=== PATIENT | male | born 1955 | race Caucasian/White ===

== ENCOUNTER → 2020-08-04 10:13 | Outpatient (BNVA) | payer OTHER, SELFPAY | PROVIDERS: Visit Provider Physician Assistant | DX: Z01.818 Encounter for other preprocedural examination (principal) | CPT/HCPCS: 99203 ==

== ENCOUNTER 2020-08-24 07:08 | Outpatient (REF) | payer OTHER, SELFPAY ==
--- NOTE | 2020-08-24 07:14 | CT_ITS ---
EXAMINATION: CT CHEST SCREENING CLINICAL INFORMATION: Nicotine dependence without complications. COMPARISON: None. TECHNIQUE: Multidetector volumetric CT imaging of the chest is performed without contrast using low dose technique. Additional 2D coronal and sagittal reformatted images and axial 3D maximum intensity projection (MIP) images are generated on the CT workstation. This CT examination was performed using dose optimization techniques as appropriate, variously including the following: *Automated exposure control *Adjustment of mA and/or kV according to patient size (this includes techniques or standardized protocols for targeted exams where dose is matched to indication/reason for exam; i.e. extremities or head) *Use of iterative reconstruction technique DLP: 86 mGy-cm. FINDINGS: LUNGS: There is mild centrilobular emphysema. There is a 4 mm pleural-based nodule right upper lobe axial image 136/6, a 4 mm pleural-based nodule right upper lobe posteriorly image 152/6. There are postsurgical changes in the superior segment right upper lobe likely from wedge resection. There are 2 mm nodules right lower lobe better visualized on 8 mm thick axial images image 74/9 and 5 mm thin slices axial image 33/4 and 32/4. There is a small 3 mm nodule right middle lobe axial image 35/4. There are other smaller 1-2 mm nodules which are stable as well. MEDIASTINUM: The thyroid gland is symmetrical and normal. The central trachea and the bronchi are widely patent. Heart size and the great vessels are normal caliber. There are coronary artery calcifications present. No pericardial effusion seen. PLEURA: There is no pleural effusion. No pleural mass or thickening. AXILLA: No lymphadenopathy. UPPER ABDOMEN: Unremarkable. OSSEOUS STRUCTURES: There is no lytic or sclerotic process seen. There is mild ventral spondylosis lower dorsal spine. There are bilateral shoulder prosthesis. CT/CT lung screening IMPRESSION: Stable pulmonary nodules. Postsurgical changes right lower lobe emphysema. ASSESSMENT: Lung-RADS category 2: Benign. RECOMMENDATION: Low-dose annual CT chest follow-up.
== END 2020-08-24 07:09 | disposition home or self-care (01) ==
LOC: HO.CT 07:08
PROVIDERS: PCP Internal Medicine; Visit Provider Surgery
DX: F17.210 Nicotine dependence, cigarettes, uncomplicated (principal)
CPT/HCPCS: 71250

== ENCOUNTER → 2020-09-28 07:54 | Outpatient (BNVA) | payer OTHER, SELFPAY | PROVIDERS: PCP Internal Medicine; Referring Provider Internal Medicine; Visit Provider Physician Assistant | DX: Z01.818 Encounter for other preprocedural examination (principal) | CPT/HCPCS: 99212 ==

== ENCOUNTER → 2020-12-20 09:23 | Outpatient (BNVA) | payer OTHER, SELFPAY | PROVIDERS: PCP Internal Medicine; Visit Provider Internal Medicine | DX: I25.10 Atherosclerotic heart disease of native coronary artery without angina pectoris (principal); I35.8 Other nonrheumatic aortic valve disorders; I65.23 Occlusion and stenosis of bilateral carotid arteries; I10 Essential (primary) hypertension | CPT/HCPCS: 93005; 99212 ==

== ENCOUNTER 2020-12-25 01:15 | Emergency (ER) | payer OTHER, SELFPAY ==
--- NOTE | ~2020-12-25 | XR_ITS ---
EXAMINATION: XR CHEST CLINICAL INFORMATION: Shortness of breath COMPARISON: 08/18/2019 TECHNIQUE: Frontal view of the chest was obtained. FINDINGS: Right shoulder arthroplasty. Cardiac leads overlie the chest. Cervical fusion hardware. The lungs are well expanded. Linear scarring/suture line at the right midlung. There is no focal consolidation, edema, or effusion. No pneumothorax. The cardiomediastinal silhouette is within normal limits. No acute osseous abnormality. XR/XR chest 1V IMPRESSION: No acute pulmonary finding.
[2020-12-25 01:27] VITALS: BP 149/71; PULSE 73; RESP 20; TEMP 36.7; O2SAT 99; BMI 29.6
--- NOTE | 2020-12-25 01:27 | ED_ITS ---
HPI - SOB/Dyspnea General Chief Complaint: Chest Pain Stated Complaint: Diff Breathing Time Seen by Provider: 12/25/20 01:27 Source: patient Mode of arrival: EMS History of Present Illness HPI Narrative: This is a 65-year-old male who was undergone recent loss of his and presents with complaints shortness of breath as well as burning chest pain that he describes as going up his chest and into the back of his throat and has been associated with abdominal discomfort, diarrhea, chills. Patient states he has not been sleeping or eating well and that today he had been drinking alcohol. Related Data Home Medications Medication Instructions Recorded Confirmed aspirin 81 mg tablet,delayed 81 mg PO DAILY 08/04/20 12/20/20 release atorvastatin 80 mg tablet 80 mg PO DAILY 08/04/20 12/20/20 tizanidine 4 mg tablet 4 mg PO BEDTIME 08/04/20 12/20/20 triamcinolone acetonide 0.1 % 1 appl TOPICAL BID 08/04/20 12/20/20 topical ointment Previous Rx's Medication Instructions Recorded gabapentin 300 mg capsule 300 mg PO BEDTIME #90 cap 08/17/20 fenofibrate 54 mg tablet 54 mg PO DAILY #90 tab 09/03/20 amlodipine 5 mg tablet 5 mg PO DAILY #30 tab 11/12/20 hydrocodone 5 mg-acetaminophen 325 1 tab PO Q6H PRN 30 Days #120 tab 12/10/20 mg tablet Allergies Allergy/AdvReac Type Severity Reaction Status Date / Time No Known Allergies Allergy Verified 12/01/20 12:14 [No Known Allergies*] Review of Systems Review of Systems: Pertinent positives and negatives as stated in HPI 10 point review systems is otherwise negative. [facility] Past Medical History Source: nursing notes reviewed Medical History Aortic valve calcification Aortic valve sclerosis ASHD (arteriosclerotic heart disease) Atherosclerotic cardiovascular disease Bilateral carotid artery stenosis CAD (coronary artery disease) Dyslipidemia Essential hypertension History of CVA with residual deficit Hx of lymphoma Hx of multiple pulmonary nodules Insomnia Leukocytosis Smoker Surgical History H/O colonoscopy H/O total shoulder replacement History of thoracic surgery Hx of cardiac catheterization Family History Family History Father Alcohol abuse Mother No problems noted. Daughter No problems noted. Son No problems noted. Sister No problems noted. Social History Social History Household Members: Spouse Housing: Other Alcohol intake: current Alcohol intake frequency: 3 or more drinks per day Alcohol type: beer and hard liquor Smoking Status: Current every day smoker Tobacco Type: Cigarette Packs Per Day: 1 Cigarettes Per Day: 20.0 Years Smoked: 50+ Smoked in Last 30 Days: No Use of substances other than those prescribed or required for medical reasons: No Advance Directives: No Physical Exam Vital Signs: Vital Signs: Last Vital Signs Temp 98.0 F 12/25/20 04:02 Pulse 77 12/25/20 05:51 Resp 18 12/25/20 05:51 BP 168/63 H 12/25/20 05:51 Pulse Ox 98 12/25/20 05:51 Body Mass Index 29.6 VITAL SIGNS: Reviewed. GENERAL: Well developed, well nourished, in no acute distress. HEAD: Normocephalic/atraumatic, EYES: PERRLA, EOMI EARS: Ext canals without abnormality, TMs non-bulging and non-erythematous NOSE: Nares patent bilateral OROPHARYNX: no oral lesions noted, posterior pharynx clear NECK: Supple, no adenopathy LUNGS: Normal breath sounds. No adventitious sounds or accessory muscle use. SpO2<99> CARDIOVASCULAR: Regular rate and rhythm without noted murmurs, no JVD or lower extremity edema. ABDOMEN: Soft, non-tender, non-distended with bowel sounds. SKIN: Inspection of the skin reveals no rashes NEUROLOGIC: Alert and oriented x 4. Strength and sensation to light touch were grossly intact x 4. PSYCH: Depressed affect Course Course Course Narrative: This is a 65-year-old male with history and clinical presentation suggestive of possible cardiopulmonary etiology, however suspect that this may be all secondary to depression and grieving for his recent loss. Will evaluate for acute cardiopulmonary etiologies and would have pursued crisis if workup was negative, but patient is declining crisis evaluation. Review of all investigations is negative for any acute findings and lab results are chronically stable in comparison. Transaminemia is consistent with patient's provided history of alcohol consumption earlier in the day. Serial troponins are negative and there are no acute changes on EKG as well as BNP being within normal limits and clinically no evidence heart failure. All results and findings were discussed with the patient bedside and he was discharged home in stable condition with instructions to continue with Mylanta and Cepacol for symptom relief after his vomiting episode. MDM - SOB/Dyspnea Lab Data Result diagrams: 12/25/20 02:07 12/25/20 02:07 Labs: Lab Results 12/25/20 12/25/20 12/25/20 Range/Units 02:06 02:06 02:06 WBC (4.8-10.8) X10*3/uL RBC (4.60-5.80) X10*6/uL Hgb (14.0-18.0) g/dl Hct (42-52) % MCV (80-98) fL MCH (27.0-33.0) pg MCHC (31.0-36.0) g/dl RDW (11.0-16.0) % Plt Count (160-400) X10*3/uL MPV (9.4-12.4) fL Immature Gran % (Auto) (0.0-0.4) % Neut % (Auto) (45-73) % Lymph % (Auto) (20-40) % [place] % (Auto) (2-11) % Eos % (Auto) (0-4) % Baso % (Auto) (0-2) % Lymph # (Auto) (1.2-4.9) X10*3/uL [place] # (Auto) (0.1-1.2) X10*3/uL Eos # (Auto) (0.0-0.4) X10*3/uL Baso # (Auto) (0.0-0.2) X10*3/uL Abs Immat Gran (auto) (0.00-0.03) X10*3/uL Absolute Neuts (auto) (2.0-8.3) X10*3/uL Absolute Nucleated RBC (0.0-0.012) X10*3/uL Nucleated RBC % (auto) (0.0-0.2) /100WBC Smear Tech's Comments Sodium (135-145) mmol/L Potassium (3.3-5.1) mmol/L Chloride (96-108) mmol/L Carbon Dioxide (22-29) mmol/L Anion Gap (12-20) BUN (9-16) mg/dL Creatinine (0.5-1.4) mg/dL Estim Creat Clear Calc Estimated GFR Random Glucose (60-115) mg/dL Calcium (8.4-10.2) mg/dL Total Bilirubin (0.0-1.0) mg/dL AST (5-37) U/L ALT (0-40) U/L Alkaline Phosphatase (39-117) U/L Troponin I High Sens < 3.5 (<3.5-35.0) ng/L B-Natriuretic Peptide 26 (<100) pg/mL Total Protein (6.5-8.0) g/dL Albumin (3.5-5.0) g/dL Ethyl Alcohol < 10 mg/dL Coronavirus (PCR) (Negative) Influenza Type A (PCR) (Negative) Influenza Type B (PCR) (Negative) RSV RNA Qual (PCR) (Negative) 12/25/20 12/25/20 12/25/20 Range/Units 02:07 02:07 02:07 WBC 14.0 H (4.8-10.8) X10*3/uL RBC 3.93 L (4.60-5.80) X10*6/uL Hgb 13.9 L (14.0-18.0) g/dl Hct 38.7 L (42-52) % MCV 98.5 H (80-98) fL MCH 35.4 H (27.0-33.0) pg MCHC 35.9 (31.0-36.0) g/dl RDW 11.9 (11.0-16.0) % Plt Count 184 (160-400) X10*3/uL MPV 8.9 L (9.4-12.4) fL Immature Gran % (Auto) 0.2 (0.0-0.4) % Neut % (Auto) 23.2 L (45-73) % Lymph % (Auto) 71.0 H (20-40) % [place] % (Auto) 4.2 (2-11) % Eos % (Auto) 1.0 (0-4) % Baso % (Auto) 0.4 (0-2) % Lymph # (Auto) 9.9 H (1.2-4.9) X10*3/uL [place] # (Auto) 0.6 (0.1-1.2) X10*3/uL Eos # (Auto) 0.1 (0.0-0.4) X10*3/uL Baso # (Auto) 0.1 (0.0-0.2) X10*3/uL Abs Immat Gran (auto) 0.03 (0.00-0.03) X10*3/uL Absolute Neuts (auto) 3.2 (2.0-8.3) X10*3/uL Absolute Nucleated RBC 0.000 (0.0-0.012) X10*3/uL Nucleated RBC % (auto) 0.0 (0.0-0.2) /100WBC Smear Tech's Comments VERIFIED Sodium 140 (135-145) mmol/L Potassium 3.8 (3.3-5.1) mmol/L Chloride 109 H (96-108) mmol/L Carbon Dioxide 20 L (22-29) mmol/L Anion Gap 15 (12-20) BUN 7 L (9-16) mg/dL Creatinine 0.72 (0.5-1.4) mg/dL Estim Creat Clear Calc 112.0 Estimated GFR > 60 Random Glucose 95 (60-115) mg/dL Calcium 8.6 (8.4-10.2) mg/dL Total Bilirubin 0.5 (0.0-1.0) mg/dL AST 113 H (5-37) U/L ALT 54 H (0-40) U/L Alkaline Phosphatase 66 (39-117) U/L Troponin I High Sens (<3.5-35.0) ng/L B-Natriuretic Peptide (<100) pg/mL Total Protein 6.7 (6.5-8.0) g/dL Albumin 4.0 (3.5-5.0) g/dL Ethyl Alcohol mg/dL Coronavirus (PCR) NEGATIVE (Negative) Influenza Type A (PCR) NEGATIVE (Negative) Influenza Type B (PCR) NEGATIVE (Negative) RSV RNA Qual (PCR) NEGATIVE (Negative) 12/25/20 Range/Units 05:14 WBC (4.8-10.8) X10*3/uL RBC (4.60-5.80) X10*6/uL Hgb (14.0-18.0) g/dl Hct (42-52) % MCV (80-98) fL MCH (27.0-33.0) pg MCHC (31.0-36.0) g/dl RDW (11.0-16.0) % Plt Count (160-400) X10*3/uL MPV (9.4-12.4) fL Immature Gran % (Auto) (0.0-0.4) % Neut % (Auto) (45-73) % Lymph % (Auto) (20-40) % [place] % (Auto) (2-11) % Eos % (Auto) (0-4) % Baso % (Auto) (0-2) % Lymph # (Auto) (1.2-4.9) X10*3/uL [place] # (Auto) (0.1-1.2) X10*3/uL Eos # (Auto) (0.0-0.4) X10*3/uL Baso # (Auto) (0.0-0.2) X10*3/uL Abs Immat Gran (auto) (0.00-0.03) X10*3/uL Absolute Neuts (auto) (2.0-8.3) X10*3/uL Absolute Nucleated RBC (0.0-0.012) X10*3/uL Nucleated RBC % (auto) (0.0-0.2) /100WBC Smear Tech's Comments Sodium (135-145) mmol/L Potassium (3.3-5.1) mmol/L Chloride (96-108) mmol/L Carbon Dioxide (22-29) mmol/L Anion Gap (12-20) BUN (9-16) mg/dL Creatinine (0.5-1.4) mg/dL Estim Creat Clear Calc Estimated GFR Random Glucose (60-115) mg/dL Calcium (8.4-10.2) mg/dL Total Bilirubin (0.0-1.0) mg/dL AST (5-37) U/L ALT (0-40) U/L Alkaline Phosphatase (39-117) U/L Troponin I High Sens < 3.5 (<3.5-35.0) ng/L B-Natriuretic Peptide (<100) pg/mL Total Protein (6.5-8.0) g/dL Albumin (3.5-5.0) g/dL Ethyl Alcohol mg/dL Coronavirus (PCR) (Negative) Influenza Type A (PCR) (Negative) Influenza Type B (PCR) (Negative) RSV RNA Qual (PCR) (Negative) ECG Data Attestation: I personally reviewed and interpreted this ECG as follows: Prior ECG tracings: available for review (12/20/2020 whole no acute changes on comparison.) Interpretation: Normal sinus rhythm, HR-78, no evidence of acute ischemia, NC/QRS/QTC consistent with RBBB Discharge Plan Discharge Clinical Impression: Atypical chest pain Gastritis Qualifiers: Gastritis type: alcoholic Chronicity: acute Gastritis bleeding: without bleeding Qualified Code(s): K29.20 - Alcoholic gastritis without bleeding Patient Disposition: Home, Self-Care Instructions: Gastritis (ED), Chest Pain (ED) Additional Instructions: 1. Please resume all home medications as prescribed. 2. Recommend using a combination of [id number] Cepacol and Mylanta/Maalox as directed on the outside packaging for continued symptom relief. 3. Follow-up with your primary care provider in the next 2-3 days for re- evaluation. You were COVID-19 tested negative today 12/25. Do not hesitate to return the emergency department for any acute worsening of your symptoms. Prescriptions: No Action gabapentin 300 mg capsule 300 mg PO BEDTIME Qty: 90 RF: 3 fenofibrate 54 mg tablet 54 mg PO DAILY Qty: 90 RF: 1 amlodipine 5 mg tablet 5 mg PO DAILY Qty: 30 RF: 11 hydrocodone-acetaminophen 5-325 mg tablet 1 tab PO Q6H PRN (Reason: pain) 30 Days Qty: 120 RF: 0 atorvastatin 80 mg tablet 80 mg PO DAILY RF: 0 tizanidine 4 mg tablet 4 mg PO BEDTIME RF: 0 aspirin 81 mg tablet,delayed release (DR/EC) 81 mg PO DAILY RF: 0 triamcinolone acetonide 0.1 % ointment 1 appl topical BID RF: 0 Referrals: Mayda Traylor MD [Primary Care Provider] - 2 days (Re-evaluation after seen in the emergency department for atypical chest pain with nausea vomiting.)
--- NOTE | 2020-12-25 01:28 | ECG_ITS ---
Test Reason : EPIGASTRIC PAIN Blood Pressure : / mmHG Vent. Rate : 078 BPM Atrial Rate : 078 BPM P-R Int : 126 ms QRS Dur : 122 ms QT Int : 426 ms P-R-T Axes : 080 079 004 degrees QTc Int : 485 ms Normal sinus rhythm Right bundle branch block Abnormal ECG When compared with ECG of 30-JUN-2016 15:28, Right bundle branch block is now Present Referred By: Destini Hough Electronically Signed By:MANOHAR CHEEK MD
[2020-12-25 02:21] LABS: Basophils Absolute Auto 0.1 X10*3/uL (0.0-0.2); Basophils Percent Auto 0.4 % (0-2); Eosinophils Absolute Auto 0.1 X10*3/uL (0.0-0.4); Hematocrit 38.7 % (42-52); Hemoglobin 13.9 g/dl (14.0-18.0); Imm Gran Abs Auto 0.03 X10*3/uL (0.00-0.03); Imm Gran Pct Auto 0.2 % (0.0-0.4); MANUAL DIFF FLAG SCAN; Mean Corpuscular HGB Conc 35.9 g/dl (31.0-36.0); Mean Corpuscular Hemoglobin 35.4 pg (27.0-33.0); Mean Corpuscular Volume 98.5 fL (80-98); Mean Platelet Volume 8.9 fL (9.4-12.4); Monocytes Absolute Auto 0.6 X10*3/uL (0.1-1.2); Monocytes Percent Auto 4.2 % (2-11); Neutrophils Absolute Auto 3.2 X10*3/uL (2.0-8.3); Neutrophils Percent Auto 23.2 % (45-73); Platelet Count 184 X10*3/uL (160-400); Red Blood Count 3.93 X10*6/uL (4.60-5.80); Red Cell Distribution Width 11.9 % (11.0-16.0); SCAN SMEAR FLAG 1
[2020-12-25 02:24] LABS: Lymphocytes Absolute Auto 9.9 X10*3/uL (1.2-4.9)
[2020-12-25 02:48] LABS: Ethanol < 10 mg/dL
[2020-12-25] MEDS: Lidocaine HCl Viscous 2 % 15 ML SOLUTION 10 ML MUCOUS MEM (02:52)
[2020-12-25 02:53] LABS: Alanine Aminotransferase 54 U/L (0-40); Alkaline Phosphatase 66 U/L (39-117); Anion Gap 15 (12-20); Aspartate Amino Transferase 113 U/L (5-37); Bilirubin Total 0.5 mg/dL (0.0-1.0); Blood Urea Nitrogen 7 mg/dL (9-16); Calcium 8.6 mg/dL (8.4-10.2); Carbon Dioxide 20 mmol/L (22-29); Chloride 109 mmol/L (96-108); Estimated Glomerular Filt Rate > 60; Glucose Random 95 mg/dL (60-115); Potassium 3.8 mmol/L (3.3-5.1); Sodium 140 mmol/L (135-145); Total Protein 6.7 g/dL (6.5-8.0)
[2020-12-25] MEDS: Magnesium Hydrox/Alum Hydrox 30 ML ORAL.SUSP PO (02:53)
[2020-12-25 02:56] LABS: B Type Natriuretic Peptide 26 pg/mL (<100); Troponin-I High Sensitivity < 3.5 ng/L (<3.5-35.0)
[2020-12-25 02:58] LABS: Influenza A PCR NEGATIVE (Negative); Influenza B PCR NEGATIVE (Negative); Resp Syncy Virus RNA Qual PCR NEGATIVE (Negative); SARS COV2 PCR INHOUSE NEGATIVE (Negative)
[2020-12-25 03:16] LABS: SLIDE REVIEW VERIFIED
[2020-12-25 04:02] VITALS: BP 157/67; PULSE 79; RESP 18; TEMP 36.7; O2SAT 98
[2020-12-25] MEDS: Throat Lozenge, Medicated LOZENGE 1 LOZENGE MUCOUS MEM (05:46)
[2020-12-25 05:51] VITALS: BP 168/63; PULSE 77; RESP 18; O2SAT 98
[2020-12-25 06:21] LABS: Troponin-I High Sensitivity < 3.5 ng/L (<3.5-35.0)
== END 2020-12-25 07:08 | disposition home or self-care (01) ==
PROVIDERS: Emergency Provider Student in an Organized Health Care Education/Training Program; PCP Internal Medicine
DX: R07.89 Other chest pain (principal); K29.20 Alcoholic gastritis without bleeding; Z20.822 Contact with and (suspected) exposure to COVID-19; F43.21 Adjustment disorder with depressed mood; Z72.89 Other problems related to lifestyle; Z63.4 Disappearance and death of family member; F17.210 Nicotine dependence, cigarettes, uncomplicated; I10 Essential (primary) hypertension; Z86.73 Personal history of transient ischemic attack (TIA), and cerebral infarction without residual deficits; Z79.82 Long term (current) use of aspirin; Z79.02 Long term (current) use of antithrombotics/antiplatelets
CPT/HCPCS: 0241U; 36415; 71045; 80053; 80320; 83880; 84484; 85025; 93005; 99283; 99285

== ENCOUNTER 2021-01-03 09:35 | Outpatient (REF) | payer OTHER, SELFPAY ==
--- NOTE | ~2021-01-03 | US_ITS ---
EXAMINATION: US EXTRACRANIAL CAROTID DUPLEX, BILATERAL CLINICAL INFORMATION: 65-year-old male with a history of tobacco use and previously documented internal carotid artery stenoses. Surveillance study. COMPARISON: Carotid ultrasound of 06/17/2020. TECHNIQUE: Real-time ultrasound and Doppler techniques (integrating B-mode 2-D vascular images, Doppler spectral analysis and color-flow Doppler imaging) were utilized to interrogate the extracranial carotid arteries, the vertebral arteries and proximal subclavian arteries bilaterally. The degree of stenosis is determined by criteria similar to NASCET. FINDINGS: Right Side: 1. There is mild to moderate atherosclerotic plaque seen in the bifurcation/proximal ICA region. 2. The common carotid artery PSV proximally is 111 cm/s and distally 99 cm/s. 3. The proximal internal carotid artery velocities are 69 cm/s systolic and 19 cm/s diastolic. 4. The proximal external carotid artery PSV is 208 cm/s. 5. The vertebral artery shows normal antegrade flow. 6. The subclavian artery waveforms are normal. Left Side: 1. There is moderate atherosclerotic plaque seen in the bifurcation/proximal ICA region. 2. The common carotid artery PSV proximally is 116 cm/s and distally 112 cm/s. 3. The proximal internal carotid artery velocities are 305 cm/s systolic and 45 cm/s diastolic. 4. The proximal external carotid artery PSV is 307 cm/s. 5. 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 6. The subclavian artery has a peak systolic velocity of 203 cm/s consistent with a hemodynamically significant stenosis.. US/US carotid duplex BI IMPRESSION: 1. RIGHT: 0-49% stenosis of the proximal right internal carotid artery. Hemodynamically significant stenosis of the right external carotid artery. 2. LEFT: 50-79% stenosis of the left internal carotid artery. Hemodynamically significant stenoses of the left external carotid and left subclavian arteries. Occluded left vertebral artery (unchanged). 3. There is no change in the category severity of disease when compared to the previous study dated 06/17/2020.
== END 2021-01-03 09:36 | disposition home or self-care (01) ==
LOC: HO.US 09:35
PROVIDERS: PCP Internal Medicine; Visit Provider Internal Medicine
DX: I65.23 Occlusion and stenosis of bilateral carotid arteries (principal)
CPT/HCPCS: 93880

== ENCOUNTER → 2021-01-26 09:02 | Outpatient (REF) | payer OTHER, SELFPAY ==
--- NOTE | 2021-01-26 09:06 | CA_ITS ---
Transthoracic Echocardiogram Patient (Last, First, Middle): Navneet Cantu W Gender: Male Date of : 1955 Age: 65 Procedure Date: 01/26/2021 Procedure Type: Transthoracic Echocardiogram Location: OP Height: 172.72 cm Weight: 90.72 kg BSA: 2.04 m2 Heart Rate: bpm BP: 160 / 80 mmHg Quality Assurance: ALINA Del Valle MD: Bobby Adam MD Cork Insulation Setter: Bryn Mei MD Symptoms: I35.8 - Other nonrheumatic aortic valve disorders Study Quality: Technically Difficult/contrast ECG Rhythm: Sinus Conclusions: - 1. Technically limited study despite use of definity due to body habitus 2. Normal LV systolic function with grade 1 diastolic dysfunction 3. Aortic valve not well visualized with increased gradient which which may suggest mild aortic stenosis 4. Normal calculated RV systolic pressure 5. No gross pericardial effusion Findings Procedure Information Contrast agent, definity, is being given per protocol without apparent complications. Left Ventricle Normal left ventricular size, thickness, and systolic function. The visually estimated ejection fraction is between 60-65%. Spectral Doppler is indicative of an impaired relaxation filling pattern. E/E prime ratio is <8, consistent with normal filling pressures. Right Ventricle The right ventricle was not well visualized. Atria The left atrium is normal in size. Interatrial shunt cannot be excluded. The right atrium was not well visualized. Aortic Valve The aortic valve was not well visualized. There is trace (trivial) aortic valve regurgitation. There is increased gradient across the aortic valve which may suggest early aortic stenosis. Mitral Valve The mitral valve was not well visualized. There is no mitral valve regurgitation. There is no mitral valve stenosis. Pulmonic Valve The pulmonic valve was not well visualized. Tricuspid Valve The tricuspid valve was not well visualized. There is trace tricuspid valve regurgitation. The right ventricular systolic pressure is normal. There is no evidence of pulmonary hypertension. Great Vessels The aorta was not well visualized. The pulmonary artery was not well visualized. Venous The inferior vena cava is normal in size and collapses greater than 50% with inspiration. Pericardium/Pleural The pericardium was not well visualized. Prior Study Comparison No significant change compared to prior study. Measurements 2D Linear Measurements IVSd: 1.02 0.6-0.9/0.6-1.0 cm LVIDd: 4.43 3.9-5.3/4.2-5.9 cm LVIDs: 2.83 2.0-3.6 cm LVPWd: 0.99 0.7-1.1 cm LV Mass: 186.91 67-162/88-224 g LVOT Diam: 2.75 3.0+(-)1.3 cm Mitral Valve MV Pk E: 0.55 MV PK A: 0.95 MV Decel Time: 236.56 E/A: 0.57 E'Lateral: 0.08 E'Medial: 0.08 Decel Berks: 2.31 Aortic Valve AoV Pk Bret: 2.23 AoV Mn Bret: 1.44 AoV VTI: 0.37 AoV Pk Grad: 19.97 Aov Mn Grad: 9.51 LVOT LVOT Pk Bret: 1.34 LVOT Mn Bret: 0.80 LVOT VTI: 0.25 LVOT Pk Grad: 7.21 LVOT Mn Grad: 3.15 LVOT Diam: 2.75 LVOT Area: 5.95 Diastolic Function MV Pk E: 0.55 MV Pk A: 0.95 E/A: 0.57 E'Medial: 0.08 E' Laterial: 0.08 Tricuspid Valve TR Pk Bret: 2.12 TR Pk Grad: 17.96 RA Press: 3.00 RVSP: 21.00 Great Vessels Aorta Ao Arch: 2.83 Updated in Other Vendor System with Status of Final Bryn Mei MD electronically signed on 01/26/2021 5:32:26 PM with status of Final
== END ==
LOC: HO.CARD 09:02
PROVIDERS: PCP Internal Medicine; Visit Provider Internal Medicine
DX: I35.8 Other nonrheumatic aortic valve disorders (principal)
CPT/HCPCS: 93306; Q9957

== ENCOUNTER 2021-06-14 09:40 | Outpatient (REF) | payer OTHER, SELFPAY ==
[2021-06-14 10:20] LABS: Basophils Absolute Auto 0.1 X10*3/uL (0.0-0.2); Basophils Percent Auto 0.3 % (0-2); Eosinophils Absolute Auto 0.2 X10*3/uL (0.0-0.4); Eosinophils Percent Auto 1.2 % (0-4); Hematocrit 39.2 % (42-52); Hemoglobin 14.1 g/dl (14.0-18.0); Imm Gran Abs Auto 0.07 X10*3/uL (0.00-0.03); Imm Gran Pct Auto 0.4 % (0.0-0.4); Lymphocytes Percent Auto 54.7 % (20-40); MANUAL DIFF FLAG SCAN; Mean Corpuscular Hemoglobin 35.3 pg (27.0-33.0); Mean Corpuscular Volume 98.2 fL (80-98); Mean Platelet Volume 9.1 fL (9.4-12.4); Monocytes Absolute Auto 0.8 X10*3/uL (0.1-1.2); Monocytes Percent Auto 4.6 % (2-11); Neutrophils Absolute Auto 6.8 X10*3/uL (2.0-8.3); Neutrophils Percent Auto 38.8 % (45-73); Platelet Count 192 X10*3/uL (160-400); Red Blood Count 3.99 X10*6/uL (4.60-5.80); Red Cell Distribution Width 11.9 % (11.0-16.0); SCAN SMEAR FLAG 1; White Blood Count 17.7 X10*3/uL (4.8-10.8)
[2021-06-14 10:32] LABS: Lymphocytes Absolute Auto 9.7 X10*3/uL (1.2-4.9)
[2021-06-14 10:56] LABS: Alanine Aminotransferase 47 U/L (0-40); Albumin Level 4.3 g/dL (3.5-5.0); Alkaline Phosphatase 65 U/L (39-117); Anion Gap 14 (12-20); Aspartate Amino Transferase 64 U/L (5-37); Blood Urea Nitrogen 6 mg/dL (9-16); Calcium 9.6 mg/dL (8.4-10.2); Carbon Dioxide 21 mmol/L (22-29); Chloride 106 mmol/L (96-108); Cholesterol 161 mg/dL; Estimated Glomerular Filt Rate > 60; Glucose Fasting 99 mg/dL (60-99); HDL Cholesterol 43 mg/dL; LDL Cholesterol Calculated 79 mg/dl; Potassium 3.6 mmol/L (3.3-5.1); Sodium 137 mmol/L (135-145); Total Protein 7.1 g/dL (6.5-8.0); Triglycerides 197 mg/dL
[2021-06-14 11:16] LABS: SLIDE REVIEW VERIFIED
[2021-06-14 13:02] LABS: Folate 9.6 ng/mL (> or = 4.0); Vitamin B12 303 pg/mL (200-900)
[2021-06-18 13:51] LABS: Vitamin D 25-OH, D2 <4 ng/mL; Vitamin D 25-OH, D3 10 ng/mL; Vitamin D 25-OH, Total 10 ng/mL (30-100)
== END 2021-06-14 09:41 | disposition home or self-care (01) ==
LOC: HO.LAB 09:40
PROVIDERS: PCP Internal Medicine; Visit Provider Internal Medicine
DX: I10 Essential (primary) hypertension (principal); E78.5 Hyperlipidemia, unspecified; D72.829 Elevated white blood cell count, unspecified; E55.9 Vitamin D deficiency, unspecified
CPT/HCPCS: 36415; 80053; 80061; 82306; 82607; 82746; 85025

== ENCOUNTER → 2021-06-20 08:16 | Outpatient (BNVA) | payer OTHER, SELFPAY | PROVIDERS: PCP Internal Medicine; Visit Provider Internal Medicine | DX: I25.10 Atherosclerotic heart disease of native coronary artery without angina pectoris (principal); I35.8 Other nonrheumatic aortic valve disorders; I65.23 Occlusion and stenosis of bilateral carotid arteries; I10 Essential (primary) hypertension; Z79.82 Long term (current) use of aspirin; Z79.899 Other long term (current) drug therapy; F17.200 Nicotine dependence, unspecified, uncomplicated | CPT/HCPCS: 99212 ==

== ENCOUNTER 2021-10-12 09:54 | Outpatient (REF) | payer MEDICARE, SELFPAY ==
[2021-10-12 10:22] LABS: Basophils Percent Auto 0.2 % (0-2); Eosinophils Absolute Auto 0.1 X10*3/uL (0.0-0.4); Eosinophils Percent Auto 0.8 % (0-4); Hematocrit 39.7 % (42.0-52.0); Hemoglobin 14.1 g/dl (14.0-18.0); Imm Gran Abs Auto 0.05 X10*3/uL (0.00-0.03); Imm Gran Pct Auto 0.3 % (0.0-0.4); Lymphocytes Percent Auto 47.3 % (20-40); MANUAL DIFF FLAG SCAN; Mean Corpuscular HGB Conc 35.5 g/dl (31.0-36.0); Mean Corpuscular Hemoglobin 35.3 pg (27.0-33.0); Mean Corpuscular Volume 99.5 fL (80.0-98.0); Mean Platelet Volume 8.7 fL (9.4-12.4); Monocytes Absolute Auto 0.9 X10*3/uL (0.1-1.2); Monocytes Percent Auto 5.1 % (2-11); Neutrophils Absolute Auto 7.9 x10*3/uL (2.0-8.3); Neutrophils Percent Auto 46.3 % (45-73); Platelet Count 196 X10*3/uL (160-400); Red Blood Count 3.99 X10*6/uL (4.60-5.80); SCAN SMEAR FLAG 1; White Blood Count 17.1 X10*3/uL (4.8-10.8)
[2021-10-12 10:25] LABS: Lymphocytes Absolute Auto 8.1 X10*3/uL (1.2-4.9)
[2021-10-12 10:54] LABS: Alanine Aminotransferase 32 U/L (0-40); Albumin Level 4.2 g/dL (3.5-5.0); Alkaline Phosphatase 60 U/L (39-117); Anion Gap 15 (12-20); Aspartate Amino Transferase 39 U/L (5-37); Bilirubin Total 0.6 mg/dL (0.0-1.0); Blood Urea Nitrogen 8 mg/dL (9-16); Carbon Dioxide 23 mmol/L (22-29); Chloride 104 mmol/L (96-108); Cholesterol 151 mg/dL; Estimated Glomerular Filt Rate > 60; Glucose Fasting 107 mg/dL (60-99); HDL Cholesterol 37 mg/dL; LDL Cholesterol Calculated 81 mg/dl; Potassium 3.8 mmol/L (3.3-5.1); Sodium 138 mmol/L (135-145); Total Protein 7.3 g/dL (6.5-8.0); Triglycerides 167 mg/dL
[2021-10-12 10:55] LABS: SLIDE REVIEW VERIFIED
[2021-10-19 18:26] LABS: Vitamin D 25-OH, D2 49 ng/mL; Vitamin D 25-OH, D3 <4 ng/mL; Vitamin D 25-OH, Total 49 ng/mL (30-100)
== END 2021-10-12 09:55 | disposition home or self-care (01) ==
LOC: HO.LAB 09:54
PROVIDERS: Visit Provider Internal Medicine
DX: D64.9 Anemia, unspecified (principal); E55.9 Vitamin D deficiency, unspecified; E78.5 Hyperlipidemia, unspecified; I10 Essential (primary) hypertension
CPT/HCPCS: 36415; 80053; 80061; 82306; 85025

== ENCOUNTER 2022-04-09 20:51 | Emergency (ER) | payer MEDICARE, MEDICAID, SELFPAY ==
--- NOTE | ~2022-04-09 | CT_ITS ---
EXAMINATION: CT ABDOMEN AND PELVIS WITHOUT CONTRAST CLINICAL INFORMATION: Left flank pain COMPARISON: PET/CT dated 06/23/2016 TECHNIQUE: Multidetector volumetric imaging was performed from the superior aspect of the liver through the pubic symphysis. Sagittal and coronal reformatted images were obtained on the technologist's workstation. This CT examination was performed using dose optimization techniques as appropriate, variously including the following: *Automated exposure control *Adjustment of mA and/or kV according to patient size (this includes techniques or standardized protocols for targeted exams where dose is matched to indication/reason for exam; i.e. extremities or head) *Use of iterative reconstruction technique DLP: 939 mGy-cm FINDINGS: LUNG BASES: The visualized lung bases are unremarkable. Coronary calcifications. LIVER, GALLBLADDER, AND BILIARY TREE: The liver is normal in size, shape, and attenuation. No focal hepatic lesion or biliary ductal dilatation is present. Gallbladder unremarkable. PANCREAS: Unremarkable. SPLEEN: Unremarkable. ADRENAL GLANDS: Unremarkable. KIDNEYS AND URETERS: The kidneys are normal in size, shape, and attenuation. No hydronephrosis, hydroureter, or calculi seen. No perinephric stranding. BLADDER: Unremarkable. GASTROINTESTINAL TRACT: Stomach is nondistended. Intraluminal lipoma redemonstrated within the second portion of the duodenum. The small and large bowel are unremarkable. The appendix is unremarkable. ABDOMINAL WALL: No significant hernia is appreciated. LYMPH NODES: Normal. VASCULAR: Aorta is atherosclerotic. There are bilateral renal vascular calcifications. PELVIC VISCERA: Prostatomegaly. Seminal vesicles unremarkable. OSSEOUS STRUCTURES: Unremarkable. CT/CT abdomen pelvis wo con IMPRESSION: No urinary calculi or hydronephrosis. No etiology for the patient's left flank pain. Fleischner guidelines were followed.
[2022-04-09 20:56] VITALS: BP 128/65; PULSE 102; O2SAT 97; BMI 31.1
[2022-04-09 21:00] VITALS: BP 151/73; PULSE 91; RESP 16; TEMP 37.1; O2SAT 97
--- NOTE | 2022-04-09 21:37 | ED_ITS ---
HPI - Back Pain/Injury General Chief Complaint: Back Pain/Injury Stated Complaint: lower lt back pain Time Seen by Provider: 04/09/22 21:37 Source: patient Mode of arrival: ambulatory Limitations: no limitations History of Present Illness HPI Narrative: Patient with history of back pain status post lumbar surgery currently doing well not take any pain medication noticed sudden onset of left flank pain radiating to left lower abdomen for 3 days ago pain is sharp stabbing in nature off and on getting worse today patient had severe pain no hematuria no nausea no vomiting no history of kidney stone Related Data Previous Rx's Medication Instructions Recorded triamcinolone acetonide 0.1 % 1 appl topical BID 30 days #30 03/01/21 topical ointment grams amlodipine 10 mg tablet 10 mg PO DAILY 90 days #90 tabs 07/06/21 atorvastatin 80 mg tablet 80 mg PO DAILY #30 tabs 08/08/21 aspirin 81 mg tablet,delayed 81 mg PO DAILY 90 days #90 tabs 10/12/21 release gabapentin 300 mg capsule 300 mg PO BEDTIME 90 days #90 caps 02/02/22 isosorbide mononitrate 30 mg 30 mg PO DAILY 90 days #90 tabs 02/02/22 tablet,extended release 24 hr fenofibrate 54 mg tablet 54 mg PO DAILY #90 tabs 03/06/22 calcitriol 0.25 mcg capsule 0.25 mcg PO DAILY 90 days #90 caps 03/08/22 nicotine 21 mg/24 hr daily 1 patch transdermal DAILY 28 days 03/08/22 transdermal patch #28 ea sertraline 25 mg tablet 25 mg PO DAILY 90 days #90 tabs 03/08/22 hydrocodone 5 mg-acetaminophen 325 1 tab PO Q6H PRN pain 30 days #120 03/31/22 mg tablet tabs cyclobenzaprine 10 mg tablet 10 mg PO Q8H #20 tabs 04/10/22 Allergies Allergy/AdvReac Type Severity Reaction Status Date / Time mirtazapine AdvReac Intermediate Dizziness Verified 03/08/22 08:02 Review of Systems Review of Systems: Yes all other systems are reviewed and are negative [facility] Past Medical History Medical History Alcohol abuse Alcoholism Aortic valve calcification Aortic valve sclerosis ASHD (arteriosclerotic heart disease) Atherosclerotic cardiovascular disease Bilateral carotid artery stenosis CAD (coronary artery disease) Depression Dyslipidemia Essential hypertension History of CVA with residual deficit Hx of lymphoma Hx of multiple pulmonary nodules Hypovitaminosis D Insomnia Leukocytosis Mild recurrent major depression Smoker Tiredness Surgical History Cataracts, bilateral H/O colonoscopy H/O total shoulder replacement History of thoracic surgery Hx of cardiac catheterization Family History Family History Father Alcohol abuse Mother No problems noted. Daughter No problems noted. Son No problems noted. Sister No problems noted. Social History Social History Household Members: Spouse Household Members Other:: on dialysis Housing: House Housing Other:: Mobile Home Are you a primary complex care nurse practitioner to a significant other at home: No Do you presently have visiting nurse or other home services: No Alcohol intake: current Alcohol intake frequency: 3 or more drinks per day Alc ohol type: beer and hard liquor Patient Tobacco Use Status: Current everyday Tobacco user Cigarette Packs Per Day: 1.5 Years Smoked: 50+ e-Cigarette/Vaping Use: Never Used Second Hand Smoke Exposure: No Advance Directives: No Advance Directives Information Provided: No service: No Current occupational status: disabled Cognitive needs: No Hearing needs: No Vision needs: Yes Physical Exam Vital Signs: Vital Signs: Last Vital Signs Temp 98.8 F 04/09/22 21:00 Pulse 83 04/10/22 00:00 Resp 18 04/10/22 00:00 BP 140/70 H 04/10/22 00:00 Pulse Ox 95 04/10/22 00:00 O2 Del Method 04/10/22 00:00 BMI result Body Mass Index 31.1 Appearance: Alert. Oriented X3. No acute distress. Eyes: No pallor or icterus ENT: Pharynx normal. Oral Mucosa moist Neck: Normal inspection. Neck supple. CVS: Normal heart rate and rhythm. Pulses normal. Respiratory: No respiratory distress. Equal air entry bilateral, no wheezing/rales/rhonchi Abdomen: Soft and nontender. Bowel sounds are present, no mass palpable, left CVA tenderness Skin: Skin warm and dry. Normal skin color. Normal skin turgor. Extremities: No lower extremity edema. No calf tenderness Neuro: Oriented X 3. No motor deficit. No sensory deficit. MDM - Back Pain/Injury MDM Narrative Medical decision making narrative: Patient with chronic low back pain came with worsening of the pain CT scan negative for any acute pathology of workup is negative discharge patient on pain medication for chronic back pain Lab Data Attestation: I reviewed the patient's lab results. Result diagrams: 04/09/22 22:39 04/09/22 22:39 Labs: Lab Results 04/09/22 04/09/22 04/09/22 Range/Units 22:39 22:39 23:54 WBC 13.6 H (4.8-10.8) X10*3/uL RBC 3.95 L (4.60-5.80) X10*6/uL Hgb 14.1 (14.0-18.0) g/dl Hct 38.8 L (42.0-52.0) % MCV 98.2 H (80.0-98.0) fL MCH 35.7 H (27.0-33.0) pg MCHC 36.3 H (31.0-36.0) g/dl RDW 11.8 (11.0-16.0) % Plt Count 223 (160-400) X10*3/uL MPV 8.7 L (9.4-12.4) fL Immature Gran % (Auto) 0.4 (0.0-0.4) % Neut % (Auto) 37.7 L (45-73) % Lymph % (Auto) 55.4 H (20-40) % [place] % (Auto) 4.6 (2-11) % Eos % (Auto) 1.5 (0-4) % Baso % (Auto) 0.4 (0-2) % Lymph # (Auto) 7.5 H (1.2-4.9) X10*3/uL [place] # (Auto) 0.6 (0.1-1.2) X10*3/uL Eos # (Auto) 0.2 (0.0-0.4) X10*3/uL Baso # (Auto) 0.1 (0.0-0.2) X10*3/uL Abs Immat Gran (auto) 0.06 H (0.00-0.03) X10*3/uL Absolute Neuts (auto) 5.1 (2.0-8.3) x10*3/uL Absolute Nucleated RBC 0.000 (0.0-0.012) X10*3/uL Nucleated RBC % (auto) 0.0 (0.0-0.2) /100WBC Smear Tech's Comments VERIFIED Sodium 137 (135-145) mmol/L Potassium 3.3 (3.3-5.1) mmol/L Chloride 103 (96-108) mmol/L Carbon Dioxide 21 L (22-29) mmol/L Anion Gap 16 (12-20) BUN 7 L (9-16) mg/dL Creatinine 0.73 (0.5-1.4) mg/dL Estim Creat Clear Calc 111.6 Estimated GFR > 60 Random Glucose 96 (60-115) mg/dL Calcium 9.5 (8.4-10.2) mg/dL Total Bilirubin 0.5 (0.0-1.0) mg/dL AST 32 (5-37) U/L ALT 26 (0-40) U/L Alkaline Phosphatase 57 (39-117) U/L Total Protein 6.9 (6.5-8.0) g/dL Albumin 3.9 (3.5-5.0) g/dL Urine Color YELLOW Urine Appearance CLEAR Urine pH 5.5 (5.0-8.0) Ur Specific [place] 1.010 (1.005-1.025) Urine Protein NEG (NEG-TRACE) MG/DL Urine Glucose (UA) NEG (NEG) MG/DL Urine Ketones NEG (NEG) MG/DL Urine Blood TRACE (NEG) Urine Nitrite NEG (NEG) Ur Leukocyte Esterase NEG (NEG) Urine RBC 0 (0) /HPF Urine WBC 0-2 (0-4) /HPF Ur Squamous Epith Cells NONE /LPF Urine Bacteria NONE /LPF Discharge Plan Discharge Clinical Impression: Back pain Patient Disposition: Home, Self-Care Instructions: Acute Low Back Pain (ED) Additional Instructions: Continue your pain medication as prescribed and muscle relaxants Follow with PCP/pain clinic if not better Prescriptions: New cyclobenzaprine 10 mg tablet 10 mg PO Q8H Qty: 20 0RF No Action triamcinolone acetonide 0.1 % ointment 1 appl topical BID 30 Days Qty: 30 6RF atorvastatin 80 mg tablet 80 mg PO DAILY Qty: 30 5RF gabapentin 300 mg capsule 300 mg PO BEDTIME 90 Days Qty: 90 3RF isosorbide mononitrate 30 mg tablet extended release 24 hr 30 mg PO DAILY 90 Days Qty: 90 3RF fenofibrate 54 mg tablet 54 mg PO DAILY Qty: 90 1RF hydrocodone-acetaminophen 5-325 mg tablet 1 tab PO Q6H PRN (Reason: pain) 30 Days Qty: 120 0RF amlodipine 10 mg tablet 10 mg PO DAILY 90 Days Qty: 90 3RF aspirin 81 mg tablet,delayed release (DR/EC) 81 mg PO DAILY 90 Days Qty: 90 1RF sertraline 25 mg tablet 25 mg PO DAILY 90 Days Qty: 90 1RF calcitriol 0.25 mcg capsule 0.25 mcg PO DAILY 90 Days Qty: 90 1RF nicotine 21 mg/24 hr patch 24 hour 1 patch transdermal DAILY 28 Days Qty: 28 0RF Interventions: ED Discharge Assessment Last Done: 04/10/22 00:55 Discharge Date/Time: 04/10/22 00:57
[2022-04-09 22:43] VITALS: RESP 18
[2022-04-09] MEDS: Morphine Sulfate 4 MG/ML CARTRIDGE IVPUSH (22:43)
[2022-04-09] MEDS: ondansetron HCL 4 MG/2 ML VIAL IVPUSH (22:43)
[2022-04-09] MEDS: 0.9 % Sodium Chloride 1,000 ML 999 ML IV (22:44)
[2022-04-09 22:57] LABS: Basophils Absolute Auto 0.1 X10*3/uL (0.0-0.2); Basophils Percent Auto 0.4 % (0-2); Eosinophils Absolute Auto 0.2 X10*3/uL (0.0-0.4); Eosinophils Percent Auto 1.5 % (0-4); Hematocrit 38.8 % (42.0-52.0); Hemoglobin 14.1 g/dl (14.0-18.0); Imm Gran Abs Auto 0.06 X10*3/uL (0.00-0.03); Imm Gran Pct Auto 0.4 % (0.0-0.4); Lymphocytes Percent Auto 55.4 % (20-40); MANUAL DIFF FLAG SCAN; Mean Corpuscular HGB Conc 36.3 g/dl (31.0-36.0); Mean Corpuscular Hemoglobin 35.7 pg (27.0-33.0); Mean Corpuscular Volume 98.2 fL (80.0-98.0); Mean Platelet Volume 8.7 fL (9.4-12.4); Monocytes Absolute Auto 0.6 X10*3/uL (0.1-1.2); Monocytes Percent Auto 4.6 % (2-11); Neutrophils Absolute Auto 5.1 x10*3/uL (2.0-8.3); Neutrophils Percent Auto 37.7 % (45-73); Platelet Count 223 X10*3/uL (160-400); Red Blood Count 3.95 X10*6/uL (4.60-5.80); Red Cell Distribution Width 11.8 % (11.0-16.0); SCAN SMEAR FLAG 1; White Blood Count 13.6 X10*3/uL (4.8-10.8)
[2022-04-09 23:03] LABS: Lymphocytes Absolute Auto 7.5 X10*3/uL (1.2-4.9)
[2022-04-09 23:16] LABS: SLIDE REVIEW VERIFIED
[2022-04-09 23:26] LABS: Alanine Aminotransferase 26 U/L (0-40); Albumin Level 3.9 g/dL (3.5-5.0); Alkaline Phosphatase 57 U/L (39-117); Anion Gap 16 (12-20); Aspartate Amino Transferase 32 U/L (5-37); Bilirubin Total 0.5 mg/dL (0.0-1.0); Blood Urea Nitrogen 7 mg/dL (9-16); Calcium 9.5 mg/dL (8.4-10.2); Carbon Dioxide 21 mmol/L (22-29); Chloride 103 mmol/L (96-108); Creatinine Clr Calc Pharmacy 111.6; Estimated Glomerular Filt Rate > 60; Glucose Random 96 mg/dL (60-115); Potassium 3.3 mmol/L (3.3-5.1); Sodium 137 mmol/L (135-145); Total Protein 6.9 g/dL (6.5-8.0)
[2022-04-09 23:51] VITALS: RESP 18
[2022-04-10] VITALS: BP 140/70; PULSE 83; RESP 18; O2SAT 95
[2022-04-10 00:05] LABS: Appearance Urine CLEAR; Color Urine YELLOW; Glucose Urine UA NEG (NEG); Leukocyte Esterase Urine NEG (NEG); Nitrite Urine NEG (NEG); PH 5.5 (5.0-8.0); UACC Culture Trigger NO; Urine Blood TRACE (NEG); Urine Ketones NEG (NEG); Urine Protein NEG (NEG-TRACE)
[2022-04-10 00:10] LABS: RBC Urine 0 /HPF (0); WBC Urine 0-2 /HPF (0-4)
[2022-04-10] MEDS: Ketorolac Tromethamine 30 MG/ML VIAL IVPUSH (00:24)
== END 2022-04-10 00:57 | disposition home or self-care (01) ==
PROVIDERS: Emergency Provider Internal Medicine; PCP Internal Medicine
DX: M54.9 Dorsalgia, unspecified (principal); R10.32 Left lower quadrant pain; I10 Essential (primary) hypertension; I25.10 Atherosclerotic heart disease of native coronary artery without angina pectoris; Z86.73 Personal history of transient ischemic attack (TIA), and cerebral infarction without residual deficits
CPT/HCPCS: 36415; 74176; 80053; 81001; 81003; 85025; 96361; 96374; 96375; 99284; J1885; J2270; J2405

== ENCOUNTER 2022-06-05 10:00 | Outpatient (RCR) | payer MEDICARE, MEDICAID, SELFPAY ==
--- NOTE | 2022-05-03 12:58 | MHC.PT.EP ---
[facility] [place] Office [place] Office [place] Office [address] Levi Wood [address] [phone] F: [phone] F: [phone] F: [phone] F: [phone] Physical Therapy Plan of Care Date of Evaluation: Date of Surgery: Diagnosis: This is a 66 yo male presenting to skilled PT with a script for low back pain Assessment: This is a 66 yo male presenting to skilled PT with a script for low back pain. Patient presents today reporting back pain for years with an extensive PMHx. He was recently in the ER on 04/09/2022 for low back pain/ left flank pain (he was getting up and twisted wrong, described sharp and stabbing pains on the L side, called an ambulance). Per ER note: Patient with history of back pain status post lumbar surgery currently doing well not take any pain medication noticed sudden onset of left flank pain radiating to left lower abdomen for 3 days ago, pain is sharp stabbing in nature off and on getting worse today, patient had severe pain no hematuria no nausea no vomiting no history of kidney stone. CT scan of abdomen was done which was negative. No urinary calculi or hydronephrosis. No etiology for the patient's left flank pain. He was provided with cyclobenzaprine. Today, pt reports pain is still present. He cannot sit too long or stand too long. Pain also increases with walking, sleeping. He reports that the muscle relaxant has been helping but does not know if PT will help. Pain is now L side thoracic/lumbar region, pain is described as if someone is kicking me in the side. Pain is constant but ranges 6-10/10. Of note, he also reports multiple falls. The most recent was when he fell on his stairs, fell backwards and hit his head. He did not receive medical attention even though he was bleeding. He also reports memory issues at baseline and has a hard time piecing together his PMHx. Assessment reveals pain that ranges up to a 10/10. He demos decreased general UB, LB and trunk ROM, decreased general strength, impaired gait pattern with LOB noted, TTP and poor control with transfers as well as gross functional decline with walking, sitting, laying down, ADLs etc. He is a fair candidate for skilled PT 2x/wk for 4 wks. Frequency and Duration: The patient will be seen 2x/wk for 4wks Short Term Goals: I with HEP Demo proper core stab and pelvic tilt without cues from PT Demo proper transfers supine<>sit without assist and proper technique Production Operations Manager Goals: Patient will improve LE strength to at least 4+/5 Patient will improve pain to no more than a 5/10 at the worst Patient will demo proper hip hinge and squat techniques without LOB Treatment Plan: Modalities to reduce pain, spasms and effusion. Manual therapy to restore motion and function. Therapeutic exercise to improve strength and flexibility. Neuromuscular re-education for posture and balance. Therapeutic activities to return to functional activities of daily living. Electronically signed by: Olesya Eagle PT Please sign and return to therapist. Thank you for your referral.
== END 2022-06-21 11:45 | disposition home or self-care (01) ==
LOC: HO.PTCHIC 10:00
PROVIDERS: PCP Internal Medicine; Visit Provider Nurse Practitioner Family
DX: M54.50 Low back pain, unspecified (principal)
CPT/HCPCS: 97014; 97110; 97140; 97162; 97163

== ENCOUNTER 2022-06-28 07:45 | Outpatient (REF) | payer MEDICARE, MEDICAID, SELFPAY ==
[2022-06-28 08:17] LABS: Hemoglobin 15.4 g/dl (14.0-18.0); Red Blood Count 4.29 X10*6/uL (4.60-5.80); White Blood Count 14.2 X10*3/uL (4.8-10.8)
[2022-06-28 08:18] LABS: Basophils Absolute Auto 0.1 X10*3/uL (0.0-0.2); Basophils Percent Auto 0.5 % (0-2); Eosinophils Absolute Auto 0.2 X10*3/uL (0.0-0.4); Eosinophils Percent Auto 1.6 % (0-4); Hematocrit 41.4 % (42.0-52.0); Imm Gran Abs Auto 0.04 X10*3/uL (0.00-0.03); Imm Gran Pct Auto 0.3 % (0.0-0.4); Lymphocytes Absolute Auto 5.7 X10*3/uL (1.2-4.9); Lymphocytes Percent Auto 40.2 % (20-40); MANUAL DIFF FLAG SCAN; Mean Corpuscular HGB Conc 37.2 g/dl (31.0-36.0); Mean Corpuscular Hemoglobin 35.9 pg (27.0-33.0); Mean Corpuscular Volume 96.5 fL (80.0-98.0); Mean Platelet Volume 8.8 fL (9.4-12.4); Monocytes Absolute Auto 0.9 X10*3/uL (0.1-1.2); Monocytes Percent Auto 6.6 % (2-11); Neutrophils Absolute Auto 7.2 x10*3/uL (2.0-8.3); Neutrophils Percent Auto 50.8 % (45-73); Platelet Count 204 X10*3/uL (160-400); Red Cell Distribution Width 12.2 % (11.0-16.0); SCAN SMEAR FLAG 1
[2022-06-28 08:51] LABS: Alanine Aminotransferase 25 U/L (0-40); Albumin Level 4.2 g/dL (3.5-5.0); Alkaline Phosphatase 56 U/L (39-117); Anion Gap 16 (12-20); Aspartate Amino Transferase 26 U/L (5-37); Bilirubin Total 0.7 mg/dL (0.0-1.0); Blood Urea Nitrogen 8 mg/dL (9-16); Calcium 9.5 mg/dL (8.4-10.2); Carbon Dioxide 22 mmol/L (22-29); Chloride 104 mmol/L (96-108); Cholesterol 183 mg/dL; Estimated Glomerular Filt Rate > 60; Glucose Fasting 101 mg/dL (60-99); HDL Cholesterol 43 mg/dL; LDL Cholesterol Calculated 97 mg/dl; Potassium 3.6 mmol/L (3.3-5.1); Sodium 138 mmol/L (135-145); Total Protein 7.4 g/dL (6.5-8.0); Triglycerides 217 mg/dL
[2022-06-28 09:04] LABS: SLIDE REVIEW VERIFIED
[2022-06-28 09:12] LABS: Vitamin D 25-OH Total 27.9 ng/mL (>30)
[2022-06-28 09:24] LABS: Vitamin B12 189 pg/mL (200-900)
[2022-07-03 13:37] LABS: Vitamin B1 <6 nmol/L (8-30)
== END 2022-06-28 07:46 | disposition home or self-care (01) ==
LOC: HO.LAB 07:45
PROVIDERS: PCP Internal Medicine; Visit Provider Internal Medicine
DX: E55.9 Vitamin D deficiency, unspecified (principal); R53.83 Other fatigue; F10.20 Alcohol dependence, uncomplicated; I35.8 Other nonrheumatic aortic valve disorders; E78.5 Hyperlipidemia, unspecified; D64.9 Anemia, unspecified; D72.829 Elevated white blood cell count, unspecified
CPT/HCPCS: 36415; 80053; 80061; 82306; 82607; 82746; 84425; 85025; 93005; 99212

== ENCOUNTER → 2022-07-13 12:11 | Outpatient (REF) | payer MEDICARE, MEDICAID, SELFPAY ==
--- NOTE | 2022-07-13 12:13 | CA_ITS ---
Transthoracic Echocardiogram Patient (Last, First, Middle): Navneet Cantu W Gender: Male Date of : 1955 Age: 66 Procedure Date: 07/13/2022 Procedure Type: Transthoracic Echocardiogram Location: OP Height: 172.72 cm Weight: 90.72 kg BSA: 2.04 m2 Heart Rate: 87 bpm BP: 168 / 72 mmHg Inspector Canned Food Reconditioning: SB Referring MD: Bobby Adam MD Coin Rolling Machine Operator: Bryn Mei MD Symptoms: I25.10 - Atherosclerotic heart disease of [place] coronary artery without... Study Quality: Technically Difficult/contrast ECG Rhythm: Sinus Conclusions: - 1. Normal LV systolic function will give 1 diastolic dysfunction 2. Normal cardiac valvular Dopplers Findings Procedure Information Contrast agent, definity, is being given per protocol without apparent complications. Left Ventricle Normal left ventricular size, thickness, and systolic function. The visually estimated ejection fraction is between 65-70%. Spectral Doppler is indicative of an impaired relaxation filling pattern. E/E prime ratio is <8, consistent with normal filling pressures. Right Ventricle Normal right ventricular cavity size and systolic function. Atria The left atrium is normal in size. Interatrial shunt cannot be excluded. The right atrium was not well visualized. Aortic Valve There is mild calcification of the aortic valve. There is moderate thickening of the aortic valve. There is no aortic valve stenosis. There is no aortic valve regurgitation. Mitral Valve The mitral valve was not well visualized. There is trace mitral valve regurgitation. There is no mitral valve stenosis. Pulmonic Valve The pulmonic valve was not well visualized. Tricuspid Valve Likely normal tricuspid valve structure and function. Tricuspid regurgitation envelope is inadequate for calculation of right ventricular systolic pressure. Normal right atrial pressure. Great Vessels The aorta was not well visualized. The pulmonary artery was not well visualized. Venous The inferior vena cava is normal in size and collapses greater than 50% with inspiration. Pericardium/Pleural There is no evidence of pericardial effusion. Prior Study Comparison No significant change compared to prior study dated: 01/26/2021. Measurements 2D Linear Measurements IVSd: 1.07 0.6-0.9/0.6-1.0 cm LVIDd: 4.41 3.9-5.3/4.2-5.9 cm LVIDd Index: 2.16 2.4-3.2/2.2-3.1 cm/m2 LVIDs: 2.59 2.0-3.6 cm LVPWd: 0.88 0.7-1.1 cm LA Diam: 3.30 2.7-3.8/3.0-4.0 cm LAIDs Index: 1.62 1.5-2.3 cm/m2 LV Mass: 178.86 67-162/88-224 g LV Mass Index: 87.68 43-95/49-115 g/m2 LVOT Diam: 2.00 3.0+(-)1.3 cm 2D Systolic Function EF 4C: 75.00 >55% EF 2C: 66.90 >55% EF BiP: 69.20 >55% Mitral Valve MV Pk E: 0.49 MV PK A: 0.75 MV Decel Time: 183.00 E/A: 0.70 E'Lateral: 6.53 E'Medial: 6.53 E/E' Med: 7.50 E/E' Lat: 7.50 PHT: 54.00 MVA PHT: 4.07 Decel Orange: 2.68 Aortic Valve AoV Pk Bret: 1.78 AoV Mn Bret: 1.11 AoV VTI: 0.27 AoV Pk Grad: 13.00 Aov Mn Grad: 6.00 REGGIE Cont.VTI: 2.36 LVOT LVOT Pk Bret: 1.20 LVOT Mn Bret: 0.78 LVOT VTI: 0.20 LVOT Pk Grad: 6.00 LVOT Mn Grad: 3.00 LVOT Diam: 2.00 LVOT Area: 3.14 Diastolic Function MV Pk E: 0.49 MV Pk A: 0.75 E/A: 0.70 E'Medial: 6.53 E/E' Med: 7.50 E' Laterial: 6.53 E/E' Lat: 7.50 Right Ventricle TAPSE (mm): 18.00 TVS' Bret: 11.90 Tricuspid Valve RA Press: 3.00 Great Vessels Aorta Sinus of Valsalva: 3.20 2.0-3.5 cm Updated in Other Vendor System with Status of Final Bryn Mei MD electronically signed on 07/14/2022 3:03:21 PM with status of Final
== END ==
LOC: HO.CARD 12:11
PROVIDERS: PCP Internal Medicine; Visit Provider Internal Medicine
DX: I25.10 Atherosclerotic heart disease of native coronary artery without angina pectoris (principal)
CPT/HCPCS: 93306; Q9957

== ENCOUNTER → 2022-07-17 09:14 | Outpatient (REF) | payer MEDICARE, MEDICAID, SELFPAY ==
--- NOTE | ~2022-07-17 | NM_ITS ---
Myocardial perfusion study Indication: Precordial chest pain to evaluate for myocardial ischemia Technique: The patient was brought in for a Lexiscan perfusion study on 07/17/2022. Patient performed low-level exercise and was injected 0.4 mg of Lexiscan intravenously. Within a minute of injection, 30 mCi of sestamibi was given intravenously. Images were obtained using the SPECT gamma camera interlaced with the gating device. Images were obtained in supine position. Resting perfusion study was performed on 07/18/2022. Patient was administered 30 mCi of sestamibi intravenously at rest. Images were then obtained in supine position. Images obtained with and without CT attenuation. Total DLP 144 mGy-cm. Images were processed with the software and compared side to side in short axis, horizontal long axis and vertical long axis views. Findings: The stress perfusion study showed non attenuated images show mildly reduced uptake in the basal and mid inferior wall of the LV myocardium. Remainder of the LV myocardium is normally perfused. Attenuation corrected images show normal uptake of radiotracer in all segments of LV myocardium. The gated study shows normal LV systolic function with calculated LVEF of 60%. LV cavity is normal in size. The gated study shows normal systolic wall thickening and contraction of segments. Resting study shows no change in perfusion pattern compared to stress perfusion study. Gating at rest reveals normal systolic wall motion with ejection fraction at 70%. The findings are consistent with normal myocardial perfusion. NM/NM cardiolite stress test Impression: 1. Myocardial perfusion imaging study shows normal myocardial perfusion 2. Gated LVEF is 60% 3. Transient ischemic dilatation not present EKG is nondiagnostic for ischemia
--- NOTE | 2022-07-17 11:25 | CA_ITS ---
Acquisition Time: 2022-07-17 10:17:37 Total Exercise Time: 00:02:00 Test Indications: ANGINA PECTORIS Medications: Protocol: LEXISCAN Max HR: 099 BPM 63% of Pred: 155 BPM Max BP: 160/082 mmHG Max Work Load: 1.0 METS Pharmacological stress test with Lexiscan injection, while sitting and kicking his legs, without anginal symptoms, without arrythmia, with normotensive response to injection, with nondiagnostic EKG for ischemia. In recovery he reported lightheadedness that was treated with Aminophylline 75mg IVP to reverse Lexiscan with resolution of symptom. Nuclear images pending. Test reviewed with Dr Adam. Referred By: Bobby Adam Overread By: ALIZA CLARKE
== END ==
LOC: HO.CARD 09:14
PROVIDERS: Visit Provider Internal Medicine
DX: R07.2 Precordial pain (principal); I25.119 Atherosclerotic heart disease of native coronary artery with unspecified angina pectoris
CPT/HCPCS: 78452; 93017; A9500; J0280; J2785

== ENCOUNTER 2022-07-21 13:01 | Outpatient (REF) | payer MEDICARE, MEDICAID, SELFPAY ==
--- NOTE | ~2022-07-21 | US_ITS ---
EXAMINATION: US EXTRACRANIAL CAROTID DUPLEX, BILATERAL CLINICAL INFORMATION: Carotid artery stenosis follow-up COMPARISON: 01/03/2021 TECHNIQUE: Real-time ultrasound and Doppler techniques (integrating B-mode 2-D vascular images, Doppler spectral analysis and color-flow Doppler imaging) were utilized to interrogate the extracranial carotid arteries, the vertebral arteries and proximal subclavian arteries bilaterally. The degree of stenosis is determined by criteria similar to NASCET. FINDINGS: Right Side: 1. There is moderate atherosclerotic plaque seen in the bifurcation/proximal ICA region. 2. The common carotid artery PSV proximally is 103 cm/s and distally 91 cm/s. 3. The proximal internal carotid artery velocities are 50 cm/s systolic and 13 cm/s diastolic. 4. The proximal external carotid artery PSV is 221 cm/s. 5. The vertebral artery shows antegrade flow. 6. The subclavian artery waveforms are biphasic. Left Side: 1. There is moderate to severe atherosclerotic plaque seen in the bifurcation/proximal ICA region. 2. The common carotid artery PSV proximally is 88 cm/s and distally 97 cm/s. 3. The proximal internal carotid artery velocities are 302 cm/s systolic and 66 cm/s diastolic. 4. The proximal external carotid artery PSV is 302 cm/s. 5. The vertebral artery shows antegrade flow. 6. The subclavian artery waveforms are biphasic. US/US carotid duplex BI IMPRESSION: 1. RIGHT: Minimal, non-hemodynamically significant stenosis of the proximal right internal carotid artery corresponding to a 0-49% stenosis by velocity criteria. 2. LEFT: Moderate, hemodynamically significant stenosis of the proximal left internal carotid artery corresponding to a 50-79% stenosis by velocity criteria. 3. There is no change in the category severity of disease when compared to the previous study dated 01/03/2021.
== END 2022-07-21 13:02 | disposition home or self-care (01) ==
LOC: HO.US 13:01
PROVIDERS: Visit Provider Internal Medicine
DX: I65.23 Occlusion and stenosis of bilateral carotid arteries (principal)
CPT/HCPCS: 93880

== ENCOUNTER → 2022-07-31 10:16 | Outpatient (BNVA) | payer MEDICARE, MEDICAID, SELFPAY | PROVIDERS: PCP Internal Medicine; Referring Provider Internal Medicine; Visit Provider Internal Medicine | DX: I25.10 Atherosclerotic heart disease of native coronary artery without angina pectoris (principal); I65.23 Occlusion and stenosis of bilateral carotid arteries; I10 Essential (primary) hypertension | CPT/HCPCS: 99212 ==

== ENCOUNTER 2022-09-29 13:37 | Emergency (ER) | payer MEDICARE, MEDICAID, SELFPAY ==
[2022-09-29 13:51] VITALS: BP 140/73; BP 160/80; PULSE 81; PULSE 98; RESP 18; TEMP 36.4; O2SAT 100; O2SAT 99; BMI 30.4
--- NOTE | 2022-09-29 14:48 | ED.ALCOHOL ---
HPI - Alcohol General Chief Complaint: ETOH/Substance Use Stated Complaint: ETOH Time Seen by Provider: 09/29/22 14:08 Source: patient and EMS Mode of arrival: EMS Limitations: no limitations History of Present Illness HPI narrative: This is a 67-year-old male who has a history of chronic back pain, alcohol abuse disorder, coronary artery disease, hypertension, high cholesterol, CVA who called EMS for shortness of breath. On EMS arrival patient no longer complaining of shortness of breath. Was noted to be intoxicated and a friend who was they reported the patient has been drinking alcohol all day. Patient was complaining of feeling like both of his legs were weak and he was having difficulty with walking. On arrival to the emergency room the patient is alert. Admits to drinking David Powell daily. Did drink today. Patient states he has been drinking since he has been 6 years old. Patient not interested in detox. Patient denies suicidal ideations. Patient denies any shortness of breath. He denies ever complaining of this. Patient reports his legs feel fine and he can walk. Patient does not want to be further evaluated and would like to be discharged home. States my legs work fine, look at them move. Related Data Previous Rx's Medication Instructions Recorded triamcinolone acetonide 0.1 % 1 appl topical BID 30 days #30 03/01/21 topical ointment grams aspirin 81 mg tablet,delayed 81 mg PO DAILY 90 days #90 tabs 10/12/21 release gabapentin 300 mg capsule 300 mg PO BEDTIME 90 days #90 caps 02/02/22 isosorbide mononitrate 30 mg 30 mg PO DAILY 90 days #90 tabs 02/02/22 tablet,extended release 24 hr atorvastatin 80 mg tablet 80 mg PO DAILY #90 tabs 04/27/22 cholecalciferol (vitamin D3) 25 25 mcg PO DAILY 90 days #90 caps 06/28/22 mcg (1,000 unit) capsule cyanocobalamin (vitamin B-12) 1,000 mcg PO DAILY 90 days #90 tabs 06/28/22 1,000 mcg tablet folic acid 1 mg tablet 1 mg PO DAILY 90 days #90 tabs 06/28/22 metoprolol succinate 25 mg 25 mg PO DAILY #90 tabs 06/28/22 tablet,extended release 24 hr (Toprol XL) tizanidine 4 mg tablet 4 mg PO BEDTIME PRN muscle 07/26/22 spasticity 90 days #90 tabs fenofibrate 54 mg tablet 54 mg PO DAILY #90 tabs 08/31/22 sertraline 25 mg tablet 25 mg PO DAILY 90 days #90 tabs 08/31/22 nabumetone 500 mg tablet 500 mg PO BID #30 tabs 09/08/22 hydrocodone 5 mg-acetaminophen 325 1 tab PO Q6H PRN pain 30 days #120 09/19/22 mg tablet tabs amlodipine 10 mg tablet 10 mg PO DAILY 90 days #90 tabs 09/20/22 Allergies Allergy/AdvReac Type Severity Reaction Status Date / Time mirtazapine AdvReac Intermediate Dizziness Verified 07/26/22 10:53 Review of Systems Review of Systems: Yes all other systems are reviewed and are negative Constitutional: Constitutional: Reports no additional constitutional complaints, Denies body ache(s), Denies chills, Denies fever(s), Denies headache(s) and Denies weakness Eyes: Eyes: Reports no additional eye complaints and Denies change in vision ENT: Reports system reviewed and no additional complaints, except as documented, Denies dizziness, Denies headache(s), Denies nasal congestion, Denies nasal discharge and Denies neck pain Cardiovascular: Cardiovascular: Reports no additional cardiovascular complaints, Denies chest pain, Denies leg edema and Denies dyspnea Respiratory: Respiratory: Reports no additional respiratory complaints, Denies cough and Denies dyspnea Gastrointestinal: Gastrointestinal: Reports no additional gastrointestinal complaints, Denies abdominal pain, Denies diarrhea, Denies nausea and Denies vomiting Genitourinary: Genitourinary: Denies urinary incontinence Musculoskeletal: Musculoskeletal: Reports no additional musculoskeletal complaints, Denies back pain, Denies arthralgias, Denies joint swelling, Denies neck pain, Denies numbness and Denies tingling Integumentary/Breasts: Skin/Breast: Reports system reviewed and no additional complaints, except as docu and Denies rash Neurologic: Reports system reviewed and no additional complaints, except as documented, Denies dizziness, Denies headache(s), Denies numbness, Denies tingling and Denies weakness PMFSH Past Medical History Attestation statement: The following information was validated with the patient. Source: old records reviewed and nursing notes reviewed Medical History Alcohol abuse Alcoholism Aortic valve calcification Aortic valve sclerosis ASHD (arteriosclerotic heart disease) Atherosclerotic cardiovascular disease Bilateral carotid artery stenosis CAD (coronary artery disease) Depression Dyslipidemia Essential hypertension History of CVA with residual deficit Hx of lymphoma Hx of multiple pulmonary nodules Hypovitaminosis D Insomnia Leukocytosis Mild recurrent major depression Smoker Tiredness Surgical History Cataracts, bilateral H/O colonoscopy H/O total shoulder replacement History of thoracic surgery Hx of cardiac catheterization Family History Family History Father Alcohol abuse Mother No problems noted. Daughter No problems noted. Son No problems noted. Sister No problems noted. Other Substance use disorder Social History Social History Household Members: Spouse Household Members Other:: on dialysis Housing: House Housing Other:: Mobile Home Are you a primary care administrative tech to a significant other at home: No Do you presently have visiting nurse or other home services: No Alcohol intake: current Alcohol intake frequency: 3 or more drinks per day Alcohol type: beer Patient Tobacco Use Status: Current everyday Tobacco user Cigarette Packs Per Day: 1.5 Years Smoked: 50+ Smoked in Last 30 Days: No e-Cigarette/Vaping Use: Never Used Second Hand Smoke Exposure: No Use of substances other than those prescribed or required for medical reasons: Unable to respond Advance Directives: No Advance Directives Information Provided: Yes service: No Current occupational status: disabled Cognitive needs: Yes Hearing needs: No Vision needs: Yes Physical Exam ED Vital Signs: Vital Signs - 24 hr 09/29/22 13:51 Temperature 97.6 F Pulse Rate 81 Respiratory Rate 18 Blood Pressure 140/73 H Pulse Oximetry 99 Oxygen Delivery Method Room Air BMI result Body Mass Index 30.4 Const Other: +etoh on breath General: cooperative, healthy appearing, comfortable and no acute distress Orientation/consciousness: patient oriented x3 Limitations: no limitations HENMT Head: Yes normal to inspection, No Antunez's sign and No raccoon eyes Ears: hearing grossly normal bilaterally Throat: Yes posterior oropharynx normal, Yes tonsils normal and Yes uvula midline Eyes General: appearance normal, both eyes and all related structures Pupils: Equal, round and reactive pupils present Neck Neck: Yes normal visual inspection and Yes full ROM Chest Chest palpation & inspection: normal inspection of the chest Resp Effort & Inspection: normal respiratory effort Auscultation: clear to auscultation bilaterally Cardio Rate: regular rate Rhythm: regular rhythm Peripheral pulses: Peripheral pulses 2+ throughout GI Inspection: Yes normal to inspection Palpation (GI): Soft to palpation and nontender General: Yes no CVA tenderness Back/Spine/Pelvis Back: no CVA tenderness Skin General skin exam: no rashes or lesions noted Neuro General: patient oriented x3 and moves all extremities Cranial nerves: Yes Equal, round and reactive pupils present, Yes Bilaterally intact EOM present, Yes Nystagmus not present, Yes Normal facial strength present and Yes Midline tongue present Cognition (Neuro): normal cognition Motor exam (neuro): 5/5 motor strength present throughout Sensory Exam: Normal double simultaneous stimulation for sensation Deep tendon reflexes (DTR's): Right patellar reflex intensity grade: 2+ and Left patellar reflex intensity grade: 2+ MDM - Alcohol MDM Narrative Medical decision making narrative: A 67-year-old male with a history of alcohol use disorder who presents after calling EMS for shortness of breath and some leg weakness but then later denied the symptoms but does admit to drinking alcohol today. On arrival +etoh on breath. No focal neuro deficits. No appreciated weakness in LE. Sensation normal. Intact patellar DTR 2+. Vitals are stable. Abdomen soft nontender. Lungs are clear. Patient has no physical complaints. Patient tells me his legs feel fine. Patient not interested in detox. No SI or HI. Offered to obtain labs and imaging but patient declined this. Patient would like to go home. Patient will need ambulation trial and a sober ride home. No concern for acute ingestion or trauma. Patient ambulated to the bathroom witnessed by nurse Cherelle with a steady gait. Patient able to get hold of his son who came to pick him up. Medical Records Attestation: I reviewed the patient's medical records. Lab Data Attestation: I reviewed the patient's lab results. Discharge Plan Discharge Clinical Impression: Alcoholic intoxication Patient Disposition: Home, Self-Care Instructions: Alcohol Intoxication (ED) Prescriptions: No Action triamcinolone acetonide 0.1 % ointment 1 appl topical BID 30 Days Qty: 30 6RF gabapentin 300 mg capsule 300 mg PO BEDTIME 90 Days Qty: 90 3RF isosorbide mononitrate 30 mg tablet extended release 24 hr 30 mg PO DAILY 90 Days Qty: 90 3RF atorvastatin 80 mg tablet 80 mg PO DAILY Qty: 90 3RF cyanocobalamin (vitamin B-12) 1,000 mcg tablet 1,000 mcg PO DAILY 90 Days Qty: 90 1RF folic acid 1 mg tablet 1 mg PO DAILY 90 Days Qty: 90 1RF cholecalciferol (vitamin D3) 25 mcg (1,000 unit) capsule 25 mcg PO DAILY 90 Days Qty: 90 1RF sertraline 25 mg tablet 25 mg PO DAILY 90 Days Qty: 90 1RF fenofibrate 54 mg tablet 54 mg PO DAILY Qty: 90 1RF nabumetone 500 mg tablet 500 mg PO BID Qty: 30 0RF hydrocodone-acetaminophen 5-325 mg tablet 1 tab PO Q6H PRN (Reason: pain) 30 Days Qty: 120 0RF amlodipine 10 mg tablet 10 mg PO DAILY 90 Days Qty: 90 3RF aspirin 81 mg tablet,delayed release (DR/EC) 81 mg PO DAILY 90 Days Qty: 90 1RF tizanidine 4 mg tablet 4 mg PO BEDTIME PRN (Reason: muscle spasticity) 90 Days Qty: 90 0RF metoprolol succinate [Toprol XL] 25 mg tablet extended release 24 hr 25 mg PO DAILY Qty: 90 3RF Interventions: Richardson-Suicide Risk Severity Scale Last Done: 09/29/22 13:54 ED Discharge Assessment Last Done: 09/29/22 15:24 Discharge Date/Time: 09/29/22 15:24
--- NOTE | 2022-09-29 14:53 | PC.NURSE ---
pt ambulated to the bathroom with assistance. pt reports he typically walks with a walker at home.
--- NOTE | 2022-09-29 15:23 | PC.NURSE ---
pt d/c with son. pt ambulating appropriately, gait steady.
== END 2022-09-29 15:24 | disposition home or self-care (01) ==
PROVIDERS: Emergency Provider Student in an Organized Health Care Education/Training Program; PCP Internal Medicine
DX: F10.129 Alcohol abuse with intoxication, unspecified (principal); R06.02 Shortness of breath; Z79.899 Other long term (current) drug therapy; F17.210 Nicotine dependence, cigarettes, uncomplicated; Z71.6 Tobacco abuse counseling
CPT/HCPCS: 99284

== ENCOUNTER 2022-12-24 19:44 | Emergency (ER) | payer MEDICARE, MEDICAID, SELFPAY ==
--- NOTE | ~2022-12-24 | XR_ITS ---
EXAMINATION: BILATERAL KNEE CLINICAL INFORMATION: Fall with bilateral knee pain COMPARISON: None TECHNIQUE: 4 views each knee FINDINGS: Extensive vascular calcifications are present bilaterally. The knee joints appear unremarkable without evidence of significant arthritis, fractures or joint effusions XR/XR knee RT 4V IMPRESSION: Extensive vascular calcifications. No evidence of an acute osseous injury.
--- NOTE | ~2022-12-24 | XR_ITS ---
EXAMINATION: BILATERAL KNEE CLINICAL INFORMATION: Fall with bilateral knee pain COMPARISON: None TECHNIQUE: 4 views each knee FINDINGS: Extensive vascular calcifications are present bilaterally. The knee joints appear unremarkable without evidence of significant arthritis, fractures or joint effusions XR/XR knee LT 4V IMPRESSION: Extensive vascular calcifications. No evidence of an acute osseous injury.
--- NOTE | ~2022-12-24 | CT_ITS ---
EXAMINATION: NONCONTRAST HEAD CT NONCONTRAST CERVICAL SPINE CT INDICATION INFORMATION: Status post fall drinking COMPARISON: Head and cervical spine CT 01/07/2017 TECHNIQUE: Separate noncontrast CT examinations of the head and cervical spine were performed. Coronal and sagittal images were created for each examination at the technologist workstation. This CT examination was performed using dose optimization techniques as appropriate, variously including the following: *Automated exposure control *Adjustment of mA and/or kV according to patient size (this includes techniques or standardized protocols for targeted exams where dose is matched to indication/reason for exam; i.e. extremities or head) *Use of iterative reconstruction technique DLP: 1343 mGy-cm FINDINGS: HEAD: No intra or extra-axial fluid collection, hemorrhage, or mass. No ventriculomegaly. No midline shift or herniation. Basal cisterns are patent. Tee-white matter differentiation is maintained. No territorial encephalomalacia. Proportional prominence of the ventricles and sulcal spaces is consistent with mild volume loss. Patchy periventricular and deep white matter hypoattenuation is consistent with mild small vessel ischemic changes. No calvarial fracture or soft tissue abnormality. The mastoid air cells and visualized portions of the paranasal sinuses are well aerated. CERVICAL SPINE: Exam quality degraded by mild motion artifact. Alignment: Normal. No subluxation. Vertebra: No acute fracture. No prevertebral soft tissue swelling. Degenerative disc disease: Status post ACDF at C6-C7 with intact plate and screw fixation and ankylosis of the vertebral bodies. Mild to moderate disc degenerative change at C4-C5 and C5-C6 with disc height loss and endplate osteophyte formation, similar to prior. Mild multilevel facet arthrosis bilaterally. Other findings: Mild apical scarring and small right apical blebs. Carotid vascular calcifications. Visualized thyroid gland grossly unremarkable. No lymphadenopathy in the [id number]. CT/CT head/brain wo IV con IMPRESSION: 1. No intracranial hemorrhage or calvarial fracture. 2. No subluxation or acute cervical spine fracture allowing for very mild motion artifact.
--- NOTE | ~2022-12-24 | CT_ITS ---
EXAMINATION: NONCONTRAST HEAD CT NONCONTRAST CERVICAL SPINE CT INDICATION INFORMATION: Status post fall drinking COMPARISON: Head and cervical spine CT 01/07/2017 TECHNIQUE: Separate noncontrast CT examinations of the head and cervical spine were performed. Coronal and sagittal images were created for each examination at the technologist workstation. This CT examination was performed using dose optimization techniques as appropriate, variously including the following: *Automated exposure control *Adjustment of mA and/or kV according to patient size (this includes techniques or standardized protocols for targeted exams where dose is matched to indication/reason for exam; i.e. extremities or head) *Use of iterative reconstruction technique DLP: 1343 mGy-cm FINDINGS: HEAD: No intra or extra-axial fluid collection, hemorrhage, or mass. No ventriculomegaly. No midline shift or herniation. Basal cisterns are patent. Tee-white matter differentiation is maintained. No territorial encephalomalacia. Proportional prominence of the ventricles and sulcal spaces is consistent with mild volume loss. Patchy periventricular and deep white matter hypoattenuation is consistent with mild small vessel ischemic changes. No calvarial fracture or soft tissue abnormality. The mastoid air cells and visualized portions of the paranasal sinuses are well aerated. CERVICAL SPINE: Exam quality degraded by mild motion artifact. Alignment: Normal. No subluxation. Vertebra: No acute fracture. No prevertebral soft tissue swelling. Degenerative disc disease: Status post ACDF at C6-C7 with intact plate and screw fixation and ankylosis of the vertebral bodies. Mild to moderate disc degenerative change at C4-C5 and C5-C6 with disc height loss and endplate osteophyte formation, similar to prior. Mild multilevel facet arthrosis bilaterally. Other findings: Mild apical scarring and small right apical blebs. Carotid vascular calcifications. Visualized thyroid gland grossly unremarkable. No lymphadenopathy in the [id number]. CT/CT cervical spine wo IV con IMPRESSION: 1. No intracranial hemorrhage or calvarial fracture. 2. No subluxation or acute cervical spine fracture allowing for very mild motion artifact.
[2022-12-24 19:50] VITALS: BP 144/74; PULSE 88; O2SAT 98
[2022-12-24 20:02] VITALS: BP 145/76; PULSE 83; RESP 20; TEMP 36.5; O2SAT 97; BMI 30.3
--- NOTE | 2022-12-24 22:30 | ED.GENADULT ---
HPI - General Adult General Chief complaint: Fall Stated complaint: ETOH/Fall Time Seen by Provider: 12/24/22 20:26 Source: patient Mode of arrival: ambulatory Limitations: no limitations History of Present Illness HPI narrative: 67-year-old male brought to the ED for evaluation after drinking and falling. Patient admits drinking alcohol and falling at home. Patient denies any compalints Related Data Previous Rx's Medication Instructions Recorded triamcinolone acetonide 0.1 % 1 appl topical BID 30 days #30 03/01/21 topical ointment grams aspirin 81 mg tablet,delayed 81 mg PO DAILY 90 days #90 tabs 10/12/21 release isosorbide mononitrate 30 mg 30 mg PO DAILY 90 days #90 tabs 02/02/22 tablet,extended release 24 hr atorvastatin 80 mg tablet 80 mg PO DAILY #90 tabs 04/27/22 metoprolol succinate 25 mg 25 mg PO DAILY #90 tabs 06/28/22 tablet,extended release 24 hr (Toprol XL) fenofibrate 54 mg tablet 54 mg PO DAILY #90 tabs 08/31/22 sertraline 25 mg tablet 25 mg PO DAILY 90 days #90 tabs 08/31/22 amlodipine 10 mg tablet 10 mg PO DAILY 90 days #90 tabs 09/20/22 nabumetone 500 mg tablet 500 mg PO BID #30 tabs 10/20/22 cholecalciferol (vitamin D3) 25 25 mcg PO DAILY 90 days #90 caps 10/21/22 mcg (1,000 unit) capsule tizanidine 4 mg tablet 4 mg PO BEDTIME PRN muscle 11/17/22 spasticity 90 days #90 tabs cyanocobalamin (vitamin B-12) 500 500 mcg PO DAILY 90 days #90 tabs 11/29/22 mcg tablet folic acid 1 mg tablet 1 mg PO DAILY 90 days #90 tabs 11/29/22 gabapentin 300 mg capsule 300 mg PO BEDTIME 90 days #90 caps 11/29/22 hydrocodone 5 mg-acetaminophen 325 1 tab PO Q6H PRN pain 7 days #28 11/30/22 mg tablet tabs oxycodone-acetaminophen 5 mg-325 1 tab PO Q6H PRN pain 30 days #120 12/01/22 mg tablet tabs Allergies Allergy/AdvReac Type Severity Reaction Status Date / Time mirtazapine AdvReac Intermediate Dizziness Verified 11/29/22 08:24 Review of Systems Review of Systems: falling after drining alcohol Yes all other systems are reviewed and are negative [facility] Past Medical History Medical History Alcohol abuse Alcoholism Aortic valve calcification Aortic valve sclerosis ASHD (arteriosclerotic heart disease) Atherosclerotic cardiovascular disease Bilateral carotid artery stenosis CAD (coronary artery disease) Depression Dyslipidemia Essential hypertension History of CVA with residual deficit Hx of lymphoma Hx of multiple pulmonary nodules Hypovitaminosis D Insomnia Leukocytosis Mild recurrent major depression Smoker Tiredness Surgical History Cataracts, bilateral H/O colonoscopy H/O total shoulder replacement History of thoracic surgery Hx of cardiac catheterization Family History Family History Father Alcohol abuse Mother No problems noted. Daughter No problems noted. Son No problems noted. Sister No problems noted. Other Substance use disorder Social History Social History Household Members: Spouse Household Members Other:: on dialysis Housing: House Housing Other:: Mobile Home Are you a primary inspector health care facilities to a significant other at home: No Do you presently have visiting nurse or other home services: No Alcohol intake: current Alcohol intake frequency: 3 or more drinks per day Alcohol type: beer Patient Tobacco Use Status: Current everyday Tobacco user Tobacco use type: Cigarette Cigarette Packs Per Day: 1 Years Smoked: 50+ e-Cigarette/Vaping Use: Never Used Second Hand Smoke Exposure: No Advance Directives: No Advance Directives Information Provided: Yes service: No Current occupational status: disabled Cognitive needs: Yes Hearing needs: No Vision needs: Yes Physical Exam ED Vital Signs: Vital Signs - 24 hr 12/24/22 20:02 Temperature 97.7 F Pulse Rate 83 Respiratory Rate 20 Blood Pressure 145/76 H Pulse Oximetry 97 Oxygen Delivery Method Room Air BMI result Body Mass Index 30.3 Const General: cooperative, healthy appearing, comfortable, no acute distress, well developed, alert and awake Orientation/consciousness: oriented to person, oriented to place, oriented to time and patient oriented x3 HENMT Head: Yes normal to inspection, Yes No palpable skull fracture present, Yes normocephalic, Yes atraumatic and No abrasion Eyes General: appearance normal, both eyes and all related structures Neck Neck: Yes normal visual inspection, Yes full ROM, Yes no lymphadenopathy, Yes no meningeal signs, Yes trachea midline, Yes supple, No anterior neck swelling and No tender Chest Chest palpation & inspection: normal inspection of the chest and normal palpation of entire chest wall Resp Effort & Inspection: normal respiratory effort and able to speak in complete sentences Auscultation: clear to auscultation bilaterally Cardio Jugular venous distension: no JVD Heart sounds: S1 normal heart sound present and S2 normal heart sound present GI Inspection: Yes normal to inspection and No abdominal wall ecchymosis Palpation (GI): Soft to palpation, not firm, nontender, no guarding and not rigid General: No CVA tenderness and Yes no CVA tenderness Back/Spine/Pelvis Back: no CVA tenderness, No CVA tenderness and No back tenderness Skin General skin exam: no rashes or lesions noted and elasticity normal Neuro Other: Alcohol smelled breath. General: oriented to person, oriented to place, oriented to time, patient oriented x3, gait normal, tone normal, moves all extremities, Normal light touch and pain sensation, no meningeal signs, no focal motor deficits and CN's II-XI intact bilaterally Extrem General: Yes normal to inspection and Yes full ROM Knee images: 1. positive for abrasions 2. positive for abrasoins Psych Other: Alcohol on breath Appearance: grossly normal and well kempt Course Course Course Narrative: images are ordered for patient Reevaluation(s) Reevaluation #1: images of head, neck, and knees normal. Son came and picked up patient. Medical Decision Making Medical Decision Making [facility] Narrative: 67 yold male presents to the ED for falling while drinking. Patient had normal imaging and than picked up by son. Differential Diagnosis Differential Diagnoses: The differential diagnosis associated with the presentation includes (Brain bleed, cervical spine fracture, knee fracture) Admission/Observation Consideration of admission/observation: Escalation of care including admission/observation considered Independent Interpretation I performed an independent interpretation of an: Plain X-Ray and CT Scan Radiology Impression Discussion of test interpretation with radiology: I have reviewed the radiologist's reading. Independent Historian Clinical information obtained from an independent historian. History obtained from or confirmed by: EMS Discharge Plan Discharge Clinical Impression: Alcohol use, Abrasion Patient Disposition: Home, Self-Care Instructions: Abrasion (ED), Alcohol Use Disorder (ED) Additional Instructions: Recommend follow-up with primary care provider. Return to the ED for any headache, nausea, vomiting, abdominal pain, bloody urine, blood in stool, chest pain, shortness of breath, coughing up blood, worsening headache, altered mental status, or any other concerning symptoms. Prescriptions: No Action triamcinolone acetonide 0.1 % ointment 1 appl topical BID 30 Days Qty: 30 6RF isosorbide mononitrate 30 mg tablet extended release 24 hr 30 mg PO DAILY 90 Days Qty: 90 3RF atorvastatin 80 mg tablet 80 mg PO DAILY Qty: 90 3RF sertraline 25 mg tablet 25 mg PO DAILY 90 Days Qty: 90 1RF fenofibrate 54 mg tablet 54 mg PO DAILY Qty: 90 1RF amlodipine 10 mg tablet 10 mg PO DAILY 90 Days Qty: 90 3RF nabumetone 500 mg tablet 500 mg PO BID Qty: 30 0RF cholecalciferol (vitamin D3) 25 mcg (1,000 unit) capsule 25 mcg PO DAILY 90 Days Qty: 90 1RF tizanidine 4 mg tablet 4 mg PO BEDTIME PRN (Reason: muscle spasticity) 90 Days Qty: 90 0RF hydrocodone-acetaminophen 5-325 mg tablet 1 tab PO Q6H PRN (Reason: pain) 7 Days Qty: 28 0RF oxycodone-acetaminophen 5-325 mg tablet 1 tab PO Q6H PRN (Reason: pain) 30 Days Qty: 120 0RF Rx Instructions: Partial Fill upon patient request. aspirin 81 mg tablet,delayed release (DR/EC) 81 mg PO DAILY 90 Days Qty: 90 1RF cyanocobalamin (vitamin B-12) 500 mcg tablet 500 mcg PO DAILY 90 Days Qty: 90 1RF gabapentin 300 mg capsule 300 mg PO BEDTIME 90 Days Qty: 90 3RF folic acid 1 mg tablet 1 mg PO DAILY 90 Days Qty: 90 1RF metoprolol succinate [Toprol XL] 25 mg tablet extended release 24 hr 25 mg PO DAILY Qty: 90 3RF Interventions: ED Discharge Assessment Last Done: 12/24/22 22:36 Discharge Date/Time: 12/24/22 22:40 Print Language: Turkish
== END 2022-12-24 22:40 | disposition home or self-care (01) ==
PROVIDERS: Emergency Provider Emergency Medicine Emergency Medical Services; PCP Internal Medicine
DX: S80.211A Abrasion, right knee, initial encounter (principal); S80.212A Abrasion, left knee, initial encounter; F10.229 Alcohol dependence with intoxication, unspecified; M54.2 Cervicalgia; R51.9 Headache, unspecified; W01.0XXA Fall on same level from slipping, tripping and stumbling without subsequent striking against object, initial encounter; Y93.9 Activity, unspecified; Y92.9 Unspecified place or not applicable; Y99.9 Unspecified external cause status; Y90.8 Blood alcohol level of 240 mg/100 ml or more; Z79.899 Other long term (current) drug therapy
CPT/HCPCS: 70450; 72125; 73564; 99282; 99284

== ENCOUNTER 2023-03-20 09:34 | Outpatient (REF) | payer MEDICARE, MEDICAID, SELFPAY ==
[2023-03-20 09:51] LABS: MANUAL DIFF FLAG NO
[2023-03-20 10:30] LABS: Basophils Absolute Auto 0.1 X10*3/uL (0.0-0.2); Basophils Percent Auto 0.5 % (0-2); Eosinophils Absolute Auto 0.3 X10*3/uL (0.0-0.4); Eosinophils Percent Auto 2.7 % (0-4); Hematocrit 34.7 % (42.0-52.0); Imm Gran Abs Auto 0.05 X10*3/uL (0.00-0.03); Imm Gran Pct Auto 0.5 % (0.0-0.4); Lymphocytes Absolute Auto 3.5 X10*3/uL (1.2-4.9); Lymphocytes Percent Auto 32.5 % (20-40); Mean Corpuscular HGB Conc 32.6 g/dl (31.0-36.0); Mean Corpuscular Hemoglobin 32.8 pg (27.0-33.0); Mean Corpuscular Volume 100.6 fL (80.0-98.0); Mean Platelet Volume 9.3 fL (9.4-12.4); Monocytes Absolute Auto 0.9 X10*3/uL (0.1-1.2); Monocytes Percent Auto 8.3 % (2-11); Neutrophils Percent Auto 55.5 % (45-73); Platelet Count 297 X10*3/uL (160-400); Red Blood Count 3.45 X10*6/uL (4.60-5.80); Red Cell Distribution Width 15.1 % (11.0-16.0); White Blood Count 10.7 X10*3/uL (4.8-10.8)
[2023-03-20 10:33] LABS: Hemoglobin 11.3 g/dl (14.0-18.0)
[2023-03-20 10:54] LABS: Alanine Aminotransferase 10 U/L (0-40); Albumin Level 3.4 g/dL (3.5-5.0); Alkaline Phosphatase 56 U/L (39-117); Anion Gap 12 (12-20); Aspartate Amino Transferase 16 U/L (5-37); Bilirubin Total 0.3 mg/dL (0.0-1.0); Blood Urea Nitrogen 8 mg/dL (9-16); Calcium 9.2 mg/dL (8.4-10.2); Carbon Dioxide 24 mmol/L (22-29); Chloride 111 mmol/L (96-108); Estimated Glomerular Filt Rate > 60; Glucose Random 99 mg/dL (60-115); Potassium 4.6 mmol/L (3.3-5.1); Sodium 142 mmol/L (135-145); Total Protein 6.1 g/dL (6.5-8.0)
== END 2023-03-20 09:35 | disposition home or self-care (01) ==
LOC: HO.LAB 09:34
PROVIDERS: Absent Provider Internal Medicine; PCP Internal Medicine; Visit Provider Nurse Practitioner Family
DX: I10 Essential (primary) hypertension (principal); Z13.0 Encounter for screening for diseases of the blood and blood-forming organs and certain disorders involving the immune mechanism
CPT/HCPCS: 36415; 80053; 85025

== ENCOUNTER 2023-05-02 13:49 | Emergency (ER) | payer MEDICARE, MEDICAID, SELFPAY ==
[2023-05-02 13:56] VITALS: BP 115/75; BP 140/90; PULSE 79; PULSE 84; RESP 16; TEMP 37.1; O2SAT 97; O2SAT 98; BMI 30.8
--- NOTE | 2023-05-02 15:25 | ED.ALCOHOL ---
HPI - Alcohol General Chief Complaint: Abdominal Pain Stated Complaint: ETOH , abdominal pain Time Seen by Provider: 05/02/23 13:51 Source: patient and EMS Mode of arrival: EMS Limitations: other (Alcohol intoxication) History of Present Illness HPI narrative: 67-year-old male with history of alcohol abuse, multiple musculoskeletal complaints presents with acute alcohol intoxication. Patient reports having fallen yesterday while intoxicated aching in his abdomen on a coffee table. He describes moderate abdominal pain. Denies any nausea, vomiting, diarrhea. He reports abdominal distention which is severe. There is no clear relieving or exacerbating features. Rate reports abdominal pressure. Had no fevers or chills. Denies any urinary complaints. Denies any drugs, suicidal homicidal ideation. Denies any hallucinations. Patient denies any head trauma, headache, nausea, vomiting, vision changes or focal neurologic deficits. Related Data Previous Rx's Medication Instructions Recorded triamcinolone acetonide 0.1 % 1 appl topical BID 30 days #30 03/01/21 topical ointment grams amlodipine 10 mg tablet 10 mg PO DAILY 90 days #90 tabs 09/20/22 folic acid 1 mg tablet 1 mg PO DAILY 90 days #90 tabs 11/29/22 gabapentin 300 mg capsule 300 mg PO BEDTIME 90 days #90 caps 11/29/22 cholecalciferol (vitamin D3) 25 25 mcg PO DAILY 90 days #90 caps 12/25/22 mcg (1,000 unit) capsule fenofibrate 54 mg tablet 54 mg PO DAILY #90 tabs 01/29/23 sertraline 25 mg tablet 25 mg PO DAILY 90 days #90 tabs 01/29/23 bed railing #1 ea 03/13/23 metoprolol succinate 25 mg 25 mg PO DAILY #90 tabs 03/16/23 tablet,extended release 24 hr atorvastatin 80 mg tablet 80 mg PO DAILY #90 tabs 03/18/23 isosorbide mononitrate 30 mg 30 mg PO DAILY 90 days #90 tabs 03/18/23 tablet,extended release 24 hr cyanocobalamin (vitamin B-12) 500 500 mcg PO DAILY 90 days #90 tabs 03/29/23 mcg tablet pantoprazole 40 mg tablet,delayed 40 mg PO DAILY #90 tabs 04/06/23 release oxycodone-acetaminophen 5 mg-325 1 tab PO Q6H PRN pain 30 days #120 04/27/23 mg tablet tabs Allergies Allergy/AdvReac Type Severity Reaction Status Date / Time mirtazapine AdvReac Intermediate Dizziness Verified 04/02/23 08:02 Review of Systems Review of Systems: CONSTITUTIONAL: Denies weight loss, fever and chills. HEENT: Denies changes in vision and hearing. RESPIRATORY: Denies SOB and cough. CV: Denies palpitations no CP. GI: + abdominal pain, no nausea, vomiting and diarrhea. : Denies dysuria and urinary frequency. MSK: Denies myalgia and joint pain. SKIN: Denies rash and pruritus. NEUROLOGICAL: Denies headache and syncope. PSYCHIATRIC: Denies recent changes in mood. Denies anxiety and depression. All other ROS are negative unless in HPI PMFSH Past Medical History Medical History Alcohol abuse Alcoholism Aortic valve calcification Aortic valve sclerosis ASHD (arteriosclerotic heart disease) Atherosclerotic cardiovascular disease Bilateral carotid artery stenosis CAD (coronary artery disease) Depression Dyslipidemia Essential hypertension History of CVA with residual deficit Hx of lymphoma Hx of multiple pulmonary nodules Hypovitaminosis D Insomnia Leukocytosis Mild recurrent major depression Smoker Tiredness Surgical History Cataracts, bilateral H/O colonoscopy H/O total shoulder replacement History of thoracic surgery Hx of cardiac catheterization Family History Family History Father Alcohol abuse Mother No problems noted. Daughter No problems noted. Son No problems noted. Sister No problems noted. Other Substance use disorder Social History Social History Household Members: Spouse Household Members Other:: on dialysis Housing: House Housing Other:: Mobile Home Are you a primary patient care director to a significant other at home: No Do you presently have visiting nurse or other home services: No Alcohol intake: current Alcohol intake frequency: 3 or more drinks per day Alcohol type: beer Patient Tobacco Use Status: Current everyday Tobacco user Tobacco use type: Cigarette Cigarette Packs Per Day: 1 Years Smoked: 50+ Smoked in Last 30 Days: Yes e-Cigarette/Vaping Use: Never Used Second Hand Smoke Exposure: No Use of substances other than those prescribed or required for medical reasons: No Advance Directives: No Advance Directives Information Provided: Yes service: No Current occupational status: disabled Cognitive needs: Yes Hearing needs: No Vision needs: Yes Physical Exam ED Vital Signs: Vital Signs - 24 hr 05/02/23 13:56 05/02/23 15:42 Temperature 98.8 F 98.8 F Pulse Rate 79 73 Respiratory Rate 16 20 Blood Pressure 115/75 131/62 Pulse Oximetry 98 100 Oxygen Delivery Method Room Air Room Air BMI result Body Mass Index 30.8 GEN: Well developed, no acute distress, alert, intoxicated HEENT: Normocephalic, atraumatic, normal external ears, nose appears normal, no oropharyngeal edema or exudates Eyes: Normal to appearance Neck: Supple, no lymphadenopathy Respiratory: Talks in complete sentences, no respiratory distress, clear to auscultation bilaterally Cardiovascular: Regular rate and rhythm, no murmurs rubs or gallops Abdomen: Soft, nontender, nondistended, no guarding, no rebound right-sided abdominal bruising and abrasion Back: No CVA tenderness Extremities: No clubbing cyanosis or edema Neurologic: No focal neurologic deficits, cranial nerves 2-12 intact, strength is 5/5 bilaterally Skin: No rash Course Course Course Narrative: 67-year-old male presents with abdominal pain after a fall yesterday. He had ecchymoses to the right side of his abdomen. He reports abdominal distention. His abdomen was nontender, no rebound or guarding. CT scan was negative for acute traumatic injury. On exam as well as on the imaging studies there is a fat containing hernia it was nontender to palpation. Lab work shows acute alcohol intoxication. Patient was adamant that he would like to leave. I informed him that he will require a friend to pick him up and take responsibility pending sobriety. Patient has an unsteady gait at baseline. Appears that he is ambulating in his baseline. He does pose a fall risk however, this is no different than his possible sober state. I have recommended walking with a cane or a walker. I have also recommend alcohol counseling. Patient will be discharged as soon as his friend is able to pick him up. Medical Decision Making Medical Decision Making MDM Narrative: 67-year-old male presents with abdominal pain following a fall yesterday well intoxicated. He reports having drink earlier today. Denies head trauma, loss consciousness, headache, focal deficit. Examination of the meaning a toxic a day, abdominal contusions and abrasion, is exam is nonfocal. He has no rebound or guarding. He does report abdominal distention which is new to him. Differential diagnosis: Intra-abdominal injury, ascites, liver cirrhosis, portal hypertension, of visceral injury Plan: CT scan, musculoskeletal x-rays where he was tender and re-evaluation. Differential Diagnosis Differential Diagnoses: The differential diagnosis associated with the presentation includes (See above) Alcohol intoxication, abdominal pain Admission/Observation Consideration of admission/observation: Escalation of care including admission/observation considered (A case of acute traumatic injury, patient may warrant hospitalization) Lab Data MDM Lab Attestation statement: I reviewed the patient's lab results. 05/02/23 14:26 05/02/23 14:26 Labs: Lab Results 05/02/23 05/02/23 05/02/23 Range/Units 14:26 14:26 14:26 WBC 8.0 (4.8-10.8) X10*3/uL RBC 4.11 L (4.60-5.80) X10*6/uL Hgb 13.3 L (14.0-18.0) g/dl Hct 39.2 L (42.0-52.0) % MCV 95.4 (80.0-98.0) fL MCH 32.4 (27.0-33.0) pg MCHC 33.9 (31.0-36.0) g/dl RDW 14.2 (11.0-16.0) % Plt Count 160 D (160-400) X10*3/uL MPV 9.2 L (9.4-12.4) fL Immature Gran % (Auto) 0.2 (0.0-0.4) % Neut % (Auto) 53.5 (45-73) % Lymph % (Auto) 34.9 (20-40) % [place] % (Auto) 9.3 (2-11) % Eos % (Auto) 1.5 (0-4) % Baso % (Auto) 0.6 (0-2) % Lymph # (Auto) 2.8 (1.2-4.9) X10*3/uL [place] # (Auto) 0.8 (0.1-1.2) X10*3/uL Eos # (Auto) 0.1 (0.0-0.4) X10*3/uL Baso # (Auto) 0.1 (0.0-0.2) X10*3/uL Abs Immat Gran (auto) 0.02 (0.00-0.03) X10*3/uL Absolute Neuts (auto) 4.3 (2.0-8.3) x10*3/uL Absolute Nucleated RBC 0.000 (0.0-0.012) X10*3/uL Nucleated RBC % (auto) 0.0 (0.0-0.2) /100WBC PT 14.6 H (10.0-13.1) SEC INR 1.3 H (0.9-1.1) Sodium 143 (135-145) mmol/L Potassium 3.7 (3.3-5.1) mmol/L Chloride 109 H (96-108) mmol/L Carbon Dioxide 21 L (22-29) mmol/L Anion Gap 17 (12-20) BUN 6 L (9-16) mg/dL Creatinine 0.68 (0.5-1.4) mg/dL Estim Creat Clear Calc 117.5 Estimated GFR > 60 Random Glucose 96 (60-115) mg/dL Calcium 9.3 (8.4-10.2) mg/dL Total Bilirubin 0.3 (0.0-1.0) mg/dL AST 33 (5-37) U/L ALT 21 (0-40) U/L Alkaline Phosphatase 61 (39-117) U/L Total Protein 7.0 (6.5-8.0) g/dL Albumin 3.7 (3.5-5.0) g/dL Lipase 85 H (8-78) U/L Urine Opiates Screen (Not Detect) Urine Fentanyl Screen (Not Detect) Ur Barbiturates Screen (Not Detect) Ur Phencyclidine Scrn (Not Detect) Ur Amphetamines Screen (Not Detect) U Benzodiazepines Scrn (Not Detect) Urine Cocaine Screen (Not Detect) U Marijuana (THC) Screen (Not Detect) Ethyl Alcohol 252 mg/dL 05/02/23 Range/Units 14:45 WBC (4.8-10.8) X10*3/uL RBC (4.60-5.80) X10*6/uL Hgb (14.0-18.0) g/dl Hct (42.0-52.0) % MCV (80.0-98.0) fL MCH (27.0-33.0) pg MCHC (31.0-36.0) g/dl RDW (11.0-16.0) % Plt Count (160-400) X10*3/uL MPV (9.4-12.4) fL Immature Gran % (Auto) (0.0-0.4) % Neut % (Auto) (45-73) % Lymph % (Auto) (20-40) % [place] % (Auto) (2-11) % Eos % (Auto) (0-4) % Baso % (Auto) (0-2) % Lymph # (Auto) (1.2-4.9) X10*3/uL [place] # (Auto) (0.1-1.2) X10*3/uL Eos # (Auto) (0.0-0.4) X10*3/uL Baso # (Auto) (0.0-0.2) X10*3/uL Abs Immat Gran (auto) (0.00-0.03) X10*3/uL Absolute Neuts (auto) (2.0-8.3) x10*3/uL Absolute Nucleated RBC (0.0-0.012) X10*3/uL Nucleated RBC % (auto) (0.0-0.2) /100WBC PT (10.0-13.1) SEC INR (0.9-1.1) Sodium (135-145) mmol/L Potassium (3.3-5.1) mmol/L Chloride (96-108) mmol/L Carbon Dioxide (22-29) mmol/L Anion Gap (12-20) BUN (9-16) mg/dL Creatinine (0.5-1.4) mg/dL Estim Creat Clear Calc Estimated GFR Random Glucose (60-115) mg/dL Calcium (8.4-10.2) mg/dL Total Bilirubin (0.0-1.0) mg/dL AST (5-37) U/L ALT (0-40) U/L Alkaline Phosphatase (39-117) U/L Total Protein (6.5-8.0) g/dL Albumin (3.5-5.0) g/dL Lipase (8-78) U/L Urine Opiates Screen Not Detected (Not Detect) Urine Fentanyl Screen Not Detected (Not Detect) Ur Barbiturates Screen Not Detected (Not Detect) Ur Phencyclidine Scrn Not Detected (Not Detect) Ur Amphetamines Screen Not Detected (Not Detect) U Benzodiazepines Scrn Not Detected (Not Detect) Urine Cocaine Screen Not Detected (Not Detect) U Marijuana (THC) Screen Not Detected (Not Detect) Ethyl Alcohol mg/dL Independent Interpretation I performed an independent interpretation of an: EKG (Normal sinus rhythm heart rate 66, right bundle-branch block, nonspecific T-wave changes, no acute ST elevations depressions), Plain X-Ray (Right shoulder, right elbow: No acute traumatic injury) and CT Scan Radiology Impression Discussion of test interpretation with radiology: I have reviewed the radiologist's reading. Independent Historian Clinical information obtained from an independent historian. History obtained from or confirmed by: EMS External Record Review External record reviewed: Office record (Primary care provider from 04/02/2023) Prescription Management I considered prescription management with: Pain Medication Chronic Conditions Patient?s care impacted by: Other (Alcohol abuse) Social Determinants Patient?s care significantly limited by Social Determinants of Health including: Other Social Determinant of Health Medications Administered Discontinued Medications Generic Name Dose Route Start Last Admin Trade Name Freq PRN Reason Stop Dose Admin Acetaminophen 975 mg 05/02/23 15:49 05/02/23 16:03 Acetaminophen 325 Mg Tablet PO 05/02/23 15:50 Not Given ONCE ONE Folic Acid 1 mg 05/02/23 14:21 05/02/23 14:44 Folic Acid 1 Mg Tablet PO 05/02/23 14:22 1 mg ONCE ONE Administration Iohexol 100 ml 05/02/23 15:38 05/02/23 15:38 Iohexol 350 Mg/Ml 100 Ml Infus..Btl IV 05/02/23 15:39 85 ml ONCE ONE Administration Multivitamins/Vitamin C 1 tab 05/02/23 14:21 05/02/23 14:44 Multivitamin Tablet PO 05/02/23 14:22 1 tab ONCE ONE Administration Thiamine HCl 100 mg 05/02/23 14:21 05/02/23 14:44 Thiamine Hcl 100 Mg Tablet PO 05/02/23 14:22 100 mg ONCE ONE Administration Discharge Plan Discharge Clinical Impression: Alcoholism, Abdominal pain Patient Disposition: Home, Self-Care Instructions: Abuse of Alcohol (DC), Abdominal Pain (ED) Prescriptions: No Action triamcinolone acetonide 0.1 % ointment 1 appl topical BID 30 Days Qty: 30 6RF amlodipine 10 mg tablet 10 mg PO DAILY 90 Days Qty: 90 3RF cholecalciferol (vitamin D3) 25 mcg (1,000 unit) capsule 25 mcg PO DAILY 90 Days Qty: 90 1RF sertraline 25 mg tablet 25 mg PO DAILY 90 Days Qty: 90 1RF fenofibrate 54 mg tablet 54 mg PO DAILY Qty: 90 1RF (DME) bed railing See Rx Instructions .Route .MEDSUPPLY Qty: 1 0RF Rx Instructions: As directed metoprolol succinate 25 mg tablet extended release 24 hr 25 mg PO DAILY Qty: 90 2RF atorvastatin 80 mg tablet 80 mg PO DAILY Qty: 90 3RF isosorbide mononitrate 30 mg tablet extended release 24 hr 30 mg PO DAILY 90 Days Qty: 90 3RF cyanocobalamin (vitamin B-12) 500 mcg tablet 500 mcg PO DAILY 90 Days Qty: 90 1RF pantoprazole 40 mg tablet,delayed release (DR/EC) 40 mg PO DAILY Qty: 90 3RF oxycodone-acetaminophen 5-325 mg tablet 1 tab PO Q6H PRN (Reason: pain) 30 Days Qty: 120 0RF Rx Instructions: Partial Fill upon patient request. gabapentin 300 mg capsule 300 mg PO BEDTIME 90 Days Qty: 90 3RF folic acid 1 mg tablet 1 mg PO DAILY 90 Days Qty: 90 1RF Referrals: Mayda Traylor MD [Primary Care Provider] - 2 days
--- NOTE | 2023-05-02 15:39 | PC.NURSE ---
pt axox3, coming from home, reports fall on sunday with RUE pain and R. sided abd pain. pt has an abrasion & bruising to R. side abd. abd distended and firm. bladder scan with 351 mL; pt has since voided approx 200mL. skin warm and dry; flushed appearance. respirations even and unlabored. 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 pt denies hx of etoh withdrawal. VSS. iv established. awaiting CT results.
[2023-05-02 15:42] VITALS: BP 131/62; PULSE 73; RESP 20; TEMP 37.1; O2SAT 100
--- NOTE | 2023-05-02 16:01 | PC.NURSE ---
Pt agitated, requesting to leave if no pain meds given. Tylenol ordered however pt refusing stating i got all the good shit at home, you think im going to take Tylenol? Dr Soliman aware, no new orders at this time. Pt made aware d/t ETOH level a ride will be needed to leave. Pt called friend to transport him home. IV removed. CT scan resut pending
== END 2023-05-02 16:57 | disposition home or self-care (01) ==
PROVIDERS: Emergency Provider Emergency Medicine; PCP Internal Medicine
DX: F10.220 Alcohol dependence with intoxication, uncomplicated (principal); Y90.8 Blood alcohol level of 240 mg/100 ml or more; R10.9 Unspecified abdominal pain; I10 Essential (primary) hypertension; E78.5 Hyperlipidemia, unspecified; F17.210 Nicotine dependence, cigarettes, uncomplicated; Z86.73 Personal history of transient ischemic attack (TIA), and cerebral infarction without residual deficits; Z79.899 Other long term (current) drug therapy
CPT/HCPCS: 36415; 73030; 73070; 74177; 80053; 80307; 83690; 85025; 85610; 93005; 99284; 99285; Q9967

== ENCOUNTER 2023-08-01 07:45 | Outpatient (AMB) | payer MEDICARE, SELFPAY ==
--- NOTE | 2023-08-01 07:50 | MHC.PC.OV ---
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: No Accompanied by: Self / Same As Patient Allergies mirtazapine Adverse Reaction (Intermediate, Verified 08/01/23 08:07) Dizziness Medication List - Last Reconciled 08/01/23 by Mayda Jeffries MD amlodipine 10 mg PO DAILY 90 days atorvastatin 80 mg PO DAILY [bed railing As directed] cholecalciferol (vitamin D3) 25 mcg PO DAILY 90 days cyanocobalamin (vitamin B-12) 500 mcg PO DAILY 90 days fenofibrate 54 mg PO DAILY folic acid 1 mg PO DAILY 90 days gabapentin 300 mg PO BEDTIME 90 days isosorbide mononitrate ER 30 mg PO DAILY 90 days metoprolol succinate ER 25 mg PO DAILY oxycodone-acetaminophen 5-325 mg 1 tab PO Q6H PRN 30 days pantoprazole 40 mg PO DAILY sertraline 25 mg PO DAILY 90 days triamcinolone acetonide 0.1% 1 appl topical BID 30 days Tobacco use date assessed: 03/15/23 Fall risk assessment: 2 + Falls in past year Last assessed Fall Risk: 08/01/23 Dental Screening Dental Screen Date: 08/01/23 Did you have a dental visit in the last 12 months?: No Did you have a dental problem in the last 6 months where you did not have access to dental care?: No Was dental information given to patient?: Patient declined HPI HPI Comments History of Present Illness Details This is a 67-year-old male with hypertension, dyslipidemia, alcoholism and chronic pain in shoulder that comes today complaining of loss balance causing him to fell. Last fall was yesterday and he had he has right knee. Right knee has no deformity. Blood pressure elevated and he just took his medication. Blood pressure will be recheck in 3 weeks by nurse navigator. Lipid panel will be order and his compliant with statins. He drinks alcohol daily and was advised to stop drinking alcohol daily. Has mild cirrhotic liver by CT scan of the abdomen. On Percocet for his chronic shoulder pain in which markedly decreases intensity from 9/10 to 3/10. Denies chest pain or shortness of breath. Has atherosclerotic cardiovascular disease and EKG will be order. He also has mild recurrent major depression stable with SSRIs. [facility]LY [facility], [facility] Medical History Hypovitaminosis D Mild recurrent major depression Tiredness Alcoholism Alcohol abuse Depression Bilateral carotid artery stenosis Aortic valve sclerosis Atherosclerotic cardiovascular disease Essential hypertension Dyslipidemia Leukocytosis Insomnia Hx of lymphoma Smoker Aortic valve calcification ASHD (arteriosclerotic heart disease) History of CVA with residual deficit Hx of multiple pulmonary nodules CAD (coronary artery disease) Surgical History Cataracts, bilateral Hx of cardiac catheterization History of thoracic surgery H/O total shoulder replacement H/O colonoscopy Family History Father Alcohol abuse Mother No problems noted. Daughter No problems noted. Son No problems noted. Sister No problems noted. Other Substance use disorder Social History Household Members: Spouse Household Members Other:: on dialysis Housing: House Housing Other:: Mobile Home Are you a primary pet caregiver to a significant other at home: No Do you presently have visiting nurse or other home services: No Alcohol intake: current Alcohol intake frequency: 3 or more drinks per day Alcohol type: beer Patient Tobacco Use Status: Current everyday Tobacco user Tobacco use type: Cigarette Cigarette Packs Per Day: 1 Years Smoked: 50+ e-Cigarette/Vaping Use: Never Used Second Hand Smoke Exposure: No service: No Current occupational status: disabled Cognitive needs: Yes Hearing needs: No Vision needs: Yes Questionnaire Thrive Questionnaire Date Thrive assessed: 11/29/22 MATTHIAS-7 AMB Questionnaire MATTHIAS-7 Date MATTHIAS - 7 assessed: 11/29/22 Source: Developed by Drs. Rufus Lewis, Aretha Resendiz, Kelby Tompkins and colleagues, with an educational aide from [employer] Review of Systems Const All systems reviewed & are unremarkable except as noted in HPI and below Eyes Reports no additional complaints, Denies change in vision and Denies other visual disturbances Card Denies chest pain at rest, Denies chest pain with activity, Denies edema, Denies irregular heart rhythm, Denies claudication, Denies dyspnea, Denies dyspnea on exertion, Denies orthopnea, Denies paroxysmal nocturnal dyspnea and Denies slow heart rate Resp Denies cough, Denies dyspnea and Denies dyspnea on exertion GI Denies abdominal pain, Denies change in bowel habits, Denies excessive flatus, Denies nausea and Denies vomiting Denies urinary hesitancy, Denies urinary incontinence and Denies urinary urgency Musc Denies abnormal gait, Denies atrophy, Denies deformity, Reports arthralgias and Reports limited range of motion Skin/Breast Denies bleeding lesions, Denies changing lesions and Denies rash Neuro Denies abnormal gait and Denies lack of coordination Physical exam (Primary Care) Vital Signs: Last Vital Signs Pulse 90 08/01/23 07:51 BP 158/88 H 08/01/23 07:51 BMI result Body Mass Index 31.2 Tobacco/Smoking Status: Tobacco use Status Tobacco use date assessed 03/15/23 08/01/23 07:55 Patient Tobacco Use Status Current everyday Tobacco 08/01/23 07:55 Tobacco use type Cigarette 08/01/23 07:55 e-Cigarette/Vaping Use Never Used 08/01/23 07:55 Thrive Assessment: Date of Thrive Assessment Date Thrive assessed 11/29/22 08/01/23 07:55 Eyes General: appearance normal, both eyes and all related structures Eyelids: Yes eyelids normal Conjunctivae: conjunctivae normal Neck Neck: Yes normal visual inspection and Yes supple Resp Effort & Inspection: normal respiratory effort Auscultation: clear to auscultation bilaterally Cardio Jugular venous distension: no JVD Rate: regular rate Rhythm: regular rhythm Heart sounds: S1 normal heart sound present and S2 normal heart sound present Extrem General: Yes full ROM Left upper extremity: shoulder/upper arm Details: tenderness and abnormal ROM Office Procedures Flu Questionnaire Does the patient have a severe egg allergy?: No Does the patient have severe life threatening allergies?: No Does the patient have a fever or illness today?: No Has the patient ever had Guillain-Nor[place] Syndrome?: No Has the patient ever had any past reaction to a flu shot?: No Immunizations flu vacc [id number] 6mos up(PF) 60 mcg(15 mcgx4)/0.5 mL IM syringe Performing Provider: Mayda Jeffries MD Performing Location: [facility] Administered by: ELEONORA Lawler on 08/01/23 08:23 Dose Route Admin Location Dispensed Lot Number Expiration Date NDC Transporter Radiology 0.5 mL IM Left Deltoid 0.5 mL [id number] 04/27/24 22045-162-13 Butter VIS Given Date VIS Provided VIS Publication Date 08/01/23 Single Vaccine 21 Eligibility Eligibility Date Funding Source Not [facility] Eligible 08/01/23 Private Assessment and Plan Assessment & Plan (1) Mild recurrent major depression: Code(s): F33.0 - Major depressive disorder, recurrent, mild Plan: Continue SSRIs. (2) Alcoholism: Code(s): F10.20 - Alcohol dependence, uncomplicated Plan: Advised to stop drinking alcohol. (3) Essential hypertension: Code(s): I10 - Essential (primary) hypertension Plan: Continue amlodipine. Blood pressure goal is equal or less than 130/80. Recheck blood pressure with nurse navigator in 3 weeks. (4) Dyslipidemia: Code(s): E78.5 - Hyperlipidemia, unspecified Plan: Continue statins. Repeat lipid panel. (5) Chronic pain in shoulder: Code(s): M25.519 - Pain in unspecified shoulder; G89.29 - Other chronic pain Qualifiers: Laterality: unspecified laterality Qualified Code(s): M25.519 - Pain in unspecified shoulder; G89.29 - Other chronic pain Plan: Continue Percocet as needed. (6) Loss of balance: Code(s): R26.89 - Other abnormalities of gait and mobility Plan: Referred to physical therapy. Advised to stop drinking alcohol. Orders: Orders ECG 12 lead EKG Today I25.10 - Atherosclerotic heart disease of [place] coronary artery without angina pectoris Lipid Panel 4 Months E78.5 - Hyperlipidemia, unspecified Vitamin B12 and Folate 4 Months E53.8 - Deficiency of other specified B group vitamins Vitamin D 25-OH Total 4 Months E55.9 - Vitamin D deficiency, unspecified IRON PROFILE 4 Months D64.9 - Anemia, unspecified Comprehensive [place]. Panel Fast 4 Months I10 - Essential (primary) hypertension Vitamin B1 4 Months E51.9 - Thiamine deficiency, unspecified Influenza [id number] Immunization Today Z23 - Encounter for immunization Complete Blood Count Auto Diff 4 Months D64.9 - Anemia, unspecified PT Evaluation and Treatment Today R26.89 - Other abnormalities of gait and mobility Coding Level of Care Code Est Pt Level 4 (90110) Diagnoses Mild recurrent major depression F33.0 Alcoholism F10.20 Essential hypertension I10 Dyslipidemia E78.5 Chronic shoulder pain, unspecified laterality M25.519; G89.29 Laterality: unspecified laterality Loss of balance R26.89 Time Spent (min) 22
[2023-08-01 07:51] VITALS: BP 158/88; PULSE 90; BMI 31.2
[2023-08-01 08:39] VITALS: BP 150/80
== END 2023-08-01 08:25 | disposition home or self-care (01) ==
PROVIDERS: PCP Internal Medicine; Visit Provider Internal Medicine
DX: F33.0 Major depressive disorder, recurrent, mild (principal); F10.20 Alcohol dependence, uncomplicated; I10 Essential (primary) hypertension; E78.5 Hyperlipidemia, unspecified; M25.519 Pain in unspecified shoulder; G89.29 Other chronic pain; R26.89 Other abnormalities of gait and mobility; Z23 Encounter for immunization
CPT/HCPCS: 90471; 90686; 99214

== ENCOUNTER → 2023-08-01 08:35 | Outpatient (REF) | payer MEDICARE, SELFPAY ==
--- NOTE | 2023-08-01 08:47 | ECG_ITS ---
Test Reason : I25.10 Blood Pressure : / mmHG Vent. Rate : 089 BPM Atrial Rate : 089 BPM P-R Int : 130 ms QRS Dur : 114 ms QT Int : 402 ms P-R-T Axes : 076 066 029 degrees QTc Int : 489 ms Normal sinus rhythm Right bundle branch block Nonspecific ST abnormality Prolonged QT Abnormal ECG When compared with ECG of 02-MAY-2023 14:35, No significant change was found Referred By: Mayda Jeffries Electronically Signed By:AB CHAUDHARI
== END ==
LOC: HO.CARD 08:35
PROVIDERS: PCP Internal Medicine; Visit Provider Internal Medicine
DX: I25.10 Atherosclerotic heart disease of native coronary artery without angina pectoris (principal)
CPT/HCPCS: 93005

== ENCOUNTER 2023-08-18 18:12 | Emergency (ER) | payer MEDICARE, SELFPAY ==
[2023-08-18 18:45] VITALS: BP 131/83; BP 132/70; PULSE 71; PULSE 78; RESP 20; TEMP 36.4; O2SAT 98; BMI 32.0
--- NOTE | 2023-08-18 19:39 | ED.GENADULT ---
HPI - General Adult General Chief complaint: ETOH/Substance Use Stated complaint: ETOH W/SI ON SECT 12 PER EMS Time Seen by Provider: 08/18/23 19:22 Source: patient, RN notes reviewed and old records reviewed Mode of arrival: EMS Limitations: no limitations History of Present Illness HPI narrative: 68-year-old male presents for evaluation after a fall patient admits to excessive alcohol consumption daily. He states that his 2 years ago and he has been having difficulty breathing patient admits that he is depressed but he has never had any thoughts of killing himself patient reports that he was drink in excess when he fell into his neighbor's door a bystander called EMS he was brought to the hospital for further evaluation he denies any complaints or concerns at this time Related Data Previous Rx's Medication Instructions Recorded triamcinolone acetonide 0.1 % 1 appl topical BID 30 days #30 03/01/21 topical ointment grams amlodipine 10 mg tablet 10 mg PO DAILY 90 days #90 tabs 09/20/22 fenofibrate 54 mg tablet 54 mg PO DAILY #90 tabs 01/29/23 bed railing #1 ea 03/13/23 metoprolol succinate 25 mg 25 mg PO DAILY #90 tabs 03/16/23 tablet,extended release 24 hr atorvastatin 80 mg tablet 80 mg PO DAILY #90 tabs 03/18/23 isosorbide mononitrate 30 mg 30 mg PO DAILY 90 days #90 tabs 03/18/23 tablet,extended release 24 hr pantoprazole 40 mg tablet,delayed 40 mg PO DAILY #90 tabs 04/06/23 release cholecalciferol (vitamin D3) 25 25 mcg PO DAILY 90 days #90 caps 05/25/23 mcg (1,000 unit) capsule cyanocobalamin (vitamin B-12) 500 500 mcg PO DAILY 90 days #90 tabs 07/25/23 mcg tablet folic acid 1 mg tablet 1 mg PO DAILY 90 days #90 tabs 07/25/23 gabapentin 300 mg capsule 300 mg PO BEDTIME 90 days #90 caps 07/25/23 oxycodone-acetaminophen 5 mg-325 1 tab PO Q6H PRN pain 30 days #120 07/25/23 mg tablet tabs sertraline 25 mg tablet 25 mg PO DAILY 90 days #90 tabs 07/25/23 Allergies Allergy/AdvReac Type Severity Reaction Status Date / Time mirtazapine AdvReac Intermediate Dizziness Verified 08/01/23 08:07 Review of Systems Constitutional: Constitutional: Denies chills, Denies fever(s) and Denies headache(s) Eyes: Eyes: Denies blurry vision ENT: Denies headache(s) and Denies sore throat Cardiovascular: Cardiovascular: Denies chest pain and Denies dyspnea Respiratory: Respiratory: Denies cough and Denies dyspnea Gastrointestinal: Gastrointestinal: Denies abdominal pain, Denies nausea and Denies vomiting Musculoskeletal: Musculoskeletal: Denies back pain Neurologic: Denies headache(s) [facility] Past Medical History Medical History Hypovitaminosis D Mild recurrent major depression Tiredness Alcoholism Alcohol abuse Depression Bilateral carotid artery stenosis Aortic valve sclerosis Atherosclerotic cardiovascular disease Essential hypertension Dyslipidemia Leukocytosis Insomnia Hx of lymphoma Smoker Aortic valve calcification ASHD (arteriosclerotic heart disease) History of CVA with residual deficit Hx of multiple pulmonary nodules CAD (coronary artery disease) Surgical History Cataracts, bilateral Hx of cardiac catheterization History of thoracic surgery H/O total shoulder replacement H/O colonoscopy Family History Family History Father Alcohol abuse Mother No problems noted. Daughter No problems noted. Son No problems noted. Sister No problems noted. Other Substance use disorder Social History Social History Household Members: Spouse Household Members Other:: on dialysis Housing: House Housing Other:: Mobile Home Are you a primary skin care therapist to a significant other at home: No Do you presently have visiting nurse or other home services: No Alcohol intake: current Alcohol intake frequency: 3 or more drinks per day Alcohol type: beer Patient Tobacco Use Status: Current everyday Tobacco user Tobacco use type: Cigarette Cigarette Packs Per Day: 1 Years Smoked: 50+ e-Cigarette/Vaping Use: Never Used Second Hand Smoke Exposure: No Advance Directives: No Advance Directives Information Provided: No service: No Current occupational status: disabled Cognitive needs: Yes Hearing needs: No Vision needs: Yes Physical Exam ED Vital Signs: Vital Signs - 24 hr 08/18/23 18:45 Temperature 97.6 F Pulse Rate 71 Respiratory Rate 20 Blood Pressure 131/83 Pulse Oximetry 98 Oxygen Delivery Method Room Air BMI result Body Mass Index 32.0 Const General: comfortable, no acute distress, alert and awake Nutritional Appearance: well nourished Orientation/consciousness: patient oriented x3 HENMT Other: patient is a very small abrasion to the posterior scalp, no lacerations or bleeding Throat: Yes posterior oropharynx normal Eyes Eyelids: Yes eyelids normal Conjunctivae: conjunctivae normal Sclerae: sclerae normal Corneas: corneas normal Pupils: Equal, round and reactive pupils present EOM: EOMs intact bilaterally Neck Other: no C-spine tenderness Neck: Yes full ROM Resp Effort & Inspection: normal respiratory effort, able to speak in complete sentences and not labored Cardio Rate: regular rate Rhythm: regular rhythm GI Inspection: No distended Palpation (GI): Soft to palpation, not firm, nontender, no guarding and not rigid Skin General skin exam: elasticity normal Neuro General: patient oriented x3 Cranial nerves: Yes CN's II-XII intact bilaterally, Yes Equal, round and reactive pupils present and Yes Bilaterally intact EOM present Cognition (Neuro): normal cognition Extrem Other: Moving all extremities well without any obvious deformities Course Reevaluation(s) Reevaluation #1: patient's sister came to pick the patient up. I discussed with her risks for work the patient declined CT imaging she also understands the benefits And is willing to take the patient home. I gave her return precautions to call 911 to have the patient return Time: 19:51 Medical Decision Making Medical Decision Making [facility] Narrative: patient arrives, he admits to alcohol consumption today admits to falling. I recommended CT scan of the brain and cervical spine which he declined. Patient is able to verbalize that he understands the risks of a bleed or fractured spine but with selective declined scans. He is requesting discharge at this time. I informed the patient that if he get a sober ride home, he can be discharged I would not discharge him to walk on his own. He states that his sister will come to pick him up. patient's speaking with clear sensorium but ambulates with a slightly uneven gait. no focal weakness Differential Diagnosis Differential Diagnoses: The differential diagnosis associated with the presentation includes alcohol consumption Acute alcohol intoxication Intracranial hemorrhage Cervical fracture Discharge Plan Discharge Clinical Impression: Acute alcohol intoxication, Depression, Fall Prescriptions: No Action triamcinolone acetonide 0.1 % ointment 1 appl topical BID 30 Days Qty: 30 6RF amlodipine 10 mg tablet 10 mg PO DAILY 90 Days Qty: 90 3RF fenofibrate 54 mg tablet 54 mg PO DAILY Qty: 90 1RF (DME) bed railing See Rx Instructions .Route .MEDSUPPLY Qty: 1 0RF Rx Instructions: As directed metoprolol succinate 25 mg tablet extended release 24 hr 25 mg PO DAILY Qty: 90 2RF atorvastatin 80 mg tablet 80 mg PO DAILY Qty: 90 3RF isosorbide mononitrate 30 mg tablet extended release 24 hr 30 mg PO DAILY 90 Days Qty: 90 3RF pantoprazole 40 mg tablet,delayed release (DR/EC) 40 mg PO DAILY Qty: 90 3RF cholecalciferol (vitamin D3) 25 mcg (1,000 unit) capsule 25 mcg PO DAILY 90 Days Qty: 90 1RF gabapentin 300 mg capsule 300 mg PO BEDTIME 90 Days Qty: 90 3RF oxycodone-acetaminophen 5-325 mg tablet 1 tab PO Q6H PRN (Reason: pain) 30 Days Qty: 120 0RF Rx Instructions: Partial Fill upon patient request. sertraline 25 mg tablet 25 mg PO DAILY 90 Days Qty: 90 1RF cyanocobalamin (vitamin B-12) 500 mcg tablet 500 mcg PO DAILY 90 Days Qty: 90 1RF folic acid 1 mg tablet 1 mg PO DAILY 90 Days Qty: 90 1RF
== END 2023-08-18 19:45 | disposition home or self-care (01) ==
PROVIDERS: Emergency Provider Emergency Medicine; PCP Internal Medicine
DX: S00.01XA Abrasion of scalp, initial encounter (principal); W19.XXXA Unspecified fall, initial encounter; F10.220 Alcohol dependence with intoxication, uncomplicated; Y90.9 Presence of alcohol in blood, level not specified; F32.A Depression, unspecified; I10 Essential (primary) hypertension; E78.5 Hyperlipidemia, unspecified; Z86.73 Personal history of transient ischemic attack (TIA), and cerebral infarction without residual deficits; F17.210 Nicotine dependence, cigarettes, uncomplicated; Y93.9 Activity, unspecified; Y92.9 Unspecified place or not applicable; Y99.9 Unspecified external cause status
CPT/HCPCS: 99282

== ENCOUNTER 2023-10-25 18:54 | Emergency (ER) | payer MEDICARE, SELFPAY ==
--- NOTE | ~2023-10-25 | CT_ITS ---
EXAMINATION: CT HEAD WITHOUT CONTRAST CT CERVICAL SPINE WITHOUT CONTRAST CLINICAL INFORMATION: Fall. COMPARISON: CT head and cervical spine 12/24/2022. TECHNIQUE: Contiguous axial imaging was performed from the skull base to vertex without intravenous administration of contrast. Contiguous axial imaging was performed from the upper chest through the skull base without intravenous administration of contrast. Coronal and sagittal reformats were obtained at the acquisition workstation. This CT examination was performed using dose optimization techniques as appropriate, variously including the following: *Automated exposure control *Adjustment of mA and/or kV according to patient size (this includes techniques or standardized protocols for targeted exams where dose is matched to indication/reason for exam; i.e. extremities or head) *Use of iterative reconstruction technique DLP: 686 and 592 mGy-cm FINDINGS: Head: There is no evidence of acute intracranial hemorrhage or edematous territorial infarction. A few foci of hypoattenuation in the periventricular and deep white matter are consistent with mild microangiopathy. Tee-white matter differentiation is preserved. Proportional prominence of the ventricles and sulcal spaces. No evidence for obstructive hydrocephalus. No abnormal mass effect or midline shift. No extra-axial fluid collections. No acute soft tissue or osseous abnormalities. Small bilateral mastoid effusions. Paranasal sinuses are clear. Cervical Spine: Evaluation is extremely limited by motion. Anterior fusion hardware noted at C6-C7. No discrete acute compression deformity or traumatic subluxation in this limited examination. Mild to moderate multilevel cervical spondylosis with intervertebral disc height loss and facet/uncovertebral hypertrophy. No significant prevertebral soft tissue swelling. Limited examination of the soft tissues of the neck and lungs due to motion. Paraseptal emphysema noted in the lung apices. CT/CT cervical spine wo IV con IMPRESSION: 1. No acute intracranial pathology. 2. Evaluation of the cervical spine is extremely limited by motion. However, accounting for these limitations, no definite acute cervical fractures or malalignment are identified. Repeat imaging could be obtained as clinically warranted.
--- NOTE | ~2023-10-25 | XR_ITS ---
EXAMINATION: XR CHEST CLINICAL INFORMATION: Shortness of breath. COMPARISON: Chest radiograph 12/25/2020. TECHNIQUE: Frontal view of the chest was obtained. FINDINGS: Again noted suture line projecting over the right midlung. No new focal airspace opacities. No pleural effusion or pneumothorax. No pulmonary edema. Stable cardiomediastinal silhouette. Redemonstration of bilateral shoulder arthroplasties and cervical fusion hardware. No acute osseous findings. XR/XR chest 1V IMPRESSION: No acute cardiopulmonary findings.
[2023-10-25 19:06] VITALS: BP 112/64; BP 138/63; PULSE 71; PULSE 77; RESP 16; TEMP 36.9; O2SAT 95; O2SAT 98; BMI 27.9
--- NOTE | 2023-10-25 19:12 | ED.GENADULT ---
HPI - General Adult General Chief complaint: Dizziness Stated complaint: ETOH,COCAINE USE, DIZZINESS Time Seen by Provider: 10/25/23 19:09 Source: patient Mode of arrival: EMS Limitations: no limitations History of Present Illness HPI narrative: Patient alcoholic been feeling dizzy spinning movements and falling often for last 3- 4 weeks patient history of vertigo in the past patient drinks every day no tremors feels likes weak no chest pain or palpitation no headache has a chronic back pain Related Data Previous Rx's Medication Instructions Recorded triamcinolone acetonide 0.1 % 1 appl topical BID 30 days #30 03/01/21 topical ointment grams amlodipine 10 mg tablet 10 mg PO DAILY 90 days #90 tabs 09/20/22 fenofibrate 54 mg tablet 54 mg PO DAILY #90 tabs 01/29/23 bed railing #1 ea 03/13/23 metoprolol succinate 25 mg 25 mg PO DAILY #90 tabs 03/16/23 tablet,extended release 24 hr atorvastatin 80 mg tablet 80 mg PO DAILY #90 tabs 03/18/23 isosorbide mononitrate 30 mg 30 mg PO DAILY 90 days #90 tabs 03/18/23 tablet,extended release 24 hr pantoprazole 40 mg tablet,delayed 40 mg PO DAILY #90 tabs 04/06/23 release cholecalciferol (vitamin D3) 25 25 mcg PO DAILY 90 days #90 caps 05/25/23 mcg (1,000 unit) capsule cyanocobalamin (vitamin B-12) 500 500 mcg PO DAILY 90 days #90 tabs 07/25/23 mcg tablet folic acid 1 mg tablet 1 mg PO DAILY 90 days #90 tabs 07/25/23 gabapentin 300 mg capsule 300 mg PO BEDTIME 90 days #90 caps 07/25/23 sertraline 25 mg tablet 25 mg PO DAILY 90 days #90 tabs 07/25/23 oxycodone-acetaminophen 5 mg-325 1 tab PO Q6H PRN pain 30 days #120 09/26/23 mg tablet tabs folic acid 1 mg tablet 1 mg PO DAILY #90 tabs 10/25/23 meclizine 25 mg tablet 25 mg PO TID PRN dizziness #20 tabs 10/25/23 thiamine HCl (vitamin B1) 100 mg 100 mg PO DAILY #90 tabs 10/25/23 tablet Allergies Allergy/AdvReac Type Severity Reaction Status Date / Time mirtazapine AdvReac Intermediate Dizziness Verified 08/01/23 08:07 Review of Systems Review of Systems: Yes all other systems are reviewed and are negative [facility] Past Medical History Medical History Hypovitaminosis D Mild recurrent major depression Tiredness Alcoholism Alcohol abuse Depression Bilateral carotid artery stenosis Aortic valve sclerosis Atherosclerotic cardiovascular disease Essential hypertension Dyslipidemia Leukocytosis Insomnia Hx of lymphoma Smoker Aortic valve calcification ASHD (arteriosclerotic heart disease) History of CVA with residual deficit Hx of multiple pulmonary nodules CAD (coronary artery disease) Surgical History Cataracts, bilateral Hx of cardiac catheterization History of thoracic surgery H/O total shoulder replacement H/O colonoscopy Family History Family History Father Alcohol abuse Mother No problems noted. Daughter No problems noted. Son No problems noted. Sister No problems noted. Other Substance use disorder Social History Social History Household Members: Spouse Household Members Other:: on dialysis Housing: House Housing Other:: Mobile Home Are you a primary veterinarian laboratory animal care to a significant other at home: No Do you presently have visiting nurse or other home services: No Alcohol intake: current Alcohol intake frequency: 3 or more drinks per day Alcohol type: beer Patient Tobacco Use Status: Current everyday Tobacco user Tobacco use type: Cigarette Cigarette Packs Per Day: 1 Years Smoked: 50+ e-Cigarette/Vaping Use: Never Used Second Hand Smoke Exposure: No Advance Directives: No Advance Directives Information Provided: No service: No Current occupational status: disabled Cognitive needs: Yes Hearing needs: No Vision needs: Yes Physical Exam ED Vital Signs: Vital Signs - 24 hr 10/25/23 19:06 10/25/23 20:55 Temperature 98.5 F 97.7 F Pulse Rate 71 74 Respiratory Rate 16 18 Blood Pressure 138/63 139/79 Pulse Oximetry 98 99 Oxygen Delivery Method Room Air Room Air BMI result Body Mass Index 27.9 Appearance: Alert. Oriented X3. No acute distress. Eyes: PERRLA, No Nystagmus ENT: Pharynx normal. Oral Mucosa moist Neck: Normal inspection. Neck supple. CVS: Normal heart rate and rhythm. Pulses normal. Respiratory: No respiratory distress. Equal air entry bilateral, no wheezing/rales/rhonchi Abdomen: Soft and nontender. Bowel sounds are present, no mass palpable, no CVA tenderness Skin: Skin warm and dry. Normal skin color. Normal skin turgor. Extremities: No lower extremity edema. No calf tenderness Neuro: Oriented X 3. No motor deficit. No sensory deficit.No cerebellar signs , cranial nerves II-XII intact decreased muscle mass in the lower extremity Medications Administered Discontinued Medications Generic Name Dose Route Start Last Admin Trade Name Freq PRN Reason Stop Dose Admin Sodium Chloride 1,000 mls @ 999 mls/hr 10/25/23 19:32 10/25/23 21:48 Ns IV 10/25/23 20:32 Infused .Q1H1M ONE Infusion Magnesium Sulfate 2 gm in 50 mls @ 150 mls/hr 10/25/23 21:20 10/25/23 21:48 Magnesium Sulfate/H2o IV 10/25/23 21:39 Infused ONCE ONE Infusion Potassium Bicarbonate 50 meq 10/25/23 21:20 10/25/23 21:29 Potassium Bicarbonate/Cit Ac 25 Meq Tablet.Eff PO 10/25/23 21:21 50 meq ONCE ONE Administration Medical Decision Making Medical Decision Making [facility] Narrative: Patient alcoholic with sudden onset of vertiginous feeling off and on for last few weeks with history of same in the past with no central sinus clinically patient has benign positional vertigo discharge p.o. meclizine educated about alcohol use magnesium was 1.5 was given IV magnesium and potassium advised to have increase foods bananas daily and stop drinking alcohol Differential Diagnosis Differential Diagnoses: The differential diagnosis associated with the presentation includes Vertigo/ataxia/cerebellar lesion /posterior circulation cva Admission/Observation Consideration of admission/observation: Escalation of care including admission/observation considered Lab Data [facility] Lab Attestation statement: I reviewed the patient's lab results. 10/25/23 20:11 10/25/23 20:11 Labs: Lab Results 10/25/23 Range/Units 20:11 WBC 10.8 (4.8-10.8) X10*3/uL RBC 3.75 L (4.60-5.80) X10*6/uL Hgb 13.0 L (14.0-18.0) g/dl Hct 37.4 L (42.0-52.0) % MCV 99.7 H (80.0-98.0) fL MCH 34.7 H (27.0-33.0) pg MCHC 34.8 (31.0-36.0) g/dl RDW 13.5 (11.0-16.0) % Plt Count 174 (160-400) X10*3/uL MPV 9.1 L (9.4-12.4) fL Immature Gran % (Auto) 0.4 (0.0-0.4) % Neut % (Auto) 62.2 (45-73) % Lymph % (Auto) 29.7 (20-40) % [place] % (Auto) 6.3 (2-11) % Eos % (Auto) 0.8 (0-4) % Baso % (Auto) 0.6 (0-2) % Lymph # (Auto) 3.2 (1.2-4.9) X10*3/uL [place] # (Auto) 0.7 (0.1-1.2) X10*3/uL Eos # (Auto) 0.1 (0.0-0.4) X10*3/uL Baso # (Auto) 0.1 (0.0-0.2) X10*3/uL Abs Immat Gran (auto) 0.04 H (0.00-0.03) X10*3/uL Absolute Neuts (auto) 6.7 (2.0-8.3) x10*3/uL Absolute Nucleated RBC 0.000 (0.0-0.012) X10*3/uL Nucleated RBC % (auto) 0.0 (0.0-0.2) /100WBC PT 16.0 H (11.1-13.3) SEC INR 1.3 H (0.9-1.1) Sodium 138 (135-145) mmol/L Potassium 3.5 (3.3-5.1) mmol/L Chloride 102 (96-108) mmol/L Carbon Dioxide 22 (22-29) mmol/L Anion Gap 18 (12-20) BUN 5 L (9-16) mg/dL Creatinine 0.57 (0.5-1.4) mg/dL Estim Creat Clear Calc 144.8 Estimated GFR > 60 Random Glucose 104 (60-115) mg/dL Calcium 8.8 (8.4-10.2) mg/dL Magnesium 1.5 L (1.6-2.6) mg/dL Total Bilirubin 0.7 (0.0-1.0) mg/dL AST 118 H (5-37) U/L ALT 49 H (0-40) U/L Alkaline Phosphatase 157 H (39-117) U/L Troponin I High Sens < 2.7 (<3.5-35.0) ng/L Total Protein 7.6 (6.5-8.0) g/dL Albumin 3.7 (3.5-5.0) g/dL Ethyl Alcohol 245 mg/dL Independent Interpretation I performed an independent interpretation of an: EKG, Plain X-Ray and CT Scan Interpretation: Normal sinus rhythm heart rate 73 beats per minute RBBB, normal axis no acute ST T wave changes no acute ischemia Radiology Impression Discussion of test interpretation with radiology: I have reviewed the radiologist's reading. Discharge Plan Discharge Clinical Impression: Benign paroxysmal positional nystagmus, Alcohol abuse Patient Disposition: Home, Self-Care Instructions: Abuse of Alcohol (ED), Benign Paroxysmal Positional Vertigo (ED) Additional Instructions: Stop drinking alcohol Medication for dizziness as prescribed Take vitamin tablets daily and have extra orange juice / bananas daily Prescriptions: New thiamine HCl (vitamin B1) 100 mg tablet 100 mg PO DAILY Qty: 90 0RF folic acid 1 mg tablet 1 mg PO DAILY Qty: 90 0RF meclizine 25 mg tablet 25 mg PO TID PRN (Reason: dizziness) Qty: 20 0RF No Action triamcinolone acetonide 0.1 % ointment 1 appl topical BID 30 Days Qty: 30 6RF amlodipine 10 mg tablet 10 mg PO DAILY 90 Days Qty: 90 3RF fenofibrate 54 mg tablet 54 mg PO DAILY Qty: 90 1RF (DME) bed railing See Rx Instructions .Route .MEDSUPPLY Qty: 1 0RF Rx Instructions: As directed metoprolol succinate 25 mg tablet extended release 24 hr 25 mg PO DAILY Qty: 90 2RF atorvastatin 80 mg tablet 80 mg PO DAILY Qty: 90 3RF isosorbide mononitrate 30 mg tablet extended release 24 hr 30 mg PO DAILY 90 Days Qty: 90 3RF pantoprazole 40 mg tablet,delayed release (DR/EC) 40 mg PO DAILY Qty: 90 3RF cholecalciferol (vitamin D3) 25 mcg (1,000 unit) capsule 25 mcg PO DAILY 90 Days Qty: 90 1RF gabapentin 300 mg capsule 300 mg PO BEDTIME 90 Days Qty: 90 3RF sertraline 25 mg tablet 25 mg PO DAILY 90 Days Qty: 90 1RF cyanocobalamin (vitamin B-12) 500 mcg tablet 500 mcg PO DAILY 90 Days Qty: 90 1RF folic acid 1 mg tablet 1 mg PO DAILY 90 Days Qty: 90 1RF oxycodone-acetaminophen 5-325 mg tablet 1 tab PO Q6H PRN (Reason: pain) 30 Days Qty: 120 0RF Rx Instructions: Partial Fill upon patient request.
--- NOTE | 2023-10-25 19:31 | PC.NURSE ---
multiple attempts to get out of bed/leave ama. at bedside now aware.
--- NOTE | 2023-10-25 19:32 | ECG_ITS ---
Test Reason : DIZZY Blood Pressure : / mmHG Vent. Rate : 073 BPM Atrial Rate : 073 BPM P-R Int : 136 ms QRS Dur : 126 ms QT Int : 456 ms P-R-T Axes : 055 060 034 degrees QTc Int : 502 ms Normal sinus rhythm Right bundle branch block Abnormal ECG When compared with ECG of 01-AUG-2023 08:48, No significant change was found Referred By: Alexis Meng Electronically Signed By:RAJINDER YOST
--- NOTE | 2023-10-25 20:00 | PC.NURSE ---
PT REFUSING IV/BLOOD WORK. IN AGREEMENT WITH CT SCAN AND EKG. DR. MEZA AWARE.
[2023-10-25 20:18] LABS: MANUAL DIFF FLAG NO
[2023-10-25] MEDS: 0.9 % Sodium Chloride 1,000 ML 999 ML IV (20:19)
--- NOTE | 2023-10-25 20:19 | PC.NURSE ---
pt in agreement after speaking with dr. hobbs. iv placed labs drawn ivf infusing.
[2023-10-25 20:21] LABS: Basophils Absolute Auto 0.1 X10*3/uL (0.0-0.2); Basophils Percent Auto 0.6 % (0-2); Eosinophils Absolute Auto 0.1 X10*3/uL (0.0-0.4); Eosinophils Percent Auto 0.8 % (0-4); Hematocrit 37.4 % (42.0-52.0); Imm Gran Abs Auto 0.04 X10*3/uL (0.00-0.03); Imm Gran Pct Auto 0.4 % (0.0-0.4); Lymphocytes Absolute Auto 3.2 X10*3/uL (1.2-4.9); Lymphocytes Percent Auto 29.7 % (20-40); Mean Corpuscular HGB Conc 34.8 g/dl (31.0-36.0); Mean Corpuscular Hemoglobin 34.7 pg (27.0-33.0); Mean Corpuscular Volume 99.7 fL (80.0-98.0); Mean Platelet Volume 9.1 fL (9.4-12.4); Monocytes Absolute Auto 0.7 X10*3/uL (0.1-1.2); Monocytes Percent Auto 6.3 % (2-11); Neutrophils Absolute Auto 6.7 x10*3/uL (2.0-8.3); Neutrophils Percent Auto 62.2 % (45-73); Platelet Count 174 X10*3/uL (160-400); Red Blood Count 3.75 X10*6/uL (4.60-5.80); Red Cell Distribution Width 13.5 % (11.0-16.0); White Blood Count 10.8 X10*3/uL (4.8-10.8)
[2023-10-25 20:33] LABS: INTERNATIONAL NORM RATIO 1.3 (0.9-1.1)
[2023-10-25 20:36] LABS: Alanine Aminotransferase 49 U/L (0-40); Albumin Level 3.7 g/dL (3.5-5.0); Alkaline Phosphatase 157 U/L (39-117); Anion Gap 18 (12-20); Aspartate Amino Transferase 118 U/L (5-37); Bilirubin Total 0.7 mg/dL (0.0-1.0); Blood Urea Nitrogen 5 mg/dL (9-16); Calcium 8.8 mg/dL (8.4-10.2); Carbon Dioxide 22 mmol/L (22-29); Chloride 102 mmol/L (96-108); Creatinine Clr Calc Pharmacy 144.8; Estimated Glomerular Filt Rate > 60; Ethanol 245 mg/dL; Glucose Random 104 mg/dL (60-115); Magnesium 1.5 mg/dL (1.6-2.6); Potassium 3.5 mmol/L (3.3-5.1); Sodium 138 mmol/L (135-145); Total Protein 7.6 g/dL (6.5-8.0)
[2023-10-25 20:43] LABS: Troponin-I High Sensitivity < 2.7 ng/L (<3.5-35.0)
[2023-10-25 20:55] VITALS: BP 139/79; PULSE 74; RESP 18; TEMP 36.5; O2SAT 99
[2023-10-25] MEDS: Magnesium Sulfate/H2O 2 GM/50 ML PIGGYBACK IV (21:29)
[2023-10-25] MEDS: Potassium Bicarbonate/Cit AC 25 MEQ TABLET.EFF 50 MEQ PO (21:29)
--- NOTE | 2023-10-25 21:33 | PC.NURSE ---
iv mag infusing within [address] hobbs verbal order.
[2023-10-25] MEDS: Meclizine HCl 25 MG TABLET PO (21:55)
== END 2023-10-25 22:22 | disposition home or self-care (01) ==
PROVIDERS: Emergency Provider Internal Medicine; PCP Internal Medicine
DX: R42 Dizziness and giddiness (principal); F10.129 Alcohol abuse with intoxication, unspecified; I45.10 Unspecified right bundle-branch block; R51.9 Headache, unspecified; Y90.8 Blood alcohol level of 240 mg/100 ml or more; M54.2 Cervicalgia; F14.10 Cocaine abuse, uncomplicated; R11.2 Nausea with vomiting, unspecified; F17.210 Nicotine dependence, cigarettes, uncomplicated; Z71.6 Tobacco abuse counseling; Z79.899 Other long term (current) drug therapy
CPT/HCPCS: 36415; 70450; 71045; 72125; 80053; 80307; 83735; 84484; 85025; 85610; 93005; 96361; 96374; 99284; J3475

== ENCOUNTER → 2023-10-25 19:32 | Outpatient (BNV) | payer MEDICARE, SELFPAY | PROVIDERS: Emergency Provider Internal Medicine; PCP Internal Medicine; Visit Provider Internal Medicine | DX: I45.10 Unspecified right bundle-branch block (principal); R94.31 Abnormal electrocardiogram [ECG] [EKG] | CPT/HCPCS: 93010 ==

== ENCOUNTER 2023-11-29 09:50 | Outpatient (AMB) | payer MEDICARE, SELFPAY ==
[2023-11-29 10:05] VITALS: BP 174/100; PULSE 106; O2SAT 97; BMI 28.5
--- NOTE | 2023-11-29 10:05 | A.OFFPC_ITS ---
Vital Signs 11/29/23 10:05 11/29/23 10:25 Height 5 ft 11 in Weight 204 lb 9.423 oz BMI 28.5 BP 174/100 H 162/94 H Blood Pressure Location Lt brachial Rt brachial Position Sitting Sitting Pulse 106 H Pulse Source Pulse Oximeter Pulse Oximetry (%) 97 Oxygen Delivery Method Room Air Intake Visit Reasons: alcoholism - see comments Shirt Turner Required: No Accompanied by: Self / Same As Patient Allergies mirtazapine Adverse Reaction (Intermediate, Verified 11/29/23 11:04) Dizziness Medication List - Last Reconciled 11/29/23 by Aj Ellison MD amlodipine 10 mg PO DAILY 90 days atorvastatin 80 mg PO DAILY [bed railing As directed] cholecalciferol (vitamin D3) 25 mcg PO DAILY 90 days cyanocobalamin (vitamin B-12) 500 mcg PO DAILY 90 days fenofibrate 54 mg PO DAILY folic acid 1 mg PO DAILY folic acid 1 mg PO DAILY 90 days gabapentin 300 mg PO BEDTIME 90 days isosorbide mononitrate ER 30 mg PO DAILY 90 days meclizine 25 mg PO TID PRN metoprolol succinate ER 25 mg PO DAILY oxycodone-acetaminophen 5-325 mg 1 tab PO Q6H PRN 30 days pantoprazole 40 mg PO DAILY sertraline 25 mg PO DAILY 90 days thiamine HCl (vitamin B1) 100 mg PO DAILY triamcinolone acetonide 0.1% 1 appl topical BID 30 days Tobacco use date assessed: 11/29/23 Fall risk assessment: 1 Fall in past year Last assessed Fall Risk: 11/29/23 Dental Screening Dental Screen Date: 11/29/23 Did you have a dental visit in the last 12 months?: No Did you have a dental problem in the last 6 months where you did not have access to dental care?: No Was dental information given to patient?: No HPI alcoholism - see comments HPI Details Patient comes in today for his follow up visit States that he has been falling a lot lately and relates that he fell again in his bathroom yesterday and hit his head slightly on the bathroom sink Patient has a history of multiple visits to the local ERs over the past few months for the same complaint - recurrent dizziness resulting in falls and head/neck and other physical trauma States that he is not sure why he is in to see me today and that he just goes for his appointments whenever he is told to States that he currently has some soreness over the left side of the top of his head where he thinks he hit his sink yesterday States that he did not pass out after he fell and was able to get up by himself right away He presently denies any headaches and denies any changes in his vision lately; denies any nausea or vomiting He unfortunately continues to drink alcohol often and his dizziness may be a result of intoxication or other issues, including alcoholic neuropathy His visit today appears to have been set up by his visiting nurses from [facility] for an urgent care visit last week on 11/22/2023 following another fall wherein he hit his head and right knee Patient states that his right knee is still bothering him although he feels that the pain is slowly subsiding but his right knee continues to give out on him often when he is walking Also states that he feels unsteady often when he is walking, and relates (+) f requent dizziness causing him to fall Relates (+) occasional sharp chest pains; denies any increased SOB No abdominal pain but states that he has loose stools often, which he attributes to his bad diet [facility] Medical History (Updated 11/29/23 @ 13:30 by Aj Ellison MD) Overweight (BMI 25.0-29.9) Vitamin D deficiency Depression Mixed hyperlipidemia Hypovitaminosis D Mild recurrent major depression Tiredness Alcoholism Alcohol abuse Bilateral carotid artery stenosis Aortic valve sclerosis Atherosclerotic cardiovascular disease Essential hypertension Dyslipidemia Leukocytosis Insomnia Hx of lymphoma Smoker Aortic valve calcification ASHD (arteriosclerotic heart disease) History of CVA with residual deficit Hx of multiple pulmonary nodules CAD (coronary artery disease) Surgical History Cataracts, bilateral Hx of cardiac catheterization History of thoracic surgery H/O total shoulder replacement H/O colonoscopy Family History Father Alcohol abuse Mother No problems noted. Daughter No problems noted. Son No problems noted. Sister No problems noted. Other Substance use disorder Social History Household Members: Spouse Household Members Other:: on dialysis Housing: House Housing Other:: Mobile Home Are you a primary care transitions manager to a significant other at home: No Do you presently have visiting nurse or other home services: No Alcohol intake: current Alcohol intake frequency: 3 or more drinks per day Alcohol type: beer Patient Tobacco Use Status: Current everyday Tobacco user Tobacco use type: Cigarette Cigarette Packs Per Day: 1 Years Smoked: 50+ e-Cigarette/Vaping Use: Never Used Second Hand Smoke Exposure: No service: No Current occupational status: disabled Cognitive needs: Yes Hearing needs: No Vision needs: Yes Questionnaire PHQ-9 Over the last 2 weeks, how often have you been bothered by any of the following problems? 1. Little interest or pleasure in doing things: not at all 2. Feeling down, depressed, or hopeless: several days 3. Trouble falling or staying asleep, or sleeping too much: more than half the days 4. Feeling tired or having little energy: not at all 5. Poor appetite or overeating: more than half the days 6. Feeling bad about yourself - or that you are a failure or have let yourself or your family down: not at all 7. Trouble concentrating on things, such as reading the newspaper or watching television: not at all 8. Moving or speaking so slowly that other people could have noticed. Or the opposite - being so fidgety or restless that you have been moving around a lot more than usual: not at all 9. Thoughts that you would be better off or of hurting yourself in some way: not at all Total score: 5 Depression Screening Interpretation: Positive Depression Screening Follow-up: Existing condition and In treatment Depression Screening Done: Yes 43463 - PHQ-9 Billing: Yes Source: Developed by Drs. Rufus Lewis, Aretha Resendiz, Kelby Tompkins and colleagues, with an educational aide from [employer]. Thrive Questionnaire Date Thrive assessed: 11/29/23 I am a: Patient What is your living situation today?: I have a steady place to live Within the past 12 months, did the food you bought not last and you didn't have the money to get more?: Never true Within the past 12 months, did you worry whether your food would run out before you got money to buy more?: Never true Do you have trouble paying for medicines?: No Do you have trouble getting transportation to medical appointments?: No Do you have trouble paying your heating and electricity bill?: No Do you have trouble taking care of your child, family member or friend?: No Do you have trouble with day-to-day activities such as bathing, preparing meals, shopping, managing finances, etc.?: No Are you currently unemployed and looking for a job?: No Are you interested in more education?: No Please select the resources that you would like help with: None Currently or been in a relationship where the following occur: no concerns reported THRIVE Score: 0 AUDIT C Alcohol Use Questionnaire (AUDIT-C) 1. How often do you have a drink containing alcohol?: 4 or more times a week 2. How many drinks containing alcohol do you have on a typical day when you are drinking?: 3 or 4 3. How often do you have six or more drinks on one occasion?: Less than monthly Total Score: 6 Score Reviewed/Action Taken: Yes MATTHIAS-7 AMB Questionnaire MATTHIAS-7 Date MATTHIAS - 7 assessed: 11/29/22 Source: Developed by Drs. Rufus Lewis, Aertha Resendiz, Kelby Tompkins and colleagues, with an educational aide from [employer]. Review of Systems Const Denies chills, Reports fatigue, Denies fever(s) and Reports headache(s) (lately due to his recent fall, mostly over the top of his head) ENT Denies dysphagia, Reports dizziness (recurrent), Denies otalgia, Reports headache(s) (lately due to his recent fall, mostly over the top of his head), De nies neck pain, Denies odynophagia and Denies sore throat Card Reports chest pain (recurrent sharp pains over his anterior chest wall), Denies palpitations and Denies dyspnea Resp Denies chest congestion, Denies cough, Denies dyspnea and Denies wheezing GI Denies abdominal pain, Denies hematochezia, Denies constipation, Denies dysphagia, Denies heartburn, Reports loose stools (frequent), Denies nausea, Denies odynophagia and Denies vomiting Denies dysuria, Denies nocturia and Denies urinary frequency Musc Reports abnormal gait (unsteady - falls frequently), Reports back pain (over the lower back), Reports arthralgias (right knee - knee feels unsteady and often gi ves out on him) and Denies neck pain Skin/Breast Denies rash Neuro Reports abnormal gait (unsteady - falls frequently), Reports dizziness (recurrent) and Reports headache(s) (lately due to his recent fall, mostly over the top of his head) Psych Reports depression Endo Reports fatigue and Denies palpitations Aller/Immun Denies wheezing Physical exam (Primary Care) Vital Signs: Last Vital Signs Pulse 106 H 11/29/23 10:05 BP 162/94 H 11/29/23 10:25 Pulse Ox 97 11/29/23 10:05 Oxygen Delivery Method Room Air 11/29/23 10:05 BMI result Body Mass Index 28.5 Tobacco/Smoking Status: Tobacco use Status Tobacco use date assessed 11/29/23 11/29/23 10:19 Patient Tobacco Use Status Current everyday Tobacco 11/29/23 10:19 Tobacco use type Cigarette 11/29/23 10:19 e-Cigarette/Vaping Use Never Used 11/29/23 10:19 PHQ-9: PHQ-9 Score PHQ-9: Total score 5 11/29/23 10:25 Depression Screening Interpretation: Positive Depression Screening Follow-up: Existing condition and In treatment Thrive Assessment: Date of Thrive Assessment Date Thrive assessed 11/29/23 11/29/23 10:19 Currently or been in a relationship where the following occur: no concerns reported Const General: no acute distress and alert Limitations: other limitations (patient is illiterate) HENMT Other: (+) tenderness with a mild contusion noted over the right parietal scalp/skull area Head: Yes No palpable skull fracture present Throat: Yes posterior oropharynx normal and Yes tonsils normal Eyes Pupils: Equal, round and reactive pupils present EOM: EOMs intact bilaterally Neck Neck: Yes no lymphadenopathy and Yes supple Resp Auscultation: clear to auscultation bilaterally, no rales and no wheezes Cardio Rate: regular rate Rhythm: regular rhythm Heart sounds: no murmurs GI Palpation (GI): Soft to palpation and nontender Auscultation: normal bowel sounds General: Yes no CVA tenderness Back/Spine/Pelvis Back: no CVA tenderness Thoracic/Lumbar Spine: lumbar spinal tenderness (mild) Skin Rashes: no rashes Neuro Cranial nerves: Yes Equal, round and reactive pupils present Extrem General: Yes no clubbing, cyanosis or edema Right lower extremity: knee Details: tenderness (mild) Location: of the pre-patellar area; no swelling Assessment and Plan Assessment & Plan (1) Alcoholism: Code(s): F10.20 - Alcohol dependence, uncomplicated Plan: Patient unfortunately continues to drink alcohol regularly He is encouraged to quit but this does not appear likely any time soon as he does not really feel motivated to quit and he still feels depressed about losing his ( in 2020) Have advised him that his frequent dizziness, unsteadiness and falls may be a consequence of his heavy alcohol use, and that they may at least improve if he can stop drinking Continue Thiamine 100 mg QD, Folic Acid 1 mg QD and Vitamin B12 500 mcg QD (2) Frequent falls: Code(s): R29.6 - Repeated falls Plan: Likely multifactorial, including due to his chronic alcoholism, intoxication, unsteadiness, right knee instability that is supposedly contributing to his unsteadiness and possibly neuropathy He also has multiple physical issues including chronic low back pain (3) Recurrent right knee instability: Code(s): M23.51 - Chronic instability of knee, right knee Plan: He had some x-rays done on the knee back in July 2023 during his ER visit then - knee x-rays were reportedly normal Will refer him to orthopedics for further evaluation and management (4) Atherosclerotic cardiovascular disease: Code(s): I25.10 - Atherosclerotic heart disease of hopi coronary artery without angina pectoris Plan: Continue Isosorbide Mononitrate ER 25 mg QD abd Metoprolol ER 25 mg QD Follow up with cardiology as scheduled (5) Mixed hyperlipidemia: Code(s): E78.2 - Mixed hyperlipidemia Plan: Reinforced low cholesterol diet Continue Atorvastatin 80 mg QD and Fenofibrate 54 mg QD (6) Essential hypertension: Code(s): I10 - Essential (primary) hypertension Plan: Reinforced low sodium diet - goal is systolic BP of at least 120 to 130 mm or less Continue Amlodipine 10 mg QD and Metoprolol ER 25 mg QD (7) GERD (gastroesophageal reflux disease): Code(s): K21.9 - Gastro-esophageal reflux disease without esophagitis Qualifiers: Esophagitis presence: without esophagitis Qualified Code(s): K21.9 - Gastro-esophageal reflux disease without esophagitis Plan: Patient likely has GERD related to his chronic alcohol use Dietary restrictions reinforced Continue Pantoprazole 40 mg QD (8) Low back pain: Code(s): M54.50 - Low back pain, unspecified Qualifiers: Chronicity: chronic Back pain laterality: midline Sciatica presence: without sciatica Qualified Code(s): M54.50 - Low back pain, unspecified; G89.29 - Other chronic pain Plan: Reinforced activity and weight-lifting restrictions to minimize aggravating his low back pain Continue Gabapentin 300 mg Q HS (9) Vitamin D deficiency: Code(s): E55.9 - Vitamin D deficiency, unspecified Plan: Continue Vitamin D3 1000 units QD (10) Depression: Code(s): F32.9 - Major depressive disorder, single episode, unspecified Qualifiers: Depression Type: major depressive disorder Major depression recurrence: recurrent Active/Remission status: currently active Major depression episode severity: moderate Qualified Code(s): F33.1 - Major depressive disorder, recurrent, moderate Plan: Continue Sertraline 25 mg QD Follow up with psychiatry as scheduled (11) Overweight (BMI 25.0-29.9): Code(s): E66.3 - Overweight Plan: Reinforced diet; exercise and weight loss appear to be unrealistic in this case due to his multiple comorbidities and physical issues Plan Follow up with PCP as scheduled next week Orders: Referrals Orthopedics Referral M23.51 - Chronic instability of knee, right knee Coding Level of Care Code Est Pt Level 4 (12761) Diagnoses Alcoholism F10.20 Frequent falls R29.6 Recurrent right knee instability M23.51 Atherosclerotic cardiovascular disease I25.10 Mixed hyperlipidemia E78.2 Essential hypertension I10 Gastroesophageal reflux disease without esophagitis K21.9 Esophagitis presence: without esophagitis Chronic midline low back pain without sciatica M54.50; G89.29 Chronicity: chronic Back pain laterality: midline Sciatica presence: without sciatica Vitamin D deficiency E55.9 Moderate episode of recurrent major depressive disorder F33.1 Depression Type: major depressive disorder Major depression recurrence: recurrent Active/Remission status: currently active Major depression episode severity: moderate Overweight (BMI 25.0-29.9) E66.3
[2023-11-29 10:25] VITALS: BP 162/94
== END 2023-11-29 11:12 | disposition home or self-care (01) ==
PROVIDERS: PCP Internal Medicine; Visit Provider Internal Medicine
DX: M23.51 Chronic instability of knee, right knee (principal); F10.20 Alcohol dependence, uncomplicated; F33.1 Major depressive disorder, recurrent, moderate; R29.6 Repeated falls; I25.10 Atherosclerotic heart disease of native coronary artery without angina pectoris; E78.2 Mixed hyperlipidemia; I10 Essential (primary) hypertension; K21.9 Gastro-esophageal reflux disease without esophagitis; M54.50 Low back pain, unspecified; G89.29 Other chronic pain; E55.9 Vitamin D deficiency, unspecified; E66.3 Overweight
CPT/HCPCS: 99214

== ENCOUNTER 2023-12-24 19:59 | Emergency (ER) | payer MEDICARE, SELFPAY ==
--- NOTE | ~2023-12-24 | XR_ITS ---
EXAMINATION: XR SHOULDER, LEFT CLINICAL INFORMATION: Trauma, pain. COMPARISON: Chest radiograph 10/25/2023. TECHNIQUE: Three views of the left shoulder. FINDINGS: Left shoulder hemiarthroplasty with a new comminuted mildly displaced periprosthetic fracture involving the proximal humeral shaft. Significant surrounding soft tissue swelling. Moderate degenerative osteoarthritis of the acromioclavicular joint. Redemonstration of cervical fusion hardware. Visualized left-sided ribs and left lung are within normal limits. XR/XR shoulder LT min 2V IMPRESSION: Left shoulder hemiarthroplasty with a new comminuted mildly displaced periprosthetic fracture involving the proximal humeral shaft.
--- NOTE | ~2023-12-24 | CT_ITS ---
EXAMINATION: CT HEAD WITHOUT CONTRAST CT CERVICAL SPINE WITHOUT CONTRAST CLINICAL INFORMATION: Fall. COMPARISON: CT head and cervical spine October 25, 2023 TECHNIQUE: Imaging was performed from the skull base to vertex without intravenous administration of contrast. In addition, helical noncontrast CT imaging was acquired through the cervical spine and source images were reviewed along with axial reconstructions and sagittal and coronal MPRs. [This CT examination was performed using dose optimization techniques as appropriate, variously including the following: *Automated exposure control *Adjustment of mA and/or kV according to patient size (this includes techniques or standardized protocols for targeted exams where dose is matched to indication/reason for exam; i.e. extremities or head) *Use of iterative reconstruction technique] DLP: 1525 mGy-cm FINDINGS: HEAD: No intracranial mass, hemorrhage, or midline shift is visualized. There is generalized global volume loss. There is moderate prominence of the ventricles and the sulci . There is moderate hypodensity of the periventricular white matter due to chronic small vessel ischemic disease. There are vascular calcifications of the internal carotid arteries bilaterally. No extra-axial collections are identified. The paranasal sinuses and mastoid air cells are well aerated. CERVICAL SPINE: There is no evidence of acute cervical spine fracture. Vertebral bodies remain normal in height. Cervical vertebrae have normal alignment. Status post fusion with anterior plate and screw C6-C7. There is multilevel degenerative spondylosis of the cervical spine with disc height narrowing and endplate spurs and facet joint arthrosis No pre- or paravertebral soft tissue abnormality is identified. Limited assessment of the lung apices is unremarkable. CT/CT cervical spine wo IV con IMPRESSION: 1. No acute intracranial pathology. 2. No CT evidence of acute cervical spine fracture or traumatic subluxation
[2023-12-24 20:05] VITALS: BP 140/90; PULSE 70; O2SAT 94; BMI 30.4
[2023-12-24 20:10] VITALS: BP 151/82; PULSE 73; RESP 16; TEMP 36.6; O2SAT 97
--- NOTE | 2023-12-24 20:22 | PC.NURSE ---
pt bryan from home, where pt room mate reports pt drank 2 liters of dyana whiteside. pt reports tripping and falling down hallway and falling onto his left shoulder, pt now reports 10/10 left shoulder pain. shoulder appears to be eneven and pt is unable to preform range of motion to the left shoulder. pt cms in tact at this time. pt changed over to hospital attire and resting in stretcher in hallway.
--- NOTE | 2023-12-24 20:46 | ECG_ITS ---
Test Reason : FELL Blood Pressure : / mmHG Vent. Rate : 076 BPM Atrial Rate : 076 BPM P-R Int : 142 ms QRS Dur : 132 ms QT Int : 456 ms P-R-T Axes : 074 073 030 degrees QTc Int : 513 ms Normal sinus rhythm Right bundle branch block Abnormal ECG When compared with ECG of 25-OCT-2023 19:59, No significant change was found Referred By: Alan Mai Electronically Signed By:RAJINDER YOST
[2023-12-24] MEDS: ondansetron HCL 4 MG/2 ML VIAL IVPUSH (21:02)
[2023-12-24] MEDS: Morphine Sulfate 4 MG/ML CARTRIDGE IVPUSH (21:02)
[2023-12-24] MEDS: 0.9 % Sodium Chloride 1,000 ML 999 ML IV (21:02)
--- NOTE | 2023-12-24 21:04 | PC.NURSE ---
22G placed in right wrist, pt medicated per dec, fluids begun.
--- NOTE | 2023-12-24 21:08 | ED.GENADULT ---
HPI - General Adult General Chief complaint: ETOH/Substance Use Stated complaint: fall from standing, ETOH, L shoulder pain Time Seen by Provider: 12/24/23 20:02 Source: patient, RN notes reviewed and old records reviewed Mode of arrival: EMS Limitations: other (Clinical alcohol intoxication) History of Present Illness HPI narrative: 68-year-old male with past medical history significant for GERD, hypertension, alcoholism, presents for evaluation after a fall. Patient reports that he was taking a nap for a few hours. He woke up to use the bathroom and while walking to the bathroom he tripped and fell He reports striking his head and his left shoulder He reports having both of his shoulders replaced with titanium in [place]. ? He complains of 8/10 pain to the area of the left shoulder He denies any head pain but admits to striking his head when falling Patient admits to heavy alcohol consumption today and states that he drinks daily Related Data Previous Rx's Medication Instructions Recorded triamcinolone acetonide 0.1 % 1 appl topical BID 30 days #30 03/01/21 topical ointment grams amlodipine 10 mg tablet 10 mg PO DAILY 90 days #90 tabs 09/20/22 fenofibrate 54 mg tablet 54 mg PO DAILY #90 tabs 01/29/23 bed railing #1 ea 03/13/23 metoprolol succinate 25 mg 25 mg PO DAILY #90 tabs 03/16/23 tablet,extended release 24 hr atorvastatin 80 mg tablet 80 mg PO DAILY #90 tabs 03/18/23 isosorbide mononitrate 30 mg 30 mg PO DAILY 90 days #90 tabs 03/18/23 tablet,extended release 24 hr pantoprazole 40 mg tablet,delayed 40 mg PO DAILY #90 tabs 04/06/23 release cholecalciferol (vitamin D3) 25 25 mcg PO DAILY 90 days #90 caps 05/25/23 mcg (1,000 unit) capsule cyanocobalamin (vitamin B-12) 500 500 mcg PO DAILY 90 days #90 tabs 07/25/23 mcg tablet folic acid 1 mg tablet 1 mg PO DAILY 90 days #90 tabs 07/25/23 gabapentin 300 mg capsule 300 mg PO BEDTIME 90 days #90 caps 07/25/23 sertraline 25 mg tablet 25 mg PO DAILY 90 days #90 tabs 07/25/23 folic acid 1 mg tablet 1 mg PO DAILY #90 tabs 10/25/23 meclizine 25 mg tablet 25 mg PO TID PRN dizziness #20 tabs 10/25/23 thiamine HCl (vitamin B1) 100 mg 100 mg PO DAILY #90 tabs 10/25/23 tablet oxycodone-acetaminophen 5 mg-325 1 tab PO Q6H PRN pain 30 days #120 11/26/23 mg tablet tabs oxycodone 5 mg tablet 5 mg PO Q6H PRN severe pain (scale 12/24/23 score 7-10) #12 tabs Allergies Allergy/AdvReac Type Severity Reaction Status Date / Time mirtazapine AdvReac Intermediate Dizziness Verified 11/29/23 11:04 Review of Systems Constitutional: Constitutional: Denies body ache(s), Denies fever(s) and Denies headache(s) ENT: Denies headache(s) Cardiovascular: Cardiovascular: Denies chest pain, Denies syncope and Denies dyspnea Respiratory: Respiratory: Denies cough and Denies dyspnea Gastrointestinal: Gastrointestinal: Denies abdominal pain Musculoskeletal: Musculoskeletal: Reports arthralgias, Reports joint swelling and Reports limited range of motion Integumentary/Breasts: Skin/Breast: Denies rash Neurologic: Denies syncope and Denies headache(s) [facility] Past Medical History Medical History (Updated 12/24/23 @ 22:11 by Alan Mai) Overweight (BMI 25.0-29.9) Vitamin D deficiency Depression Mixed hyperlipidemia Hypovitaminosis D Mild recurrent major depression Tiredness Alcoholism Alcohol abuse Bilateral carotid artery stenosis Aortic valve sclerosis Atherosclerotic cardiovascular disease Essential hypertension Dyslipidemia Leukocytosis Insomnia Hx of lymphoma Smoker Aortic valve calcification ASHD (arteriosclerotic heart disease) History of CVA with residual deficit Hx of multiple pulmonary nodules CAD (coronary artery disease) Surgical History Cataracts, bilateral Hx of cardiac catheterization History of thoracic surgery H/O total shoulder replacement H/O colonoscopy Family History Family History Father Alcohol abuse Mother No problems noted. Daughter No problems noted. Son No problems noted. Sister No problems noted. Other Substance use disorder Social History Social History Household Members: Spouse Household Members Other:: on dialysis Housing: House Housing Other:: Mobile Home Are you a primary day care supervisor to a significant other at home: No Do you presently have visiting nurse or other home services: No Alcohol intake: current Alcohol intake frequency: 3 or more drinks per day Alcohol type: beer Patient Tobacco Use Status: Current everyday Tobacco user Tobacco use type: Cigarette Cigarette Packs Per Day: 1 Years Smoked: 50+ Smoked in Last 30 Days: Yes e-Cigarette/Vaping Use: Never Used Second Hand Smoke Exposure: No Use of substances other than those prescribed or required for medical reasons: No Advance Directives: No Advance Directives Information Provided: No service: No Current occupational status: disabled Cognitive needs: Yes Hearing needs: No Vision needs: Yes Physical Exam ED Vital Signs: Vital Signs - 24 hr 12/24/23 20:10 12/24/23 23:36 Temperature 97.9 F 97.8 F Pulse Rate 73 73 Respiratory Rate 16 18 Blood Pressure 151/82 H 129/65 Pulse Oximetry 97 98 Oxygen Delivery Method Room Air Room Air BMI result Body Mass Index 30.4 Const General: healthy appearing, alert and awake Nutritional Appearance: well nourished Orientation/consciousness: patient oriented x3 HENMT Throat: Yes posterior oropharynx normal Eyes Eyelids: Yes eyelids normal Conjunctivae: conjunctivae normal Sclerae: sclerae normal Corneas: corneas normal Pupils: Equal, round and reactive pupils present EOM: EOMs intact bilaterally Neck Neck: Yes full ROM Resp Effort & Inspection: normal respiratory effort, able to speak in complete sentences and not labored GI Inspection: No distended Palpation (GI): Soft to palpation, not firm, nontender, no guarding and not rigid Skin General skin exam: elasticity normal Neuro General: patient oriented x3 Cranial nerves: Yes Equal, round and reactive pupils present and Yes Bilaterally intact EOM present Cognition (Neuro): normal cognition Extrem Other: Patient has a palpable deformity of the left shoulder. He has tenderness in the left glenohumeral joint. Patient is very decreased range of motion of the left shoulder. He does have surgical scars from previous orthopedic surgery and shoulder replacement. He has full range of motion to all fingers of left hand. Capillary refill intact. Radial pulses 2+ and equal Course Reevaluation(s) Reevaluation #1: Patient's shoulder x-ray shows acute fracture rather than dislocation. Therefore a cancel the labs as the patient will not require any sedation. He will be placed in a sling and will be given orthopedic follow-up. His shoulder was previously repaired at [facility]. The patient was advised to call them for follow-up and if he has trouble getting out there he may follow-up with orthopedics at this facility Time: 22:10 Reevaluation #2: Patient requesting discharge at this time. I discussed his humerus fracture with him. His CT cervical spine and brain did not show any traumatic injuries. The patient is cleared for discharge if he can get a sober ride home. Nursing staff called his son who will come pick the patient up. Time: 23:50 Medications Administered Discontinued Medications Generic Name Dose Route Start Last Admin Trade Name Freq PRN Reason Stop Dose Admin Sodium Chloride 1,000 mls @ 999 mls/hr 12/24/23 21:00 12/24/23 22:03 Ns IV 12/24/23 22:00 Infused .Q1H1M SUSANA Infusion Morphine Sulfate 4 mg 12/24/23 20:47 12/24/23 21:02 Morphine Sulfate 4 Mg/Ml Cartridge IVPUSH 12/24/23 20:48 4 mg ONCE ONE Administration Protocol Ondansetron HCl 4 mg 12/24/23 20:47 12/24/23 21:02 Ondansetron Hcl 4 Mg/2 Ml Vial IVPUSH 12/24/23 20:48 4 mg ONCE ONE Administration Medical Decision Making Medical Decision Making MDM Narrative: 68-year-old male presents for evaluation of a fall. He admits to alcohol abuse. Plan to CT the brain and C-spine given the fall with head strike. The patient has a high suspicion for left shoulder dislocation, x-ray the area. Labs ordered including ethanol level Differential Diagnosis Differential Diagnoses: The differential diagnosis associated with the presentation includes Shoulder dislocation Shoulder fracture Contusion Shoulder sprain Independent Interpretation I performed an independent interpretation of an: Plain X-Ray (Left periprosthetic humerus fracture) Radiology Impression Discussion of test interpretation with radiology: I have reviewed the radiologist's reading. (Acute, comminuted left periprosthetic humerus fracture) Discharge Plan Discharge Clinical Impression: Alcohol abuse, Periprosthetic fracture of shoulder Patient Disposition: Home, Self-Care Instructions: Arm Fracture in Adults (ED), Abuse of Alcohol (ED) Additional Instructions: You have a fracture around your previous joint replacement. The hardware itself is still in place You still need to follow-up with orthopedics. You may follow-up with your previous orthopedic office or you may follow-up with the office of Dr. Keenan Avoid excessive consumption of alcohol Use ibuprofen as needed for pain. You may use oxycodone for severe breakthrough pain. This may make you sleepy, did not drink alcohol or drive after taking Do not mix this medication with alcohol Prescriptions: New oxycodone 5 mg tablet 5 mg PO Q6H PRN (Reason: severe pain (scale score 7-10)) Qty: 12 0RF Rx Instructions: Partial Fill upon patient request. No Action triamcinolone acetonide 0.1 % ointment 1 appl topical BID 30 Days Qty: 30 6RF amlodipine 10 mg tablet 10 mg PO DAILY 90 Days Qty: 90 3RF fenofibrate 54 mg tablet 54 mg PO DAILY Qty: 90 1RF (DME) bed railing See Rx Instructions .Route .MEDSUPPLY Qty: 1 0RF Rx Instructions: As directed metoprolol succinate 25 mg tablet extended release 24 hr 25 mg PO DAILY Qty: 90 2RF atorvastatin 80 mg tablet 80 mg PO DAILY Qty: 90 3RF isosorbide mononitrate 30 mg tablet extended release 24 hr 30 mg PO DAILY 90 Days Qty: 90 3RF pantoprazole 40 mg tablet,delayed release (DR/EC) 40 mg PO DAILY Qty: 90 3RF cholecalciferol (vitamin D3) 25 mcg (1,000 unit) capsule 25 mcg PO DAILY 90 Days Qty: 90 1RF gabapentin 300 mg capsule 300 mg PO BEDTIME 90 Days Qty: 90 3RF sertraline 25 mg tablet 25 mg PO DAILY 90 Days Qty: 90 1RF cyanocobalamin (vitamin B-12) 500 mcg tablet 500 mcg PO DAILY 90 Days Qty: 90 1RF folic acid 1 mg tablet 1 mg PO DAILY 90 Days Qty: 90 1RF oxycodone-acetaminophen 5-325 mg tablet 1 tab PO Q6H PRN (Reason: pain) 30 Days Qty: 120 0RF Rx Instructions: Partial Fill upon patient request. thiamine HCl (vitamin B1) 100 mg tablet 100 mg PO DAILY Qty: 90 0RF folic acid 1 mg tablet 1 mg PO DAILY Qty: 90 0RF meclizine 25 mg tablet 25 mg PO TID PRN (Reason: dizziness) Qty: 20 0RF Referrals: Duy Keenan MD [Physician] - (left periprosthetic humerus fracture)
[2023-12-24 23:36] VITALS: BP 129/65; PULSE 73; RESP 18; TEMP 36.6; O2SAT 98
--- NOTE | 2023-12-24 23:38 | PC.NURSE ---
Called pts sonJorge, , who states will be here in 15 min to take pt home. Pt is ready for discharge.
== END 2023-12-25 00:07 | disposition home or self-care (01) ==
PROVIDERS: Emergency Provider Emergency Medicine; PCP Internal Medicine
DX: S42.352A Displaced comminuted fracture of shaft of humerus, left arm, initial encounter for closed fracture (principal); M97.32XA Periprosthetic fracture around internal prosthetic left shoulder joint, initial encounter; F10.10 Alcohol abuse, uncomplicated; W01.0XXA Fall on same level from slipping, tripping and stumbling without subsequent striking against object, initial encounter; Y93.01 Activity, walking, marching and hiking; Y92.9 Unspecified place or not applicable; Y99.9 Unspecified external cause status
CPT/HCPCS: 70450; 72125; 73030; 93005; 96361; 96374; 96375; 99284; 99285; J2270; J2405

== ENCOUNTER → 2023-12-24 20:46 | Outpatient (BNV) | payer MEDICARE, SELFPAY | PROVIDERS: Emergency Provider Emergency Medicine; PCP Internal Medicine; Visit Provider Internal Medicine | DX: I45.10 Unspecified right bundle-branch block (principal); R94.31 Abnormal electrocardiogram [ECG] [EKG] | CPT/HCPCS: 93010 ==

== ENCOUNTER 2023-12-27 13:55 | Outpatient (AMB) | payer MEDICARE, SELFPAY ==
[2023-12-27 14:00] VITALS: BMI 30.4
--- NOTE | 2023-12-27 14:00 | MHC.OFFVIS ---
Intake Vital Signs 12/27/23 14:00 Height 5 ft 8 in Weight 200 lb BMI 30.4 Intake Visit Reasons: FC - left shoulder fx, DOI 12/24/23 Intake Note: Navneet is a 68 year old male who presents today as a new patient for a evaluation for his left shoulder pain, DOI 12/24/23. Patient reports he woke up to use the bathroom and while walking to the bathroom he tripped and fell. He states she has numbness and tingling that goes from his shoulder to finger tips. He has a hx of Left shoulder surgery. Allergies mirtazapine Adverse Reaction (Intermediate, Verified 12/27/23 14:06) Dizziness HPI FC - left shoulder fx, DOI 12/24/23 HPI Details 68-year-old right hand dominant male who presents in the office today for an evaluation of left shoulder pain. The patient presented to the ED on 12/24/2023 status post a fall after taking a nap for a few hours. Per ED note: Patient admits to heavy alcohol consumption today and states that he drinks daily. X-rays were obtained. He was placed in a sling and referred to Orthopedics. While in the office today he reports he woke up to use the bathroom when he tripped and fell. He reports numbness and tingling that goes from his shoulder to his finger tips. Patient reports he fell in the hallway while at home due to his knee giving out. He reports having weakness and pain in the bilateral lower extremity. He states he is unable to get his legs up. Patient has a history of bilateral total shoulder surgeries in [place]. He confirms the left shoulder was done in [place] about 40 years ago. He states he went to [place] due to needing ?a lot of titanium?. He reports he is out of his pain medication and states they are not giving him any relief. He would like to see if he can get a higher dosage. He is currently getting pain medication from his PCP. Patient presents in the office with a male who is providing information about the patient. Patient confirms drinking 3-4 beers yesterday, 12/26/2023. Patient has a social history as follows: -Alcohol intake: 3 or more drinks daily; beer. -Tobacco use: Cigarette use 1 pack per day, with 50+ years of smoking. [facility] Medical History Overweight (BMI 25.0-29.9) Vitamin D deficiency Depression Mixed hyperlipidemia Hypovitaminosis D Mild recurrent major depression Tiredness Alcoholism Alcohol abuse Bilateral carotid artery stenosis Aortic valve sclerosis Atherosclerotic cardiovascular disease Essential hypertension Dyslipidemia Leukocytosis Insomnia Hx of lymphoma Smoker Aortic valve calcification ASHD (arteriosclerotic heart disease) History of CVA with residual deficit Hx of multiple pulmonary nodules CAD (coronary artery disease) Surgical History Cataracts, bilateral Hx of cardiac catheterization History of thoracic surgery H/O total shoulder replacement H/O colonoscopy Family History Father Alcohol abuse Mother No problems noted. Daughter No problems noted. Son No problems noted. Sister No problems noted. Other Substance use disorder Social History Household Members: Spouse Household Members Other:: on dialysis Housing: House Housing Other:: Mobile Home Are you a primary medicare contact specialist to a significant other at home: No Do you presently have visiting nurse or other home services: No Alcohol intake: current Alcohol intake frequency: 3 or more drinks per day Alcohol type: beer Patient Tobacco Use Status: Current everyday Tobacco user Tobacco use type: Cigarette Cigarette Packs Per Day: 1 Years Smoked: 50+ e-Cigarette/Vaping Use: Never Used Second Hand Smoke Exposure: No service: No Current occupational status: disabled Cognitive needs: Yes Hearing needs: No Vision needs: Yes Review of Systems Const All systems reviewed & are unremarkable except as noted in HPI and below Physical Exam Vital Signs: BMI result Body Mass Index 30.4 Const General: cooperative and no acute distress Orientation/consciousness: patient oriented x3 Resp Effort & Inspection: normal respiratory effort and able to speak in complete sentences Cardio Peripheral pulses: Peripheral pulses 2+ throughout Skin General skin exam: no rashes or lesions noted Neuro General: patient oriented x3 Extrem Other: Left upper extremity: Able to flex and extend at the wrist. Able to flex and extend at the elbow. Sensation intact. Office Procedures Fracture Care Fracture Billing Code: Fracture Billing Code Assessment & Plan Assessment & Plan (1) Periprosthetic fracture around internal prosthetic left shoulder joint: Comment: Left shoulder hemiarthroplasty with a new comminuted mildly displaced periprosthetic fracture involving the proximal humeral shaft. Code(s): M97.32XA - Periprosthetic fracture around internal prosthetic left shoulder joint, initial encounter Qualifiers: Encounter type: initial encounter Qualified Code(s): M97.32XA - Periprosthetic fracture around internal prosthetic left shoulder joint, initial encounter (2) History of hemiarthroplasty of left shoulder: Code(s): Z96.612 - Presence of left artificial shoulder joint Plan Mr. Cantu is a 68-year-old right hand dominant male who presents in the office today for an evaluation of left shoulder pain. The patient presented to the ED on 12/24/2023 status post a fall after taking a nap for a few hours. Per ED note: Patient admits to heavy alcohol consumption today and states that he drinks daily. X-rays were obtained. He was placed in a sling and referred to Orthopedics. While in the office today he reports he woke up to use the bathroom when he tripped and fell. He reports numbness and tingling that goes from his shoulder to his finger tips. Patient reports he fell in the hallway while at home due to his knee giving out. He reports having weakness and pain in the bilateral lower extremity. He states he is unable to get his legs up. Patient has a history of bilateral total shoulder surgeries in [place]. He confirms the left shoulder was done in [place] about 40 years ago. He reports he is out of his pain medication and states they are not giving him any relief. He would like to see if he can get a higher dosage. He currently is on a chronic pain medication regiment from his PCP. Patient presents in the office with a male who is providing information about the patient. Patient confirms drinking 3-4 beers yesterday, 12/26/2023. Patient has a social history as follows: -Alcohol intake: 3 or more drinks daily; beer. -Tobacco use: Cigarette use 1 pack per day, with 50+ years of smoking. Dr. Keenan was available to review imaging and the patient?s chart while in the office today and a collaborative treatment plan was made. The patient will remain in the sling to aid in healing and for comfort. We discussed gentle ROM to work on and motions to avoid at this time. He demonstrates understanding. I will forward today?s encounter note to his PCP. I instructed the patient to call his PCP to let them know the note was sent about the injury and his request for increased pain medication. I discussed with the patient that due to him having a pain contract with his PCP I would not be prescribing any pain medication at this time. He understands and states he will reach out to his PCP. I educated the patient the effect of delayed healing with the use of alcohol. We discussed the risk of further falls and possible dislocation. While in the office today the patient had his sling adjusted and aid to help him change into a clean shirt. Follow up will be in 4 weeks with repeat x-rays and Dr. Keenan in the office, or sooner if needed. X-rays of the left shoulder, obtained on 12/24/2023, revealed: Left shoulder hemiarthroplasty with a new comminuted mildly displaced periprosthetic fracture involving the proximal humeral shaft. Patient Instructions: Scribed by Yaritza Saab medical information officer, for Sade Berrios ENRRIQUE on 12/27/2023 at 1:58 pm, EST. Quality Reporting (2019) Adult ([facility] 138/12/20/68) Smoking risk assessment performed?: Yes Patient Tobacco Use Status: Current everyday Tobacco user Coding Level of Care Code New Pt Level 4 (83796) Diagnoses Periprosthetic fracture around internal prosthetic left shoulder joint, initial encounter M97.32XA Encounter type: initial encounter History of hemiarthroplasty of left shoulder Z96.612 CPT Codes Fracture Care - Fracture Billing Code: Fracture Billing Code ([id number])
== END 2023-12-27 14:52 | disposition home or self-care (01) ==
PROVIDERS: PCP Internal Medicine; Visit Provider Physician Assistant
DX: M97.32XA Periprosthetic fracture around internal prosthetic left shoulder joint, initial encounter (principal); Z96.612 Presence of left artificial shoulder joint
CPT/HCPCS: 99204

== ENCOUNTER → 2023-12-27 13:55 | Outpatient (BNVA) | payer MEDICARE, SELFPAY | PROVIDERS: PCP Internal Medicine; Visit Provider Physician Assistant | DX: M97.32XA Periprosthetic fracture around internal prosthetic left shoulder joint, initial encounter (principal); Z96.612 Presence of left artificial shoulder joint | CPT/HCPCS: 99202 ==

== ENCOUNTER 2024-01-09 15:12 | Outpatient (AMB) | payer MEDICARE, SELFPAY ==
[2024-01-09 15:20] VITALS: BP 136/80; BMI 31.3
--- NOTE | 2024-01-09 15:20 | A.OFFPC_ITS ---
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 Required: No Accompanied by: Sister Allergies mirtazapine Adverse Reaction (Intermediate, Verified 01/09/24 16:06) Dizziness Medication List - Last Reconciled 01/09/24 by Mayda Jeffries MD amlodipine 10 mg PO DAILY 90 days atorvastatin 80 mg PO DAILY [bed railing As directed] cholecalciferol (vitamin D3) 25 mcg PO DAILY 90 days cyanocobalamin (vitamin B-12) 500 mcg PO DAILY 90 days fenofibrate 54 mg PO DAILY folic acid 1 mg PO DAILY gabapentin 300 mg PO BEDTIME 90 days isosorbide mononitrate ER 30 mg PO DAILY 90 days meclizine 25 mg PO TID PRN metoprolol succinate ER 25 mg PO DAILY oxycodone-acetaminophen 5-325 mg 1 tab PO Q6H PRN 30 days pantoprazole 40 mg PO DAILY sertraline 25 mg PO DAILY 90 days thiamine HCl (vitamin B1) 100 mg PO DAILY triamcinolone acetonide 0.1% 1 appl topical BID 30 days Tobacco use date assessed: 01/09/24 Fall risk assessment: 1 Fall in past year Last assessed Fall Risk: 01/09/24 Dental Screening Dental Screen Date: 01/09/24 Did you have a dental visit in the last 12 months?: No Did you have a dental problem in the last 6 months where you did not have access to dental care?: No Was dental information given to patient?: Patient declined HPI HPI Comments History of Present Illness Details This is a 68-year-old male with mild recurrent major depression, hypertension, dyslipidemia, alcoholism and recent left shoulder fracture that comes today accompanied by sister which is his healthcare proxy for follow-up on his condition. Depression still present and I will increase sertraline from 25 mg to 50 mg. Blood pressure stable. Lipid panel will be order. He drinks alcohol daily and as per patient is 4-5 beers a day. He had a fall about 3 weeks ago in which he went to ER and had left shoulder fracture and was intoxicated with alcohol. He said he used to drink whiskey and beer every day. He stopped whiskey 3 weeks ago. I offer outpatient addiction medicine referral to stop drinking alcohol and he declined. He will see ortho this month for his fracture. He said Percocet is not touching it and it is like Tylenol and I made patient aware that due to his alcoholism and he is other medications I do not feel it will benefit him an increase in Percocet. He agreed and understood. [facility] Medical History Overweight (BMI 25.0-29.9) Vitamin D deficiency Depression Mixed hyperlipidemia Hypovitaminosis D Mild recurrent major depression Tiredness Alcoholism Alcohol abuse Bilateral carotid artery stenosis Aortic valve sclerosis Atherosclerotic cardiovascular disease Essential hypertension Dyslipidemia Leukocytosis Insomnia Hx of lymphoma Smoker Aortic valve calcification ASHD (arteriosclerotic heart disease) History of CVA with residual deficit Hx of multiple pulmonary nodules CAD (coronary artery disease) Surgical History Cataracts, bilateral Hx of cardiac catheterization History of thoracic surgery H/O total shoulder replacement H/O colonoscopy Family History Father Alcohol abuse Mother No problems noted. Daughter No problems noted. Son No problems noted. Sister No problems noted. Other Substance use disorder Social History Household Members: Spouse Household Members Other:: on dialysis Housing: House Housing Other:: Mobile Home Are you a primary healthcare management consultant to a significant other at home: No Do you presently have visiting nurse or other home services: No Alcohol intake: current Alcohol intake frequency: 3 or more drinks per day Alcohol type: beer Patient Tobacco Use Status: Current everyday Tobacco user Tobacco use type: Cigarette Cigarette Packs Per Day: 1 Years Smoked: 50+ e-Cigarette/Vaping Use: Never Used Second Hand Smoke Exposure: No service: No Current occupational status: disabled Cognitive needs: Yes Hearing needs: No Vision needs: Yes Questionnaire Thrive Questionnaire Date Thrive assessed: 11/29/23 MATTHIAS-7 AMB Questionnaire MATTHIAS-7 Date MATTHIAS - 7 assessed: 11/29/22 Source: Developed by Drs. Rufus Lewis, Aretha Resendiz, Kelby Tompkins and colleagues, with an educational aide from [employer]. Review of Systems Const All systems reviewed & are unremarkable except as noted in HPI and below Eyes Reports no additional complaints, Denies change in vision and Denies other visual disturbances Card Denies chest pain at rest, Denies chest pain with activity, Denies edema, Denies irregular heart rhythm, Denies claudication, Denies dyspnea, Denies dyspnea on exertion, Denies orthopnea, Denies paroxysmal nocturnal dyspnea and Denies slow heart rate Resp Denies cough, Denies dyspnea and Denies dyspnea on exertion GI Denies abdominal pain, Denies change in bowel habits, Denies excessive flatus, Denies nausea and Denies vomiting Denies urinary hesitancy, Denies urinary incontinence and Denies urinary urgency Musc Denies abnormal gait, Denies atrophy, Denies deformity, Reports arthralgias and Reports limited range of motion Skin/Breast Denies bleeding lesions, Denies changing lesions and Denies rash Neuro Denies abnormal gait, Denies behavioral changes and Denies lack of coordination Psych Denies behavioral changes Physical exam (Primary Care) Vital Signs: Last Vital Signs BP 136/80 01/09/24 15:20 BMI result Body Mass Index 31.3 Tobacco/Smoking Status: Tobacco use Status Tobacco use date assessed 01/09/24 01/09/24 15:29 Patient Tobacco Use Status Current everyday Tobacco 01/09/24 15:29 Tobacco use type Cigarette 01/09/24 15:29 e-Cigarette/Vaping Use Never Used 01/09/24 15:29 Thrive Assessment: Date of Thrive Assessment Date Thrive assessed 11/29/23 01/09/24 15:29 Neck Neck: Yes normal visual inspection and Yes supple Resp Effort & Inspection: normal respiratory effort Auscultation: clear to auscultation bilaterally Cardio Jugular venous distension: no JVD Rate: regular rate Rhythm: regular rhythm Heart sounds: S1 normal heart sound present and S2 normal heart sound present Extrem Other: Left arm sling Assessment and Plan Assessment & Plan (1) Mild recurrent major depression: Code(s): F33.0 - Major depressive disorder, recurrent, mild Plan: Increase sertraline to 50 mg. (2) Alcoholism: Code(s): F10.20 - Alcohol dependence, uncomplicated Plan: Advised to cut down on drinking alcohol. Aware that I can refer him to outpatient addiction Medicine. (3) Essential hypertension: Code(s): I10 - Essential (primary) hypertension Plan: Continue amlodipine. Blood pressure goal is equal or less than 130/80. (4) Dyslipidemia: Code(s): E78.5 - Hyperlipidemia, unspecified Plan: Continue statins. Repeat lipid panel. (5) Periprosthetic fracture around internal prosthetic left shoulder joint: Comment: Left shoulder hemiarthroplasty with a new comminuted mildly displaced periprosthetic fracture involving the proximal humeral shaft. Code(s): M97.32XA - Periprosthetic fracture around internal prosthetic left shoulder joint, initial encounter Qualifiers: Encounter type: initial encounter Qualified Code(s): M97.32XA - Periprosthetic fracture around internal prosthetic left shoulder joint, initial encounter Plan: Follow-up with ortho. Keep using the sling. Orders: Orders Vitamin B12 and Folate 4 Months E53.8 - Deficiency of other specified B group vitamins Vitamin D 25-OH Total 4 Months E55.9 - Vitamin D deficiency, unspecified Comprehensive [place]. Panel Fast 4 Months E78.2 - Mixed hyperlipidemia Vitamin B1 4 Months E51.9 - Thiamine deficiency, unspecified Lipid Panel 4 Months E78.5 - Hyperlipidemia, unspecified Complete Blood Count Auto Diff 4 Months D64.9 - Anemia, unspecified Medications: New sertraline 50 mg PO DAILY 90 days 90 tabs 1RF Refilled amlodipine 10 mg PO DAILY 90 days 90 tabs 3RF cyanocobalamin (vitamin B-12) 500 mcg PO DAILY 90 days 90 tabs 1RF folic acid 1 mg PO DAILY 90 tabs 0RF metoprolol succinate ER 25 mg PO DAILY 90 tabs 2RF I25.10 - Atherosclerotic heart disease of [place] coronary artery without angina pectoris pantoprazole 40 mg PO DAILY 90 tabs 3RF K21.9 - Gastro-esophageal reflux disease without esophagitis atorvastatin 80 mg PO DAILY 90 tabs 3RF cholecalciferol (vitamin D3) 25 mcg PO DAILY 90 days 90 caps 1RF fenofibrate 54 mg PO DAILY 90 tabs 1RF gabapentin 300 mg PO BEDTIME 90 days 90 caps 3RF isosorbide mononitrate ER 30 mg PO DAILY 90 days 90 tabs 3RF thiamine HCl (vitamin B1) 100 mg PO DAILY 90 tabs 0RF Discontinued sertraline Discontinued Reason: Patient Completed Course 25 mg PO DAILY 90 days 90 tabs 1RF F33.0 - Major depressive disorder, recurrent, mild Coding Level of Care Code Est Pt Level 4 (02525) Diagnoses Mild recurrent major depression F33.0 Alcoholism F10.20 Essential hypertension I10 Dyslipidemia E78.5 Periprosthetic fracture around internal prosthetic left shoulder joint, initial encounter M97.32XA Encounter type: initial encounter Time Spent (min) 26
== END 2024-01-09 16:26 | disposition home or self-care (01) ==
PROVIDERS: PCP Internal Medicine; Visit Provider Internal Medicine
DX: F33.0 Major depressive disorder, recurrent, mild (principal); F10.20 Alcohol dependence, uncomplicated; I10 Essential (primary) hypertension; E78.5 Hyperlipidemia, unspecified; M97.32XA Periprosthetic fracture around internal prosthetic left shoulder joint, initial encounter
CPT/HCPCS: 99214

== ENCOUNTER 2024-01-18 08:00 | Outpatient (AMB) | payer MEDICARE, SELFPAY ==
--- NOTE | 2024-01-17 16:04 | MHC.OFFVIS ---
Intake Vital Signs 01/18/24 08:19 Height 5 ft 8 in Weight 206 lb BMI 31.3 Intake Visit Reasons: New Prb - Rt knee pain Intake Note: Navneet is a 68 year old male who presents today as a new patient for a evaluation for his right knee pain. Patient reports his knee gives out for about 6 months. He states all his pain is on top of the knee. Pain is worse when he is getting up from a sitting position, using the stairs and walking. He finds mild relief when taking Tylenol. Allergies mirtazapine Adverse Reaction (Intermediate, Verified 01/18/24 08:19) Dizziness HPI New Prb - Rt knee pain HPI Details 68-year-old male who presents in the office today for an evaluation of right knee pain. Patient presented to the ED on 12/24/2023 status post a trip and fall when trying to get to the bathroom after a nap. Patient admitted to heavy alcohol consumption that day and reported he drinks daily, per the ED note. X-rays of the right knee were obtained. He was referred to orthopedics for further evaluation of the shoulder due to possible dislocation. He was prescribed Oxycodone 5 mg PO Q6H PRN for pain. I last saw the patient in the office for further treatment of his left shoulder. During this encounter he reported he fell in the hallway while at home due to his knee giving out. He reports having weakness and pain in the bilateral lower extremity. He states he is unable to get his legs up. Per the PCP note on 01/09/2024: ?He had a fall about 3 weeks ago in which he went to ER and had left shoulder fracture and was intoxicated with alcohol. He said Percocet is not touching it and it is like Tylenol and I made patient aware that due to his alcoholism and he is other medications I do not feel it will benefit him an increase in Percocet. He agreed and understood.? While in the office today the patient reports his right knee has been giving out for about 6 months. He states the knee will give out on him and will begin to shake on him. He state his pain is on the top of the knee. He claims the pain is worse when getting up from a seated position, using stairs, and ambulating. He states he finds mild relief when taking Tylenol. He confirms numbness and tingling in the bilateral knees that radiates down. Patient confirms pain in his lower back. He reports being treated in the past for back pain, with a history of surgery. Patient presents with a male auto claim representative in the office today. [facility] Medical History Overweight (BMI 25.0-29.9) Vitamin D deficiency Depression Mixed hyperlipidemia Hypovitaminosis D Mild recurrent major depression Tiredness Alcoholism Alcohol abuse Bilateral carotid artery stenosis Aortic valve sclerosis Atherosclerotic cardiovascular disease Essential hypertension Dyslipidemia Leukocytosis Insomnia Hx of lymphoma Smoker Aortic valve calcification ASHD (arteriosclerotic heart disease) History of CVA with residual deficit Hx of multiple pulmonary nodules CAD (coronary artery disease) Surgical History Cataracts, bilateral Hx of cardiac catheterization History of thoracic surgery H/O total shoulder replacement H/O colonoscopy Family History Father Alcohol abuse Mother No problems noted. Daughter No problems noted. Son No problems noted. Sister No problems noted. Other Substance use disorder Social History Household Members: Spouse Household Members Other:: on dialysis Housing: House Housing Other:: Mobile Home Are you a primary healthcare insurance sales agent to a significant other at home: No Do you presently have visiting nurse or other home services: No Alcohol intake: current Alcohol intake frequency: 3 or more drinks per day Alcohol type: beer Patient Tobacco Use Status: Current everyday Tobacco user Tobacco use type: Cigarette Cigarette Packs Per Day: 1 Years Smoked: 50+ e-Cigarette/Vaping Use: Never Used Second Hand Smoke Exposure: No service: No Current occupational status: disabled Cognitive needs: Yes Hearing needs: No Vision needs: Yes Review of Systems Const All systems reviewed & are unremarkable except as noted in HPI and below Physical Exam Vital Signs: BMI result Body Mass Index 31.3 Const General: cooperative, healthy appearing and no acute distress Resp Effort & Inspection: normal respiratory effort and able to speak in complete sentences Cardio Rate: regular rate Peripheral pulses: Peripheral pulses 2+ throughout GI Palpation (GI): Soft to palpation Skin Lesions: no lesions Rashes: no rashes Extrem Other: Right knee: Normal to inspection. No ecchymosis, erythema, or edema. Full hip ROM in all planes. No tenderness to palpation over the greater trochanteric bursa. 2/5 strength with resisted hip flexion, knee extension, abduction, and abduction. Extreme weakness and tremoring with straight leg raise. Able to perform straight leg raise. Assessment & Plan Assessment & Plan (1) Low back pain at multiple sites: Code(s): M54.50 - Low back pain, unspecified (2) Lumbar radiculopathy: Code(s): M54.16 - Radiculopathy, lumbar region (3) Weakness of both legs: Code(s): R29.898 - Other symptoms and signs involving the musculoskeletal system Plan Mr. Cantu is a 68-year-old male who presents in the office today for an evaluation of right knee pain. Patient presented to the ED on 12/24/2023 status post a trip and fall when trying to get to the bathroom after a nap. Patient admitted to heavy alcohol consumption that day and reported he drinks daily, per the ED note. X-rays of the right knee were obtained. He was referred to orthopedics for further evaluation of the shoulder due to possible dislocation. He was prescribed Oxycodone 5 mg PO Q6H PRN for pain. I last saw the patient in the office for further treatment of his left shoulder. During this encounter he reported he fell in the hallway while at home due to his knee giving out. He reports having weakness and pain in the bilateral lower extremity. He states he is unable to get his legs up. Per the PCP note on 01/09/2024: ?He had a fall about 3 weeks ago in which he went to ER and had left shoulder fracture and was intoxicated with alcohol. He said Percocet is not touching it and it is like Tylenol and I made patient aware that due to his alcoholism and he is other medications I do not feel it will benefit him an increase in Percocet. He agreed and understood.? While in the office today the patient reports his right knee has been giving out for about 6 months. He states the knee will give out on him and will begin to shake on him. He state his pain is on the top of the knee. He claims the pain is worse when getting up from a seated position, using stairs, and ambulating. He states he finds mild relief when taking Tylenol. He confirms numbness and tingling in the bilateral knees that radiates down. Patient confirms pain in his lower back. He reports being treated in the past for back pain, with a history of surgery. Patient presents with a male auto claim representative in the office today. Patient will be referred to physical therapy. He would like to attend [facility] off [address]. The patient will notify the office if this is not the correct location he is wishing to attend. He will also be referred to Physiatry, Dr. Rayo, for further evaluation and treatment. Follow up will be PRN, or sooner if needed. X-rays of the right knee which were obtained while in the office today and were reviewed by me, Sade Berrios PA-C, revealed no acute fractures or dislocation. Mild arthritic changes. X-rays of the right knee, obtained on 12/24/2023, revealed: Extensive vascular calcifications are present bilaterally. The knee joints appear unremarkable without evidence of significant arthritis, fractures or joint effusions Orders: Orders PT Evaluation and Treatment Today M54.16 - Radiculopathy, lumbar region, M54.50 - Low back pain, unspecified, R29.898 - Other symptoms and signs involving the musculoskeletal system XR knee standing BI Today M25.569 - Pain in unspecified knee Patient Instructions: Scribed by Yaritza Saab medical imaging director, for Sade Berrios PA-C on 01/18/2024 at 8:02 am, EST. Quality Reporting (2019) Adult ([facility] 138/12/20/68) Smoking risk assessment performed?: Yes Patient Tobacco Use Status: Current everyday Tobacco user Coding Level of Care Code Est Pt Level 4 (58620) Diagnoses Low back pain at multiple sites M54.50 Lumbar radiculopathy M54.16 Weakness of both legs R29.898
[2024-01-18 08:19] VITALS: BMI 31.3
== END 2024-01-18 08:33 | disposition home or self-care (01) ==
PROVIDERS: PCP Internal Medicine; Visit Provider Physician Assistant
DX: M54.50 Low back pain, unspecified (principal); M54.16 Radiculopathy, lumbar region; R29.898 Other symptoms and signs involving the musculoskeletal system
CPT/HCPCS: 99213

== ENCOUNTER 2024-01-18 13:09 | Outpatient (REF) | payer MEDICARE, SELFPAY ==
--- NOTE | ~2024-01-18 | XR_ITS ---
EXAMINATION: XR KNEE, RIGHT CLINICAL INFORMATION: Pain unspecified right knee COMPARISON: None available. TECHNIQUE: Four views of the right knee. FINDINGS: No joint effusion, fracture, dislocation, or destructive process. Bilateral vascular calcifications are noted. Note however is made of mild bilateral medial joint space narrowing. XR/XR knee RT 3V IMPRESSION: While degenerative change. No acute findings. Extensive atherosclerotic vascular calcifications observed in the distribution of the right SFA and popliteal artery and calf arteries.
== END 2024-01-18 13:10 | disposition home or self-care (01) ==
LOC: HO.HOSX 13:09
PROVIDERS: Visit Provider Physician Assistant
DX: M25.561 Pain in right knee (principal); M54.50 Low back pain, unspecified; M54.16 Radiculopathy, lumbar region; R29.898 Other symptoms and signs involving the musculoskeletal system; Z91.81 History of falling
CPT/HCPCS: 73562; 99212

== ENCOUNTER 2024-01-24 09:31 | Outpatient (REF) | payer MEDICARE, SELFPAY ==
--- NOTE | ~2024-01-24 | XR_ITS ---
EXAMINATION: XR LUMBOSACRAL SPINE CLINICAL INFORMATION: Dorsalgia, unspecified COMPARISON: Lumbar spine 12/17/2018 TECHNIQUE: Three standing views of the lumbosacral spine. The patient is unable to move their arm as it is in a sling. FINDINGS: There 5 nonrib-bearing lumbar-type vertebral bodies. The height of vertebral bodies is well-maintained. There is mild disc space narrowing with marginal osteophyte formation at L3-L4, L4-L5. The L5-S1 disc space is narrow. There is mild degenerative facet joint disease L5-S1. There is no spondylolisthesis. There is calcification of the abdominal aorta without evidence of aneurysmal dilatation. XR/XR lumbar spine 2-3V IMPRESSION: Degenerative disc disease at L3-L4, L4-L5 and L5-S1.
== END 2024-01-24 09:32 | disposition home or self-care (01) ==
LOC: HO.HOSX 09:31
PROVIDERS: PCP Internal Medicine; Visit Provider Physical Medicine & Rehabilitation
DX: M54.9 Dorsalgia, unspecified (principal); R29.898 Other symptoms and signs involving the musculoskeletal system; M48.062 Spinal stenosis, lumbar region with neurogenic claudication; Z91.81 History of falling
CPT/HCPCS: 72100; 99202

== ENCOUNTER 2024-01-24 09:31 | Outpatient (AMB) | payer MEDICARE, SELFPAY ==
[2024-01-24 09:36] VITALS: BMI 31.3
--- NOTE | 2024-01-24 09:36 | A.OFFVIS_ITS ---
Intake Vital Signs 01/24/24 09:36 Height 5 ft 8 in Weight 206 lb BMI 31.3 Intake Visit Reasons: New Prob - Lumbar Radiculopathy Intake Note: Navneet 68 yr old male presents today for a new problem visit for his lumbar Radiculopathy. States he has been having pain for approx 5 years and has worsen. Hx of lower back sx about 25- 40 years. His pain has worsen and is now radiating down his knee and leg. States he has weakness in his legs and trembles at times. States he has tried P.T a few years ago but relief was temporary. He has numbness and tingling in his legs. Reports he fell down 01/20/24 while walking to his fridge, his legs gave out and fell on his back. Patient referred by Vic Stuart. Allergies mirtazapine Adverse Reaction (Intermediate, Verified 01/24/24 09:51) Dizziness HPI HPI Comments History of Present Illness Details Here with friend Jr. They wanted to see me for low back pain and legs being wobbly and has fallen a lot. 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 Sometimes when he is walking too, uses a straight cane. Uses a walker too. Chronic back pain 10-15 years. Told in the past had lumbar disc issue. No injection or surgery for lower back pain. Back pain, middle of back. Does not know if radiates to legs. Numbness on his feet, more right side, especially on his knee. 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 Admits to new bowel incontinence, 6 months. History of alcohol drinking, heavy. Friend says he is very sedentary. 2 years ago. He lives alone. Home health agency thru [place]. History of cervical spine surgery. [facility], [facility] Medical History Overweight (BMI 25.0-29.9) Vitamin D deficiency Depression Mixed hyperlipidemia Hypovitaminosis D Mild recurrent major depression Tiredness Alcoholism Alcohol abuse Bilateral carotid artery stenosis Aortic valve sclerosis Atherosclerotic cardiovascular disease Essential hypertension Dyslipidemia Leukocytosis Insomnia Hx of lymphoma Smoker Aortic valve calcification ASHD (arteriosclerotic heart disease) History of CVA with residual deficit Hx of multiple pulmonary nodules CAD (coronary artery disease) Surgical History Cataracts, bilateral Hx of cardiac catheterization History of thoracic surgery H/O total shoulder replacement H/O colonoscopy Family History Father Alcohol abuse Mother No problems noted. Daughter No problems noted. Son No problems noted. Sister No problems noted. Other Substance use disorder Social History Household Members: Spouse Household Members Other:: on dialysis Housing: House Housing Other:: Mobile Home Are you a primary summer child caregiver to a significant other at home: No Do you presently have visiting nurse or other home services: No Alcohol intake: current Alcohol intake frequency: 3 or more drinks per day Alcohol type: beer Patient Tobacco Use Status: Current everyday Tobacco user Tobacco use type: Cigarette Cigarette Packs Per Day: 1 Years Smoked: 50+ e-Cigarette/Vaping Use: Never Used Second Hand Smoke Exposure: No service: No Current occupational status: disabled Cognitive needs: Yes Hearing needs: No Vision needs: Yes Review of Systems Const All systems reviewed & are unremarkable except as noted in HPI and below Physical Exam Vital Signs: BMI result Body Mass Index 31.3 Constitutional: Patient appears to be in no acute distress, well nourished and well developed. Patient was appropriately conversant and oriented. MSK: Tender lower lumbar paraspinals. SI and GT non tender. Lumbar ROM was deferred due to instability. Difficulty getting up from chair. Deferred exam on bed. No increased tone noted. Neurological: right hip flexion 3+/5, knee extension and dorsiflexion 4/5; left hip flexion, knee extension and dorsiflexion 4/5. Babinski was down going bilaterally. Clonus was negative. Results Reviewed Results Reviewed: I independently reviewed the results of the following: lumbar xray done in the office - showed anterior end plates; disc spaces preserved; no compression deformity that I could see; await final reading. Ordering Physician: Sade Berrios PA-C Date of Service: 01/18/24 Procedure(s): XR knee RT 3V Accession Number(s): [id number] cc: Sade Berrios PA-C~ EXAMINATION: XR KNEE, RIGHT CLINICAL INFORMATION: Pain unspecified right knee COMPARISON: None available. TECHNIQUE: Four views of the right knee. FINDINGS: No joint effusion, fracture, dislocation, or destructive process. Bilateral vascular calcifications are noted. Note however is made of mild bilateral medial joint space narrowing. XR/XR knee RT 3V IMPRESSION: While degenerative change. No acute findings. Extensive atherosclerotic vascular calcifications observed in the distribution of the right SFA and popliteal artery and calf arteries. Ordering Physician: Alan Mai Date of Service: 12/24/23 Procedure(s): CT cervical spine wo IV con Accession Number(s): [id number] cc: Alan Mai ; Mayda Traylor MD~ EXAMINATION: CT HEAD WITHOUT CONTRAST CT CERVICAL SPINE WITHOUT CONTRAST CLINICAL INFORMATION: Fall. COMPARISON: CT head and cervical spine October 25, 2023 TECHNIQUE: Imaging was performed from the skull base to vertex without intravenous administration of contrast. In addition, helical noncontrast CT imaging was acquired through the cervical spine and source images were reviewed along with axial reconstructions and sagittal and coronal MPRs. [This CT examination was performed using dose optimization techniques as appropriate, variously including the following: *Automated exposure control *Adjustment of mA and/or kV according to patient size (this includes techniques or standardized protocols for targeted exams where dose is matched to indication/reason for exam; i.e. extremities or head) *Use of iterative reconstruction technique] DLP: 1525 mGy-cm FINDINGS: HEAD: No intracranial mass, hemorrhage, or midline shift is visualized. There is generalized global volume loss. There is moderate prominence of the ventricles and the sulci . There is moderate hypodensity of the periventricular white matter due to chronic small vessel ischemic disease. There are vascular calcifications of the internal carotid arteries bilaterally. No extra-axial collections are identified. The paranasal sinuses and mastoid air cells are well aerated. CERVICAL SPINE: There is no evidence of acute cervical spine fracture. Vertebral bodies remain normal in height. Cervical vertebrae have normal alignment. Status post fusion with anterior plate and screw C6-C7. There is multilevel degenerative spondylosis of the cervical spine with disc height narrowing and endplate spurs and facet joint arthrosis No pre- or paravertebral soft tissue abnormality is identified. Limited assessment of the lung apices is unremarkable. CT/CT cervical spine wo IV con IMPRESSION: 1. No acute intracranial pathology. 2. No CT evidence of acute cervical spine fracture or traumatic subluxation Ordering Physician: Alan Mai Date of Service: 12/24/23 Procedure(s): XR shoulder LT min 2V Accession Number(s): [id number] cc: Alan Mai ; Mayda Traylor MD~ EXAMINATION: XR SHOULDER, LEFT CLINICAL INFORMATION: Trauma, pain. COMPARISON: Chest radiograph 10/25/2023. TECHNIQUE: Three views of the left shoulder. FINDINGS: Left shoulder hemiarthroplasty with a new comminuted mildly displaced periprosthetic fracture involving the proximal humeral shaft. Significant surrounding soft tissue swelling. Moderate degenerative osteoarthritis of the acromioclavicular joint. Redemonstration of cervical fusion hardware. Visualized left-sided ribs and left lung are within normal limits. XR/XR shoulder LT min 2V IMPRESSION: Left shoulder hemiarthroplasty with a new comminuted mildly displaced periprosthetic fracture involving the proximal humeral shaft. I reviewed records from the following: Ortho notes reviewed - also discussed with Sade CONLEY regarding patient's history PCP ER Assessment & Plan Assessment & Plan (1) Weakness of both legs: Code(s): R29.898 - Other symptoms and signs involving the musculoskeletal system (2) Lumbar spinal stenosis: Code(s): M48.061 - Spinal stenosis, lumbar region without neurogenic claudication Qualifiers: Neurogenic claudication status: with neurogenic claudication Qualified Code(s): M48.062 - Spinal stenosis, lumbar region with neurogenic claudication (3) Alcoholism: Code(s): F10.20 - Alcohol dependence, uncomplicated (4) History of fall: Code(s): Z91.81 - History of falling Plan Given history of falls, xray lumbar was done in the office; showed anterior end plates; disc spaces preserved; no compression deformity that I could see; await final reading. Concerned about lumbar spinal stenosis, with weakness on his legs right worse than left; and bowel incontinence. It would be reasonable to obtain further imaging such as MRI to rule out spinal stenosis or nerve compression. It will also guide treatment and assess prognosis for recovery. We also discussed that alcoholism is a risk factor to neuropathy, which could contribute to numbness and weakness on his legs. Eventually we may consider an EMG to confirm. Lastly, most beneficial to him is to get him less sedentary. He unfortunately lives alone and would benefit greatly with home PT. [facility] referral sent. Also would benefit from a oncology social work. He will follow up with ortho for left shoulder. Assessment and plan discussed with patient, and patient was agreeable. All questions were answered thoroughly. Domenica Pike MD, DAVID Board Certified, [place] [employer] and Rehabilitation (ABPMR) Board Certified, [place] [employer] Electrodiagnostic Medicine (ABEM) Orders: Orders XR lumbar spine 2-3V Today M54.9 - Dorsalgia, unspecified MR lumbar spine wo con Today M48.061 - Spinal stenosis, lumbar region without neurogenic claudication, R29.898 - Other symptoms and signs involving the musculoskeletal system Referrals [facility] Referral F10.20 - Alcohol dependence, uncomplicated, M48.061 - Spinal stenosis, lumbar region without neurogenic claudication, R29.898 - Other symptoms and signs involving the musculoskeletal system Quality Reporting (2020) Adult ([facility] 138/12/20/68) Smoking risk assessment performed?: Yes Patient Tobacco Use Status: Current everyday Tobacco user Coding Level of Care Code New Pt Level 4 (27516) Diagnoses Weakness of both legs R29.898 Spinal stenosis of lumbar region with neurogenic claudication M48.062 Neurogenic claudication status: with neurogenic claudication Alcoholism F10.20 History of fall Z91.81
== END 2024-01-24 10:30 | disposition home or self-care (01) ==
PROVIDERS: PCP Internal Medicine; Visit Provider Physical Medicine & Rehabilitation
DX: R29.898 Other symptoms and signs involving the musculoskeletal system (principal); M48.062 Spinal stenosis, lumbar region with neurogenic claudication; F10.20 Alcohol dependence, uncomplicated; Z91.81 History of falling
CPT/HCPCS: 99204; 99214

== ENCOUNTER 2024-02-22 08:53 | Outpatient (REF) | payer MEDICARE, SELFPAY ==
--- NOTE | ~2024-02-22 | XR_ITS ---
EXAMINATION: XR SHOULDER, LEFT CLINICAL INFORMATION: Pain in the shoulder. COMPARISON: Prior x-rays November 2023. TECHNIQUE: 2 views of the left shoulder. FINDINGS: A left total shoulder arthroplasty is noted with components in unchanged position. There is persistent periprosthetic comminuted humerus fracture, unchanged. There is outward displacement of multiple fracture fragments both medially and laterally anteriorly and posteriorly. There is medial displacement of the proximal end of the humeral component related to the fracture displacement, unchanged compared to prior. There is some heterotopic ossification or callus formation surrounding portions of the fracture which is new. Persistent lucency surrounding the humeral stem similar to prior compatible with osteolysis. The glenoid component is unremarkable. Ossification present along the coracoclavicular ligament compatible with old ligamentous injury. Incidental note made of postsurgical changes in the lower cervical spine. XR/XR shoulder LT min 2V IMPRESSION: Left total shoulder arthroplasty with persistent displaced periprosthetic humerus fracture, unchanged compared with the prior x-ray November 2023. Callus formation and/or heterotopic ossification, new compared to prior.
== END 2024-02-22 08:54 | disposition home or self-care (01) ==
LOC: HO.HOSX 08:53
PROVIDERS: Visit Provider Physician Assistant
DX: M97.32XD Periprosthetic fracture around internal prosthetic left shoulder joint, subsequent encounter (principal)
CPT/HCPCS: 73030; 99212

== ENCOUNTER 2024-02-22 10:52 | Outpatient (AMB) | payer MEDICARE, SELFPAY ==
--- NOTE | 2024-02-22 11:19 | A.OFFVIS_ITS ---
Intake Visit Reasons: ov- left shoulder fx, DOI 12/24/23 Intake Note: Navneet is a 68 year old male who presents today for a follow up for his left shoulder pain, DOI 12/24/23. Patient reports his left shoulder is feeling a little bit better, however he is still having continuous pain. Allergies mirtazapine Adverse Reaction (Intermediate, Verified 01/24/24 09:51) Dizziness HPI HPI ov- left shoulder fx, DOI 12/24/23: Details: 68-year-old right hand dominant male who presents in the office today for a follow up of left shoulder pain. I last saw the patient in the office for his left shoulder on 12/27/2023 when he was to remain in the sling to aid in healing and for comfort. He was educated on gentle ROM to work on and motions to avoid. He was deferred to his PCP for evaluation of pain medication, which he has a pain contract with. It was recommended for him to follow up in 4 weeks from 12/27/2023. Patient reports having continued pain, but it is slightly feeling better. He presents to the office in the sling. Patient?s sister accompanies him at today's appt. reports him drinking David Alan's daily. Patient confirms drinking throughout the day and states he is unable to stop drinking. Patient has a history of left shoulder hemiarthroplasty in [place] 40 years ago. Patient has a social history as follows: -Alcohol intake: 3 or more drinks daily; beer. -Tobacco use: Cigarette use 1 pack per day, with 50+ years of smoking. [facility] Medical History Overweight (BMI 25.0-29.9) Vitamin D deficiency Depression Mixed hyperlipidemia Hypovitaminosis D Mild recurrent major depression Tiredness Alcoholism Alcohol abuse Bilateral carotid artery stenosis Aortic valve sclerosis Atherosclerotic cardiovascular disease Essential hypertension Dyslipidemia Leukocytosis Insomnia Hx of lymphoma Smoker Aortic valve calcification ASHD (arteriosclerotic heart disease) History of CVA with residual deficit Hx of multiple pulmonary nodules CAD (coronary artery disease) Surgical History Cataracts, bilateral Hx of cardiac catheterization History of thoracic surgery H/O total shoulder replacement H/O colonoscopy Family History Father Alcohol abuse Mother No problems noted. Daughter No problems noted. Son No problems noted. Sister No problems noted. Other Substance use disorder Social History Household Members: Spouse Household Members Other:: on dialysis Housing: House Housing Other:: Mobile Home Are you a primary managed care director to a significant other at home: No Do you presently have visiting nurse or other home services: No Alcohol intake: current Alcohol intake frequency: 3 or more drinks per day Alcohol type: beer Patient Tobacco Use Status: Current everyday Tobacco user Tobacco use type: Cigarette Cigarette Packs Per Day: 1 Years Smoked: 50+ e-Cigarette/Vaping Use: Never Used Second Hand Smoke Exposure: No service: No Current occupational status: disabled Cognitive needs: Yes Hearing needs: No Vision needs: Yes Review of Systems Const All systems reviewed & are unremarkable except as noted in HPI and below Physical Exam Const General: cooperative, healthy appearing and no acute distress Resp Effort & Inspection: normal respiratory effort and able to speak in complete sentences Cardio Rate: regular rate Peripheral pulses: Peripheral pulses 2+ throughout GI Palpation (GI): Soft to palpation Skin Lesions: no lesions Rashes: no rashes Extrem Other: Left upper extremity: Able to flex and extend at the wrist. Able to flex and extend at the elbow. Sensation intact. Quality Reporting (2019) Adult ([facility] 138/12/20/68) Smoking risk assessment performed?: Yes Patient Tobacco Use Status: Current everyday Tobacco user Assessment & Plan Assessment & Plan (1) Periprosthetic fracture around internal prosthetic left shoulder joint: Comment: Left shoulder hemiarthroplasty with a new comminuted mildly displaced periprosthetic fracture involving the proximal humeral shaft. Code(s): M97.32XA - Periprosthetic fracture around internal prosthetic left shoulder joint, initial encounter Category: Medical Qualifiers: Encounter type: initial encounter Qualified Code(s): M97.32XA - Periprosthetic fracture around internal prosthetic left shoulder joint, initial encounter (2) History of hemiarthroplasty of left shoulder: Code(s): Z96.612 - Presence of left artificial shoulder joint Category: Surgical (3) Alcoholism: Code(s): F10.20 - Alcohol dependence, uncomplicated Category: Medical Plan 68-year-old right hand dominant male who presents in the office today for a follow up of left shoulder pain. I last saw the patient in the office for his left shoulder on 12/27/2023 when he was to remain in the sling to aid in healing and for comfort. He was educated on gentle ROM to work on and motions to avoid. He was deferred to his PCP for evaluation of pain medication, which he has a pain contract with. It was recommended for him to follow up in 4 weeks from 12/27/2023. Patient reports having continued pain, but it is slightly feeling better. He presents to the office in the sling. Patient?s sister accompanies him at today's appt. reports him drinking David Phillips's daily. Patient confirms drinking throughout the day and states he is unable to stop drinking. Patient has a history of left shoulder hemiarthroplasty in [place] 40 years ago. Patient has a social history as follows: -Alcohol intake: 3 or more drinks daily; beer. -Tobacco use: Cigarette use 1 pack per day, with 50+ years of smoking. Dr. Keenan was available to see the patient in the office with me today and a collaborative treatment plan was made. The patient will be treated conservatively due to his history of drinking alcohol and lack of interest in discontinuing. It was discussed that should he wish to discontinue drinking alcohol we could further discuss other treatment options for the left shoulder. Patient was instructed to discontinue the use of the sling. Patient will be referred to PT for ROM of the left shoulder. He will need transportation to attend sessions. It is unclear if the patient will attend formal PT. It is hoped he will attend a 1-2 sessions to learn a home exercise program. Follow up will be in 6-[address] Keenan in the office, or sooner if needed. X-rays of the left shoulder which were obtained while in the office today and were reviewed by me, Sade Berrios PA-C, redemonstrated a periprosthetic fracture with minimal healing. Orders: Orders XR shoulder LT min 2V Today M25.519 - Pain in unspecified shoulder PT Evaluation and Treatment Today M97.32XA - Periprosthetic fracture around internal prosthetic left shoulder joint, initial encounter, Z96.612 - Presence of left artificial shoulder joint Patient Instructions: Scribed by [employer], for Sade Berrios PA-C on 02/22/2024 at 10:57 am, EST. Coding Level of Care Code Global (16242) Diagnoses Periprosthetic fracture around internal prosthetic left shoulder joint, initial encounter M97.32XA Encounter type: initial encounter History of hemiarthroplasty of left shoulder Z96.612 Alcoholism F10.20
== END 2024-02-22 11:55 | disposition home or self-care (01) ==
PROVIDERS: PCP Internal Medicine; Visit Provider Physician Assistant
DX: M97.32XA Periprosthetic fracture around internal prosthetic left shoulder joint, initial encounter (principal); Z96.612 Presence of left artificial shoulder joint; F10.20 Alcohol dependence, uncomplicated
CPT/HCPCS: 99213

== ENCOUNTER 2024-03-19 14:57 | Outpatient (REF) | payer MEDICARE, SELFPAY ==
--- NOTE | 2024-03-19 14:59 | EMG_ITS ---
Chief complaint: Frequent falls, chronic back pain, feet numbness, alcohol use Reason for referral: Evaluate for neuropathy Procedure done: Bilateral lower extremity NCS/EMG Precautions and/or limitations: None The limb temperature was monitored continuously and remained between 32-36 degrees C during the performance of the NCS. Nerve Conduction Studies Anti Sensory Summary Table ?Stim Site NR Onset (ms) Norm Onset (ms) Peak (ms) Norm Peak (ms) O-P Amp (?V) Norm O-P Amp Site1 Site2 Delta-0 (ms) Dist (cm) Bret (m/s) Norm Bret (m/s) Left Sural Anti Sensory (Lat Mall) Calf NR <4.0 >5.0 Calf Lat Mall 14.0 Right Sural Anti Sensory (Lat Mall) Calf NR <4.0 >5.0 Calf Lat Mall 14.0 Motor Summary Table ?Stim Site NR Onset (ms) Norm Onset (ms) O-P Amp (mV) Norm O-P Amp iAmp (mV) Amp (1st) (%) Site1 Site2 Delta-0 (ms) Dist (cm) Bret (m/s) Norm Bret (m/s) Right Peroneal Motor (Ext Dig Brev) Ankle ? 4.4 <4.0 0.8 >2.5 0.8 100.0 Ankle Ext Dig Brev 4.4 0.0 B Fib ? 11.0 0.6 0.7 75.0 B Fib Ankle 6.6 33.0 50 >40 Poplt ? 12.7 0.7 0.7 87.5 Poplt B Fib 1.7 7.0 41 >40 Left Tibial Motor (Abd Avilez Brev) Ankle ? 4.9 <5 6.3 >2.5 7.5 100.0 Ankle Abd Avilez Brev 4.9 0.0 Knee ? 13.5 3.8 4.4 60.3 Knee Ankle 8.6 39.0 45 >40 Right Tibial Motor (Abd Avilez Brev) Ankle ? 5.1 <5 0.8 >2.5 0.7 100.0 Ankle Abd Avilez Brev 5.1 0.0 Knee ? 13.4 1.1 1.5 137.5 Knee Ankle 8.3 38.0 46 >40 EMG ?Side Muscle Nerve Root Ins Act Fibs Psw Amp Dur Poly Recrt Int Pat Comment Right AbdHallucis MedPlantar S1-2 Incr 1+ 1+ Nml Nml 0 Nml Complete Right AntTibialis Dp Br Peron L4-5 Incr 2+ 2+ Nml Nml 0 Nml Complete CRD Right PostTibialis Tibial L5, S1 Nml Nml Nml Nml Nml 0 Nml Complete Right MedGastroc Tibial S1-2 Nml Nml Nml Nml Nml 0 Nml Complete Right VastusMed Femoral L2-4 Nml Nml Nml Nml Nml 0 Nml Complete Left AbdHallucis MedPlantar S1-2 Incr 1+ 1+ Nml Nml 0 Nml Complete Left AntTibialis Dp Br Peron L4-5 Nml Nml Nml Nml Nml 0 Nml Complete Left PostTibialis Tibial L5, S1 Nml Nml Nml Nml Nml 0 Nml Complete Left MedGastroc Tibial S1-2 Nml Nml Nml Nml Nml 0 Nml Complete Left VastusMed Femoral L2-4 Nml Nml Nml Nml Nml 0 Nml Complete Paraspinal EMG ?Side Muscle Nerve Root Ins Act Fibs Psw Comment Right Lumbar Upper Rami Nml Nml Nml Right Lumbar Mid Rami Nml Nml Nml Right Lumbar Lower Rami Incr 2+ 2+ CRD Left Lumbar Upper Rami Nml Nml Nml Left Lumbar Mid Rami Nml Nml Nml Left Lumbar Lower Rami Incr 2+ 2+ FINDINGS: Right peroneal nerve showed prolonged distal latency, small amplitude and normal conduction velocity. Right tibial nerve showed prolonged distal latency, small amplitude and normal conduction velocity. Bilateral sural nerves showed absent response. All other nerves tested were within normal. Concentric needle EMG was performed in selected muscles of the bilateral lower extremity and lumbar paraspinals. Study revealed Signs of electric abnormalities as shown in the table below. Right tibialis anterior showed increased insertional activity, 2+ PSWs and fibrillations, with CRDs. Bilateral AH showed increased insertional activity, PSWs and fibrillations. Bilateral lower lumbar paraspinals showed increased insertional activity, PSWs and fibrillations. IMPRESSION: 1. This is an abnormal study. 2. There is electrodiagnostic evidence for bilateral L5-S1 chronic radiculopathy. 3. There is also evidence for underlying peripheral neuropathy. CLINICAL COMMENT: Given radiculopathy findings, it would be reasonable to obtain lumbar MRI for further workup. Order placed. Thank you for your kind referral. Domenica Pike MD, DAVID Board Certified, [place] [employer] and Rehabilitation (ABPMR) Board Certified, [place] [employer] Electrodiagnostic Medicine (ABEM) CODIN [id number] x 2 MTDD
== END 2024-03-19 14:58 | disposition home or self-care (01) ==
LOC: HO.NEURO 14:57
PROVIDERS: PCP Internal Medicine; Visit Provider Physical Medicine & Rehabilitation
DX: G62.9 Polyneuropathy, unspecified (principal); R20.0 Anesthesia of skin; Z91.81 History of falling
CPT/HCPCS: 95886; 95909

== ENCOUNTER → 2024-03-19 14:59 | Outpatient (BNV) | payer MEDICARE, SELFPAY | PROVIDERS: PCP Internal Medicine; Visit Provider Physical Medicine & Rehabilitation | DX: M54.16 Radiculopathy, lumbar region (principal); G62.9 Polyneuropathy, unspecified | CPT/HCPCS: 95886; 95909 ==

== ENCOUNTER 2024-03-24 14:53 | Emergency (ER) | payer MEDICARE, SELFPAY ==
--- NOTE | ~2024-03-24 | XR_ITS ---
EXAMINATION: XR SHOULDER, LEFT CLINICAL INFORMATION: Broken shoulder 2 months ago COMPARISON: Shoulder 02/22/2024 TECHNIQUE: 3 view of the left shoulder. FINDINGS: A left total shoulder arthroplasty is again with components in unchanged position. Again seen is a periprosthetic comminuted maximal humerus fracture. There is still outward displacement of multiple fracture fragments both medially and laterally anteriorly and posteriorly. There is medial displacement of the proximal end of the humeral component related displaced slightly increased from prior, but may be positional. Persistent osteomyelitis surrounding the humeral stem similar to prior.. The glenoid component is unremarkable. XR/XR shoulder LT min 2V IMPRESSION: Persistent periprosthetic comminuted humerus fracture.
--- NOTE | ~2024-03-24 | CT_ITS ---
CT HEAD WITHOUT IV CONTRAST CT CERVICAL SPINE WITHOUT IV CONTRAST CT MAXILLOFACIAL WITHOUT IV CONTRAST INDICATION: Trauma COMPARISON: 12/24/2022 TECHNIQUE: Multidetector CT acquisitions of the head, maxillofacial region, and cervical spine were obtained without IV contrast. Multiplanar reformats were acquired and utilized for image interpretation. DLP: 716 mGy-cm FINDINGS: HEAD: There is no intracranial hemorrhage or extra-axial fluid collection. The ventricles are unremarkable without hydrocephalus. No midline shift or mass effect. Tee to white matter differentiation is diffusely maintained without evidence of an evolved acute territorial infarct. The basilar cisterns are preserved. Subcortical and periventricular white matter hypoattenuation is suggestive of [] small vessel ischemic disease. No soft tissue or osseous abnormality. The mastoid air cells and paranasal sinuses are well-aerated. MAXILLOFACIAL: The mandible, maxilla, pterygoid plates, nasal bones, zygomatic arches, paranasal sinus anderson, and bony orbits are intact. No acute osseous abnormality within the maxillofacial region. The paranasal sinuses and mastoid air cells remain well-aerated. The globes and extra-ocular musculature is intact. No significant soft tissue findings. CERVICAL SPINE: C6-C7 fusion changes are intact without evidence for hardware failure. There is anatomic alignment of the vertebral bodies and posterior elements. Moderate disc space narrowing is present at C4-C5 and C5-C6 consistent with degenerative disc disease. There is no acute fracture and there is no acute subluxation. The craniocervical and atlantoaxial articulations are normal. There is no prevertebral soft tissue swelling. No significant soft tissue abnormality within the neck. The visualized lung apices are clear. CT/CT cervical spine wo IV con IMPRESSION: 1. No acute intracranial abnormality. 2. No acute osseous abnormality within the cervical spine. 3. No acute osseous abnormality within the maxillofacial region.
[2024-03-24 15:29] VITALS: BP 134/72; BP 140/90; PULSE 71; PULSE 80; RESP 14; TEMP 36.9; O2SAT 92; O2SAT 97; BMI 29.8
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
[2024-03-24 18:00] VITALS: BP 153/71; PULSE 78; RESP 16; TEMP 36.2; O2SAT 97
[2024-03-24 18:46] LABS: Appearance Urine Clear; Color Urine Yellow; Glucose Urine UA Negative (Negative); Leukocyte Esterase Urine Negative (Negative); Nitrite Urine Negative (Negative); Specific Gravity - Urine <= 1.005 (1.005-1.025); Urine Blood Negative (Negative); Urine Ketones Negative (Negative); Urine Protein Negative (Neg-Trace)
[2024-03-24] MEDS: oxyCODONE HCl Immed Release 5 MG TABLET 10 MG PO (18:54)
[2024-03-24] MEDS: Acetaminophen 325 MG TABLET 650 MG PO (18:54)
[2024-03-24 18:56] LABS: Amphetamine Screen Urine Not Detected (Not Detect); Barbiturates, Urine Not Detected (Not Detect); Benzodiazepines Screen Urine Not Detected (Not Detect); Buprenorphine Scr Not Detected (Not Detect); Cannabinoid Screen Urine Not Detected (Not Detect); Cocaine Screen Urine Not Detected (Not Detect); Fentanyl, urine Not Detected (Not Detect); Methadone Screen, Urine Not Detected (Not Detect); Opiate Screen Urine POSITIVE (Not Detect); Oxycodone Screen Urine Positive (Not Detect); Phencyclidine Screen Urine Not Detected (Not Detect)
[2024-03-24 19:24] VITALS: BP 153/71; PULSE 78; RESP 16; TEMP 36.2; O2SAT 97
== END 2024-03-24 19:25 | disposition home or self-care (01) ==
PROVIDERS: Physician Assistant; Emergency Provider Internal Medicine; PCP Internal Medicine
DX: F10.10 Alcohol abuse, uncomplicated (principal); Y90.9 Presence of alcohol in blood, level not specified; S51.812A Laceration without foreign body of left forearm, initial encounter; I10 Essential (primary) hypertension; M97.32XD Periprosthetic fracture around internal prosthetic left shoulder joint, subsequent encounter; Z86.73 Personal history of transient ischemic attack (TIA), and cerebral infarction without residual deficits; Z96.612 Presence of left artificial shoulder joint; W19.XXXA Unspecified fall, initial encounter; Y93.9 Activity, unspecified; Y92.9 Unspecified place or not applicable; Y99.9 Unspecified external cause status
CPT/HCPCS: 70450; 70486; 72125; 73030; 80307; 81003; 99284

== ENCOUNTER 2024-07-30 10:14 | Outpatient (AMB) | payer MEDICARE, SELFPAY ==
[2024-07-30 10:43] VITALS: BP 122/84; PULSE 90; O2SAT 98; BMI 28.3
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
== END 2024-07-30 11:30 | disposition home or self-care (01) ==
PROVIDERS: PCP Internal Medicine; Visit Provider Internal Medicine
DX: S21.1 Open wound of front wall of thorax without penetration into thoracic cavity (principal); R06.02 Shortness of breath; M48.062 Spinal stenosis, lumbar region with neurogenic claudication

== ENCOUNTER → 2024-07-30 10:14 | Outpatient (BNVA) | payer MEDICARE, SELFPAY | PROVIDERS: PCP Internal Medicine; Visit Provider Internal Medicine | DX: S21.1 Open wound of front wall of thorax without penetration into thoracic cavity (principal); R06.02 Shortness of breath; M48.062 Spinal stenosis, lumbar region with neurogenic claudication | CPT/HCPCS: 90471; 99212 ==

== ENCOUNTER 2024-08-28 18:21 | Inpatient (IN) | payer MEDICARE, SELFPAY ==
--- NOTE | ~2024-08-28 | CT_ITS ---
EXAMINATION: NONCONTRAST HEAD CT NONCONTRAST CERVICAL SPINE CT INDICATION INFORMATION: Fall, head strike, posterior laceration. EtOH. COMPARISON: 03/24/2024 TECHNIQUE: Separate noncontrast CT examinations of the head and cervical spine were performed. Coronal and sagittal images were created for each examination at the technologist workstation. This CT examination was performed using dose optimization techniques as appropriate, variously including the following: *Automated exposure control *Adjustment of mA and/or kV according to patient size (this includes techniques or standardized protocols for targeted exams where dose is matched to indication/reason for exam; i.e. extremities or head) *Use of iterative reconstruction technique DLP: 1440 mGy-cm FINDINGS: Head: There is no evidence of acute intracranial hemorrhage or territorial infarction. No abnormal mass effect or midline shift is seen. Tee to white matter differentiation is well preserved. No extra-axial fluid collections are identified. No hydrocephalus. Proportional prominence of the ventricles and sulcal spaces is consistent with moderate volume loss. Patchy periventricular and deep white matter hypoattenuation is consistent with moderate small vessel ischemic changes. No acute osseous abnormalities. Soft tissue swelling in the posterior occipital region with small foci of gas. The mastoid air cells and visualized portions of the paranasal sinuses are well aerated. Cervical spine: There is anatomic alignment of the vertebral bodies and posterior elements. There is anterior fusion at C6-C7. The atlantoaxial and atlantooccipital articulations are intact. Vertebral body heights are maintained. There is multilevel intervertebral disc space narrowing with endplate osteophyte formation and facet arthropathy. No evidence of acute fracture. No prevertebral soft tissue swelling. Mild emphysematous changes in the lung apices.. The thyroid gland is unremarkable. CT/CT cervical spine wo IV con IMPRESSION: 1. No acute intracranial process. 2. No acute fractures of the cervical spine or the calvarium. 3. Soft tissue swelling in the posterior occipital region with small foci of gas. Electronically signed by: Rufus Barber MD 08/28/2024 09:55 PM EDT
--- NOTE | ~2024-08-28 | XR_ITS ---
EXAMINATION: XR CHEST CLINICAL INFORMATION: persistent cough COMPARISON: X-ray dated October 17, 2023. TECHNIQUE: Frontal view of the chest was obtained. FINDINGS: No consolidation, pleural effusion or pneumothorax. Cardiomediastinal silhouette is normal in size. Metallic prosthesis in both humeri. Cortical disruption and proximal diaphysis of the left humerus. Metallic plate in the lower cervical spine. XR/XR chest 1V IMPRESSION: No acute airspace disease. Acute to subacute comminuted fracture, proximal left humerus. Electronically signed by: Umberto Love MD 09/01/2024 10:21 AM CHRIS CURRIE
[2024-08-28 18:24] VITALS: BP 138/68; PULSE 71; O2SAT 96
[2024-08-28 18:35] VITALS: BP 134/63; PULSE 79; RESP 18; TEMP 36.6; O2SAT 97; BMI 28.9
--- NOTE | 2024-08-28 19:09 | PC.NURSE ---
report received from Annabelle Vickers RN, assume care of pt at this time
[2024-08-28 19:39] VITALS: BP 123/55; PULSE 82; RESP 16; TEMP 36.6; O2SAT 96
--- NOTE | 2024-08-28 19:39 | ECG_ITS ---
Test Reason : FALL Blood Pressure : / mmHG Vent. Rate : 083 BPM Atrial Rate : 083 BPM P-R Int : 126 ms QRS Dur : 124 ms QT Int : 400 ms P-R-T Axes : 066 062 -04 degrees QTc Int : 470 ms Sinus rhythm with Premature supraventricular complexes Right bundle branch block T inversion anterior leads, possible ischemia Abnormal ECG When compared with ECG of 24-DEC-2023 21:50, Premature supraventricular complexes are now Present T inversion noted in anterior leads Referred By: Siomara Hemphill Electronically Signed By:RAJINDER YOST
--- NOTE | 2024-08-28 20:00 | PC.NURSE ---
While speaking to pt, about his drinking, pt states, my , 2 years ago on , and I am trying to join her. I am not going to quit drinking Informed Gideon CONLEY
[2024-08-28 20:07] LABS: Basophils Absolute Auto 0.1 X10*3/uL (0.0-0.2); Basophils Percent Auto 0.8 % (0-2); Eosinophils Absolute Auto 0.3 X10*3/uL (0.0-0.4); Hematocrit 35.9 % (42.0-52.0); Hemoglobin 13.1 g/dl (14.0-18.0); Imm Gran Abs Auto 0.03 X10*3/uL (0.00-0.03); Imm Gran Pct Auto 0.3 % (0.0-0.4); Lymphocytes Absolute Auto 2.7 X10*3/uL (1.2-4.9); Lymphocytes Percent Auto 29.1 % (20-40); MANUAL DIFF FLAG NO; Mean Corpuscular HGB Conc 36.5 g/dl (31.0-36.0); Mean Corpuscular Hemoglobin 36.1 pg (27.0-33.0); Mean Corpuscular Volume 98.9 fL (80.0-98.0); Monocytes Absolute Auto 0.5 X10*3/uL (0.1-1.2); Monocytes Percent Auto 5.9 % (2-11); Neutrophils Absolute Auto 5.6 x10*3/uL (2.0-8.3); Neutrophils Percent Auto 60.9 % (45-73); Platelet Count 234 X10*3/uL (160-400); Red Blood Count 3.63 X10*6/uL (4.60-5.80); Red Cell Distribution Width 12.4 % (11.0-16.0); White Blood Count 9.1 X10*3/uL (4.8-10.8)
--- NOTE | 2024-08-28 20:13 | ED.FALL ---
HPI - Fall General Chief Complaint: Fall Stated Complaint: fall,etoh,+headstrike Time Seen by Provider: 08/28/24 19:11 Source: patient Mode of arrival: EMS Limitations: no limitations History of Present Illness HPI Narrative: Patient is a 69-year-old male who presents to the emergency department via EMS for evaluation after a fall. When asked what caused his fall he states my legs often give out, ?I went to go pee I think I tripped on my cane?, was not utilizing the cane while ambulating. He does admit to alcohol consumption earlier today. A daily drinker reporting he drinks ?a few beers to marge down my pint of whiskey . He has dried blood to the back of his head, indicating likely head strike he denies any loss of consciousness. He states he frequently falls. He has multiple bruises to the bilateral upper extremities. He reports that he was lying on the ground for ?an hour to may be more? and was yelling out, eventually neighbors heard him and called for help. He states ?call my son Jorge I want to get out here?. Related Data Previous Rx's ?Medication ?Instructions ?Recorded triamcinolone acetonide 0.1 % 1 appl topical BID 30 days #30 03/01/21 topical ointment grams bed railing #1 ea 03/13/23 meclizine 25 mg tablet 25 mg PO TID PRN dizziness #20 tabs 10/25/23 amlodipine 10 mg tablet 10 mg PO DAILY 90 days #90 tabs 01/09/24 atorvastatin 80 mg tablet 80 mg PO DAILY #90 tabs 01/09/24 cyanocobalamin (vitamin B-12) 500 500 mcg PO DAILY 90 days #90 tabs 01/09/24 mcg tablet isosorbide mononitrate 30 mg 30 mg PO DAILY 90 days #90 tabs 01/09/24 tablet,extended release 24 hr metoprolol succinate 25 mg 25 mg PO DAILY #90 tabs 01/09/24 tablet,extended release 24 hr pantoprazole 40 mg tablet,delayed 40 mg PO DAILY #90 tabs 01/09/24 release cholecalciferol (vitamin D3) 25 25 mcg PO DAILY 90 days #90 caps 02/26/24 mcg (1,000 unit) capsule sertraline 50 mg tablet 50 mg PO DAILY 90 days #90 tabs 02/26/24 fenofibrate 54 mg tablet 54 mg PO DAILY #90 tabs 04/27/24 folic acid 1 mg tablet 1 mg PO DAILY #90 tabs 04/27/24 gabapentin 300 mg capsule 300 mg PO BEDTIME 90 days #90 caps 04/27/24 thiamine HCl (vitamin B1) 100 mg 100 mg PO DAILY #90 tabs 07/18/24 tablet oxycodone-acetaminophen 5 mg-325 1 tab PO Q6H PRN pain 30 days #120 08/12/24 mg tablet tabs Allergies Allergy/AdvReac Type Severity Reaction Status Date / Time mirtazapine AdvReac Intermediate Dizziness Verified 08/28/24 18:39 Review of Systems Review of Systems: Yes all other systems are reviewed and are negative PMFSH Past Medical History Attestation statement: The following information was validated with the patient. Source: old records reviewed Medical History Lumbar radiculopathy Overweight (BMI 25.0-29.9) Vitamin D deficiency Depression Mixed hyperlipidemia Hypovitaminosis D Mild recurrent major depression Tiredness Alcoholism Alcohol abuse Bilateral carotid artery stenosis Aortic valve sclerosis Atherosclerotic cardiovascular disease Essential hypertension Dyslipidemia Leukocytosis Insomnia Hx of lymphoma Smoker Aortic valve calcification ASHD (arteriosclerotic heart disease) History of CVA with residual deficit Hx of multiple pulmonary nodules CAD (coronary artery disease) Surgical History Cataracts, bilateral Hx of cardiac catheterization History of thoracic surgery H/O total shoulder replacement H/O colonoscopy Family History Family History Father Alcohol abuse Mother No problems noted. Daughter No problems noted. Son No problems noted. Sister No problems noted. Other Substance use disorder Social History Social History Household Members: Spouse Household Members Other:: on dialysis Housing: House Housing Other:: Mobile Home Are you a primary transitional care liaison to a significant other at home: No Do you presently have visiting nurse or other home services: No Alcohol intake: current Alcohol intake frequency: 3 or more drinks per day Alcohol type: beer and hard liquor Patient Tobacco Use Status: Current everyday Tobacco user Tobacco use type: Cigarette Cigarette Packs Per Day: 1 Years Smoked: 50+ e-Cigarette/Vaping Use: Never Used Second Hand Smoke Exposure: No Use of substances other than those prescribed or required for medical reasons: No Advance Directives: No Advance Directives Information Provided: Yes Do you have a plan to hurt others: No Plan service: No Current occupational status: disabled Cognitive needs: Yes Hearing needs: No Vision needs: Yes Physical Exam Vital Signs: Vital Signs: Last Vital Signs Temp 98.1 F 08/29/24 01:40 Pulse 91 08/29/24 01:40 Resp 16 08/29/24 01:40 BP 123/92 H 08/29/24 01:40 Pulse Ox 96 08/29/24 01:40 O2 Del Method Room Air 08/29/24 01:40 BMI result Body Mass Index 28.9 Appearance: Alert.?Oriented to person, place and time. No acute distress.?Normal affect. Head: Apparent old scabbed lesion to the occipital scalp Eyes: Pupils equal, round and reactive to light. EOMI. Conjunctiva and sclera normal? No Antunez sign noted. No raccoon eyes noted ENT: No septal hematoma, nares patent bilaterally. External auditory canal normal tympanic membrane pearly plasencia and intact bilaterally. Dentition normal, no fractured teeth. No lesions or lacerations of oropharynx. Uvula midline. Moist mucous membranes. Neck: Normal inspection.? Neck supple.??No palpable tenderness, step-off, deformities. CVS: Heart sounds normal. Normal heart rate and rhythm.? Pulses normal.?? Respiratory: No respiratory distress.? Lung sounds clear to auscultation bilaterally?? Abdomen: Soft and non-tender. Normoactive bowel sounds. ?? Skin: Skin warm and dry.? Normal skin color.? Extremities: No lower extremity edema.? Full range of motion to bilateral lower extremities. Limited AROM with overhead extension of the bilateral shoulders with per patient is chronic in nature. Neuro: Moves all extremities spontaneously. Sensation intact bilaterally. CN II-XII intact. No focal neuro deficits. Course Reevaluation(s) Reevaluation #1: Mag is low normal at 1.6, hypokalemia for which he received 20 mEq use IV, 40 mEq p.o., Mag 2 g IV given QTC of 611, plan to repeat EKG after supplementation. CT head and cervical spine without acute pathology. Reevaluation #2: Conscious alert and oriented x3. Ambulatory with a steady gait. Repeat potassium remains at 2.9., repeat EKG with QTC 577. Discussed this case with hospitalist, Dr. Jeff hayes for admission to medicine Medications Administered Discontinued Medications Generic Name Dose Route Start Last Admin Trade Name Freq PRN Reason Stop Dose Admin Acetaminophen 975 mg 08/28/24 21:18 08/28/24 21:38 Acetaminophen 325 Mg Tablet PO 08/28/24 21:19 975 mg ONCE ONE Administration Potassium Chloride 10 meq in 100 mls @ 100 mls/hr 08/28/24 20:45 08/28/24 23:11 Potassium Chloride/H20 IV 08/28/24 22:44 Infused Q1H SUSANA Infusion Sodium Chloride 1,000 mls @ 999 mls/hr 08/28/24 20:45 08/29/24 00:03 Ns IV 08/28/24 21:45 Infused .Q1H1M SUSANA Infusion Magnesium Sulfate 2 gm in 50 mls @ 150 mls/hr 08/28/24 20:43 08/28/24 22:08 Magnesium Sulfate/H2o IV 08/28/24 21:02 Infused ONCE ONE Infusion Potassium Chloride 40 meq 08/28/24 20:34 08/28/24 21:50 Potassium Chloride Packet 20 Meq Packet PO 08/28/24 20:35 Not Given ONCE ONE Medical Decision Making Medical Decision Making MDM Narrative: Patient is a 69-year-old male with past medical history of lumbar radiculopathy, depression, hyperlipidemia, alcohol use disorder, bilateral carotid artery stenosis, ASCVD, hypertension, lymphoma, tobacco use disorder, history of CVA with residual deficits, multiple pulmonary nodules presenting to emergency department for evaluation after a fall, possibly mechanical in nature, likely alcohol consumption is contributory to this. He has been seen in this emergency department numerous times in the past similarly with the fall and alcohol consumption. Reporting that he tripped over his cane, at baseline has unstable gait. On evaluation has no focal neurological deficits. Will obtain basic labs ECG and CT of the head and cervical spine for further evaluation Differential Diagnosis Differential Diagnoses: The differential diagnosis associated with the presentation includes (See narrative above) ICH, SDH, skull fracture, cervical fracture, cervical strain, alcohol intoxication Admission/Observation Consideration of admission/observation: Escalation of care including admission/observation considered (See narrative above) Lab Data MDM Lab Attestation statement: I reviewed the patient's lab results. CBC is without leukocytosis, has a macrocytic anemia elevated MCV I can secondary to alcohol consumption, no thrombocytopenia. Critical potassium of 2.9 for which he received potassium 20 mEq IV, 40 mEq p.o., no ANN. LFTs within normal range. High sensitive troponin within normal range. Blood alcohol level of 136. 08/28/24 20:03 08/29/24 00:32 Labs: Lab Results 08/28/24 08/28/24 08/29/24 Range/Units 20:03 22:46 00:32 WBC 9.1 (4.8-10.8) X10*3/uL RBC 3.63 L (4.60-5.80) X10*6/uL Hgb 13.1 L (14.0-18.0) g/dl Hct 35.9 L (42.0-52.0) % MCV 98.9 H (80.0-98.0) fL MCH 36.1 H (27.0-33.0) pg MCHC 36.5 H (31.0-36.0) g/dl RDW 12.4 (11.0-16.0) % Plt Count 234 D (160-400) X10*3/uL MPV 9.0 L (9.4-12.4) fL Immature Gran % (Auto) 0.3 (0.0-0.4) % Neut % (Auto) 60.9 (45-73) % Lymph % (Auto) 29.1 (20-40) % Gates % (Auto) 5.9 (2-11) % Eos % (Auto) 3.0 (0-4) % Baso % (Auto) 0.8 (0-2) % Lymph # (Auto) 2.7 (1.2-4.9) X10*3/uL [place] # (Auto) 0.5 (0.1-1.2) X10*3/uL Eos # (Auto) 0.3 (0.0-0.4) X10*3/uL Baso # (Auto) 0.1 (0.0-0.2) X10*3/uL Abs Immat Gran (auto) 0.03 (0.00-0.03) X10*3/uL Absolute Neuts (auto) 5.6 (2.0-8.3) x10*3/uL Absolute Nucleated RBC 0.000 (0.0-0.012) X10*3/uL Nucleated RBC % (auto) 0.0 (0.0-0.2) /100WBC Sodium 142 141 (135-145) mmol/L Potassium 2.9 L* 2.9 L* (3.3-5.1) mmol/L Chloride 106 109 H (96-108) mmol/L Carbon Dioxide 20 L 19 L (22-29) mmol/L Anion Gap 19 16 (12-20) BUN 5 L 4 L (9-16) mg/dL Creatinine 0.56 0.49 L (0.5-1.4) mg/dL Estim Creat Clear Calc 134.7 154.0 Estimated GFR > 60 > 60 Random Glucose 86 86 (60-115) mg/dL Calcium 9.1 8.5 D (8.4-10.2) mg/dL Magnesium 1.6 1.8 (1.6-2.6) mg/dL Total Bilirubin 0.5 (0.0-1.0) mg/dL AST 84 H (5-37) U/L ALT 32 (0-40) U/L Alkaline Phosphatase 114 (39-117) U/L Total Creatine Kinase 40 (38-174) U/L Troponin I High Sens 5.1 D (<3.5-35.0) ng/L Total Protein 6.4 L (6.5-8.0) g/dL Albumin 3.1 L (3.5-5.0) g/dL Urine Color Yellow Urine Appearance Clear Urine pH 6.0 (5.0-9.0) Ur Specific [place] 1.010 (1.005-1.025) Urine Protein Negative (Neg-Trace) mg/dL Urine Glucose (UA) Negative (Negative) mg/dL Urine Ketones Negative (Negative) mg/dL Urine Blood Negative (Negative) Urine Nitrite Negative (Negative) Ur Leukocyte Esterase Negative (Negative) Ethyl Alcohol 136 mg/dL Independent Interpretation I performed an independent interpretation of an: EKG and CT Scan (No ICH) Interpretation: EKG revealing a sinus rhythm with PVCs 1 RBBB, ventricular rate of 83, QTC 611 patient received magnesium sulfate 2 g IV in addition with plan to obtain repeat EKG for re-evaluation, no ST elevation, no ST depression Radiology Impression Discussion of test interpretation with radiology: I have reviewed the radiologist's reading. Radiologist Impression: CT/CT head/brain wo IV con IMPRESSION: 1. No acute intracranial process. 2. No acute fractures of the cervical spine or the calvarium. 3. Soft tissue swelling in the posterior occipital region with small foci of gas. Independent Historian Clinical information obtained from an independent historian. History obtained from or confirmed by: EMS External Record Review External record reviewed: Outpatient record Critical Care Time Critical Care Time Critical Care Time: Yes Total Critical Care Time: 45 Attestation: I personally attest to this critical care time spent taking care of the patient exclusive of all other billable procedures was approximately 45 minutes including initial evaluation of patient, ordering tests, CT interpretation, EKG interpretation, hypokalemia with intravenous replacement, medical consultation, documentation, re-evaluation. Discharge Plan Discharge Clinical Impression: Acute hypokalemia, Alcohol intoxication, Acute head injury Patient Disposition: Admitted As Inpatient Print Language: Kiswahili
[2024-08-28 20:34] LABS: Alanine Aminotransferase 32 U/L (0-40); Albumin Level 3.1 g/dL (3.5-5.0); Alkaline Phosphatase 114 U/L (39-117); Anion Gap 19 (12-20); Aspartate Amino Transferase 84 U/L (5-37); Bilirubin Total 0.5 mg/dL (0.0-1.0); Blood Urea Nitrogen 5 mg/dL (9-16); Calcium 9.1 mg/dL (8.4-10.2); Carbon Dioxide 20 mmol/L (22-29); Chloride 106 mmol/L (96-108); Creatinine Clr Calc Pharmacy 134.7; Estimated Glomerular Filt Rate > 60; Glucose Random 86 mg/dL (60-115); Magnesium 1.6 mg/dL (1.6-2.6); Potassium 2.9 mmol/L (3.3-5.1); Sodium 142 mmol/L (135-145); Total Protein 6.4 g/dL (6.5-8.0)
[2024-08-28 20:37] LABS: Troponin-I High Sensitivity 5.1 ng/L (<3.5-35.0)
[2024-08-28 20:52] LABS: Ethanol 136 mg/dL
[2024-08-28] MEDS: 0.9 % Sodium Chloride 1,000 ML 999 ML IV (20:59)
[2024-08-28] MEDS: Magnesium Sulfate/H2O 2 GM/50 ML PIGGYBACK IV (21:00)
[2024-08-28] MEDS: Potassium Chloride/H20 10 MEQ/100 ML PIGGYBACK 100 MEQ IV ×2 (21:01→22:08)
[2024-08-28] MEDS: Acetaminophen 325 MG TABLET 975 MG PO (21:38)
--- NOTE | 2024-08-28 21:48 | PC.NURSE ---
pt took one swallow of the liquid Potassium, and refused to drink anymore, stating, that was nasty . Informed Gideon CONLEY
[2024-08-28 22:21] VITALS: BP 151/74; PULSE 86; RESP 18; O2SAT 95
[2024-08-28 22:52] LABS: Appearance Urine Clear; Color Urine Yellow; Glucose Urine UA Negative (Negative); Leukocyte Esterase Urine Negative (Negative); Nitrite Urine Negative (Negative); Urine Blood Negative (Negative); Urine Ketones Negative (Negative); Urine Protein Negative (Neg-Trace)
--- NOTE | 2024-08-28 23:09 | PC.NURSE ---
report given to Lakisha TRINIDAD
[2024-08-28 23:46] VITALS: BP 141/61; PULSE 91; RESP 16; TEMP 36.8; O2SAT 95
--- NOTE | 2024-08-28 23:54 | ECG_ITS ---
Test Reason : QT CHECK Blood Pressure : / mmHG Vent. Rate : 087 BPM Atrial Rate : 087 BPM P-R Int : 126 ms QRS Dur : 110 ms QT Int : 480 ms P-R-T Axes : 067 077 024 degrees QTc Int : 577 ms Normal sinus rhythm Incomplete right bundle branch block ST & T wave abnormality, consider inferior ischemia ST & T wave abnormality, consider anterior ischemia Abnormal ECG When compared with ECG of 28-AUG-2024 19:47, No significant changes seen Referred By: Siomara Hemphill Electronically Signed By:RAJINDER YOST
[2024-08-29] VITALS (8 sets, daily range): BP systolic 123–170; BP diastolic 49–92; PULSE 77–93; RESP 16–22; TEMP 36.4–36.9; O2SAT 94–100
--- NOTE | 2024-08-29 | PC.NURSE ---
Fall risk precautions implemented.
--- NOTE | 2024-08-29 00:35 | MHC.EDTECH ---
This Pct assumed care of Patient at 2300 ,vitals taken ,Patient was change into hospital gown ,Repeated ekg taken and was read by Provider .repeated blood drawn and sent to lab ,dry blood on Patient head and face was clean ,bed linen change ,Patient alert and Oriented ,All safety measure in Place .
[2024-08-29 00:56] LABS: Anion Gap 16 (12-20); Blood Urea Nitrogen 4 mg/dL (9-16); Calcium 8.5 mg/dL (8.4-10.2); Carbon Dioxide 19 mmol/L (22-29); Chloride 109 mmol/L (96-108); Estimated Glomerular Filt Rate > 60; Glucose Random 86 mg/dL (60-115); Potassium 2.9 mmol/L (3.3-5.1); Sodium 141 mmol/L (135-145)
[2024-08-29 01:25] LABS: Magnesium 1.8 mg/dL (1.6-2.6)
--- NOTE | 2024-08-29 01:27 | MHC.EDTECH ---
Patient was assisted unto bedpan ,had lood medium bowel movement ,care given ,and Patient was reposition and boosted up in bed .
--- NOTE | 2024-08-29 01:45 | MHC.EDTECH ---
Patient was incontinent of urine3 ,care given and bedding change ,warm blanket given ,Patient belongings list done ,all safety measure in Place .Plan of care continue .
--- NOTE | 2024-08-29 01:52 | P.HPHOSP_ITS ---
History of Present Illness Date of Service: 08/29/24 Attending physician on admission: Lionel Damon Chief Complaint: Fall Fall Navneet Cantu this is a very pleasant 69 years old man with past medical history significant for alcohol abuse, CVA, bilateral carotid disease, vitamin-D deficiency, lumbar radiculopathy, hyperlipidemia and depression was brought to the emergency department via EMS after he sustained a fall yesterday around 5 pm. He said that his legs gave up upon walking. Upon falling down he had the posterior aspect of his head and denied any loss of consciousness before or after falling down. He did not report any headache or focal weakness. He also denied any dizziness, palpitations, chest pain, cough, shortness on breath, abdominal pain, nausea, vomiting, diarrhea, fevers or chills. He stated that he abuses alcohol since age 6 -drinks 2 beers and a bottle of David Powell, smoke tobacco but denied illicit drug use. Last alcoholic drink was last night. In the ED, he was found to have stable vital signs. Blood workup showed marked hypokalemia (2.9). There are no other significant electrolyte imbalances. CO2 is 20, renal function is normal. LFTs are normal except for elevated AST. Troponin is 5.1 and there is a hypoalbuminemia of 3.1. There is no leukocytosis. Hemoglobin is 13.1 and platelets 234. INR is 1.3. Urinalysis is normal. ETOH showed level is 136. Head and C-spine CT scan showed no acute intracranial process, no acute C-spine fractures or dislocation, but showed soft tissue swelling in the posterior occipital region with small foci of gas. ECG showed prolonged QT with a QTC of 577. ED tx: KCl 20 mEq IV, KCl 80 mEq (total), magnesium 2 mg IV. Review of Systems 2 Review of Systems: All 12 systems were reviewed and normal except as noted in HPI. [facility] Medical History (Updated 08/29/24 @ 02:20 by Lionel Damon MD) Fall Lumbar radiculopathy Overweight (BMI 25.0-29.9) Vitamin D deficiency Depression Mixed hyperlipidemia Hypovitaminosis D Mild recurrent major depression Tiredness Alcoholism Alcohol abuse Bilateral carotid artery stenosis Aortic valve sclerosis Atherosclerotic cardiovascular disease Essential hypertension Dyslipidemia Leukocytosis Insomnia Hx of lymphoma Smoker Aortic valve calcification ASHD (arteriosclerotic heart disease) History of CVA with residual deficit Hx of multiple pulmonary nodules CAD (coronary artery disease) Family History Father Alcohol abuse Mother No problems noted. Daughter No problems noted. Son No problems noted. Sister No problems noted. Other Substance use disorder Surgical History Cataracts, bilateral Hx of cardiac catheterization History of thoracic surgery H/O total shoulder replacement H/O colonoscopy Social History Household Members: Spouse Household Members Other:: on dialysis Housing: House Housing Other:: Mobile Home Are you a primary post acute care nurse practitioner to a significant other at home: No Do you presently have visiting nurse or other home services: No Alcohol intake: current Alcohol intake frequency: 3 or more drinks per day Alcohol type: beer and hard liquor Patient Tobacco Use Status: Current everyday Tobacco user Tobacco use type: Cigarette Cigarette Packs Per Day: 1 Years Smoked: 50+ e-Cigarette/Vaping Use: Never Used Second Hand Smoke Exposure: No Use of substances other than those prescribed or required for medical reasons: No Advance Directives: No Advance Directives Information Provided: Yes Do you have a plan to hurt others: No Plan service: No Current occupational status: disabled Cognitive needs: Yes Hearing needs: No Vision needs: Yes Meds Allergies Allergy/AdvReac Type Severity Reaction Status Date / Time mirtazapine AdvReac Intermediate Dizziness Verified 08/28/24 18:39 Active Medications: Current Medications Acetaminophen (Acetaminophen 325 Mg Tablet) 650 mg PO Q6H PRN PRN Reason: Pain, Mild (Pain Scale 1-3), fever or headache Folic Acid (Folic Acid 1 Mg Tablet) 1 mg PO DAILY [facility] Potassium Chloride (Potassium Chloride/H20) 10 meq in 100 mls @ 100 mls/hr IV Q1H STA Stop: 08/29/24 02:38 Thiamine HCl 100 mg/ Sodium (Chloride) 101 mls @ 202 mls/hr IV ONCE STA Stop: 08/29/24 02:11 Thiamine HCl 100 mg/ Sodium (Chloride) 101 mls @ 202 mls/hr IV DAILY [facility] Potassium Chloride/Dextrose/Sod Cl (Kcl 40 Meq In 5% Dex/0.9% Sod) 40 meq in 1,000 mls @ 100 mls/hr IVCONT .Q10H [facility] Magnesium Oxide (Magnesium Oxide 400 Mg Tablet) 400 mg PO DAILY [facility] Multivitamins/Vitamin C (Multivitamin Tablet) 1 tab PO DAILY [facility] Oxycodone HCl (Oxycodone Hcl Immed Release 5 Mg Tablet) 5 mg PO Q6H PRN PRN Reason: Pain, Severe (Pain Scale 7-10) Sodium Chloride (0.9 % Sodium Chloride Flush 3 Ml Syringe) 3 ml IVFLUSH QSHIFT [facility] Physical Exam 2 Vital Signs and Narrative: Vital Signs: Last Vital Signs Temp 98.1 F 08/29/24 01:40 Pulse 91 08/29/24 01:40 Resp 16 08/29/24 01:40 BP 123/92 H 08/29/24 01:40 Pulse Ox 96 08/29/24 01:40 O2 Del Method Room Air 08/29/24 01:40 BMI result Body Mass Index 28.9 Constitutional - Awake and Alert, No apparent distress. Disheveled. HEENT - Occipital head: Hematoma PER, EOMI. Normal sclerae. Dry oral mucosa. Heart - S1S2, RRR, No murmurs. Lungs - Normal lung expansion, Normal respiratory effort, No respiratory distress, CTA bilaterally Abdomen - NT / ND; +BS; No rebound or guarding Extremities - no calf tenderness bilaterally, no swelling Musculoskeletal - Normal inspection, normal ROM Skin - Warm/Dry. No pallor. No jaundice. Neurological - Alert & oriented x3. No facial droop. Normal speech. Moving all extremities symmetrically. Psychological - Appropriate affect Results Labs 08/28/24 20:03 08/29/24 00:32 Labs: Laboratory Results - last 24 hr 08/28/24 08/28/24 08/29/24 20:03 22:46 00:32 MCV 98.9 H MCH 36.1 H MCHC 36.5 H RDW 12.4 Plt Count 234 D MPV 9.0 L Immature Gran % (Auto) 0.3 Neut % (Auto) 60.9 Lymph % (Auto) 29.1 A[place] % (Auto) 5.9 Eos % (Auto) 3.0 Baso % (Auto) 0.8 Lymph # (Auto) 2.7 Avery # (Auto) 0.5 Eos # (Auto) 0.3 Baso # (Auto) 0.1 Abs Immat Gran (auto) 0.03 Absolute Neuts (auto) 5.6 Absolute Nucleated RBC 0.000 Nucleated RBC % (auto) 0.0 Anion Gap 19 16 Estim Creat Clear Calc 134.7 154.0 Estimated GFR > 60 > 60 Random Glucose 86 86 Calcium 9.1 8.5 D Magnesium 1.6 1.8 Total Bilirubin 0.5 AST 84 H ALT 32 Alkaline Phosphatase 114 Total Creatine Kinase 40 Troponin I High Sens 5.1 D Total Protein 6.4 L Albumin 3.1 L Urine Color Yellow Urine Appearance Clear Urine pH 6.0 Ur Specific [place] 1.010 Urine Protein Negative Urine Glucose (UA) Negative Urine Ketones Negative Urine Blood Negative Urine Nitrite Negative Ur Leukocyte Esterase Negative Ethyl Alcohol 136 Imaging Radiologist's Impressions: Impressions Cervical Spine CT 08/28/24 20:40 IMPRESSION: 1. No acute intracranial process. 2. No acute fractures of the cervical spine or the calvarium. 3. Soft tissue swelling in the posterior occipital region with small foci of gas. Electronically signed by: Rufus Barber MD 08/28/2024 09:55 PM EDT RP Head CT 08/28/24 20:40 IMPRESSION: 1. No acute intracranial process. 2. No acute fractures of the cervical spine or the calvarium. 3. Soft tissue swelling in the posterior occipital region with small foci of gas. Electronically signed by: Rufus Barber MD 08/28/2024 09:55 PM EDT RP Assessment and Plan (1) Fall: Qualifiers: Encounter type: initial encounter Qualified Code(s): W19.XXXA - Unspecified fall, initial encounter Status: Acute (2) Acute hypokalemia: Status: Acute (3) Prolonged Q-T interval on ECG: Status: Acute (4) Alcohol intoxication: Qualifiers: Complication of substance-induced condition: uncomplicated Qualified Code(s): F10.920 - Alcohol use, unspecified with intoxication, uncomplicated Status: Acute Plan Navneet Cantu this is a 69 y/o man admitted with: * Hypokalemia, likely secondary to alcohol abuse. Admit to hospitalist service. Telemetry. KCl 40 mEq IV now followed by IVFs: 0.9/D5/40 mEq. Monitor K+ and Mg level every 4hr. * Prolonged QT secondary to above. 577 ms. Telemetry. ECG every 6h. * s/p Fall likely multifactorial: Weakness secondary to hypokalemia, alcohol intoxication, likely underlying vitamin D deficiency + lumbar radiculopathy. Fall precautions. Replete K level as needed. Check vitamin-D level. Hold gabapentin. * Head trauma. Denied headache, dizziness or nausea. * Alcohol abuse, currently intoxicated. [facility] protocol. Thiamine, folic acid, magnesium and multivitamins. Phenobarbital as needed. * Hyperlipidemia. Continue statin and fenofibrate. * Essential hypertension. Continue amlodipine and metoprolol. * CAD. Continue isosorbide and metoprolol. * Depression. Continue sertraline. * Chronic pain. Continue oxycodone. * GERD. Continue PPI. DVT prophylaxis: SCDs only (recent significant head trauma). Code status: Full Patient will need hospitalization for at least 2 midnights for hypokalemia management causing prolonged QT with IV repletion as needed, cardiac monitoring and serial EKGs. Quality Stroke Does the patient have a stroke diagnosis?: No VTE Prior VTE?: No VTE Risk Level:: Medical - moderate - high VTE Device Contraindication: N/A - Device Ordered VTE Drug Contraindication: Treatment Not Indicated
[2024-08-29] MEDS: Thiamine HCL 100 MG in 0.9 % Sodium Chloride 100 ML 202 MG IV ×2 (02:46→09:23)
[2024-08-29] MEDS: Potassium Chloride/H20 10 MEQ/100 ML PIGGYBACK 100 MEQ IV (02:56)
--- NOTE | 2024-08-29 03:31 | MHC.EDTECH ---
Patient was incontinent of urine and small amount of soft stool care given and bed pads change ,Warm blanket given .
--- NOTE | 2024-08-29 03:53 | PC.NURSE ---
Pt put his call light on and reported that his IV site was burning, Potassium Chloride running via pump. Site assessed, no obvious signs of infiltration, but IV site was discontinued and reestablished in left forearm, 20G. IV access was reestablished without signs of infiltration and any reported pain. Patient tolerated well. Pt encouraged to put the call light on again if pain reoccurs in new site. Will continue to monitor for any changes.
[2024-08-29] MEDS: KCl 40 mEq in 5% Dex/0.9% Sod 40 MEQ/1,000 ML IV.SOLN 100 MEQ IVCONT ×2 (04:18→17:36)
[2024-08-29 06:23] LABS: Magnesium 1.7 mg/dL (1.6-2.6); Potassium 2.9 mmol/L (3.3-5.1)
[2024-08-29 06:25] LABS: Vitamin D 25-OH Total 41.2 ng/mL (>30)
--- NOTE | 2024-08-29 06:26 | PC.NURSE ---
Critical lab: potassium 2.9. Hospitalist made aware via [place]-text.
[2024-08-29 06:27] LABS: Thyroid Stimulating Hormone 1.73 uIU/mL (0.32-4.0)
--- NOTE | 2024-08-29 06:32 | MHC.EDTECH ---
Patient was incontinent of moderate amount of loose stool and urine ,care given and bedding change ,warm blanket given .
[2024-08-29] MEDS: oxyCODONE HCl Immed Release 5 MG TABLET PO ×3 (08:20→22:51)
[2024-08-29] MEDS: Folic Acid 1 MG TABLET PO (08:21)
[2024-08-29] MEDS: Multivitamin TABLET 1 TAB PO (08:21)
[2024-08-29] MEDS: Magnesium Oxide 400 MG TABLET PO (08:21)
--- NOTE | 2024-08-29 08:44 | MHC.EDTECH ---
this tech and RN Christelle cleaned patient after bowel movement. Pt given fresh linen and beatriz, transport ready to move pt to room, pt is comfortable and shows no distress
--- NOTE | 2024-08-29 08:52 | PC.NURSE ---
Late charting d/t pt care. Resumed care of pt at 0700. Pt resting quietly in bed, a/ox4, respirations even and unlabored, no increased wob/sob noted, s1 and s2 heard, NSR on monitor and storage bin tender, HR- 90s, abdomen soft, cramping on palpation. Pt endorsing 10/10 head pain where he fell, hematoma noted to back of head with swelling, no bleeding, medicated per MAR for pain. Pt incontinent of moderate amount of loose, mucousy stool. Pt states he has been having this since last night, along with cramping lower abdominal pain. Vital signs updated, call díaz within reach, all needs met at this time.
--- NOTE | 2024-08-29 09:16 | PHA.MEDREC ---
Pharmacy Consult ? Medication Reconciliation Pharmacy has completed the medication reconciliation. Confirmed medications with patient. Patient was confused on if he was still taking Metoprolol 25mg tabs 1 BID, Pantoprazole 40mg tabs 1 daily and Sertraline 50mg once daily, he states he ran out a while ago and doesn't remember the last time taking them, in claims the Metoprolol 25mg tabs were filled 06/09 for 90 days, the Pantoprazole 40mg tab was filled 07/29 for 90 days and the Sertraline 50mg tab was filled for 90 days. He confirmed he still has Oxycodone-Acetaminophen 5mg-325mg tabs at home and he uses them as needed for pain. He confirmed he took his medications yesterday.
--- NOTE | 2024-08-29 09:26 | PHA.MEDREC ---
Addendum entered by Mariza Simmons RPh 08/29/24 10:11: reviewed by [facility]. Original Note: Pharmacy Consult ? Medication Reconciliation Pharmacy has completed the medication reconciliation. Confirmed medications with patient. Patient was confused on if he was still taking Metoprolol 25mg tabs 1 BID, Pantoprazole 40mg tabs 1 daily and Sertraline 50mg once daily, he states he ran out a while ago and doesn't remember the last time taking them, in claims the Metoprolol 25mg tabs were filled 06/09 for 90 days, the Pantoprazole 40mg tab was filled 07/29 for 90 days and the Sertraline 50mg tab was filled 07/29 for 90 days. He confirmed he still has Oxycodone-Acetaminophen 5mg-325mg tabs at home and he uses them as needed for pain. He confirmed he took his medications yesterday.
--- NOTE | 2024-08-29 10:35 | MHC.CM.PN ---
Male 69 yrs lives alone passed 2 yrs ago. She was the HCP on file. A new HCP has been documented. Patients son and sister have been named. The document has been scanned, copied and provided to the patient. DX Hypokalemia. Patient fell and hit his head too. Patient states that he falls twice a week. He drinks daily. The falls are caused by ETOH. He receives, support from a friend, Jr Tobias. He is not able to bath safely. A referral has been sent to [facility] for an Options dumpman consult. Patient will need to be seen by the Recovery team. DP home with or without interventions provided by the recovery team.He may need assist with transportation home. Family members vehicles are difficult for him to access. CM will follow for discharge.
[2024-08-29 10:59] LABS: Magnesium 1.6 mg/dL (1.6-2.6); Potassium 3.2 mmol/L (3.3-5.1)
--- NOTE | 2024-08-29 11:34 | MHC.RECOVRN ---
AUDIT-C Brief Intervention Pt had positive screen for unhealthy alcohol use on admission, subsequently met with t/w to discuss alcohol use and recovery supports/options. This singer songwriter met with patient to discuss current alcohol use and concerns related to increased risk of alcohol related problems.? Pt reports a 6 pack of beer plus 2 pints of David Vargheses daily. Pt reports he began drinking at age 6 due to his father who also had AUD. Discussed how alcohol use has impacted health, including negative impact on physical health including falls due to intoxication. Withdrawal History: denies hx seizures Treatment History: 2 ATS admissions Supports:?denies Discussed risk reduction strategies including drinking below the recommended limit. Provided pt with written resources including information on inpatient and outpatient treatment, BARNEY, harm reduction, and recovery coaching. Pt plans to reduce alcohol use once discharged from the hospital. Would like to eliminate David Vargheses and only drink beer. Declines need for support upon returning home. Pt provided with t/w contact information if questions or concerns arise. Denies other questions or concerns at this time.?
[2024-08-29] MEDS: Flu Vacc TS2024-25(6mos up)/PF 0.5 ML SYRINGE IM (11:56)
--- NOTE | 2024-08-29 12:00 | ECG_ITS ---
Test Reason : prolonged QT Blood Pressure : / mmHG Vent. Rate : 090 BPM Atrial Rate : 090 BPM P-R Int : 118 ms QRS Dur : 104 ms QT Int : 426 ms P-R-T Axes : 079 067 -04 degrees QTc Int : 521 ms Sinus rhythm with Premature atrial complexes Incomplete right bundle branch block ST & T wave abnormality, consider anterolateral ischemia Prolonged QT Abnormal ECG When compared with ECG of 29-AUG-2024 00:17, Premature atrial complexes are now Present Referred By: Lionel Damon Electronically Signed By:RAJINDER YOST
[2024-08-29 14:34] LABS: Magnesium 1.5 mg/dL (1.6-2.6)
--- NOTE | 2024-08-29 15:52 | PM.EVENT ---
Event Note Date of Service: 08/29/24 Event Note: Chart reviewed patient examined. Agree with H&P as outlined Time Spent With Patient Time: Total time managing care of this patient today ____ minutes.
[2024-08-29] MEDS: Acetaminophen 325 MG TABLET 650 MG PO (17:47)
--- NOTE | 2024-08-29 18:29 | MHC.SL.SWA ---
Speech Pathologist Impression: Risk of Aspiration, Oropharyngeal Dysphagia, Pharyngoesophgeal Dysphagia Risk of Aspiration Due to: Neurological Condition Dysphasia Diet Status: Downgrade NDD3/THIN Liquid Consistency and Strategies for Safe Swallow: Liquid Intake Recommendation: Thin Liquid Intake Strategies: Small Sips Solid Food Consistency: Dietary Recommendations: Chopped/Advanced (NDD3) Additional Modifications to Solid Foods: Recommend DOWNGRADE to CHOPPED/ADVANCED (NDD3) diet for ease of feeding and mastication, THIN liquids, pills WHOLE one at a time in PUREE. Patient presents with symptoms consistent with potential esophageal involvement with belching observed at bedside after PO trials and patient reporting regurgitation with meals. Recommend strategies for esophageal dysphagia: small, more frequent meals, chew food well and alternate with sips of liquid, maintain upright position during PO intake and for at least 30 minutes afterwards. Patient may benefit from G.I. consult. Oral Medication Intake: Whole with Puree Please contact the pharmacy regarding appropriate crushable or liquid drug formulations that are available whenever modified delivery is recommended. Compensatory Strategies and Precautions to be Taken for Safe Swallow: Sitting Upright (90 deg) Small Bites and Sips Alternate Liquids/Solids Rate of Ingestion Change Supervision While Eating and Drinking for Safe Swallow: Total Supervision (1:1) Swallowing Recommended Treatments: Compens. Strategy Educat. Recommendation for Speech: Inpatient Speech Therapy Comment: RATER ASSOCIATE will continue to follow during inpatient stay. Frequency/Duration: M-F Date Range for Service Req: Timeline to reassess: PRN Corporate Tax Manager Clinican/Clinical Fellow: No Supervisory Statement: I have reviewed and agree with the student/clinical fellow's documentation: N/A Speech Language Pathologist: Diane Randle M.A., CCC-RATER ASSOCIATE
[2024-08-29 19:02] LABS: Potassium 3.4 mmol/L (3.3-5.1)
[2024-08-29 19:13] LABS: Magnesium 1.6 mg/dL (1.6-2.6)
[2024-08-30] VITALS (8 sets, daily range): BP systolic 100–135; BP diastolic 54–85; PULSE 73–84; RESP 14–20; TEMP 36.2–36.6; O2SAT 94–97
[2024-08-30] MEDS: KCl 40 mEq in 5% Dex/0.9% Sod 40 MEQ/1,000 ML IV.SOLN 100 MEQ IVCONT ×3 (02:42→21:43)
[2024-08-30] MEDS: Multivitamin TABLET 1 TAB PO (09:22)
[2024-08-30] MEDS: Magnesium Oxide 400 MG TABLET PO (09:22)
[2024-08-30] MEDS: Folic Acid 1 MG TABLET PO (09:22)
[2024-08-30] MEDS: Thiamine HCL 100 MG in 0.9 % Sodium Chloride 100 ML 202 MG IV (09:22)
[2024-08-30] MEDS: Sertraline HCL 50 MG TABLET PO (09:22)
[2024-08-30] MEDS: Acetaminophen 325 MG TABLET 650 MG PO ×2 (09:22→16:36)
[2024-08-30] MEDS: Metoprolol Succinate ER 25 MG TAB.ER.24H PO (09:22)
[2024-08-30] MEDS: Isosorbide Mononitrate 30 MG TAB.ER.24H PO (09:27)
[2024-08-30] MEDS: 0.9 % Sodium Chloride Flush 3 ML SYRINGE IVFLUSH ×3 (09:27→20:42)
[2024-08-30] MEDS: Fenofibrate 54 MG TABLET PO (09:27)
[2024-08-30] MEDS: oxyCODONE HCl Immed Release 5 MG TABLET PO ×2 (09:35→16:36)
[2024-08-30] MEDS: ondansetron HCL 4 MG/2 ML VIAL IVPUSH (10:09)
[2024-08-30] MEDS: PHENobarbitaL sodium 130 MG/ML IM ONCE 219 MG IM (10:13)
[2024-08-30] MEDS: PHENobarbitaL sodium 130 MG/ML VIAL IM Q3Hx2 164 MG IM ×2 (13:38→16:37)
[2024-08-30] MEDS: Potassium Chloride Packet 20 MEQ PACKET 40 MEQ PO (13:48)
--- NOTE | 2024-08-30 15:48 | HO.PM.IMPN ---
Subjective Subjective Date of Service: 08/30/24 Interval History: Admitted for weakness and fall Today noted to have CIWA 15, admitted to drinking 6 pack beer +2 pt of whiskey daily Wants to know when he will be discharged home Denies nausea, no vomiting, no abdominal pain. Review of Systems All other system reviewed and are negative Physical Exam Vital Signs: Vital Signs: Last Vital Signs Temp 97.6 F 08/30/24 15:09 Pulse 77 08/30/24 15:09 Resp 20 08/30/24 15:09 BP 100/67 08/30/24 15:09 Pulse Ox 97 08/30/24 15:09 O2 Del Method Room Air 08/30/24 15:09 BMI result Body Mass Index 28.9 Const: Other: General resting comfortably in no acute distress. old blood on back of head Neck no JVD. CVS regular rate rhythm, Respiratory lungs clear to auscultation, no respiratory distress, no wheeze, no rhonchi. Gastrointestinal abdomen soft, non tender, bowel sounds audible Extremities no edema. Neuro non focal Skin no rash Objective Data Active Medications Acetaminophen (Acetaminophen 325 Mg Tablet) 650 mg PO Q6H PRN PRN Reason: Pain, Mild (Pain Scale 1-3), fever or headache Last Admin: 08/30/24 09:22 Dose: 650 mg Documented By: JOSEFA Fenofibrate (Fenofibrate 54 Mg Tablet) 54 mg PO DAILY [facility] Last Admin: 08/30/24 09:27 Dose: 54 mg Documented By: JOSEFA Folic Acid (Folic Acid 1 Mg Tablet) 1 mg PO DAILY [facility] Last Admin: 08/30/24 09:22 Dose: 1 mg Documented By: JOSEFA Gabapentin (Gabapentin 300 Mg Capsule) 300 mg PO BEDTIME [facility] Thiamine HCl 100 mg/ Sodium (Chloride) 101 mls @ 202 mls/hr IV DAILY [facility] Last Infusion: 08/30/24 10:03 Dose: Infused Documented By: JOSEFA Potassium Chloride/Dextrose/Sod Cl (Kcl 40 Meq In 5% Dex/0.9% Sod) 40 meq in 1,000 mls @ 100 mls/hr IVCONT .Q10H [facility] Last Admin: 08/30/24 12:05 Dose: 100 mls/hr Documented By: JOSEFA Isosorbide Mononitrate (Isosorbide Mononitrate 30 Mg Tab.Er.24h) 30 mg PO DAILY [facility]; Protocol Last Admin: 08/30/24 09:27 Dose: 30 mg Documented By: JOSEFA Magnesium Oxide (Magnesium Oxide 400 Mg Tablet) 400 mg PO DAILY [facility] Last Admin: 08/30/24 09:22 Dose: 400 mg Documented By: JOSEFA Metoprolol Succinate (Metoprolol Succinate Er 25 Mg Tab.Er.24h) 25 mg PO DAILY [facility]; Protocol Last Admin: 08/30/24 09:22 Dose: 25 mg Documented By: JOSEFA Multivitamins/Vitamin C (Multivitamin Tablet) 1 tab PO DAILY [facility] Last Admin: 08/30/24 09:22 Dose: 1 tab Documented By: JOSEFA Ondansetron HCl (Ondansetron Hcl 4 Mg/2 Ml Vial) 4 mg IVPUSH Q6H PRN PRN Reason: Nausea and Vomiting Last Admin: 08/30/24 10:09 Dose: 4 mg Documented By: JOSEFA Oxycodone HCl (Oxycodone Hcl Immed Release 5 Mg Tablet) 5 mg PO Q6H PRN PRN Reason: Pain, Severe (Pain Scale 7-10) Last Admin: 08/30/24 09:35 Dose: 5 mg Documented By: JOSEFA Pharmacy Consult (Consult Rx Etoh Phenob Po Only) 1 each MISCELLANE ONCE PRN; Protocol PRN Reason: Consult order Phenobarbital (Phenobarbital 15 Mg Tablet) 45 mg PO BID [facility]; Protocol Stop: 09/01/24 09:01 Phenobarbital (Phenobarbital 30 Mg Tablet) 30 mg PO BID [facility]; Protocol Stop: 09/02/24 21:01 Phenobarbital (Phenobarbital 15 Mg Tablet) 15 mg PO DAILY [facility]; Protocol Stop: 09/05/24 09:01 Phenobarbital Sodium (Phenobarbital Sodium 130 Mg/Ml Vial Im Q3hx2) 164 mg IM Q3H [facility]; Protocol Stop: 08/30/24 16:31 Last Admin: 08/30/24 13:38 Dose: 164 mg Documented By: JOSEFA Potassium Chloride (Potassium Chloride Packet 20 Meq Packet) 40 meq PO DAILY@1400 [facility] Last Admin: 08/30/24 13:48 Dose: 40 meq Documented By: JOSEFA Sertraline HCl (Sertraline Hcl 50 Mg Tablet) 50 mg PO DAILY [facility] Last Admin: 08/30/24 09:22 Dose: 50 mg Documented By: JOSEFA Sodium Chloride (0.9 % Sodium Chloride Flush 3 Ml Syringe) 3 ml IVFLUSH QSHIFT [facility] Last Admin: 08/30/24 13:49 Dose: 3 ml Documented By: JOSEFA Labs 08/28/24 20:03 08/29/24 18:34 Labs: Laboratory Results - last 24 hr 08/29/24 18:34 Magnesium 1.6 Assessment and Plan (1) Prolonged Q-T interval on ECG: Status: Acute (2) Fall: Status: Acute (3) Acute head injury: Status: Acute (4) Alcohol intoxication: Status: Acute (5) Acute hypokalemia: Status: Acute Plan Navneet ivory is a 69 y/o man admitted with: Fall with head trauma likely mechanical due to generalized weakness related to hypokalemia, alcohol intoxication Normal vitamin-D level PT evaluation Recommend to abstain from alcohol Hypokalemia, likely secondary to alcohol abuse. Repleted and normalized Prolonged QT secondary to electrolyte abnormality repeat EKG showed improvement . Alcohol abuse, and withdrawal elevated CIWA started on phenobarb protocol continue thiamine folic acid, multivitamins and magnesium Seen by Addiction Team risk reduction strategies including drinking below the recommended limit recommended ,patient provided with written resources including information on inpatient and outpatient treatment, home reduction and recovery coaching provided. Hyperlipidemia. Continue fenofibrate, hold Lipitor due to elevated liver enzymes. Essential hypertension. Continue metoprolol, hold Norvasc follow BP. CAD. No acute symptoms of chest pain, no shortness a breath, Continue isosorbide and metoprolol. Depression. Continue sertraline. Chronic pain. Continue oxycodone and gabapentin. Tobacco use disorder counseling done place on nicotine patch 21 mg daily GERD. Continue PPI. DVT prophylaxis: SCDs only (recent significant head trauma). Code status: Full In my clinical judgment patient requires continued inpatient hospitalization for alcohol abuse and withdrawal requiring phenobarb protocol and close monitoring of electrolytes and PT evaluation for safe disposition. Quality Stroke Does the patient have a stroke diagnosis?: No VTE Prior VTE?: No VTE Risk Level:: Medical - moderate - high VTE Device Contraindication: N/A - Device Ordered VTE Drug Contraindication: Treatment Not Indicated
[2024-08-30] MEDS: Nicotine 21 MG PATCH.TD24 TRANSDERMA (16:36)
[2024-08-30] MEDS: PHENobarbitaL 15 MG TABLET 45 MG PO (20:41)
[2024-08-30] MEDS: Gabapentin 300 MG CAPSULE PO (20:41)
[2024-08-31 03:15] VITALS: BP 131/73; PULSE 73; RESP 18; TEMP 36.3; O2SAT 97
[2024-08-31] MEDS: oxyCODONE HCl Immed Release 5 MG TABLET PO ×4 (03:22→23:32)
[2024-08-31 07:22] VITALS: BP 121/67; PULSE 80; RESP 18; TEMP 36.6; O2SAT 99
[2024-08-31] MEDS: Nicotine 21 MG PATCH.TD24 TRANSDERMA (08:33)
[2024-08-31] MEDS: PHENobarbitaL 15 MG TABLET 45 MG PO ×2 (08:34→20:35)
[2024-08-31] MEDS: Folic Acid 1 MG TABLET PO (08:34)
[2024-08-31] MEDS: Isosorbide Mononitrate 30 MG TAB.ER.24H PO (08:34)
[2024-08-31] MEDS: Thiamine HCL 100 MG in 0.9 % Sodium Chloride 100 ML 202 MG IV (08:34)
[2024-08-31] MEDS: Magnesium Oxide 400 MG TABLET PO (08:34)
[2024-08-31] MEDS: Fenofibrate 54 MG TABLET PO (08:34)
[2024-08-31] MEDS: Multivitamin TABLET 1 TAB PO (08:34)
[2024-08-31] MEDS: Metoprolol Succinate ER 25 MG TAB.ER.24H PO (08:35)
[2024-08-31] MEDS: Sertraline HCL 50 MG TABLET PO (08:35)
[2024-08-31] MEDS: 0.9 % Sodium Chloride Flush 3 ML SYRINGE IVFLUSH ×3 (08:37→20:36)
[2024-08-31] MEDS: ondansetron HCL 4 MG/2 ML VIAL IVPUSH (08:44)
[2024-08-31] MEDS: Potassium Chloride Packet 20 MEQ PACKET 40 MEQ PO (10:51)
[2024-08-31 11:57] VITALS: BP 137/72; PULSE 81; RESP 18; TEMP 36.3; O2SAT 97
--- NOTE | 2024-08-31 14:15 | HO.PM.IMPN ---
Subjective Subjective Date of Service: 08/31/24 Interval History: Being followed for alcohol use disorder and withdrawal Complaining of headache, mild shakiness, mild nausea, tolerating diet, no other acute events overnight. Review of Systems All other system reviewed and are negative Physical Exam Vital Signs: Vital Signs: Last Vital Signs Temp 97.4 F 08/31/24 11:57 Pulse 81 08/31/24 11:57 Resp 18 08/31/24 11:57 BP 137/72 08/31/24 11:57 Pulse Ox 97 08/31/24 11:57 O2 Del Method Room Air 08/31/24 11:57 BMI result Body Mass Index 28.9 Const: Other: General resting comfortably in no acute distress. old blood on back of head Neck no JVD. CVS regular rate rhythm, Respiratory lungs clear to auscultation, no respiratory distress, no wheeze, no rhonchi. Gastrointestinal abdomen soft, non tender, bowel sounds audible Extremities no edema. Neuro non focal, mild hand tremors Skin no rash Objective Data Active Medications Acetaminophen (Acetaminophen 325 Mg Tablet) 650 mg PO Q6H PRN PRN Reason: Pain, Mild (Pain Scale 1-3), fever or headache Last Admin: 08/30/24 16:36 Dose: 650 mg Fenofibrate (Fenofibrate 54 Mg Tablet) 54 mg PO DAILY [facility] Last Admin: 08/31/24 08:34 Dose: 54 mg Documented By: JOSEFA Folic Acid (Folic Acid 1 Mg Tablet) 1 mg PO DAILY [facility] Last Admin: 08/31/24 08:34 Dose: 1 mg Documented By: JOSEFA Gabapentin (Gabapentin 300 Mg Capsule) 300 mg PO BEDTIME [facility] Last Admin: 08/30/24 20:41 Dose: 300 mg Documented By: AUDREY Thiamine HCl 100 mg/ Sodium (Chloride) 101 mls @ 202 mls/hr IV DAILY [facility] Last Infusion: 08/31/24 09:12 Dose: Infused Documented By: JOSEFA Isosorbide Mononitrate (Isosorbide Mononitrate 30 Mg Tab.Er.24h) 30 mg PO DAILY [facility]; Protocol Last Admin: 08/31/24 08:34 Dose: 30 mg Documented By: JOSEFA Magnesium Oxide (Magnesium Oxide 400 Mg Tablet) 400 mg PO DAILY [facility] Last Admin: 08/31/24 08:34 Dose: 400 mg Documented By: JOSEFA Metoprolol Succinate (Metoprolol Succinate Er 25 Mg Tab.Er.24h) 25 mg PO DAILY [facility]; Protocol Last Admin: 08/31/24 08:35 Dose: 25 mg Documented By: JOSEFA Multivitamins/Vitamin C (Multivitamin Tablet) 1 tab PO DAILY [facility] Last Admin: 08/31/24 08:34 Dose: 1 tab Documented By: JOSEFA Nicotine (Nicotine 21 Mg Patch.Td24) 21 mg TRANSDERMA DAILY [facility] Last Admin: 08/31/24 08:33 Dose: 21 mg Documented By: JOSEFA Ondansetron HCl (Ondansetron Hcl 4 Mg/2 Ml Vial) 4 mg IVPUSH Q6H PRN PRN Reason: Nausea and Vomiting Last Admin: 08/31/24 08:44 Dose: 4 mg Documented By: JOSEFA Oxycodone HCl (Oxycodone Hcl Immed Release 5 Mg Tablet) 5 mg PO Q6H PRN PRN Reason: Pain, Severe (Pain Scale 7-10) Last Admin: 08/31/24 10:50 Dose: 5 mg Documented By: JOSEFA Oxycodone HCl (Oxycodone Hcl Immed Release 5 Mg Tablet) 5 mg PO Q6H PRN PRN Reason: Pain, Severe (Pain Scale 7-10) Pharmacy Consult (Consult Rx Etoh Phenob Po Only) 1 each MISCELLANE ONCE PRN; Protocol PRN Reason: Consult order Phenobarbital (Phenobarbital 15 Mg Tablet) 45 mg PO BID [facility]; Protocol Stop: 09/01/24 09:01 Last Admin: 08/31/24 08:34 Dose: 45 mg Documented By: JOSEFA Phenobarbital (Phenobarbital 30 Mg Tablet) 30 mg PO BID [facility]; Protocol Stop: 09/02/24 21:01 Phenobarbital (Phenobarbital 15 Mg Tablet) 15 mg PO DAILY [facility]; Protocol Stop: 09/05/24 09:01 Potassium Chloride (Potassium Chloride Packet 20 Meq Packet) 40 meq PO DAILY@1400 [facility] Last Admin: 08/31/24 10:51 Dose: 40 meq Documented By: JOSEFA Sertraline HCl (Sertraline Hcl 50 Mg Tablet) 50 mg PO DAILY [facility] Last Admin: 08/31/24 08:35 Dose: 50 mg Documented By: JOSEFA Sodium Chloride (0.9 % Sodium Chloride Flush 3 Ml Syringe) 3 ml IVFLUSH QSHIFT [facility] Last Admin: 08/31/24 10:51 Dose: 3 ml Documented By: JOSEFA Labs 08/28/24 20:03 08/29/24 18:34 Assessment and Plan (1) Acute head injury: Status: Acute (2) Alcohol intoxication: Status: Acute Plan Navneet ivory is a 69 y/o man admitted with: Fall with head trauma likely mechanical due to generalized weakness related to hypokalemia, alcohol intoxication Normal vitamin-D level PT evaluation pending Recommend to abstain from alcohol Hypokalemia, likely secondary to alcohol abuse. Repleted and normalized Prolonged QT secondary to electrolyte abnormality repeat EKG showed improvement . Alcohol abuse, and withdrawal ,on phenobarb protocol continue thiamine folic acid, multivitamins and magnesium Seen by Addiction Team risk reduction strategies including drinking below the recommended limit recommended ,patient provided with written resources including information on inpatient and outpatient treatment, home reduction and recovery coaching provided. CIWA 5 Hyperlipidemia. Continue fenofibrate, hold Lipitor due to elevated liver enzymes. Essential hypertension. Stable blood pressure Continue metoprolol, continue to hold Norvasc. CAD. No acute symptoms of chest pain, no shortness a breath, Continue isosorbide and metoprolol. Depression. Continue sertraline. Chronic pain. Continue oxycodone and gabapentin. Tobacco use disorder counseling done place on nicotine patch 21 mg daily GERD. Continue PPI. DVT prophylaxis: SCDs only (recent significant head trauma). Code status: Full In my clinical judgment patient requires continued inpatient hospitalization for alcohol abuse and withdrawal requiring phenobarb protocol and close monitoring of electrolytes and PT evaluation for safe disposition. Quality Stroke Does the patient have a stroke diagnosis?: No VTE Prior VTE?: No VTE Risk Level:: Medical - moderate - high VTE Device Contraindication: N/A - Device Ordered VTE Drug Contraindication: Treatment Not Indicated
[2024-08-31 15:44] VITALS: BP 121/71; PULSE 76; RESP 77; TEMP 36.7; O2SAT 97
[2024-08-31] MEDS: Acetaminophen 325 MG TABLET 650 MG PO (16:04)
[2024-08-31 19:13] VITALS: BP 125/70; PULSE 78; RESP 18; TEMP 36.9; O2SAT 99
[2024-08-31] MEDS: Gabapentin 300 MG CAPSULE PO (20:36)
[2024-08-31] MEDS: guaiFEN/Codeine SF 200/20/10ML 10 ML LIQUID PO (23:56)
[2024-09-01] VITALS (7 sets, daily range): BP systolic 109–142; BP diastolic 62–82; PULSE 71–81; RESP 16–20; TEMP 36.5–37.3; O2SAT 94–98
--- NOTE | 2024-09-01 | ECG_ITS ---
Test Reason : chest pain Blood Pressure : / mmHG Vent. Rate : 080 BPM Atrial Rate : 080 BPM P-R Int : 124 ms QRS Dur : 114 ms QT Int : 428 ms P-R-T Axes : 052 058 012 degrees QTc Int : 493 ms Normal sinus rhythm Incomplete right bundle branch block T wave abnormality, consider anterior ischemia Prolonged QT Abnormal ECG When compared with ECG of 29-AUG-2024 09:31, Premature atrial complexes are no longer Present Referred By: Karissa Leija Electronically Signed By:MANOHAR CHEEK MD
[2024-09-01] MEDS: Acetaminophen 325 MG TABLET 650 MG PO ×2 (04:16→16:17)
[2024-09-01] MEDS: guaiFEN/Codeine SF 200/20/10ML 10 ML LIQUID PO ×2 (06:20→20:37)
[2024-09-01] MEDS: oxyCODONE HCl Immed Release 5 MG TABLET PO ×4 (06:21→23:50)
[2024-09-01] MEDS: Metoprolol Succinate ER 25 MG TAB.ER.24H PO (09:09)
[2024-09-01] MEDS: Isosorbide Mononitrate 30 MG TAB.ER.24H PO (09:09)
[2024-09-01] MEDS: Multivitamin TABLET 1 TAB PO (09:10)
[2024-09-01] MEDS: PHENobarbitaL 30 MG TABLET PO ×2 (09:10→20:31)
[2024-09-01] MEDS: Sertraline HCL 50 MG TABLET PO (09:10)
[2024-09-01] MEDS: Fenofibrate 54 MG TABLET PO (09:10)
[2024-09-01] MEDS: Folic Acid 1 MG TABLET PO (09:10)
[2024-09-01] MEDS: Magnesium Oxide 400 MG TABLET PO (09:10)
[2024-09-01] MEDS: Thiamine HCL 100 MG TABLET PO (09:11)
[2024-09-01] MEDS: 0.9 % Sodium Chloride Flush 3 ML SYRINGE IVFLUSH ×3 (09:11→23:44)
[2024-09-01] MEDS: PHENobarbitaL 15 MG TABLET 45 MG PO (09:11)
[2024-09-01] MEDS: Nicotine 21 MG PATCH.TD24 TRANSDERMA (09:13)
[2024-09-01 09:32] LABS: Anion Gap 12 (12-20); Blood Urea Nitrogen 4 mg/dL (9-16); Calcium 8.8 mg/dL (8.4-10.2); Carbon Dioxide 21 mmol/L (22-29); Chloride 110 mmol/L (96-108); Creatinine Clr Calc Pharmacy 139.7; Estimated Glomerular Filt Rate > 60; Glucose Random 87 mg/dL (60-115); Magnesium 1.5 mg/dL (1.6-2.6); Potassium 4.5 mmol/L (3.3-5.1); Sodium 138 mmol/L (135-145)
[2024-09-01] MEDS: ondansetron HCL 4 MG/2 ML VIAL IVPUSH (09:34)
[2024-09-01] MEDS: Magnesium Hydrox/Alum Hydrox 30 ML ORAL.SUSP PO (10:25)
[2024-09-01] MEDS: Famotidine/PF 20 MG/2 ML VIAL IVPUSH (10:25)
[2024-09-01] MEDS: diphenhydrAMINE HCL 25 MG CAPSULE PO (12:22)
[2024-09-01] MEDS: Tamsulosin HCL 0.4 MG CAPSULE PO (12:22)
--- NOTE | 2024-09-01 14:11 | MHC.CM.PN ---
EMR reviewed and per MD rounds, pt is not medically cleared for discharge due to management of ETOH withdrawal.
--- NOTE | 2024-09-01 14:24 | MHC.SL.SWA ---
Speech Pathologist Impression: Moderate to significant dysphagia characterized by esophageal involvement Risk of Aspiration Due to: Neurological Condition History of chronic symptoms of dysphagia Dysphasia Diet Status: Patient is recommended G.I. consult for esophageal dysphagia. Liquid Consistency and Strategies for Safe Swallow: Liquid Intake Recommendation: Thin Liquid Intake Strategies: Small Sips Solid Food Consistency: Dietary Recommendations: Chopped/Advanced (NDD3) Additional Modifications to Solid Foods: Recommend DOWNGRADE to CHOPPED/ADVANCED (NDD3) diet for ease of feeding and mastication, THIN liquids, pills WHOLE one at a time in PUREE. Patient presented with symptoms consistent with potential esophageal involvement with belching observed at bedside eval after PO trials. Patient reported regurgitation with meals. Pt continues to endorse chest pain s/p eating even when he uses strategies. Pt c/o difficulty managing thick mucous s/p PO intake. Recommend strategies for esophageal dysphagia: small, more frequent meals, chew food well and alternate with sips of liquid, maintain upright position during PO intake and for at least 30 minutes afterwards. Recc G.I. consult. Oral Medication Intake: Whole with Puree Please contact the pharmacy regarding appropriate crushable or liquid drug formulations that are available whenever modified delivery is recommended. Compensatory Strategies and Precautions to be Taken for Safe Swallow: Sitting Upright (90 deg) Double Swallow Small Bites and Sips Alternate Liquids/Solids Rate of Ingestion Change Supervision While Eating and Drinking for Safe Swallow: Total Supervision (1:1) Foods to Avoid: Swallowing Recommended Treatments: Compens. Strategy Educat. Recommendation for Speech: Inpatient Speech Therapy Comment: WARDROBE ATTENDANT will continue to follow during inpatient stay. Frequency/Duration: M-F Date Range for Service Req: Timeline to reassess: PRN Machine Operator Cane Cutter Clinican/Clinical Fellow: No Supervisory Statement: I have reviewed and agree with the student/clinical fellow's documentation: N/A Speech Language Pathologist: Gem Lopez M.S., [facility] ATTENDANT
--- NOTE | 2024-09-01 17:09 | P.PNIM_ITS ---
Subjective Subjective Date of Service: 09/01/24 Interval History: Complaining of chronic intermittent nausea vomiting and epigastric pain, with no associated shortness of breath or diaphoresis, pain is related with food, otherwise no acute events overnight. Denies tremors, no headache, no shakiness. Review of Systems All other symptoms reviewed and are negative Physical Exam 2 Vital Signs: Vital Signs: Last Vital Signs Temp 98 F 09/01/24 15:51 Pulse 76 09/01/24 15:51 Resp 20 09/01/24 15:51 BP 109/62 09/01/24 15:51 Pulse Ox 96 09/01/24 15:51 O2 Del Method Room Air 09/01/24 15:51 BMI result Body Mass Index 28.9 Const: Other: General mild distress due to epigastric pain. old blood on back of head Neck no JVD. CVS regular rate rhythm, Respiratory lungs clear to auscultation, no respiratory distress, no wheeze, no rhonchi. Gastrointestinal epigastric tenderness to palpation, soft, bowel sounds audible Extremities no edema. Neuro non focal, Skin no rash Objective Data Active Medications Acetaminophen (Acetaminophen 325 Mg Tablet) 650 mg PO Q6H PRN PRN Reason: Pain, Mild (Pain Scale 1-3), fever or headache Last Admin: 09/01/24 16:17 Dose: 650 mg Documented By: NIKO Al Hydroxide/Mg Hydroxide (Magnesium Hydrox/Alum Hydrox 30 Ml Oral.Susp) 30 ml PO Q4H PRN PRN Reason: Heartburn Last Admin: 09/01/24 10:25 Dose: 30 ml Documented By: NIKO Fenofibrate (Fenofibrate 54 Mg Tablet) 54 mg PO DAILY [facility] Last Admin: 09/01/24 09:10 Dose: 54 mg Documented By: NIKO Folic Acid (Folic Acid 1 Mg Tablet) 1 mg PO DAILY [facility] Last Admin: 09/01/24 09:10 Dose: 1 mg Documented By: NIKO Gabapentin (Gabapentin 300 Mg Capsule) 300 mg PO BEDTIME [facility] Last Admin: 08/31/24 20:36 Dose: 300 mg Documented By: RADHA Guaifenesin/Codeine Phosphate (Guaifen/Codeine Sf 200/20/10ml 10 Ml Liquid) 10 ml PO Q4H PRN PRN Reason: Cough Last Admin: 09/01/24 06:20 Dose: 10 ml Documented By: RADHA Isosorbide Mononitrate (Isosorbide Mononitrate 30 Mg Tab.Er.24h) 30 mg PO DAILY [facility]; Protocol Last Admin: 09/01/24 09:09 Dose: 30 mg Documented By: NIKO Magnesium Oxide (Magnesium Oxide 400 Mg Tablet) 400 mg PO DAILY [facility] Last Admin: 09/01/24 09:10 Dose: 400 mg Documented By: NIKO Metoprolol Succinate (Metoprolol Succinate Er 25 Mg Tab.Er.24h) 25 mg PO DAILY [facility]; Protocol Last Admin: 09/01/24 09:09 Dose: 25 mg Documented By: NIKO Multivitamins/Vitamin C (Multivitamin Tablet) 1 tab PO DAILY [facility] Last Admin: 09/01/24 09:10 Dose: 1 tab Documented By: NIKO Nicotine (Nicotine 21 Mg Patch.Td24) 21 mg TRANSDERMA DAILY [facility] Last Admin: 09/01/24 09:13 Dose: 21 mg Documented By: NIKO Ondansetron HCl (Ondansetron Hcl 4 Mg/2 Ml Vial) 4 mg IVPUSH Q6H PRN PRN Reason: Nausea and Vomiting Last Admin: 09/01/24 09:34 Dose: 4 mg Documented By: NIKO Oxycodone HCl (Oxycodone Hcl Immed Release 5 Mg Tablet) 5 mg PO Q6H PRN PRN Reason: Pain, Severe (Pain Scale 7-10) Last Admin: 09/01/24 12:23 Dose: 5 mg Documented By: NIKO Oxycodone HCl (Oxycodone Hcl Immed Release 5 Mg Tablet) 5 mg PO Q6H PRN PRN Reason: Pain, Severe (Pain Scale 7-10) Pharmacy Consult (Consult Rx Etoh Phenob Po Only) 1 each MISCELLANE ONCE PRN; Protocol PRN Reason: Consult order Phenobarbital (Phenobarbital 15 Mg Tablet) 15 mg PO DAILY [facility]; Protocol Stop: 09/05/24 09:01 Phenobarbital (Phenobarbital 30 Mg Tablet) 30 mg PO BID [facility]; Protocol Stop: 09/03/24 09:01 Sertraline HCl (Sertraline Hcl 50 Mg Tablet) 50 mg PO DAILY [facility] Last Admin: 09/01/24 09:10 Dose: 50 mg Documented By: NIKO Sodium Chloride (0.9 % Sodium Chloride Flush 3 Ml Syringe) 3 ml IVFLUSH QSHIFT [facility] Last Admin: 09/01/24 09:11 Dose: 3 ml Documented By: NIKO Tamsulosin HCl (Tamsulosin Hcl 0.4 Mg Capsule) 0.4 mg PO DAILY [facility] Last Admin: 09/01/24 12:22 Dose: 0.4 mg Documented By: NIKO Thiamine HCl (Thiamine Hcl 100 Mg Tablet) 100 mg PO DAILY [facility] Last Admin: 09/01/24 09:11 Dose: 100 mg Documented By: NIKO Labs 08/28/24 20:03 09/01/24 09:09 Labs: Laboratory Results - last 24 hr 09/01/24 09:09 Anion Gap 12 Estim Creat Clear Calc 139.7 Estimated GFR > 60 Random Glucose 87 Calcium 8.8 Magnesium 1.5 L Assessment and Plan (1) Prolonged Q-T interval on ECG: Status: Acute (2) Alcohol intoxication: Status: Acute (3) Acute hypokalemia: Status: Acute Plan Navneet Cantu this is a 69 y/o man admitted with: Fall with head trauma likely mechanical due to generalized weakness related to hypokalemia, alcohol intoxication Normal vitamin-D level PT recommend short-term rehab Recommend to abstain from alcohol Hypokalemia, likely secondary to alcohol abuse. Repleted and normalized Hypo magnesemia will replete and follow labs Epigastric pain likely due to alcoholic esophagitis/gastritis, will give Maalox/IV peptic resume Prilosec 40 mg daily strongly advised to abstain from alcohol EKG obtained showed no acute ischemic changes. Prolonged QT secondary to electrolyte abnormality follow electrolyte keep potassium greater than 4 magnesium greater than 2 Alcohol abuse, and withdrawal ,on phenobarb protocol continue thiamine folic acid, multivitamins and magnesium Seen by Addiction Team risk reduction strategies including drinking below the recommended limit recommended ,patient provided with written resources including information on inpatient and outpatient treatment, home reduction and recovery coaching provided. CIWA 13 Hyperlipidemia. Continue fenofibrate, hold Lipitor due to elevated liver enzymes. Essential hypertension. Stable blood pressure Continue metoprolol, continue to hold Norvasc. CAD. No acute symptoms of chest pain, no shortness a breath, Continue isosorbide and metoprolol. Depression. Continue sertraline. Chronic pain. Continue oxycodone and gabapentin. Tobacco use disorder counseling done place on nicotine patch 21 mg daily GERD. Continue PPI. DVT prophylaxis: SCDs only (recent significant head trauma). Code status: Full In my clinical judgment patient requires continued inpatient hospitalization for alcohol abuse and withdrawal requiring phenobarb protocol and close monitoring of electrolytes and PT evaluation for safe disposition. Quality Stroke Does the patient have a stroke diagnosis?: No VTE Prior VTE?: No VTE Risk Level:: Medical - moderate - high VTE Device Contraindication: N/A - Device Ordered VTE Drug Contraindication: Treatment Not Indicated
[2024-09-01] MEDS: Magnesium Sulfate/H2O 2 GM/50 ML PIGGYBACK IV (17:41)
--- NOTE | 2024-09-01 19:12 | PC.NURSE ---
son discussed need for patient to go to rehab. he and his report his falling is pretty much a daily occurence as they feel this friends at the [facility] come and pick him up more than they know. patient may benefit from daily naltrexone or a monthly vivitrol injection if md were to consider in the future, family in agreement but will need to discuss with patient
[2024-09-01] MEDS: Gabapentin 300 MG CAPSULE PO (20:31)
[2024-09-01 20:32] LABS: Appearance Urine Cloudy; Color Urine Dark Yellow; Glucose Urine UA Negative (Negative); Leukocyte Esterase Urine Negative (Negative); Nitrite Urine Negative (Negative); PH 5.5 (5.0-9.0); Specific Gravity - Urine 1.025 (1.005-1.025); Urine Blood Negative (Negative); Urine Ketones Trace mg/dL (Negative); Urine Protein Trace mg/dL (Neg-Trace)
[2024-09-02] VITALS (7 sets, daily range): BP systolic 118–139; BP diastolic 60–74; PULSE 70–80; RESP 16–20; TEMP 36.4–37.2; O2SAT 92–98
[2024-09-02] MEDS: Omeprazole 40 MG CAPSULE.DR PO (05:45)
[2024-09-02] MEDS: oxyCODONE HCl Immed Release 5 MG TABLET PO ×3 (05:47→22:15)
[2024-09-02] MEDS: guaiFEN/Codeine SF 200/20/10ML 10 ML LIQUID PO ×3 (06:20→20:37)
[2024-09-02] MEDS: Magnesium Hydrox/Alum Hydrox 30 ML ORAL.SUSP PO (08:41)
[2024-09-02] MEDS: Isosorbide Mononitrate 30 MG TAB.ER.24H PO (08:42)
[2024-09-02] MEDS: Sertraline HCL 50 MG TABLET PO (08:42)
[2024-09-02] MEDS: Acetaminophen 325 MG TABLET 650 MG PO ×2 (08:42→22:14)
[2024-09-02] MEDS: PHENobarbitaL 30 MG TABLET PO ×2 (08:42→20:37)
[2024-09-02] MEDS: Tamsulosin HCL 0.4 MG CAPSULE PO (08:42)
[2024-09-02] MEDS: Magnesium Oxide 400 MG TABLET PO (08:42)
[2024-09-02] MEDS: Metoprolol Succinate ER 25 MG TAB.ER.24H PO (08:42)
[2024-09-02] MEDS: Thiamine HCL 100 MG TABLET PO (08:42)
[2024-09-02] MEDS: Multivitamin TABLET 1 TAB PO (08:42)
[2024-09-02] MEDS: Folic Acid 1 MG TABLET PO (08:42)
[2024-09-02] MEDS: Nicotine 21 MG PATCH.TD24 TRANSDERMA (08:42)
[2024-09-02] MEDS: Fenofibrate 54 MG TABLET PO (08:42)
[2024-09-02] MEDS: 0.9 % Sodium Chloride Flush 3 ML SYRINGE IVFLUSH ×3 (08:43→22:15)
--- NOTE | 2024-09-02 14:54 | MHC.SL.DTX ---
Dysphagia Diet modifications: Last documented Solid diet consistencies: Chopped/Advanced (NDD3) Last documented Liquid consistency: Thin Changes made to current diet?: Yes Liquid Consistency and Strategies: Liquid Intake Recommendation: Thin Compensatory Strategies for Safe Swallow: Small Sips Compensatory Strategies for Safe Swallow(b): Sitting Upright (90 deg) Double Swallow Small Bites and Sips Alternate Liquids/Solids Rate of Ingestion Change Solid Food Consistency: Dietary Recommendations: Regular Oral Medication Intake: Whole with Liquid Strategies and Precautions to be Taken for Safe Swallow: Sitting Upright (90 deg) Double Swallow Small Bites and Sips Alternate Liquids/Solids Rate of Ingestion Change Supervision While Eating and/Drinking: Intermittent Supervision Foods to Avoid: Swallowing Recommended Treatments: Compens. Strategy Educat. Level of Impact on: Daily activities: Mild Interpersonal interactions: Education: None Employment: None Community: Mild Prognosis for Improvement: Good Recommendation for Speech: Inpatient Speech Therapy Comment: DRIER TENDER will continue to follow during inpatient stay. Frequency/Duration: M-F Date Range for Service Req: Timeline to reassess: PRN Additional Comments: Treatment: Pt seen with his lunch tray present. Per RN he has been complaining of his diet restrictions. This is confirmed in our interaction. Per EMR he is doing much better than his initial presentation to the Hospital. Pt is provided a peanut butter cup with miranda crackers. He demonstrates adequate mastication time and coordination with complete oral clearance. Follow-up sips of Milk resulted in no overt s/s of aspiration. He is able to cut and access all his food with ease. DRIER TENDER recommending return to baseline diet of Regular Solids and Thin Liquids. Meds Whole with Liquids. DRIER TENDER will follow-up x1 to assess toleration of advanced textures. High Wire Artist Clinican/Clinical Fellow: No Supervisory Statement: I have reviewed and agree with the student/clinical fellow's documentation: N/A Speech Language Pathologist: Sven Garcia M.A., [facility]-DRIER TENDER
--- NOTE | 2024-09-02 15:18 | HO.PM.IMPN ---
Subjective Subjective Date of Service: 09/02/24 Interval History: Being followed for alcohol withdrawal, complaining shakiness dizziness when getting up, tolerating diet, no nausea abdominal pain has resolved, no acute events overnight. Review of Systems All other system reviewed and are negative Physical Exam Vital Signs: Vital Signs: Last Vital Signs Temp 98.7 F 09/02/24 14:15 Pulse 79 09/02/24 14:15 Resp 16 09/02/24 14:15 BP 118/72 09/02/24 14:15 Pulse Ox 96 09/02/24 14:15 O2 Del Method Room Air 09/02/24 14:15 BMI result Body Mass Index 28.9 Const: Other: General awake alert x3 no acute distress. Neck no JVD. CVS regular rate rhythm, Respiratory lungs clear to auscultation, no respiratory distress, no wheeze, no rhonchi. Gastrointestinal epigastric tenderness improved, soft, bowel sounds audible Extremities no edema. Neuro non focal, Skin no rash Psych appropriate affect, no tremors Objective Data Active Medications Acetaminophen (Acetaminophen 325 Mg Tablet) 650 mg PO Q6H PRN PRN Reason: Pain, Mild (Pain Scale 1-3), fever or headache Last Admin: 09/02/24 08:42 Dose: 650 mg Documented By: GENARO Al Hydroxide/Mg Hydroxide (Magnesium Hydrox/Alum Hydrox 30 Ml Oral.Susp) 30 ml PO Q4H PRN PRN Reason: Heartburn Last Admin: 09/02/24 08:41 Dose: 30 ml Documented By: GENARO Fenofibrate (Fenofibrate 54 Mg Tablet) 54 mg PO DAILY [facility] Last Admin: 09/02/24 08:42 Dose: 54 mg Documented By: GENARO Folic Acid (Folic Acid 1 Mg Tablet) 1 mg PO DAILY [facility] Last Admin: 09/02/24 08:42 Dose: 1 mg Documented By: GENARO Gabapentin (Gabapentin 300 Mg Capsule) 300 mg PO BEDTIME [facility] Last Admin: 09/01/24 20:31 Dose: 300 mg Documented By: GAL Guaifenesin/Codeine Phosphate (Guaifen/Codeine Sf 200/20/10ml 10 Ml Liquid) 10 ml PO Q4H PRN PRN Reason: Cough Last Admin: 09/02/24 06:20 Dose: 10 ml Documented By: GAL Isosorbide Mononitrate (Isosorbide Mononitrate 30 Mg Tab.Er.24h) 30 mg PO DAILY [facility]; Protocol Last Admin: 09/02/24 08:42 Dose: 30 mg Documented By: GENARO Magnesium Oxide (Magnesium Oxide 400 Mg Tablet) 400 mg PO DAILY [facility] Last Admin: 09/02/24 08:42 Dose: 400 mg Documented By: GENARO Metoprolol Succinate (Metoprolol Succinate Er 25 Mg Tab.Er.24h) 25 mg PO DAILY [facility]; Protocol Last Admin: 09/02/24 08:42 Dose: 25 mg Documented By: GENARO Multivitamins/Vitamin C (Multivitamin Tablet) 1 tab PO DAILY [facility] Last Admin: 09/02/24 08:42 Dose: 1 tab Documented By: GENARO Nicotine (Nicotine 21 Mg Patch.Td24) 21 mg TRANSDERMA DAILY [facility] Last Admin: 09/02/24 08:42 Dose: 21 mg Documented By: GENARO Omeprazole (Omeprazole 40 Mg Capsule.Dr) 40 mg PO DAILY@0630 [facility] Last Admin: 09/02/24 05:45 Dose: 40 mg Documented By: GAL Ondansetron HCl (Ondansetron Hcl 4 Mg/2 Ml Vial) 4 mg IVPUSH Q6H PRN PRN Reason: Nausea and Vomiting Last Admin: 09/01/24 09:34 Dose: 4 mg Documented By: NIKO Oxycodone HCl (Oxycodone Hcl Immed Release 5 Mg Tablet) 5 mg PO Q6H PRN PRN Reason: Pain, Severe (Pain Scale 7-10) Last Admin: 09/02/24 05:47 Dose: 5 mg Documented By: GAL Oxycodone HCl (Oxycodone Hcl Immed Release 5 Mg Tablet) 5 mg PO Q6H PRN PRN Reason: Pain, Severe (Pain Scale 7-10) Pharmacy Consult (Consult Rx Etoh Phenob Po Only) 1 each MISCELLANE ONCE PRN; Protocol PRN Reason: Consult order Phenobarbital (Phenobarbital 15 Mg Tablet) 15 mg PO DAILY [facility]; Protocol Stop: 09/05/24 09:01 Phenobarbital (Phenobarbital 30 Mg Tablet) 30 mg PO BID [facility]; Protocol Stop: 09/03/24 09:01 Last Admin: 09/02/24 08:42 Dose: 30 mg Documented By: GENARO Sertraline HCl (Sertraline Hcl 50 Mg Tablet) 50 mg PO DAILY [facility] Last Admin: 09/02/24 08:42 Dose: 50 mg Documented By: GENARO Sodium Chloride (0.9 % Sodium Chloride Flush 3 Ml Syringe) 3 ml IVFLUSH QSHIFT [facility] Last Admin: 09/02/24 08:43 Dose: 3 ml Documented By: GENARO Tamsulosin HCl (Tamsulosin Hcl 0.4 Mg Capsule) 0.4 mg PO DAILY [facility] Last Admin: 09/02/24 08:42 Dose: 0.4 mg Documented By: GENARO Thiamine HCl (Thiamine Hcl 100 Mg Tablet) 100 mg PO DAILY [facility] Last Admin: 09/02/24 08:42 Dose: 100 mg Documented By: GENARO Labs 08/28/24 20:03 09/01/24 09:09 Labs: Laboratory Results - last 24 hr 09/01/24 09/02/24 20:22 06:20 Magnesium 2.0 Urine Color Dark Yellow Urine Appearance Cloudy Urine pH 5.5 Ur Specific [place] 1.025 Urine Protein Trace Urine Glucose (UA) Negative Urine Ketones Trace Urine Blood Negative Urine Nitrite Negative Ur Leukocyte Esterase Negative Assessment and Plan (1) Acute head injury: Status: Acute (2) Alcohol intoxication: Status: Acute (3) Acute hypokalemia: Status: Acute Plan Navneet Cantu this is a 69 y/o man admitted with: Fall with head trauma likely mechanical due to generalized weakness related to hypokalemia, alcohol intoxication Normal vitamin-D level PT recommend short-term rehab Recommend to abstain from alcohol Hypokalemia, likely secondary to alcohol abuse. Repleted and normalized Hypo magnesemia will replete and follow labs Epigastric pain likely due to alcoholic esophagitis/gastritis, improved continue Prilosec 40 mg daily strongly recommend to abstain from alcohol. EKG obtained showed no acute ischemic changes. Prolonged QT secondary to electrolyte abnormality follow electrolyte keep potassium greater than 4 magnesium greater than 2 Alcohol abuse, and withdrawal ,on phenobarb protocol continue thiamine folic acid, multivitamins and magnesium Seen by Addiction Team risk reduction strategies including drinking below the recommended limit recommended ,patient provided with written resources including information on inpatient and outpatient treatment, home reduction and recovery coaching provided. CIWA improved will discontinue CIWA Hyperlipidemia. Continue fenofibrate, hold Lipitor due to elevated liver enzymes, follow liver panel. Essential hypertension. Stable blood pressure Continue metoprolol, continue to hold Norvasc. CAD. No acute symptoms of chest pain, no shortness a breath, Continue isosorbide and metoprolol. Depression. Continue sertraline. Chronic pain. Continue oxycodone and gabapentin. Tobacco use disorder counseling done place on nicotine patch 21 mg daily GERD. Continue PPI. DVT prophylaxis: SCDs only (recent significant head trauma). Code status: Full In my clinical judgment patient requires continued inpatient hospitalization for alcohol abuse and withdrawal requiring phenobarb protocol and close monitoring of electrolytes and safe disposition. Quality Stroke Does the patient have a stroke diagnosis?: No VTE Prior VTE?: No VTE Risk Level:: Medical - moderate - high VTE Device Contraindication: N/A - Device Ordered VTE Drug Contraindication: Treatment Not Indicated
--- NOTE | 2024-09-02 16:01 | MHC.CM.PN ---
Bed offer received from [facility], pts son/HCP Jorge in agreement, pt also in agreement. [facility] will pursue insurance auth.
[2024-09-02] MEDS: Gabapentin 300 MG CAPSULE PO (20:37)
[2024-09-03] VITALS: BP 132/69; PULSE 74; RESP 16; TEMP 36.8; O2SAT 94
[2024-09-03 04:00] VITALS: BP 139/70; PULSE 82; RESP 16; TEMP 36.6; O2SAT 95
[2024-09-03] MEDS: Acetaminophen 325 MG TABLET 650 MG PO (04:43)
[2024-09-03] MEDS: guaiFEN/Codeine SF 200/20/10ML 10 ML LIQUID PO ×2 (04:43→08:40)
[2024-09-03] MEDS: oxyCODONE HCl Immed Release 5 MG TABLET PO ×3 (04:44→13:53)
[2024-09-03] MEDS: Omeprazole 40 MG CAPSULE.DR PO (05:38)
[2024-09-03 07:14] LABS: Alanine Aminotransferase 27 U/L (0-40); Albumin Level 2.6 g/dL (3.5-5.0); Alkaline Phosphatase 105 U/L (39-117); Aspartate Amino Transferase 31 U/L (5-37); Bilirubin Direct 0.2 mg/dL (0.0-0.5); Bilirubin Total 0.4 mg/dL (0.0-1.0); Total Protein 5.5 g/dL (6.5-8.0)
[2024-09-03 07:22] VITALS: BP 155/70; PULSE 75; RESP 17; TEMP 36.8; O2SAT 96
[2024-09-03] MEDS: Tamsulosin HCL 0.4 MG CAPSULE PO (08:40)
[2024-09-03] MEDS: Nicotine 21 MG PATCH.TD24 TRANSDERMA (08:40)
[2024-09-03] MEDS: Metoprolol Succinate ER 25 MG TAB.ER.24H PO (08:40)
[2024-09-03] MEDS: Multivitamin TABLET 1 TAB PO (08:41)
[2024-09-03] MEDS: PHENobarbitaL 30 MG TABLET PO (08:41)
[2024-09-03] MEDS: Folic Acid 1 MG TABLET PO (08:41)
[2024-09-03] MEDS: Sertraline HCL 50 MG TABLET PO (08:41)
[2024-09-03] MEDS: Isosorbide Mononitrate 30 MG TAB.ER.24H PO (08:41)
[2024-09-03] MEDS: Fenofibrate 54 MG TABLET PO (08:41)
[2024-09-03] MEDS: Thiamine HCL 100 MG TABLET PO (08:42)
[2024-09-03] MEDS: Magnesium Oxide 400 MG TABLET PO (08:42)
[2024-09-03] MEDS: Magnesium Hydrox/Alum Hydrox 30 ML ORAL.SUSP PO (08:44)
[2024-09-03] MEDS: 0.9 % Sodium Chloride Flush 3 ML SYRINGE IVFLUSH (08:48)
--- NOTE | 2024-09-03 10:49 | P.DS_ITS ---
DS: Providers Provider Date of Service: 09/03/24 Date of admission: 08/29/24 01:40 Date of discharge: 09/03/24 Primary care physician: Mayda Jeffries MD Consults: 08/29/24 10:03 Addiction Medicine Routine Consulting Provider: Addiction Covering Reason for consultation: ETOH Abuse DS: Diagnosis Discharge Diagnosis (1) Acute head injury: Status: Acute (2) Alcohol intoxication: Status: Acute (3) Acute hypokalemia: Status: Acute DS: Summary Hospital Course Hospital Course: Date of Service: 08/29/24 Attending physician on admission: Lionel Damon Chief Complaint: Fall Fall Navneet ivory is a very pleasant 69 years old man with past medical history significant for alcohol abuse, CVA, bilateral carotid disease, vitamin-D deficiency, lumbar radiculopathy, hyperlipidemia and depression was brought to the emergency department via EMS after he sustained a fall yesterday around 5 pm. He said that his legs gave up upon walking. Upon falling down he had the posterior aspect of his head and denied any loss of consciousness before or after falling down. He did not report any headache or focal weakness. He also denied any dizziness, palpitations, chest pain, cough, shortness on breath, abdominal pain, nausea, vomiting, diarrhea, fevers or chills. He stated that he abuses alcohol since age 6 -drinks 2 beers and a bottle of David Powell, smoke tobacco but denied illicit drug use. Last alcoholic drink was last night. In the ED, he was found to have stable vital signs. Blood workup showed marked hypokalemia (2.9). There are no other significant electrolyte imbalances. CO2 is 20, renal function is normal. LFTs are normal except for elevated AST. Troponin is 5.1 and there is a hypoalbuminemia of 3.1. There is no leukocytosis. Hemoglobin is 13.1 and platelets 234. INR is 1.3. Urinalysis is normal. ETOH showed level is 136. Head and C-spine CT scan showed no acute intracranial process, no acute C-spine fractures or dislocation, but showed soft tissue swelling in the posterior occipital region with small foci of gas. ECG showed prolonged QT with a QTC of 577. ED tx: KCl 20 mEq IV, KCl 80 mEq (total), magnesium 2 mg IV. Hospital course: Navneet Pepe this is a 69 y/o man admitted with Fall with head trauma likely mechanical due to generalized weakness related to hypokalemia, alcohol intoxication, seen by Physical therapy they recommend short-term rehab strongly recommend to abstain from alcohol. Acute Hypokalemia, and hypo magnesemia secondary to alcohol abuse,repleted and normalized. Alcohol abuse, and withdrawal , treated with phenobarb protocol, thiamine and folic acid, seen by Addiction Team ,risk reduction strategies including drinking below the recommended limit recommended ,patient provided with written resources including information on inpatient and outpatient treatment, home reduction and recovery coaching provided, patient noted to have epigastric pain likely due to alcoholic esophagitis/gastritis, treated with Prilosec with good relief in symptoms, strongly recommend to abstain from alcohol,EKG showed no acute i schemic changes, noted to have prolonged QTC with no arrhythmia likely due to electrolyte abnormalities. Hyperlipidemia. Continue fenofibrate, and Lipitor, recommend outpatient lipid profile. Essential hypertension. Continue metoprolol, Norvasc discontinued due to stable blood pressure off of Norvasc CAD. No acute symptoms of chest pain, or shortness of breath recommend to continue isosorbide , metoprolol and statins and follow-up with Cardiology . Depression. Continue sertraline. Chronic pain. Continue oxycodone and gabapentin. Tobacco use disorder counseling done place on nicotine patch 21 mg daily. Urinary retention complained of difficulty voiding place on Flomax outpatient urology follow-up. Time Attestation Discharge Coordination Time (in mins): 40 Quality: Safe Use of Opioids Does Pt have an Active Cancer Diagnosis on the Problem List?: No Quality: Stroke Does the patient have a stroke diagnosis?: No Physical Exam Vital Signs: Vital Signs: Last Vital Signs Temp 98.2 F 09/03/24 07:22 Pulse 75 09/03/24 07:22 Resp 17 09/03/24 07:22 BP 155/70 H 09/03/24 07:22 Pulse Ox 96 09/03/24 07:22 O2 Del Method Room Air 09/03/24 07:22 BMI result Body Mass Index 28.9 Const: Other: General awake alert x3 no acute distress. Neck no JVD. CVS regular rate rhythm, Respiratory lungs clear to auscultation, no respiratory distress, no wheeze, no rhonchi. Gastrointestinal epigastric tenderness improved, soft, bowel sounds audible Extremities no edema. Neuro non focal, no tremors Skin no rash Psych appropriate affect DS: Data Data Completed and Pending Labs on day of discharge: Laboratory Results - last 24 hr 09/03/24 06:20 Hold Purple Top SEE NOTE Total Bilirubin 0.4 Direct Bilirubin 0.2 AST 31 ALT 27 Alkaline Phosphatase 105 Total Protein 5.5 L Albumin 2.6 L Discharge Plan Discharge Anticipated Discharge Date/Time: 09/03/24 10:44 Patient Disposition: Xfer SNF Discharge Diagnosis: Alcohol intoxication/withdrawal Hypokalemia Hypo magnesemia Referrals: Mayda Traylor MD [Primary Care Provider] - 1 Week Discharge Medications: New magnesium oxide 400 mg (241.3 mg magnesium) Tablet 400 mg PO DAILY Qty: 30 0RF nicotine 21 mg/24 hr Patch 24 Hour 21 mg transdermal DAILY Qty: 28 0RF tamsulosin 0.4 mg Capsule 0.4 mg PO DAILY Qty: 30 0RF Continued (DME) bed railing See Rx Instructions .Route .MEDSUPPLY Qty: 1 0RF Rx Instructions: As directed sertraline 50 mg tablet 50 mg PO DAILY 90 Days Qty: 90 1RF cholecalciferol (vitamin D3) 25 mcg (1,000 unit) capsule 25 mcg PO DAILY 90 Days Qty: 90 1RF fenofibrate 54 mg tablet 54 mg PO DAILY Qty: 90 1RF folic acid 1 mg tablet 1 mg PO DAILY Qty: 90 0RF gabapentin 300 mg capsule 300 mg PO BEDTIME 90 Days Qty: 90 3RF thiamine HCl (vitamin B1) 100 mg tablet 100 mg PO DAILY Qty: 90 0RF oxycodone-acetaminophen 5-325 mg tablet 1 tab PO Q6H PRN (Reason: pain) 30 Days Qty: 120 0RF Rx Instructions: Partial Fill upon patient request. triamcinolone acetonide 0.1 % ointment 1 appl topical BID PRN (Reason: Itching) pantoprazole 40 mg tablet,delayed release (DR/EC) 40 mg PO DAILY@0630 atorvastatin 80 mg tablet 80 mg PO DAILY Qty: 90 3RF cyanocobalamin (vitamin B-12) 500 mcg tablet 500 mcg PO DAILY 90 Days Qty: 90 1RF isosorbide mononitrate 30 mg tablet extended release 24 hr 30 mg PO DAILY 90 Days Qty: 90 3RF metoprolol succinate 25 mg tablet extended release 24 hr 25 mg PO DAILY Qty: 90 2RF Discontinued amlodipine 10 mg tablet 10 mg PO DAILY 90 Days Qty: 90 3RF Discharge Orders: Discharge Order (Routine); Ordered 09/03/24 Ordered By: Karissa Leija Diet: Low fat, low cholesterol Activity on Discharge: As tolerated Stand Alone Forms: Patient Portal Discharge page Print Language: Angolan Care Plan Goals: Alcohol use and withdrawal finish phenobarb protocol Unsteady gait being discharged to rehab facility Strongly recommend to abstain from alcohol Health Concerns: Coronary artery disease/hypertension/hyperlipidemia/tobacco use disorder Continue all home medications, strongly recommend to abstain from smoking Plan of Treatment: Outpatient follow-up with primary care physician and Cardiology Dr. Adam call for appointment. Assessment: As above
[2024-09-03 11:06] VITALS: BP 116/66; PULSE 79; RESP 20; TEMP 37.1; O2SAT 97
--- NOTE | 2024-09-03 11:48 | MHC.CM.PN ---
Second IMM 09/03/24, Pt has been medically cleared for DC, he will go today to [facility] via BLS. Pt stated that he does not want to go, and will discuss with his son. CM spoke with son who said that he encouraged pt. to go and will be here at time of transport.
--- NOTE | 2024-09-03 14:03 | MHC.SL.SWA ---
Speech Pathologist Impression: Risk of Aspiration Due to: Neurological Condition Dysphasia Diet Status: Patient is recommended outpatient G.I. consult for esophageal dysphagia. Liquid Consistency and Strategies for Safe Swallow: Liquid Intake Recommendation: Thin Liquid Intake Strategies: Small Sips Solid Food Consistency: Dietary Recommendations: Regular Additional Modifications to Solid Foods: Pt upgraded to regular diet with thin liquids. Pt continues to have difficulty only with taking oral meds, not interested though in modifications. Pt takes meds one at a time with water, holding his breath for extended time prior to swallowing, which results in mild SOB s/p deglution. Pt given education and review of suggestions for improved ease of taking oral meds, but pt is resistant. Pt also adamant that he does not want to go to rehab. Oral Medication Intake: Whole with Liquid Please contact the pharmacy regarding appropriate crushable or liquid drug formulations that are available whenever modified delivery is recommended. Compensatory Strategies and Precautions to be Taken for Safe Swallow: Sitting Upright (90 deg) Double Swallow Small Bites and Sips Alternate Liquids/Solids Rate of Ingestion Change Supervision While Eating and Drinking for Safe Swallow: Intermittent Supervision Foods to Avoid: Swallowing Recommended Treatments: Compens. Strategy Educat. Recommendation for Speech: Inpatient Speech Therapy Comment: TERMITE EXTERMINATOR will continue to follow during inpatient stay. Frequency/Duration: M-F Date Range for Service Req: Timeline to reassess: PRN Resident Care Provider Clinican/Clinical Fellow: No Supervisory Statement: I have reviewed and agree with the student/clinical fellow's documentation: N/A Speech Language Pathologist: Gem Lopez M.S., CCC-TERMITE EXTERMINATOR
== END 2024-09-03 14:29 | disposition skilled nursing facility (03) | DRG 897 ==
LOC: HO.ED 08-29 01:25 → HO.EDOVER 08-29 02:03 → HO.IMC 08-29 07:33
PROVIDERS: Nurse Practitioner Family; Admitting Provider Internal Medicine; Emergency Provider Emergency Medicine; PCP Internal Medicine; Visit Provider Hospitalist
DX: F10.139 Alcohol abuse with withdrawal, unspecified (principal); E87.6 Hypokalemia; I25.10 Atherosclerotic heart disease of native coronary artery without angina pectoris; W19.XXXA Unspecified fall, initial encounter; Y90.6 Blood alcohol level of 120-199 mg/100 ml; K29.20 Alcoholic gastritis without bleeding; E55.9 Vitamin D deficiency, unspecified; F32.A Depression, unspecified; E78.5 Hyperlipidemia, unspecified; K20.80 Other esophagitis without bleeding; I10 Essential (primary) hypertension; D53.9 Nutritional anemia, unspecified; K21.9 Gastro-esophageal reflux disease without esophagitis; S09.90XA Unspecified injury of head, initial encounter; E83.42 Hypomagnesemia; G89.29 Other chronic pain; R33.9 Retention of urine, unspecified; F17.210 Nicotine dependence, cigarettes, uncomplicated; F10.120 Alcohol abuse with intoxication, uncomplicated; Z71.6 Tobacco abuse counseling; R94.31 Abnormal electrocardiogram [ECG] [EKG]; Z23 Encounter for immunization; Z79.899 Other long term (current) drug therapy
CPT/HCPCS: 36415; 70450; 71045; 72125; 80048; 80053; 80076; 80307; 81003; 82306; 82550; 83735; 84132; 84443; 84484; 85025; 90656; 92526; 92610; 93005; 97116; 97161; 97530; 99285; J2405; J2560; J3411; J3475; J3480

== ENCOUNTER → 2024-08-28 19:39 | Outpatient (BNV) | payer MEDICARE, SELFPAY | PROVIDERS: Admitting Provider Internal Medicine; Emergency Provider Emergency Medicine; PCP Internal Medicine; Visit Provider Internal Medicine | DX: R94.31 Abnormal electrocardiogram [ECG] [EKG] (principal) | CPT/HCPCS: 93010 ==

== ENCOUNTER 2024-08-29 01:40 | Outpatient (BNV) | payer MEDICARE, SELFPAY | END 2024-09-01 09:45 | PROVIDERS: Admitting Provider Internal Medicine; Emergency Provider Emergency Medicine; PCP Internal Medicine; Visit Provider Internal Medicine Cardiovascular Disease | DX: R94.31 Abnormal electrocardiogram [ECG] [EKG] (principal) | CPT/HCPCS: 93010 ==

== ENCOUNTER 2024-08-29 01:40 | Outpatient (BNV) | payer MEDICARE, SELFPAY | END 2024-08-29 12:00 | PROVIDERS: Admitting Provider Internal Medicine; Emergency Provider Emergency Medicine; PCP Internal Medicine; Visit Provider Internal Medicine | DX: R94.31 Abnormal electrocardiogram [ECG] [EKG] (principal) | CPT/HCPCS: 93010 ==

== ENCOUNTER 2024-08-29 01:40 | Outpatient (BNV) | payer MEDICARE, SELFPAY | END 2024-09-01 07:00 | PROVIDERS: Admitting Provider Internal Medicine; Emergency Provider Emergency Medicine; PCP Internal Medicine; Visit Provider Radiology Diagnostic Radiology | DX: R05.9 Cough, unspecified (principal) | CPT/HCPCS: 71045 ==

== ENCOUNTER → 2024-08-29 01:40 | Outpatient (BNV) | payer MEDICARE, SELFPAY | PROVIDERS: Admitting Provider Internal Medicine; Emergency Provider Emergency Medicine; PCP Internal Medicine; Visit Provider Internal Medicine | DX: E87.6 Hypokalemia (principal); R94.31 Abnormal electrocardiogram [ECG] [EKG]; F10.920 Alcohol use, unspecified with intoxication, uncomplicated | CPT/HCPCS: 99222; 99232; 99239; 99499 ==

== ENCOUNTER 2024-09-11 10:17 | Outpatient (AMB) | payer MEDICARE, SELFPAY ==
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
[2024-09-11 10:23] VITALS: BP 110/62; PULSE 97; BMI 28.8
== END 2024-09-11 10:41 | disposition home or self-care (01) ==
PROVIDERS: PCP Internal Medicine; Visit Provider Internal Medicine
DX: I25.10 Atherosclerotic heart disease of native coronary artery without angina pectoris (principal); I65.23 Occlusion and stenosis of bilateral carotid arteries; I10 Essential (primary) hypertension; F10.20 Alcohol dependence, uncomplicated
CPT/HCPCS: 99214

== ENCOUNTER → 2024-09-11 10:17 | Outpatient (BNVA) | payer MEDICARE, SELFPAY | PROVIDERS: PCP Internal Medicine; Visit Provider Internal Medicine | DX: I25.10 Atherosclerotic heart disease of native coronary artery without angina pectoris (principal); I10 Essential (primary) hypertension; I65.23 Occlusion and stenosis of bilateral carotid arteries; F10.20 Alcohol dependence, uncomplicated | CPT/HCPCS: 99212 ==

== ENCOUNTER 2024-09-16 07:47 | Outpatient (AMB) | payer MEDICARE, SELFPAY ==
--- NOTE | 2024-09-16 07:55 | MHC.PC.OV ---
Vital Signs 09/16/24 07:56 Height 5 ft 8 in Weight 192 lb BMI 29.2 BP 144/82 H Blood Pressure Location Lt brachial Position Sitting Pulse 85 Pulse Source Pulse Oximeter Pulse Oximetry (%) 97 Oxygen Delivery Method Room Air Intake Visit Reasons: [place] 09/03 Allergies mirtazapine Adverse Reaction (Intermediate, Verified 09/16/24 07:57) Dizziness Tobacco use date assessed: 07/30/24 Fall risk assessment: 1 Fall in past year Last assessed Fall Risk: 09/16/24 Dental Screening Dental Screen Date: 09/16/24 Did you have a dental visit in the last 12 months?: No Did you have a dental problem in the last 6 months where you did not have access to dental care?: No Was dental information given to patient?: No HPI HPI Comments History of Present Illness Details 69 y/o male patient who presents to the clinic for HDF. He was admitted at [facility] on 08/29/24 - 09/03/24 due to alcohol intoxication and Hypokalemia. He was discharged to [facility], where he stayed there from 09/03 - 09/11. Pt reports left the SNF AMA (discharged himself) because they were not doing much for him they were feeding me Puree foods . Denies drinking alcohol for 3 weeks now, but admits drinking Nyquil every night for sleep. Pt asking for Physical therapy, because his lower extremities are weak and has difficulty time going up the stairs. [facility] Medical History (Updated 09/11/24 @ 00:03 by Background Daaftab) Fall Lumbar radiculopathy Overweight (BMI 25.0-29.9) Vitamin D deficiency Depression Mixed hyperlipidemia Hypovitaminosis D Mild recurrent major depression Tiredness Alcoholism Alcohol abuse Bilateral carotid artery stenosis Aortic valve sclerosis Atherosclerotic cardiovascular disease Essential hypertension Dyslipidemia Leukocytosis Insomnia Hx of lymphoma Smoker Aortic valve calcification ASHD (arteriosclerotic heart disease) History of CVA with residual deficit Hx of multiple pulmonary nodules CAD (coronary artery disease) Surgical History Cataracts, bilateral Hx of cardiac catheterization History of thoracic surgery H/O total shoulder replacement H/O colonoscopy Family History Father Alcohol abuse Mother No problems noted. Daughter No problems noted. Son No problems noted. Sister No problems noted. Other Substance use disorder Social History Household Members: None Household Members Other:: on dialysis Housing: Other Housing Other:: mobile home Are you a primary child care center assistant director to a significant other at home: No Do you presently have visiting nurse or other home services: No Alcohol intake: current Alcohol intake frequency: 3 or more drinks per day Alcohol type: beer and hard liquor Patient Tobacco Use Status: Current everyday Tobacco user Tobacco use type: Cigarette Cigarette Packs Per Day: 1 Cigarettes Per Day: 26 Years Smoked: 50+ e-Cigarette/Vaping Use: Currently Using Second Hand Smoke Exposure: No service: No Current occupational status: disabled Cognitive needs: Yes Hearing needs: No Vision needs: Yes Questionnaire PHQ-9 Over the last 2 weeks, how often have you been bothered by any of the following problems? 1. Little interest or pleasure in doing things: not at all 2. Feeling down, depressed, or hopeless: several days 3. Trouble falling or staying asleep, or sleeping too much: more than half the days 4. Feeling tired or having little energy: not at all 5. Poor appetite or overeating: more than half the days 6. Feeling bad about yourself - or that you are a failure or have let yourself or your family down: not at all 7. Trouble concentrating on things, such as reading the newspaper or watching television: not at all 8. Moving or speaking so slowly that other people could have noticed. Or the opposite - being so fidgety or restless that you have been moving around a lot more than usual: not at all 9. Thoughts that you would be better off or of hurting yourself in some way: not at all Total score: 5 Depression Screening Interpretation: Positive Depression Screening Follow-up: Existing condition and In treatment Depression Screening Done: Yes 70944 - PHQ-9 Billing: Yes Source: Developed by Drs. Rufus Lewis, Aretha Resendiz, Kelby Tompkins and colleagues, with an educational aide from [employer]. Thrive Questionnaire Date Thrive assessed: 08/29/24 AUDIT C Alcohol Use Questionnaire (AUDIT-C) 1. How often do you have a drink containing alcohol?: 4 or more times a week 2. How many drinks containing alcohol do you have on a typical day when you are drinking?: 3 or 4 3. How often do you have six or more drinks on one occasion?: Less than monthly Total Score: 6 Score Reviewed/Action Taken: Yes MATTHIAS-7 AMB Questionnaire MATTHIAS-7 Date MATTHIAS - 7 assessed: 07/30/24 Source: Developed by Drs. Rufus Lewis, Aretha Resendiz, Kelby Tompkins and colleagues, with an educational aide from [employer]. Review of Systems Const All systems reviewed & are unremarkable except as noted in HPI and below Physical exam (Primary Care) Vital Signs: Last Vital Signs Pulse 85 09/16/24 07:56 BP 144/82 H 09/16/24 07:56 Pulse Ox 97 09/16/24 07:56 Oxygen Delivery Method Room Air 09/16/24 07:56 BMI result Body Mass Index 29.2 Tobacco/Smoking Status: Tobacco use Status Tobacco use date assessed 07/30/24 09/16/24 07:55 Patient Tobacco Use Status Current everyday Tobacco 09/16/24 08:04 Tobacco use type Cigarette 09/16/24 07:55 e-Cigarette/Vaping Use Currently Using 09/16/24 07:55 PHQ-9: PHQ-9 Score PHQ-9: Total score 5 09/16/24 08:04 Depression Screening Interpretation: Positive Depression Screening Follow-up: Existing condition and In treatment Thrive Assessment: Date of Thrive Assessment Date Thrive assessed 08/29/24 09/16/24 07:55 Const General: cooperative, no acute distress, ill appearing chronically and poor hygiene Nutritional Appearance: overweight Orientation/consciousness: patient oriented x3 Limitations: ambulation with cane Resp Effort & Inspection: normal respiratory effort Auscultation: clear to auscultation bilaterally Cardio Heart sounds: S1 normal heart sound present and S2 normal heart sound present Neuro General: patient oriented x3 and moves all extremities Coding Level of Care Code Est Pt Level 4 (35778) Diagnoses Hospital discharge follow-up Z09 Weakness of both legs R29.898 Additional Codes PHQ-9 - 07193 - PHQ-9 Billing: Yes ([id number]) Time Spent (min) 20 Assessment & Plan Assessment & Plan (1) Hospital discharge follow-up: Code(s): Z09 - Encounter for follow-up examination after completed treatment for conditions other than malignant neoplasm Plan: Stable. He continues f/u with his Motorman/Woman as scheduled. (2) Weakness of both legs: Code(s): R29.898 - Other symptoms and signs involving the musculoskeletal system Category: Medical Plan: Ordered Physical therapy. Orders: Orders PT Evaluation and Treatment Today R29.898 - Other symptoms and signs involving the musculoskeletal system
[2024-09-16 07:56] VITALS: BP 144/82; PULSE 85; O2SAT 97; BMI 29.2
== END 2024-09-16 08:21 | disposition home or self-care (01) ==
PROVIDERS: PCP Internal Medicine; Visit Provider Nurse Practitioner Family
DX: Z09 Encounter for follow-up examination after completed treatment for conditions other than malignant neoplasm (principal); R29.898 Other symptoms and signs involving the musculoskeletal system

== ENCOUNTER → 2024-09-16 07:47 | Outpatient (BNVA) | payer MEDICARE, SELFPAY | PROVIDERS: PCP Internal Medicine; Visit Provider Nurse Practitioner Family | DX: R29.898 Other symptoms and signs involving the musculoskeletal system (principal) | CPT/HCPCS: 96127; 99212 ==

== ENCOUNTER 2024-09-17 10:15 | Outpatient (REF) | payer MEDICARE, SELFPAY ==
--- NOTE | ~2024-09-17 | US_ITS ---
EXAMINATION: US EXTRACRANIAL CAROTID DUPLEX, BILATERAL CLINICAL INFORMATION: Occlusion and stenosis of bilateral carotid arteries. COMPARISON: Carotid ultrasound 07/21/2022. TECHNIQUE: Real-time ultrasound and Doppler techniques (integrating B-mode 2-D vascular images, Doppler spectral analysis and color-flow Doppler imaging) were utilized to interrogate the extracranial carotid arteries, the vertebral arteries and proximal subclavian arteries bilaterally. The degree of stenosis is determined by criteria similar to NASCET. FINDINGS: Right Side: 1. There is mild atherosclerotic plaque seen in the bifurcation/proximal ICA region. 2. The common carotid artery PSV proximally is 94 cm/s and distally 72 cm/s. 3. The proximal internal carotid artery velocities are 89 cm/s systolic and 22 cm/s diastolic. 4. The proximal external carotid artery PSV is 200 cm/s. 5. The vertebral artery shows antegrade flow. 6. The subclavian artery waveforms are normal. Left Side: 1. There is moderate atherosclerotic plaque seen in the bifurcation/proximal ICA region. 2. The common carotid artery PSV proximally is 79 cm/s and distally 86 cm/s. 3. The proximal internal carotid artery velocities are 334 cm/s systolic and 85 cm/s diastolic. 4. The proximal external carotid artery PSV is 359 cm/s. 5. The vertebral artery shows no flow and likely occluded. Although this was not mentioned at the time of the prior exam, similar findings were present. 6. The subclavian artery waveforms are 173. US/US carotid duplex BI IMPRESSION: 1. RIGHT: Minimal, non-hemodynamically significant stenosis of the proximal right internal carotid artery corresponding to a 0-49% stenosis by velocity criteria. A right ECA stenosis is noted similar to prior. 2. LEFT: Moderate, hemodynamically significant stenosis of the proximal left internal carotid artery corresponding to a 50-79% stenosis by velocity criteria. The left vertebral artery continues to demonstrate evidence of occlusion. 3. There is no change in the category severity of disease when compared to the previous study dated 07/21/2022. Electronically signed by: Tre Manriquez MD 09/22/2024 11:46 PM [facility]
== END 2024-09-17 10:16 | disposition home or self-care (01) ==
LOC: HO.HMGCX 10:15
PROVIDERS: PCP Internal Medicine; Visit Provider Internal Medicine
DX: I65.23 Occlusion and stenosis of bilateral carotid arteries (principal)
CPT/HCPCS: 93880

== ENCOUNTER 2024-10-04 19:04 | Emergency (ER) | payer MEDICARE, SELFPAY ==
--- NOTE | 2024-10-04 | ECG_ITS ---
Test Reason : FALL Blood Pressure : / mmHG Vent. Rate : 070 BPM Atrial Rate : 070 BPM P-R Int : 128 ms QRS Dur : 124 ms QT Int : 460 ms P-R-T Axes : 065 075 012 degrees QTc Int : 496 ms Normal sinus rhythm Right bundle branch block Abnormal ECG When compared with ECG of 01-SEP-2024 09:45, No significant change was found Referred By: Generic ED Physician Electronically Signed By:Jim Naranjo
[2024-10-04 19:15] VITALS: BP 128/68; PULSE 84; O2SAT 95
[2024-10-04 19:30] VITALS: BP 130/66; PULSE 64; RESP 18; TEMP 36.1; O2SAT 97; BMI 30.9
--- NOTE | 2024-10-04 19:51 | PC.NURSE ---
pt biba from home, a&ox4, respirations even and unlabored. 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 pt reports etoh use, reports daily use. denies withdrawal at this time. pt noted to have bruising on bilateral arms and legs with right arm skin tears. pt changed into hospital gown at this time.
--- NOTE | 2024-10-04 19:55 | PC.NURSE ---
on arrival pt was changed over to a hospital gown. Pt has a shirt, wallet, cell phone, deisi shirt and sweat pants with socks no shoes seen. Pt has his pants on and checked for items which there where none in his pant pockets.
--- NOTE | 2024-10-04 19:56 | PC.NURSE ---
pt noted to have skin tare to the right outer arm, dry clean gauze placed at this time.
[2024-10-04 20:46] LABS: MANUAL DIFF FLAG NO
[2024-10-04 20:47] LABS: Basophils Percent Auto 0.4 % (0-2); Eosinophils Absolute Auto 0.2 X10*3/uL (0.0-0.4); Eosinophils Percent Auto 2.1 % (0-4); Hematocrit 37.3 % (42.0-52.0); Hemoglobin 12.7 g/dl (14.0-18.0); Imm Gran Abs Auto 0.02 X10*3/uL (0.00-0.03); Imm Gran Pct Auto 0.3 % (0.0-0.4); Lymphocytes Absolute Auto 2.8 X10*3/uL (1.2-4.9); Lymphocytes Percent Auto 35.3 % (20-40); Mean Corpuscular Hemoglobin 34.7 pg (27.0-33.0); Mean Corpuscular Volume 101.9 fL (80.0-98.0); Mean Platelet Volume 9.2 fL (9.4-12.4); Monocytes Absolute Auto 0.5 X10*3/uL (0.1-1.2); Monocytes Percent Auto 6.5 % (2-11); Neutrophils Absolute Auto 4.4 x10*3/uL (2.0-8.3); Neutrophils Percent Auto 55.4 % (45-73); Platelet Count 192 X10*3/uL (160-400); Red Blood Count 3.66 X10*6/uL (4.60-5.80)
[2024-10-04 20:48] LABS: Appearance Urine Clear; Color Urine Yellow; Glucose Urine UA Negative (Negative); Leukocyte Esterase Urine Negative (Negative); Nitrite Urine Negative (Negative); PH 5.5 (5.0-9.0); Specific Gravity - Urine <= 1.005 (1.005-1.025); Urine Blood Negative (Negative); Urine Ketones Negative (Negative); Urine Protein Negative (Neg-Trace)
[2024-10-04 20:53] LABS: Bacteria Urine None Seen (None Seen); RBC Urine 0-2 /HPF (0-2); Squamous Epithelial Cell Urine 0-2 /HPF (0-2); WBC Urine 0-5 /HPF (0-5)
[2024-10-04 21:01] LABS: Alanine Aminotransferase 12 U/L (0-40); Albumin Level 3.2 g/dL (3.5-5.0); Alkaline Phosphatase 86 U/L (39-117); Anion Gap 17 (12-20); Aspartate Amino Transferase 29 U/L (5-37); Bilirubin Total 0.2 mg/dL (0.0-1.0); Blood Urea Nitrogen 6 mg/dL (9-16); Calcium 8.5 mg/dL (8.4-10.2); Carbon Dioxide 18 mmol/L (22-29); Chloride 111 mmol/L (96-108); Creatinine Clr Calc Pharmacy 136.7; Estimated Glomerular Filt Rate > 60; Ethanol 222 mg/dL; Glucose Random 89 mg/dL (60-115); Potassium 3.2 mmol/L (3.3-5.1); Sodium 143 mmol/L (135-145); Total Protein 6.4 g/dL (6.5-8.0)
[2024-10-04 21:09] LABS: Troponin-I High Sensitivity 5.1 ng/L (<3.5-35.0)
--- NOTE | 2024-10-04 21:28 | ED_ITS ---
HPI - General Adult General Chief complaint: Fall Stated complaint: fall out of chair, etoh, dizzy, weak, chest pain Time Seen by Provider: 10/04/24 21:18 Source: patient Mode of arrival: EMS Limitations: no limitations History of Present Illness ED Provider: HPI narrative: Patient alcoholic had few drinks fell off from the chair slightly down comes here with superficial abrasion to the left forearm no head injury no loss of consciousness patient is behaving normally Related Data Home Medications ?Medication ?Instructions ?Recorded ?Confirmed pantoprazole 40 mg tablet,delayed 40 mg PO DAILY@0630 08/29/24 09/11/24 release triamcinolone acetonide 0.1 % 1 appl topical BID PRN Itching 08/29/24 09/11/24 topical ointment Previous Rx's ?Medication ?Instructions ?Recorded bed railing #1 ea 03/13/23 atorvastatin 80 mg tablet 80 mg PO DAILY #90 tabs 01/09/24 cyanocobalamin (vitamin B-12) 500 500 mcg PO DAILY 90 days #90 tabs 01/09/24 mcg tablet isosorbide mononitrate 30 mg 30 mg PO DAILY 90 days #90 tabs 01/09/24 tablet,extended release 24 hr cholecalciferol (vitamin D3) 25 25 mcg PO DAILY 90 days #90 caps 02/26/24 mcg (1,000 unit) capsule sertraline 50 mg tablet 50 mg PO DAILY 90 days #90 tabs 02/26/24 fenofibrate 54 mg tablet 54 mg PO DAILY #90 tabs 04/27/24 thiamine HCl (vitamin B1) 100 mg 100 mg PO DAILY #90 tabs 07/18/24 tablet magnesium oxide 400 mg (241.3 mg 400 mg PO DAILY #30 tabs 09/03/24 magnesium) tablet nicotine 21 mg/24 hr daily 21 mg transdermal DAILY #28 ea 09/03/24 transdermal patch tamsulosin 0.4 mg capsule 0.4 mg PO DAILY #30 caps 09/03/24 folic acid 1 mg tablet 1 mg PO DAILY #90 tabs 09/26/24 gabapentin 300 mg capsule 300 mg PO BEDTIME 90 days #90 caps 10/02/24 oxycodone-acetaminophen 5 mg-325 1 tab PO Q6H PRN pain 30 days #120 10/02/24 mg tablet tabs metoprolol succinate 25 mg 25 mg PO DAILY #90 tabs 10/04/24 tablet,extended release 24 hr Allergies Allergy/AdvReac Type Severity Reaction Status Date / Time mirtazapine AdvReac Intermediate Dizziness Verified 10/04/24 19:33 Review of Systems 2 Review of Systems: Yes all other systems are reviewed and are negative [facility] Past Medical History Medical History Fall Lumbar radiculopathy Overweight (BMI 25.0-29.9) Vitamin D deficiency Depression Mixed hyperlipidemia Hypovitaminosis D Mild recurrent major depression Tiredness Alcoholism Alcohol abuse Bilateral carotid artery stenosis Aortic valve sclerosis Atherosclerotic cardiovascular disease Essential hypertension Dyslipidemia Leukocytosis Insomnia Hx of lymphoma Smoker Aortic valve calcification ASHD (arteriosclerotic heart disease) History of CVA with residual deficit Hx of multiple pulmonary nodules CAD (coronary artery disease) Surgical History Cataracts, bilateral Hx of cardiac catheterization History of thoracic surgery H/O total shoulder replacement H/O colonoscopy Family History Family History Father Alcohol abuse Mother No problems noted. Daughter No problems noted. Son No problems noted. Sister No problems noted. Other Substance use disorder Social History Social History Household Members: None Household Members Other:: on dialysis Housing: Other Housing Other:: mobile home Are you a primary career technology teacher to a significant other at home: No Do you presently have visiting nurse or other home services: No Alcohol intake: current Alcohol intake frequency: 3 or more drinks per day Alcohol type: beer and hard liquor Patient Tobacco Use Status: Current everyday Tobacco user Tobacco use type: Cigarette Cigarette Packs Per Day: 1 Cigarettes Per Day: 26 Years Smoked: 50+ Smoked in Last 30 Days: No e-Cigarette/Vaping Use: Currently Using Second Hand Smoke Exposure: No Use of substances other than those prescribed or required for medical reasons: No Advance Directives: No Advance Directives Information Provided: No Do you have a plan to hurt others: No Plan service: No Current occupational status: disabled Cognitive needs: Yes Hearing needs: No Vision needs: Yes Physical Exam ED Vital Signs: Vital Signs - 24 hr 10/04/24 19:30 10/04/24 22:44 10/04/24 22:46 Temperature 97.0 F 98.0 F 98.0 F Pulse Rate 64 89 89 Respiratory Rate 18 16 16 Blood Pressure 130/66 114/41 L 114/41 L Pulse Oximetry 97 98 98 Oxygen Delivery Method Room Air Room Air Room Air BMI result Body Mass Index 30.9 Appearance: Alert. Oriented X3. No acute distress. ETOH Eyes: PERRLA, No Nystagmus ENT: Pharynx normal. Oral Mucosa moist Neck: Normal inspection. Neck supple. CVS: Normal heart rate and rhythm. Pulses normal. Respiratory: No respiratory distress. Equal air entry bilateral, no wheezing/rales/rhonchi Abdomen: Soft and nontender. Bowel sounds are present, no mass palpable, no CVA tenderness Skin: Skin warm and dry. Normal skin color. Normal skin turgor. Extremities: No lower extremity edema. No calf tenderness superficial abrasion right forearm Neuro: Oriented X 3. No motor deficit. No sensory deficit.No cerebellar signs , cranial nerves II-XII intact Medical Decision Making Medical Decision Making [facility] Narrative: Patient alcoholic mechanical fall family at bedside wants to take him home no signs of deeper injuries no signs of head injury Lab Data [facility] Lab Attestation statement: I reviewed the patient's lab results. 10/04/24 20:42 10/04/24 20:42 Labs: Lab Results 10/04/24 Range/Units 20:42 WBC 8.0 (4.8-10.8) X10*3/uL RBC 3.66 L (4.60-5.80) X10*6/uL Hgb 12.7 L (14.0-18.0) g/dl Hct 37.3 L (42.0-52.0) % MCV 101.9 H (80.0-98.0) fL MCH 34.7 H (27.0-33.0) pg MCHC 34.0 (31.0-36.0) g/dl RDW 13.0 (11.0-16.0) % Plt Count 192 (160-400) X10*3/uL MPV 9.2 L (9.4-12.4) fL Immature Gran % (Auto) 0.3 (0.0-0.4) % Neut % (Auto) 55.4 (45-73) % Lymph % (Auto) 35.3 (20-40) % [place] % (Auto) 6.5 (2-11) % Eos % (Auto) 2.1 (0-4) % Baso % (Auto) 0.4 (0-2) % Lymph # (Auto) 2.8 (1.2-4.9) X10*3/uL [place] # (Auto) 0.5 (0.1-1.2) X10*3/uL Eos # (Auto) 0.2 (0.0-0.4) X10*3/uL Baso # (Auto) 0.0 (0.0-0.2) X10*3/uL Abs Immat Gran (auto) 0.02 (0.00-0.03) X10*3/uL Absolute Neuts (auto) 4.4 (2.0-8.3) x10*3/uL Absolute Nucleated RBC 0.000 (0.0-0.012) X10*3/uL Nucleated RBC % (auto) 0.0 (0.0-0.2) /100WBC Sodium 143 (135-145) mmol/L Potassium 3.2 L D (3.3-5.1) mmol/L Chloride 111 H (96-108) mmol/L Carbon Dioxide 18 L (22-29) mmol/L Anion Gap 17 (12-20) BUN 6 L (9-16) mg/dL Creatinine 0.57 (0.5-1.4) mg/dL Estim Creat Clear Calc 136.7 Estimated GFR > 60 Random Glucose 89 (60-115) mg/dL Calcium 8.5 (8.4-10.2) mg/dL Total Bilirubin 0.2 (0.0-1.0) mg/dL AST 29 (5-37) U/L ALT 12 (0-40) U/L Alkaline Phosphatase 86 (39-117) U/L Troponin I High Sens 5.1 (<3.5-35.0) ng/L Total Protein 6.4 L (6.5-8.0) g/dL Albumin 3.2 L (3.5-5.0) g/dL Urine Color Yellow Urine Appearance Clear Urine pH 5.5 (5.0-9.0) Ur Specific [place] <= 1.005 (1.005-1.025) Urine Protein Negative (Neg-Trace) mg/dL Urine Glucose (UA) Negative (Negative) mg/dL Urine Ketones Negative (Negative) mg/dL Urine Blood Negative (Negative) Urine Nitrite Negative (Negative) Ur Leukocyte Esterase Negative (Negative) Urine RBC 0-2 (0-2) /HPF Urine WBC 0-5 (0-5) /HPF Ur Squamous Epith Cells 0-2 (0-2) /HPF Urine Bacteria None Seen (None Seen) Hyaline Casts 3-5 (0-2) /LPF Ethyl Alcohol 222 mg/dL Discharge Plan Discharge Clinical Impression: Alcoholism, Frequent falls Patient Disposition: Home, Self-Care Instructions: Fall Prevention (ED), Alcohol Use Disorder (ED) Additional Instructions: Stop drinking Care and cautions as advised Prescriptions: No Action (DME) bed railing See Rx Instructions .Route .MEDSUPPLY Qty: 1 0RF Rx Instructions: As directed sertraline 50 mg tablet 50 mg PO DAILY 90 Days Qty: 90 1RF cholecalciferol (vitamin D3) 25 mcg (1,000 unit) capsule 25 mcg PO DAILY 90 Days Qty: 90 1RF fenofibrate 54 mg tablet 54 mg PO DAILY Qty: 90 1RF thiamine HCl (vitamin B1) 100 mg tablet 100 mg PO DAILY Qty: 90 0RF folic acid 1 mg tablet 1 mg PO DAILY Qty: 90 0RF gabapentin 300 mg capsule 300 mg PO BEDTIME 90 Days Qty: 90 3RF oxycodone-acetaminophen 5-325 mg tablet 1 tab PO Q6H PRN (Reason: pain) 30 Days Qty: 120 0RF Rx Instructions: Partial Fill upon patient request. metoprolol succinate 25 mg tablet extended release 24 hr 25 mg PO DAILY Qty: 90 2RF triamcinolone acetonide 0.1 % ointment 1 appl topical BID PRN (Reason: Itching) pantoprazole 40 mg tablet,delayed release (DR/EC) 40 mg PO DAILY@0630 nicotine 21 mg/24 hr Patch 24 Hour 21 mg transdermal DAILY Qty: 28 0RF magnesium oxide 400 mg (241.3 mg magnesium) Tablet 400 mg PO DAILY Qty: 30 0RF tamsulosin 0.4 mg Capsule 0.4 mg PO DAILY Qty: 30 0RF atorvastatin 80 mg tablet 80 mg PO DAILY Qty: 90 3RF cyanocobalamin (vitamin B-12) 500 mcg tablet 500 mcg PO DAILY 90 Days Qty: 90 1RF isosorbide mononitrate 30 mg tablet extended release 24 hr 30 mg PO DAILY 90 Days Qty: 90 3RF Interventions: ED Discharge Assessment Last Done: 10/04/24 22:46 Discharge Date/Time: 10/04/24 22:47 Print Language: Micronesian
[2024-10-04 22:44] VITALS: BP 114/41; PULSE 89; RESP 16; TEMP 36.7; O2SAT 98
[2024-10-04 22:46] VITALS: BP 114/41; PULSE 89; RESP 16; TEMP 36.7; O2SAT 98
== END 2024-10-04 22:47 | disposition home or self-care (01) ==
PROVIDERS: Emergency Provider Internal Medicine; PCP Internal Medicine
DX: F10.10 Alcohol abuse, uncomplicated (principal); Y90.7 Blood alcohol level of 200-239 mg/100 ml; R29.6 Repeated falls; Z91.81 History of falling; F17.210 Nicotine dependence, cigarettes, uncomplicated; I10 Essential (primary) hypertension; E78.5 Hyperlipidemia, unspecified; Z79.899 Other long term (current) drug therapy; Z79.02 Long term (current) use of antithrombotics/antiplatelets
CPT/HCPCS: 36415; 80053; 80307; 81001; 84484; 85025; 93005; 99285

== ENCOUNTER → 2024-10-04 19:54 | Outpatient (BNV) | payer MEDICARE, SELFPAY | PROVIDERS: Emergency Provider Internal Medicine; PCP Internal Medicine; Visit Provider Internal Medicine Cardiovascular Disease | DX: R94.31 Abnormal electrocardiogram [ECG] [EKG] (principal) | CPT/HCPCS: 93010 ==

== ENCOUNTER 2024-10-13 09:42 | Outpatient (RCR) | payer MEDICARE, SELFPAY ==
--- NOTE | 2024-10-13 10:51 | MHC.PT.EP ---
[facility] [place] Office [place] Office [place] Office [address] [place] [address] [phone] F: [phone] F: [phone] F: [phone] F: [phone] Physical Therapy Plan of Care Date of Evaluation: 10/13/24 Date of Surgery: n/a Diagnosis: LBP, B leg weakness Assessment: Patient is a 69 year old male presenting to PT with complaints of frequent falls. Pt reports onset of began worsening about 7 months due to insidious onset. He presents today with impairments in LE strength, balance, gait mechanics. Pt's current occupation is none, with baseline physical activities including ambulating, stair negotiation, ADLs. Pt expresses other sports official goal of reducing falls, and is motivated to work towards this in PT. Clinical presentation today is most consistent with signs and sx associated with frequent falls and pt will benefit from skilled PT 2 week x 4 weeks to address the following problems and impairments noted upon evaluation: LE strength, balance, gait mechanics. These problems limit the patient with the following functional activities: ambulating, stair negotiation, ADLs. The prescribed treatment plan of care is medically necessary. Co-morbidities of hx CVA, alcohol abuse were identified and taken into considerations of plan of care. Pt was educated on HEP, role of PT, prognosis, POC. Frequency and Duration: The patient will be seen 2 x week x 4 weeks Short Term Goals: Pt will demonstrate improved LE strength by 1/3 grade in 2 weeks. Pt will demonstrate compliance with use of walker for decreased risk of falls in 2 weeks. Pt will demonstrate ability to perform NBOS with min sway in 2 weeks x 30 sec. Longterm Goals: Pt will demonstrate improved LEFI score by 9 points in 4 weeks for improved functional mobility. Pt will demonstrate ability to negotiate stairs with decreased report of falls in 4 weeks for improved safety. Pt will demonstrate ability to ambulate community distances with walker and <1 fall a week in 4 weeks. Treatment Plan: Modalities to reduce pain, spasms and effusion. Manual therapy to restore motion and function. Therapeutic exercise to improve strength and flexibility. Neuromuscular re-education for posture and balance. Therapeutic activities to return to functional activities of daily living. Electronically signed by: Pamela Saeed, PT, DPT, ATC Please sign and return to therapist. Thank you for your referral.
--- NOTE | 2024-11-24 06:15 | MHC.PT.DC ---
[facility] [place] Office [place] Office [place] Office [address] Levi Wood [address] [phone] F: [phone] F: [phone] F: [phone] F: [phone] Physical Therapy Discharge Report Diagnosis: LBP, B leg weakness Date of Surgery: n/a Date of Evaluation: 10/13/24 Date of Discharge: 11/24/24 Treatments to Date: 1 Cancellations to Date: 0 No Shows to Date: 1 Discharge Status: Visit Non-compliance Discharge Summary: Pt no showed his only scheduled appointment since the eval and has not attended PT in >30 days. Therefore to be d/c. Electronically signed by: Pamela Saeed, PT, DPT, ATC Please sign and return to therapist. Thank you for your referral.
== END 2024-11-24 06:15 | disposition home or self-care (01) ==
LOC: HO.PTCHIC 09:42
PROVIDERS: PCP Internal Medicine; Visit Provider Nurse Practitioner Family
DX: M54.16 Radiculopathy, lumbar region (principal); R29.898 Other symptoms and signs involving the musculoskeletal system; M54.50 Low back pain, unspecified
CPT/HCPCS: 97162

== ENCOUNTER 2024-10-28 15:28 | Emergency (ER) | payer MEDICARE, SELFPAY ==
--- NOTE | ~2024-10-28 | CT_ITS ---
CLINICAL HISTORY: trauma CT Brain without contrast Comparison: CT/SR - CT HEAD/BRAIN WO IV CON - 08/28/24 20:40 EDT FINDINGS: Cortical sulci: There is diffuse prominence of the cortical sulci compatible with age-related atrophy. Ventricles: Normal for age Brain parenchyma: There is patchy lucency throughout the deep white matter indicating chronic microvascular leukomalacia. Extra axial spaces: Normal Posterior Fossa: Normal Extracranial soft tissues: Normal Additional abnormality: There is mucosal thickening of the bilateral maxillary sinus. IMPRESSION: Age-related atrophy with chronic microvascular leukomalacia. No hemorrhage, mass effect, or acute findings identified. This document has been electronically signed by: Ana Maria Jason MD on 10/28/2024 18:38:33
--- NOTE | ~2024-10-28 | CT_ITS ---
CLINICAL HISTORY: trauma CT cervical spine without contrast Comparison: CT/SR - CT CERVICAL SPINE WO IV CON - 08/28/24 20:40 EDT Findings: Examination is limited by motion artifact and artifact from the hardware. Normal vertebral body alignment. There is degenerative change. Anterior fusion of the C6-C7. No acute fractures or dislocations. No acute findings on limited view of the intracranial contents. Soft tissues of the neck are normal. Emphysema. IMPRESSION: No acute findings. This document has been electronically signed by: Ana Maria Jason MD on 10/28/2024 18:29:29
[2024-10-28 15:38] VITALS: BP 144/80; PULSE 74; O2SAT 98
[2024-10-28 15:40] VITALS: BP 129/71; PULSE 79; RESP 20; TEMP 36.4; O2SAT 98; BMI 30.4
[2024-10-28 16:27] VITALS: BP 105/63; PULSE 78; RESP 16; TEMP 36.3; O2SAT 98
[2024-10-28 18:30] LABS: Basophils Percent Auto 0.5 % (0-2); Eosinophils Absolute Auto 0.2 X10*3/uL (0.0-0.4); Hematocrit 37.3 % (42.0-52.0); Hemoglobin 12.8 g/dl (14.0-18.0); Imm Gran Abs Auto 0.03 X10*3/uL (0.00-0.03); Imm Gran Pct Auto 0.4 % (0.0-0.4); Lymphocytes Absolute Auto 2.5 X10*3/uL (1.2-4.9); Lymphocytes Percent Auto 31.4 % (20-40); Mean Corpuscular HGB Conc 34.3 g/dl (31.0-36.0); Mean Corpuscular Hemoglobin 34.9 pg (27.0-33.0); Mean Corpuscular Volume 101.6 fL (80.0-98.0); Mean Platelet Volume 9.3 fL (9.4-12.4); Monocytes Absolute Auto 0.4 X10*3/uL (0.1-1.2); Monocytes Percent Auto 5.3 % (2-11); Neutrophils Absolute Auto 4.9 x10*3/uL (2.0-8.3); Neutrophils Percent Auto 60.4 % (45-73); Platelet Count 187 X10*3/uL (160-400); Red Blood Count 3.67 X10*6/uL (4.60-5.80); Red Cell Distribution Width 13.3 % (11.0-16.0); White Blood Count 8.1 X10*3/uL (4.8-10.8)
[2024-10-28 18:51] LABS: Alanine Aminotransferase 14 U/L (0-40); Albumin Level 3.1 g/dL (3.5-5.0); Alkaline Phosphatase 102 U/L (39-117); Anion Gap 15 (12-20); Aspartate Amino Transferase 36 U/L (5-37); Bilirubin Total 0.3 mg/dL (0.0-1.0); Blood Urea Nitrogen 9 mg/dL (9-16); Calcium 8.4 mg/dL (8.4-10.2); Carbon Dioxide 18 mmol/L (22-29); Chloride 115 mmol/L (96-108); Creatinine Clr Calc Pharmacy 140.5; Estimated Glomerular Filt Rate > 60; Ethanol 124 mg/dL; Glucose Random 75 mg/dL (60-115); Magnesium 1.7 mg/dL (1.6-2.6); Potassium 3.2 mmol/L (3.3-5.1); Sodium 145 mmol/L (135-145); Total Protein 6.2 g/dL (6.5-8.0)
[2024-10-28 19:09] VITALS: BP 146/67; PULSE 73; RESP 16; TEMP 36.8; O2SAT 95
[2024-10-28] MEDS: Potassium Chloride Packet 20 MEQ PACKET 40 MEQ PO (19:38)
--- NOTE | 2024-10-28 19:49 | ED.FALL ---
HPI - Fall General Chief Complaint: Fall Stated Complaint: etoh, fall, small nose lac & bruise under L eye Time Seen by Provider: 10/28/24 16:24 Source: patient Limitations: no limitations History of Present Illness ED Provider: Sandra Flores PA-C HPI Narrative: 69-year-old male with a history of alcohol abuse, frequent falls secondary to alcohol abuse and numerous vitamin deficiencies including B12 deficiency, thiamine deficiency with subsequent gait instability, anemia, hypertension, hyperlipidemia, chronic pain, presents after fall. Patient was getting out of bed and fell. Denies loss of consciousness. He is not on a blood thinner. Related Data Home Medications ?Medication ?Instructions ?Recorded ?Confirmed pantoprazole 40 mg tablet,delayed 40 mg PO DAILY@0630 08/29/24 09/11/24 release triamcinolone acetonide 0.1 % 1 appl topical BID PRN Itching 08/29/24 09/11/24 topical ointment Previous Rx's ?Medication ?Instructions ?Recorded bed railing #1 ea 03/13/23 atorvastatin 80 mg tablet 80 mg PO DAILY #90 tabs 01/09/24 cyanocobalamin (vitamin B-12) 500 500 mcg PO DAILY 90 days #90 tabs 01/09/24 mcg tablet isosorbide mononitrate 30 mg 30 mg PO DAILY 90 days #90 tabs 01/09/24 tablet,extended release 24 hr magnesium oxide 400 mg (241.3 mg 400 mg PO DAILY #30 tabs 09/03/24 magnesium) tablet nicotine 21 mg/24 hr daily 21 mg transdermal DAILY #28 ea 09/03/24 transdermal patch tamsulosin 0.4 mg capsule 0.4 mg PO DAILY #30 caps 09/03/24 gabapentin 300 mg capsule 300 mg PO BEDTIME 90 days #90 caps 10/02/24 oxycodone-acetaminophen 5 mg-325 1 tab PO Q6H PRN pain 30 days #120 10/02/24 mg tablet tabs metoprolol succinate 25 mg 25 mg PO DAILY #90 tabs 10/04/24 tablet,extended release 24 hr cholecalciferol (vitamin D3) 25 25 mcg PO DAILY 90 days #90 caps 10/10/24 mcg (1,000 unit) capsule fenofibrate 54 mg tablet 54 mg PO DAILY #90 tabs 10/10/24 folic acid 1 mg tablet 1 mg PO DAILY #90 tabs 10/10/24 thiamine HCl (vitamin B1) 100 mg 100 mg PO DAILY #90 tabs 10/10/24 tablet sertraline 50 mg tablet 50 mg PO DAILY 90 days #90 tabs 10/26/24 Allergies Allergy/AdvReac Type Severity Reaction Status Date / Time mirtazapine AdvReac Intermediate Dizziness Verified 10/28/24 15:47 Review of Systems Review of Systems: Unable to obtain as patient is intoxicated Yes all other systems are reviewed and are negative [facility] Past Medical History Attestation statement: The following information was validated with the patient. Medical History Fall Lumbar radiculopathy Overweight (BMI 25.0-29.9) Vitamin D deficiency Depression Mixed hyperlipidemia Hypovitaminosis D Mild recurrent major depression Tiredness Alcoholism Alcohol abuse Bilateral carotid artery stenosis Aortic valve sclerosis Atherosclerotic cardiovascular disease Essential hypertension Dyslipidemia Leukocytosis Insomnia Hx of lymphoma Smoker Aortic valve calcification ASHD (arteriosclerotic heart disease) History of CVA with residual deficit Hx of multiple pulmonary nodules CAD (coronary artery disease) Surgical History Cataracts, bilateral Hx of cardiac catheterization History of thoracic surgery H/O total shoulder replacement H/O colonoscopy Family History Family History Father Alcohol abuse Mother No problems noted. Daughter No problems noted. Son No problems noted. Sister No problems noted. Other Substance use disorder Social History Social History Household Members: None Household Members Other:: on dialysis Housing: Other Housing Other:: mobile home Are you a primary vp care management to a significant other at home: No Do you presently have visiting nurse or other home services: No Alcohol intake: current Alcohol intake frequency: 3 or more drinks per day Alcohol type: beer and hard liquor Patient Tobacco Use Status: Current everyday Tobacco user Tobacco use type: Cigarette Cigarette Packs Per Day: 1 Cigarettes Per Day: 26 Years Smoked: 50+ e-Cigarette/Vaping Use: Currently Using Second Hand Smoke Exposure: No Advance Directives: No Advance Directives Information Provided: No service: No Current occupational status: disabled Cognitive needs: Yes Hearing needs: No Vision needs: Yes Physical Exam Vital Signs: Vital Signs: Last Vital Signs Temp 98.3 F 10/28/24 19:09 Pulse 73 10/28/24 19:09 Resp 16 10/28/24 19:09 BP 146/67 H 10/28/24 19:09 Pulse Ox 95 10/28/24 19:09 O2 Del Method Room Air 10/28/24 19:09 BMI result Body Mass Index 30.4 Const: Other: Alert, signs of old head trauma on exam, he has numerous abrasions, bruising in different stages, scabs healing in various stages, disheveled, cachectic, Orientation/consciousness: patient oriented x3 Resp: Effort & Inspection: normal respiratory effort Cardio: Other: Normal peripheral perfusion Skin: Other: he has numerous abrasions, bruising in different stages, scabs healing in various stages over bilateral upper and lower extremity Neuro: Other: Antalgic gait, can walk without assistance, unsteady at times General: patient oriented x3, no focal motor deficits and CN's II-XI intact bilaterally Psych: Other: Cooperative Medications Administered Discontinued Medications Generic Name Dose Route Start Last Admin Trade Name Freq PRN Reason Stop Dose Admin Potassium Chloride 40 meq 10/28/24 18:57 10/28/24 19:38 Potassium Chloride Packet 20 Meq Packet PO 10/28/24 18:58 40 meq ONCE ONE Administration Medical Decision Making Medical Decision Making [facility] Narrative: 69-year-old male with a history of alcohol abuse, frequent falls secondary to alcohol abuse and numerous vitamin deficiencies including B12 deficiency, thiamine deficiency with subsequent gait instability, anemia, hypertension, hyperlipidemia, chronic pain, presents after fall. Patient was getting out of bed and fell. Denies loss of consciousness. He is not on a blood thinner. Problem: Alcohol abuse, vitamin deficiencies, gait instability History: Per patient I have considered the following differential diagnoses: Intracranial hemorrhage, cervical spine injury, fracture, dislocation, electrolyte abnormality Plan: Patient is well known to the emergency department secondary to his alcohol abuse and frequent falls, we will be scanning his head and neck. He is moving all extremities independently without discomfort I have low suspicion for fracture or dislocation. In the event that he has sustained an acute injury I will obtain screening labs. I have independently reviewed the following tests: Labs: No leukocytosis, stable anemia, potassium subtly low at 3.2 we will give 40 mEq orally, no additional electrolyte abnormality, ethanol 124 CT brain: IMPRESSION: Age-related atrophy with chronic microvascular leukomalacia. No hemorrhage, mass effect, or acute findings identified. This document has been electronically signed by: Ana Maria Jason MD on 10/28/2024 18:38:33 CT cervical spine:MPRESSION: No acute findings. This document has been electronically signed by: Ana Maria Jason MD on 10/28/2024 18:29:29 Lab Data 10/28/24 18:18 10/28/24 18:18 Labs: Lab Results 10/28/24 Range/Units 18:18 WBC 8.1 (4.8-10.8) X10*3/uL RBC 3.67 L (4.60-5.80) X10*6/uL Hgb 12.8 L (14.0-18.0) g/dl Hct 37.3 L (42.0-52.0) % MCV 101.6 H (80.0-98.0) fL MCH 34.9 H (27.0-33.0) pg MCHC 34.3 (31.0-36.0) g/dl RDW 13.3 (11.0-16.0) % Plt Count 187 (160-400) X10*3/uL MPV 9.3 L (9.4-12.4) fL Immature Gran % (Auto) 0.4 (0.0-0.4) % Neut % (Auto) 60.4 (45-73) % Lymph % (Auto) 31.4 (20-40) % Kerr % (Auto) 5.3 (2-11) % Eos % (Auto) 2.0 (0-4) % Baso % (Auto) 0.5 (0-2) % Lymph # (Auto) 2.5 (1.2-4.9) X10*3/uL Kerr # (Auto) 0.4 (0.1-1.2) X10*3/uL Eos # (Auto) 0.2 (0.0-0.4) X10*3/uL Baso # (Auto) 0.0 (0.0-0.2) X10*3/uL Abs Immat Gran (auto) 0.03 (0.00-0.03) X10*3/uL Absolute Neuts (auto) 4.9 (2.0-8.3) x10*3/uL Absolute Nucleated RBC 0.000 (0.0-0.012) X10*3/uL Nucleated RBC % (auto) 0.0 (0.0-0.2) /100WBC Sodium 145 (135-145) mmol/L Potassium 3.2 L (3.3-5.1) mmol/L Chloride 115 H (96-108) mmol/L Carbon Dioxide 18 L (22-29) mmol/L Anion Gap 15 (12-20) BUN 9 (9-16) mg/dL Creatinine 0.55 (0.5-1.4) mg/dL Estim Creat Clear Calc 140.5 Estimated GFR > 60 Random Glucose 75 (60-115) mg/dL Calcium 8.4 (8.4-10.2) mg/dL Magnesium 1.7 (1.6-2.6) mg/dL Total Bilirubin 0.3 (0.0-1.0) mg/dL AST 36 (5-37) U/L ALT 14 (0-40) U/L Alkaline Phosphatase 102 (39-117) U/L Total Protein 6.2 L (6.5-8.0) g/dL Albumin 3.1 L (3.5-5.0) g/dL Ethyl Alcohol 124 mg/dL Discharge Plan Discharge Clinical Impression: Alcohol abuse, Gait instability Patient Disposition: Home, Self-Care Additional Instructions: Patient left without the benefit of his discharge instructions Prescriptions: No Action (DME) bed railing See Rx Instructions .Route .MEDSUPPLY Qty: 1 0RF Rx Instructions: As directed gabapentin 300 mg capsule 300 mg PO BEDTIME 90 Days Qty: 90 3RF oxycodone-acetaminophen 5-325 mg tablet 1 tab PO Q6H PRN (Reason: pain) 30 Days Qty: 120 0RF Rx Instructions: Partial Fill upon patient request. metoprolol succinate 25 mg tablet extended release 24 hr 25 mg PO DAILY Qty: 90 2RF thiamine HCl (vitamin B1) 100 mg tablet 100 mg PO DAILY Qty: 90 0RF fenofibrate 54 mg tablet 54 mg PO DAILY Qty: 90 1RF folic acid 1 mg tablet 1 mg PO DAILY Qty: 90 0RF cholecalciferol (vitamin D3) 25 mcg (1,000 unit) capsule 25 mcg PO DAILY 90 Days Qty: 90 1RF sertraline 50 mg tablet 50 mg PO DAILY 90 Days Qty: 90 1RF triamcinolone acetonide 0.1 % ointment 1 appl topical BID PRN (Reason: Itching) pantoprazole 40 mg tablet,delayed release (DR/EC) 40 mg PO DAILY@0630 nicotine 21 mg/24 hr Patch 24 Hour 21 mg transdermal DAILY Qty: 28 0RF magnesium oxide 400 mg (241.3 mg magnesium) Tablet 400 mg PO DAILY Qty: 30 0RF tamsulosin 0.4 mg Capsule 0.4 mg PO DAILY Qty: 30 0RF atorvastatin 80 mg tablet 80 mg PO DAILY Qty: 90 3RF cyanocobalamin (vitamin B-12) 500 mcg tablet 500 mcg PO DAILY 90 Days Qty: 90 1RF isosorbide mononitrate 30 mg tablet extended release 24 hr 30 mg PO DAILY 90 Days Qty: 90 3RF Print Language: Japanese
[2024-10-28 19:50] LABS: MANUAL DIFF FLAG NO
--- NOTE | 2024-10-28 20:01 | PC.NURSE ---
pt given water, ambulated to the bathroom with steady gait. endorses pain in head but states he wants to go home and will take his oxycodone at home. provider aware, cleaned up elbow
[2024-10-28 22:54] VITALS: BP 146/67; PULSE 73; RESP 16; TEMP 36.8; O2SAT 95
== END 2024-10-28 22:55 | disposition home or self-care (01) ==
PROVIDERS: Physician Assistant Medical; Emergency Provider Emergency Medicine; PCP Internal Medicine
DX: S01.21XA Laceration without foreign body of nose, initial encounter (principal); S00.12XA Contusion of left eyelid and periocular area, initial encounter; M54.2 Cervicalgia; R51.9 Headache, unspecified; R26.89 Other abnormalities of gait and mobility; F10.129 Alcohol abuse with intoxication, unspecified; F17.210 Nicotine dependence, cigarettes, uncomplicated; Y90.6 Blood alcohol level of 120-199 mg/100 ml; W06.XXXA Fall from bed, initial encounter; Y93.89 Activity, other specified; Y92.092 Bedroom in other non-institutional residence as the place of occurrence of the external cause; Y99.8 Other external cause status; Z79.899 Other long term (current) drug therapy; Z51.81 Encounter for therapeutic drug level monitoring; Z91.81 History of falling
CPT/HCPCS: 36415; 70450; 72125; 80053; 80307; 83735; 85025; 99283; 99284

== ENCOUNTER → 2024-10-28 16:26 | Outpatient (BNV) | payer MEDICARE, SELFPAY | PROVIDERS: Emergency Provider Emergency Medicine; PCP Internal Medicine; Visit Provider Nuclear Medicine | DX: M43.22 Fusion of spine, cervical region (principal); G31.89 Other specified degenerative diseases of nervous system | CPT/HCPCS: 70450; 72125 ==

== ENCOUNTER 2024-11-17 15:20 | Outpatient (AMB) | payer MEDICARE, SELFPAY ==
--- NOTE | 2024-11-17 15:38 | A.OFFPC_ITS ---
Vital Signs 11/17/24 15:46 Height 5 ft 8 in Weight 182 lb BMI 27.7 BP 120/62 Blood Pressure Location Lt brachial Position Sitting Intake Visit Reasons: arms are black and blue Surgical Technologist Required: No Accompanied by: Self / Same As Patient Allergies mirtazapine Adverse Reaction (Intermediate, Verified 11/17/24 15:58) Dizziness Medication List - Last Reconciled 11/17/24 by Mayda Jeffries MD atorvastatin 80 mg PO DAILY [bed railing As directed] cholecalciferol (vitamin D3) 25 mcg PO DAILY 90 days cyanocobalamin (vitamin B-12) 500 mcg PO DAILY 90 days fenofibrate 54 mg PO DAILY folic acid 1 mg PO DAILY gabapentin 300 mg PO BEDTIME 90 days isosorbide mononitrate ER 30 mg PO DAILY 90 days magnesium oxide 400 mg PO DAILY metoprolol succinate ER 25 mg PO DAILY nicotine 21 mg transdermal DAILY oxycodone-acetaminophen 5-325 mg 1 tab PO Q6H PRN 30 days pantoprazole 40 mg PO DAILY@0630 sertraline 50 mg PO DAILY 90 days tamsulosin 0.4 mg PO DAILY thiamine HCl (vitamin B1) 100 mg PO DAILY triamcinolone acetonide 0.1% 1 appl topical BID PRN Tobacco use date assessed: 11/17/24 Fall risk assessment: 2 + Falls in past year Last assessed Fall Risk: 11/17/24 Dental Screening Dental Screen Date: 11/17/24 Did you have a dental visit in the last 12 months?: No Did you have a dental problem in the last 6 months where you did not have access to dental care?: No Was dental information given to patient?: Patient has dentist HPI HPI Comments History of Present Illness Details The patient is a 69-year-old male presenting with chronic dizziness, recurrent falls, and chronic knee and shoulder pain. The dizziness has been associated with frequent falls and has resulted in multiple bruises. The patient underwent a CT scan of the head, which revealed no acute findings but indicated chronic leukomalacia. The patient reports increased dizziness when turning around, contributing to falls. The patient also reports bilateral knee pain, exacerbated by walking and contributing to functional limitations, including difficulty climbing stairs. There is a history of bilateral shoulder surgeries due to pain, which persists. The shoulder pain has been increasing in severity, affecting the patient's ability to lift his legs. The patient has a history of essential hypertension, hyperlipidemia, and depression with anxiety, managed with sertraline. The patient is on several medi cations including atorvastatin, fenofibrate, and metoprolol for cardiovascular risk reduction. The patient also has gastroesophageal reflux disease managed with pantoprazole. Notably, there is an allergy to mirtazapine, which caused dizziness. He has alcoholism and is drinking less. [facility] Medical History (Updated 11/17/24 @ 16:24 by Mayda Jeffries MD) Fall Lumbar radiculopathy Overweight (BMI 25.0-29.9) Vitamin D deficiency Depression Mixed hyperlipidemia Hypovitaminosis D Mild recurrent major depression Tiredness Alcoholism Alcohol abuse Bilateral carotid artery stenosis Aortic valve sclerosis Atherosclerotic cardiovascular disease Essential hypertension Dyslipidemia Leukocytosis Insomnia Hx of lymphoma Smoker Aortic valve calcification ASHD (arteriosclerotic heart disease) History of CVA with residual deficit Hx of multiple pulmonary nodules CAD (coronary artery disease) Surgical History Cataracts, bilateral Hx of cardiac catheterization History of thoracic surgery H/O total shoulder replacement H/O colonoscopy Family History Father Alcohol abuse Mother No problems noted. Daughter No problems noted. Son No problems noted. Sister No problems noted. Other Substance use disorder Social History (Updated 11/17/24 @ 16:08 by Mayda Jeffries MD) Household Members: None Household Members Other:: on dialysis Housing: Other Housing Other:: mobile home Are you a primary career professional to a significant other at home: No Do you presently have visiting nurse or other home services: No Alcohol intake: current Alcohol intake frequency: a few times a week Alcohol type: beer Patient Tobacco Use Status: Current everyday Tobacco user Tobacco use type: Cigarette Cigarette Packs Per Day: 0.5 Cigarettes Per Day: 10 Years Smoked: 50+ e-Cigarette/Vaping Use: Currently Using Second Hand Smoke Exposure: No service: No Current occupational status: disabled Cognitive needs: Yes Hearing needs: No Vision needs: Yes Questionnaire PHQ-9 Over the last 2 weeks, how often have you been bothered by any of the following problems? 1. Little interest or pleasure in doing things: not at all 2. Feeling down, depressed, or hopeless: several days 3. Trouble falling or staying asleep, or sleeping too much: more than half the days 4. Feeling tired or having little energy: not at all 5. Poor appetite or overeating: more than half the days 6. Feeling bad about yourself - or that you are a failure or have let yourself or your family down: not at all 7. Trouble concentrating on things, such as reading the newspaper or watching television: not at all 8. Moving or speaking so slowly that other people could have noticed. Or the opposite - being so fidgety or restless that you have been moving around a lot more than usual: not at all 9. Thoughts that you would be better off or of hurting yourself in some way: not at all Total score: 5 Depression Screening Interpretation: Positive Depression Screening Follow-up: Existing condition, In treatment and Follow-up Visit Requested Depression Screening Done: Yes 26880 - PHQ-9 Billing: Yes Source: Developed by Drs. Rufus Lewis, Aretha Resendiz, Kelby Tompkins and colleagues, with an educational aide from [employer]. Thrive Questionnaire Date Thrive assessed: 11/17/24 I am a: Patient What is your living situation today?: I have a steady place to live Within the past 12 months, did the food you bought not last and you didn't have the money to get more?: Never true Within the past 12 months, did you worry whether your food would run out before you got money to buy more?: Never true Do you have trouble paying for medicines?: No Do you have trouble getting transportation to medical appointments?: No Do you have trouble paying your heating and electricity bill?: No Do you have trouble taking care of your child, family member or friend?: No Do you have trouble with day-to-day activities such as bathing, preparing meals, shopping, managing finances, etc.?: No Are you currently unemployed and looking for a job?: No Are you interested in more education?: No Please select the resources that you would like help with: None Currently or been in a relationship where the following occur: No concerns reported THRIVE Score: 0 AUDIT C Alcohol Use Questionnaire (AUDIT-C) 1. How often do you have a drink containing alcohol?: 2-3 times a week 2. How many drinks containing alcohol do you have on a typical day when you are drinking?: 1 or 2 3. How often do you have six or more drinks on one occasion?: Never Total Score: 3 Score Reviewed/Action Taken: No MATTHIAS-7 AMB Questionnaire MATTHIAS-7 Date MATTHIAS - 7 assessed: 11/17/24 Feeling nervous, anxious, or on edge: 0 = Not at all Not being able to stop or control worryin = Not at all Worrying too much about different things: 0 = Not at all Trouble relaxin = Not at all Being so restless that it is hard to sit still: 0 = Not at all Becoming easily annoyed or irritable: 0 = Not at all Feeling afraid as if something awful might happen: 0 = Not at all Total MATTHIAS-7 score (0-4 normal; 5-9 mild; 10-14 moderate; 15-21 severe): 0 Source: Developed by Drs. Rufus Lewis, Aretha Resendiz, Kelby Tompkins and colleagues, with an educational aide from [employer]. MATTHIAS-7 Assessment Billing MATTHIAS-7 Assessment Tool: MATTHIAS-7 Assessment 20434 Review of Systems Const All systems reviewed & are unremarkable except as noted in HPI and below Reports frequent falls ENT Reports dizziness and Reports neck pain Card Denies chest pain at rest, Denies chest pain with activity, Denies edema, Denies irregular heart rhythm, Denies claudication, Denies dyspnea, Denies dyspnea on exertion, Denies orthopnea, Denies paroxysmal nocturnal dyspnea and Denies slow heart rate Resp Denies cough, Denies dyspnea and Denies dyspnea on exertion GI Denies abdominal pain, Denies change in bowel habits, Denies excessive flatus, Denies nausea and Denies vomiting Musc Reports back pain, Reports arthralgias, Reports limited range of motion and Reports neck pain Neuro Reports dizziness and Reports frequent falls Physical exam (Primary Care) Vital Signs: Last Vital Signs BP 120/62 11/17/24 15:46 BMI result Body Mass Index 27.7 Tobacco/Smoking Status: Tobacco use Status Tobacco use date assessed 11/17/24 11/17/24 15:54 Patient Tobacco Use Status Current everyday Tobacco 11/17/24 15:41 Tobacco use type Cigarette 11/17/24 15:41 e-Cigarette/Vaping Use Currently Using 11/17/24 15:41 Are you ready to quit: No Tobacco cessation counseling provided: Yes Items discussed: Nicotine replacement and QuitWorks Relapse Prevention: discussed the importance of a supportive environment, discussed extending NRT, discussed negative mood or depression after quitting, weight gain after smoking is common and discussed dietary, exercise and/or lifestyle changes Number of minutes spent counselin CPT code: 73631 - 4-10 Minutes PHQ-9: PHQ-9 Score PHQ-9: Total score 5 11/17/24 15:54 Depression Screening Interpretation: Positive Depression Screening Follow-up: Existing condition, In treatment and Follow-up Visit Requested Thrive Assessment: Date of Thrive Assessment Date Thrive assessed 11/17/24 11/17/24 15:41 Currently or been in a relationship where the following occur: No concerns reported Const General: cooperative Resp Effort & Inspection: normal respiratory effort Auscultation: clear to auscultation bilaterally Cardio Jugular venous distension: no JVD Rate: regular rate Rhythm: regular rhythm Heart sounds: S1 normal heart sound present and S2 normal heart sound present Extrem Right upper extremity: shoulder/upper arm Details: abnormal ROM Left upper extremity: shoulder/upper arm Details: abnormal ROM Right lower extremity: knee Details: abnormal ROM Left lower extremity: knee Details: abnormal ROM Coding Level of Care Code Est Pt Level 4 (75602) Complex EM visit Add On G2211 Diagnoses Frequent falls R29.6 Left knee pain M25.562 Right knee pain M25.561 Gastroesophageal reflux disease without esophagitis K21.9 Esophagitis presence: without esophagitis Mild recurrent major depression F33.0 Alcoholism F10.20 Essential hypertension I10 Dyslipidemia E78.5 Additional Codes PHQ-9 - 97822 - PHQ-9 Billing: Yes ([id number]) MATTHIAS-7 Assessment Billing - MATTHIAS-7 Assessment Tool: MATTHIAS-7 Assessment 10413 ([id number]) Vital Signs *Quality* - CPT code: 90617 - 4-10 Minutes ([id number]) Time Spent (min) 25 Assessment & Plan Assessment & Plan (1) Frequent falls: Code(s): R29.6 - Repeated falls Category: Medical (2) Left knee pain: Code(s): M25.562 - Pain in left knee Category: Medical (3) Right knee pain: Code(s): M25.561 - Pain in right knee Category: Medical (4) GERD (gastroesophageal reflux disease): Code(s): K21.9 - Gastro-esophageal reflux disease without esophagitis Category: Medical Qualifiers: Esophagitis presence: without esophagitis Qualified Code(s): K21.9 - Gastro-esophageal reflux disease without esophagitis (5) Mild recurrent major depression: Code(s): F33.0 - Major depressive disorder, recurrent, mild Category: Medical (6) Alcoholism: Code(s): F10.20 - Alcohol dependence, uncomplicated Category: Medical (7) Essential hypertension: Code(s): I10 - Essential (primary) hypertension Category: Medical (8) Dyslipidemia: Code(s): E78.5 - Hyperlipidemia, unspecified Category: Medical Plan - Continue managing hypertension with metoprolol; monitor blood pressure regularly. - Continue atorvastatin and fenofibrate for hyperlipidemia; re-evaluate lipid panel in follow-up. - Assess knee and shoulder function for potential physical therapy, focusing on lower extremities. - Address dizziness and falls; consider an assistive device, and monitor for changes. - Encourage dietary improvements to address weight loss and nutritional deficiencies. - Discuss smoking cessation strategies to reduce cardiovascular risks. - Moderate alcohol use; advise against excessive drinking, given medication interactions. - Continue managing gastroesophageal reflux disease with pantoprazole. - Reinforce the use of a single pharmacy for medication management. - Pain management contract signed today. Patient was informed and verbally consented to the use of an ambient scribe for clinic note documentation during this visit. I discussed with the patient the potential benefit of physical therapy, specifically focusing on improving leg strength and functionality, to help with ambulation and decrease fall risk. We reviewed lifestyle modifications, including smoking cessation and reduced alcohol intake, to aid overall health and chronic disease management. I highlighted the importance of nutritional intake to prevent further weight loss and improve protein levels. I emphasized the significance of adhering to one pharmacy for medication management to avoid drug interactions and increased support for the current treatment regimen. Orders: Orders PT Evaluation and Treatment Today M25.561 - Pain in right knee, M25.562 - Pain in left knee Lipid Panel Today E78.5 - Hyperlipidemia, unspecified Vitamin B12 and Folate Today E53.8 - Deficiency of other specified B group vitamins Complete Blood Count Auto Diff Today D64.9 - Anemia, unspecified IRON PROFILE Today D64.9 - Anemia, unspecified Vitamin D 25-OH Total Today E55.9 - Vitamin D deficiency, unspecified Vitamin B1 Today E51.9 - Thiamine deficiency, unspecified Patient Instructions: - Use a walker to prevent falls and support ambulation, especially in unsafe conditions like snow. - Attend physical therapy sessions focused on leg strength and mobility. - Attempt to eat more balanced meals to improve nutritional intake and prevent further weight loss. - Maintain current medication regimen and obtain refills from a single pharmacy. - Monitor blood pressure regularly and report any significant changes. - Reduce cigarette consumption and consider cessation support options. - Limit alcohol intake and avoid drinking on days of medication usage or dizziness. - Continue using pantoprazole for heartburn management as prescribed.
[2024-11-17 15:46] VITALS: BP 120/62; BMI 27.7
== END 2024-11-17 16:17 | disposition home or self-care (01) ==
PROVIDERS: PCP Internal Medicine; Visit Provider Internal Medicine
DX: R29.6 Repeated falls (principal); M25.562 Pain in left knee; M25.561 Pain in right knee; K21.9 Gastro-esophageal reflux disease without esophagitis; F33.0 Major depressive disorder, recurrent, mild; F10.20 Alcohol dependence, uncomplicated; I10 Essential (primary) hypertension; E78.5 Hyperlipidemia, unspecified

== ENCOUNTER → 2024-11-17 15:20 | Outpatient (BNVA) | payer MEDICARE, SELFPAY | PROVIDERS: PCP Internal Medicine; Visit Provider Internal Medicine | DX: R29.6 Repeated falls (principal); M25.562 Pain in left knee; M25.561 Pain in right knee; K21.9 Gastro-esophageal reflux disease without esophagitis; F33.0 Major depressive disorder, recurrent, mild; F10.20 Alcohol dependence, uncomplicated; E78.5 Hyperlipidemia, unspecified; I10 Essential (primary) hypertension | CPT/HCPCS: 96127; 99212 ==

== ENCOUNTER → 2024-11-26 11:20 | Outpatient (BNVA) | payer MEDICARE, SELFPAY | PROVIDERS: PCP Internal Medicine ==

== ENCOUNTER 2025-01-12 18:44 | Emergency (ER) | payer MEDICARE, SELFPAY ==
--- NOTE | ~2025-01-12 | CT_ITS ---
CLINICAL HISTORY: trauma CT cervical spine without contrast Comparison: CT/NH/SR - CT CERVICAL SPINE WO IV CON - 10/28/24 16:53 EST Findings: Normal vertebral body alignment. Multilevel degenerative disc disease. No central canal stenosis. Status post anterior metallic and interbody fusion at C6-C7. Appropriate alignment. No evidence of hardware failure. No acute fracture. No acute findings on limited view of the intracranial contents. Soft tissues of the neck are normal. Mild scarring in the lung apices. There are severe atherosclerotic changes of the carotid arteries. IMPRESSION: No cervical spine fracture. This document has been electronically signed by: Zaira Matute MD on 01/12/2025 20:46:18
--- NOTE | ~2025-01-12 | CT_ITS ---
CLINICAL HISTORY: trauma CT head without contrast Comparison: CT/SR - CT HEAD/BRAIN WO IV CON - 10/28/24 16:53 EST Findings: No intra-axial mass, midline shift, hydrocephalus, or acute hemorrhage. Involutional change brain parenchyma, advanced for age. Mild white matter disease. There is no sinus or mastoid fluid. The orbits are unremarkable. There is a nasal bone fracture, likely chronic. There is a chronic fracture of the left zygomatic arch. IMPRESSION: 1. No acute intracranial findings. This document has been electronically signed by: Zaira Matute MD on 01/12/2025 20:33:45
[2025-01-12 19:08] VITALS: BP 152/84; PULSE 85; O2SAT 95; BMI 30.4
[2025-01-12 19:25] VITALS: BP 167/81; PULSE 80; RESP 16; TEMP 36.6; O2SAT 99
--- NOTE | 2025-01-12 19:33 | ED_ITS ---
HPI - Alcohol General Chief Complaint: ETOH/Substance Use Stated Complaint: etoh, fall last night Time Seen by Provider: 01/12/25 19:14 Source: patient Mode of arrival: EMS History of Present Illness HPI narrative: This is 69 years old male with a history of alcohol abuse presented to emergency department after a fall. He said that he fell 2 days ago he appeared intoxicated with alcohol. He denies any chest pain shortness of breath hip pain. Patient well known to this emergency department multiple ED visits for alcohol intoxication MD complaint: alcohol intoxication Last drink: Just prior to admission Chronic alcohol use: Yes Previous visits for alcohol intoxication: Yes Recent trauma: Yes Associated symptoms: denies other symptoms Treatments prior to arrival: none Related Data Home Medications ?Medication ?Instructions ?Recorded ?Confirmed triamcinolone acetonide 0.1 % 1 appl topical BID PRN Itching 08/29/24 11/17/24 topical ointment Previous Rx's ?Medication ?Instructions ?Recorded bed railing #1 ea 03/13/23 magnesium oxide 400 mg (241.3 mg 400 mg PO DAILY #30 tabs 09/03/24 magnesium) tablet nicotine 21 mg/24 hr daily 21 mg transdermal DAILY #28 ea 09/03/24 transdermal patch tamsulosin 0.4 mg capsule 0.4 mg PO DAILY #30 caps 09/03/24 gabapentin 300 mg capsule 300 mg PO BEDTIME 90 days #90 caps 10/02/24 metoprolol succinate 25 mg 25 mg PO DAILY #90 tabs 10/04/24 tablet,extended release 24 hr cholecalciferol (vitamin D3) 25 25 mcg PO DAILY 90 days #90 caps 10/10/24 mcg (1,000 unit) capsule fenofibrate 54 mg tablet 54 mg PO DAILY #90 tabs 10/10/24 thiamine HCl (vitamin B1) 100 mg 100 mg PO DAILY #90 tabs 10/10/24 tablet sertraline 50 mg tablet 50 mg PO DAILY 90 days #90 tabs 10/26/24 cyanocobalamin (vitamin B-12) 500 500 mcg PO DAILY 90 days #90 tabs 11/10/24 mcg tablet atorvastatin 80 mg tablet 80 mg PO DAILY #90 tabs 12/29/24 oxycodone-acetaminophen 5 mg-325 1 tab PO Q6H PRN pain 30 days #120 12/29/24 mg tablet tabs isosorbide mononitrate 30 mg 30 mg PO DAILY 90 days #90 tabs 12/31/24 tablet,extended release 24 hr folic acid 1 mg tablet 1 mg PO DAILY #90 tabs 01/07/25 pantoprazole 40 mg tablet,delayed 40 mg PO DAILY@0630 #90 tabs 01/07/25 release Allergies Allergy/AdvReac Type Severity Reaction Status Date / Time mirtazapine AdvReac Intermediate Dizziness Verified 01/12/25 19:12 Review of Systems 2 Constitutional: Constitutional: Reports no additional constitutional complaints Cardiovascular: Cardiovascular: Reports no additional cardiovascular complaints [facility] Past Medical History [facility] Narrative: Alcohol abuse Medical History Fall Lumbar radiculopathy Overweight (BMI 25.0-29.9) Vitamin D deficiency Depression Mixed hyperlipidemia Hypovitaminosis D Mild recurrent major depression Tiredness Alcoholism Alcohol abuse Bilateral carotid artery stenosis Aortic valve sclerosis Atherosclerotic cardiovascular disease Essential hypertension Dyslipidemia Leukocytosis Insomnia Hx of lymphoma Smoker Aortic valve calcification ASHD (arteriosclerotic heart disease) History of CVA with residual deficit Hx of multiple pulmonary nodules CAD (coronary artery disease) Surgical History Cataracts, bilateral Hx of cardiac catheterization History of thoracic surgery H/O total shoulder replacement H/O colonoscopy Family History Family History Father Alcohol abuse Mother No problems noted. Daughter No problems noted. Son No problems noted. Sister No problems noted. Other Substance use disorder Social History Social History Household Members: None Household Members Other:: on dialysis Housing: Other Housing Other:: mobile home Are you a primary care transport nurse to a significant other at home: No Do you presently have visiting nurse or other home services: No Alcohol intake: current Alcohol intake frequency: a few times a week Alcohol type: beer Patient Tobacco Use Status: Current everyday Tobacco user Tobacco use type: Cigarette Cigarette Packs Per Day: 0.5 Cigarettes Per Day: 10 Years Smoked: 50+ e-Cigarette/Vaping Use: Currently Using Second Hand Smoke Exposure: No Advance Directives: No Advance Directives Information Provided: No Do you have a plan to hurt others: No Plan service: No Current occupational status: disabled Cognitive needs: Yes Hearing needs: No Vision needs: Yes Physical Exam ED Vital Signs: Vital Signs - 24 hr 01/12/25 19:25 Temperature 98 F Pulse Rate 80 Respiratory Rate 16 Blood Pressure 167/81 H Pulse Oximetry 99 Oxygen Delivery Method Room Air BMI result Body Mass Index 30.4 Mild distress intoxicated Const General: cooperative Nutritional Appearance: well nourished Orientation/consciousness: patient oriented x3 HENMT Other: Multiple abrasion in the forehead Ears: hearing grossly normal bilaterally Mouth: Normal oral and palatal mucosa present Throat: Yes posterior oropharynx normal Neck Neck: Yes normal visual inspection Chest Chest palpation & inspection: normal inspection of the chest Resp Effort & Inspection: normal respiratory effort Auscultation: clear to auscultation bilaterally Cardio Jugular venous distension: no JVD Rate: regular rate Rhythm: regular rhythm GI Inspection: Yes normal to inspection Palpation (GI): Soft to palpation, not firm, nontender and no guarding Auscultation: normal bowel sounds Skin General skin exam: no rashes or lesions noted, elasticity normal and turgor normal Lesions: no lesions Rashes: no rashes Trauma: no lacerations or abrasions Wounds: no wounds Neuro General: patient oriented x3 Cranial nerves: Yes CN's II-XII intact bilaterally Course Reevaluation(s) Reevaluation #1: I am off shift now ,signed out to Dr Flores Time: 21:01 Medical Decision Making Medical Decision Making [facility] Narrative: Patient is here intoxicated with alcohol history of falls we will obtain CT scan of the head C-spine Differential Diagnosis Differential Diagnoses: The differential diagnosis associated with the presentation includes Subdural hematoma/epidural hematoma/cervical spine fracture Admission/Observation Consideration of admission/observation: Escalation of care including admission/observation considered Lab Data [facility] Lab Attestation statement: I reviewed the patient's lab results. 01/12/25 20:02 01/12/25 20:02 Labs: Lab Results 01/12/25 Range/Units 20:02 WBC 8.6 (4.8-10.8) X10*3/uL RBC 3.75 L (4.60-5.80) X10*6/uL Hgb 13.4 L (14.0-18.0) g/dl Hct 37.8 L (42.0-52.0) % MCV 100.8 H (80.0-98.0) fL MCH 35.7 H (27.0-33.0) pg MCHC 35.4 (31.0-36.0) g/dl RDW 12.6 (11.0-16.0) % Plt Count 200 (160-400) X10*3/uL MPV 9.6 (9.4-12.4) fL Immature Gran % (Auto) 0.3 (0.0-0.4) % Neut % (Auto) 68.9 (45-73) % Lymph % (Auto) 24.2 (20-40) % [place] % (Auto) 5.5 (2-11) % Eos % (Auto) 0.6 (0-4) % Baso % (Auto) 0.5 (0-2) % Lymph # (Auto) 2.1 (1.2-4.9) X10*3/uL [place] # (Auto) 0.5 (0.1-1.2) X10*3/uL Eos # (Auto) 0.1 (0.0-0.4) X10*3/uL Baso # (Auto) 0.0 (0.0-0.2) X10*3/uL Abs Immat Gran (auto) 0.03 (0.00-0.03) X10*3/uL Absolute Neuts (auto) 5.9 (2.0-8.3) x10*3/uL Absolute Nucleated RBC 0.000 (0.0-0.012) X10*3/uL Nucleated RBC % (auto) 0.0 (0.0-0.2) /100WBC Sodium 140 (135-145) mmol/L Potassium 3.0 L (3.3-5.1) mmol/L Chloride 108 (96-108) mmol/L Carbon Dioxide 19 L (22-29) mmol/L Anion Gap 16 (12-20) BUN 8 L (9-16) mg/dL Creatinine 0.67 (0.5-1.4) mg/dL Estim Creat Clear Calc 115.4 Estimated GFR > 60 Random Glucose 177 H (60-115) mg/dL Calcium 8.9 (8.4-10.2) mg/dL Total Bilirubin 0.5 (0.0-1.0) mg/dL AST 83 H (5-37) U/L ALT 48 H (0-40) U/L Alkaline Phosphatase 107 (39-117) U/L Total Protein 7.4 (6.5-8.0) g/dL Albumin 3.7 (3.5-5.0) g/dL Ethyl Alcohol 152 mg/dL Independent Interpretation I performed an independent interpretation of an: CT Scan Radiology Impression Discussion of test interpretation with radiology: I have reviewed the radiologist's reading. Discharge Plan Discharge Clinical Impression: Multiple falls, Alcohol abuse, Hypokalemia Patient Disposition: Still a Patient Prescriptions: No Action (DME) bed railing See Rx Instructions .Route .MEDSUPPLY Qty: 1 0RF Rx Instructions: As directed gabapentin 300 mg capsule 300 mg PO BEDTIME 90 Days Qty: 90 3RF metoprolol succinate 25 mg tablet extended release 24 hr 25 mg PO DAILY Qty: 90 2RF thiamine HCl (vitamin B1) 100 mg tablet 100 mg PO DAILY Qty: 90 0RF fenofibrate 54 mg tablet 54 mg PO DAILY Qty: 90 1RF cholecalciferol (vitamin D3) 25 mcg (1,000 unit) capsule 25 mcg PO DAILY 90 Days Qty: 90 1RF sertraline 50 mg tablet 50 mg PO DAILY 90 Days Qty: 90 1RF cyanocobalamin (vitamin B-12) 500 mcg tablet 500 mcg PO DAILY 90 Days Qty: 90 1RF atorvastatin 80 mg tablet 80 mg PO DAILY Qty: 90 3RF oxycodone-acetaminophen 5-325 mg tablet 1 tab PO Q6H PRN (Reason: pain) 30 Days Qty: 120 0RF Rx Instructions: Partial Fill upon patient request. isosorbide mononitrate 30 mg tablet extended release 24 hr 30 mg PO DAILY 90 Days Qty: 90 3RF pantoprazole 40 mg tablet,delayed release (DR/EC) 40 mg PO DAILY@0630 Qty: 90 3RF folic acid 1 mg tablet 1 mg PO DAILY Qty: 90 0RF triamcinolone acetonide 0.1 % ointment 1 appl topical BID PRN (Reason: Itching) nicotine 21 mg/24 hr Patch 24 Hour 21 mg transdermal DAILY Qty: 28 0RF magnesium oxide 400 mg (241.3 mg magnesium) Tablet 400 mg PO DAILY Qty: 30 0RF tamsulosin 0.4 mg Capsule 0.4 mg PO DAILY Qty: 30 0RF Print Language: Uzbek
[2025-01-12 20:06] LABS: MANUAL DIFF FLAG NO
[2025-01-12 20:16] LABS: Basophils Percent Auto 0.5 % (0-2); Eosinophils Absolute Auto 0.1 X10*3/uL (0.0-0.4); Eosinophils Percent Auto 0.6 % (0-4); Hematocrit 37.8 % (42.0-52.0); Hemoglobin 13.4 g/dl (14.0-18.0); Imm Gran Abs Auto 0.03 X10*3/uL (0.00-0.03); Imm Gran Pct Auto 0.3 % (0.0-0.4); Lymphocytes Absolute Auto 2.1 X10*3/uL (1.2-4.9); Lymphocytes Percent Auto 24.2 % (20-40); Mean Corpuscular HGB Conc 35.4 g/dl (31.0-36.0); Mean Corpuscular Hemoglobin 35.7 pg (27.0-33.0); Mean Corpuscular Volume 100.8 fL (80.0-98.0); Mean Platelet Volume 9.6 fL (9.4-12.4); Monocytes Absolute Auto 0.5 X10*3/uL (0.1-1.2); Monocytes Percent Auto 5.5 % (2-11); Neutrophils Absolute Auto 5.9 x10*3/uL (2.0-8.3); Neutrophils Percent Auto 68.9 % (45-73); Platelet Count 200 X10*3/uL (160-400); Red Blood Count 3.75 X10*6/uL (4.60-5.80); Red Cell Distribution Width 12.6 % (11.0-16.0); White Blood Count 8.6 X10*3/uL (4.8-10.8)
[2025-01-12 20:19] LABS: Alanine Aminotransferase 48 U/L (0-40); Albumin Level 3.7 g/dL (3.5-5.0); Alkaline Phosphatase 107 U/L (39-117); Anion Gap 16 (12-20); Aspartate Amino Transferase 83 U/L (5-37); Bilirubin Total 0.5 mg/dL (0.0-1.0); Blood Urea Nitrogen 8 mg/dL (9-16); Calcium 8.9 mg/dL (8.4-10.2); Carbon Dioxide 19 mmol/L (22-29); Chloride 108 mmol/L (96-108); Creatinine Clr Calc Pharmacy 115.4; Estimated Glomerular Filt Rate > 60; Ethanol 152 mg/dL; Glucose Random 177 mg/dL (60-115); Sodium 140 mmol/L (135-145); Total Protein 7.4 g/dL (6.5-8.0)
[2025-01-12 21:24] VITALS: BP 135/64; PULSE 78; RESP 12; TEMP 36.6; O2SAT 97
[2025-01-12] MEDS: KCl 20 mEq in 0.45% Sod 20 MEQ/1,000 ML IV.SOLN 300 MEQ IVCONT (21:31)
[2025-01-12] MEDS: Potassium Chloride ER 20 MEQ TAB.ER.PRT 40 MEQ PO (21:31)
[2025-01-12 21:34] LABS: Appearance Urine Clear; Color Urine Yellow; Glucose Urine UA Negative (Negative); Leukocyte Esterase Urine Negative (Negative); Nitrite Urine Negative (Negative); PH 5.5 (5.0-9.0); Urine Blood Negative (Negative); Urine Ketones Negative (Negative); Urine Protein Negative (Neg-Trace)
[2025-01-12 21:36] LABS: Bacteria Urine None Seen (None Seen); RBC Urine 0-2 /HPF (0-2); Squamous Epithelial Cell Urine 0-2 /HPF (0-2); WBC Urine 0-5 /HPF (0-5)
[2025-01-12 21:41] LABS: Amphetamine Screen Urine Not Detected (Not Detect); Barbiturates, Urine Not Detected (Not Detect); Benzodiazepines Screen Urine Not Detected (Not Detect); Buprenorphine Scr Not Detected (Not Detect); Cannabinoid Screen Urine Not Detected (Not Detect); Cocaine Screen Urine Not Detected (Not Detect); Fentanyl, urine Not Detected (Not Detect); Methadone Screen, Urine Not Detected (Not Detect); Opiate Screen Urine POSITIVE (Not Detect); Oxycodone Screen Urine Positive (Not Detect); Phencyclidine Screen Urine Not Detected (Not Detect)
[2025-01-13] VITALS (8 sets, daily range): BP systolic 120–134; BP diastolic 60–74; PULSE 70–78; RESP 12–18; TEMP 36.6–36.8; O2SAT 97–100
[2025-01-13] MEDS: KCl 20 mEq in 0.45% Sod 20 MEQ/1,000 ML IV.SOLN 300 MEQ IVCONT ×3 (01:52→09:52)
[2025-01-13] MEDS: Acetaminophen 325 MG TABLET PO (02:43)
[2025-01-13] MEDS: oxyCODONE HCl Immed Release 5 MG TABLET PO ×3 (02:44→20:17)
--- NOTE | 2025-01-13 07:15 | PC.NURSE ---
pt is alert and oriented, pt's appears unkept, pt's arms have some old bruising all over and a new abrasion noticed to the forehead, pt does reports frequent falls at home , pt does drink alcohol frequently not sure if its daily, pt is reporting generalized pain all over, pt is also reporting feeling dizzy when moving, pt was covered in urine while using the bedside urinal, pt cleaned up and put into hospital bed for comfort, vs stable
--- NOTE | 2025-01-13 09:14 | PC.NURSE ---
Addendum entered by Carolyn Padron RN 01/13/25 09:25: this nurse took over patient care from alina at 9am Original Note: patient a&ox3, vss, engine monitor intact-nsr on monitor, rr equal/non labored, IVF running per order, awaiting pt/com, plan of care ongoing
--- NOTE | 2025-01-13 10:36 | PC.NURSE ---
kitchen called for food tray
[2025-01-13 10:47] LABS: Influenza A PCR NEGATIVE (Negative); Influenza B PCR NEGATIVE (Negative); Resp Syncy Virus RNA Qual PCR NEGATIVE (Negative); SARS COV2 PCR INHOUSE NEGATIVE (Negative)
--- NOTE | 2025-01-13 11:09 | PHA.MEDREC ---
Pharmacy Consult ? Medication Reconciliation Pharmacy has reviewed the medication reconciliation done by nursing and also spoke to patient to confirm medication list.
--- NOTE | 2025-01-13 12:06 | MHC.CM.ED ---
Addendum entered by Alicia Leach 01/13/25 14:52: [facility] is 1st choice. Facility has been asked to obtain insurance auth. Patient is aware S transport will be arranged. Original Note: Received case management consult overnight. Patient came to the ER after a fall. Work up did not indicate that hospital admission was necessary. Physical therapy eval completed. Short term rehab is recommended, Patient lives alone and had no services prior to coming to the ER. PCP verified. Copy of HCP verified to be on file. Patient has [facility]. Referral broadcasted within 15 miles of patient's home to all facilities that are contracted with patient's insurance. [facility], [facility], [place], [facility] and [facility] are able to offer a bed at this time. These bed offers were discussed with patient. Patient will have 1st choice for CM by 2pm. Continue to monitor for d/c needs.
[2025-01-13] MEDS: Magnesium Oxide 400 MG TABLET PO (13:08)
[2025-01-13] MEDS: Cholecalciferol (Vitamin D3) 25 MCG TABLET PO (13:09)
[2025-01-13] MEDS: Thiamine HCL 100 MG TABLET PO (13:09)
[2025-01-13] MEDS: Omeprazole 20 MG CAPSULE.DR PO (13:11)
[2025-01-13] MEDS: Sertraline HCL 50 MG TABLET PO (13:11)
[2025-01-13] MEDS: Cyanocobalamin (Vitamin B-12) 500 MCG TABLET PO (13:11)
[2025-01-13] MEDS: Fenofibrate 54 MG TABLET PO (13:11)
[2025-01-13] MEDS: Folic Acid 1 MG TABLET PO (13:11)
[2025-01-13] MEDS: Atorvastatin Calcium 80 MG TABLET PO (13:11)
[2025-01-13] MEDS: Isosorbide Mononitrate 30 MG TAB.ER.24H PO (13:13)
[2025-01-13] MEDS: Metoprolol Succinate ER 25 MG TAB.ER.24H PO (13:13)
[2025-01-13] MEDS: amLODIPine Besylate 10 MG TABLET PO (13:13)
--- NOTE | 2025-01-13 13:16 | PC.NURSE ---
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
[2025-01-13 16:12] LABS: Blood Urea Nitrogen 6 mg/dL (9-16); Calcium 8.3 mg/dL (8.4-10.2); Creatinine Clr Calc Pharmacy 143.1; Estimated Glomerular Filt Rate > 60; Glucose Random 108 mg/dL (60-115)
[2025-01-13 16:21] LABS: Anion Gap 12 (12-20); Carbon Dioxide 20 mmol/L (22-29); Chloride 112 mmol/L (96-108); Potassium 4.6 mmol/L (3.3-5.1); Sodium 139 mmol/L (135-145)
--- NOTE | 2025-01-13 18:04 | MHC.EDTECH ---
pt provided dinner tray, ate 100%, resting at this time, call díaz within reach
--- NOTE | 2025-01-13 18:31 | MHC.CM.ED ---
Son/HCP Lalo ([phone]) called for update. CM spoke with patient. He is agreeable for CM to speak with his son about his plan of care. CM called Bill and updated him on the plan of care, including PT recommending STR, [facility] offering a bed and waiting for insurance authorization. He is aware that [facility] can take up to 48 hours to approved STR.
[2025-01-13] MEDS: Gabapentin 300 MG CAPSULE PO (20:15)
[2025-01-14] MEDS: LORazepam 1 MG TABLET PO (00:48)
[2025-01-14 05:53] VITALS: BP 131/75; PULSE 74; RESP 16; TEMP 36.4; O2SAT 97
[2025-01-14] MEDS: oxyCODONE HCl Immed Release 5 MG TABLET PO ×3 (05:57→18:04)
[2025-01-14] MEDS: Omeprazole 20 MG CAPSULE.DR PO (05:57)
[2025-01-14] MEDS: Metoprolol Succinate ER 25 MG TAB.ER.24H PO (09:38)
[2025-01-14] MEDS: Folic Acid 1 MG TABLET PO (09:38)
[2025-01-14] MEDS: Fenofibrate 54 MG TABLET PO (09:38)
[2025-01-14] MEDS: Cyanocobalamin (Vitamin B-12) 500 MCG TABLET PO (09:38)
[2025-01-14] MEDS: Isosorbide Mononitrate 30 MG TAB.ER.24H PO (09:38)
[2025-01-14] MEDS: Thiamine HCL 100 MG TABLET PO (09:38)
[2025-01-14] MEDS: Cholecalciferol (Vitamin D3) 25 MCG TABLET PO (09:38)
[2025-01-14] MEDS: Atorvastatin Calcium 80 MG TABLET PO (09:38)
[2025-01-14] MEDS: Magnesium Oxide 400 MG TABLET PO (09:39)
[2025-01-14] MEDS: amLODIPine Besylate 10 MG TABLET PO (09:39)
[2025-01-14] MEDS: Sertraline HCL 50 MG TABLET PO (09:39)
--- NOTE | 2025-01-14 12:09 | PC.NURSE ---
pt alert and oriented those has period of rambling speech and confusion. incontinent of stool in bed. cleaned, repositioned, and bed cleaned. ate breakfast and lunch well. took medications well. reporting left arm pain.
--- NOTE | 2025-01-14 13:59 | MHC.CM.ED ---
Patient remains in ER overflow. [facility] PASRR Level 2 has been obtained. Waiting for insurance auth for [facility]. Continue to monitor for d/c needs.
[2025-01-14 14:00] VITALS: BP 118/58; PULSE 77; RESP 16; TEMP 36.9; O2SAT 98
[2025-01-14] MEDS: Ibuprofen 400 MG TABLET PO (17:05)
--- NOTE | 2025-01-14 18:19 | PC.NURSE ---
Patient alert and oriented, confused/forgetful at times, redirecable. VSS. RA 98%, Able to ambulate to the bathroom with 1 assist, patient noticed to be unsteady while ambulating, walker offered but patient declined. C/o of migraine BATISTA, provider notified, one time dose of Ibuprofen 400mg ordered and administred with good effect. Patient able to tolerate meals and is compliant with medication.
[2025-01-14 20:21] VITALS: BP 122/62; PULSE 73; RESP 18; TEMP 36.2; O2SAT 97
[2025-01-14] MEDS: Gabapentin 300 MG CAPSULE PO (20:41)
--- NOTE | 2025-01-15 | PC.NURSE ---
pt states he has a headache and generalized pain. requesting tylenol and prn oxy, ok to give per PA.
[2025-01-15] MEDS: Acetaminophen 325 MG TABLET 650 MG PO ×2 (00:06→10:51)
[2025-01-15] MEDS: oxyCODONE HCl Immed Release 5 MG TABLET PO ×2 (00:06→06:15)
--- NOTE | 2025-01-15 00:33 | PC.NURSE ---
pt ambulatory with steady gait to bathroom had BM. back in bed call díaz within reach.
[2025-01-15 01:06] VITALS: RESP 15
[2025-01-15 04:32] VITALS: BP 122/73; PULSE 80; RESP 16; TEMP 36.5; O2SAT 97
[2025-01-15] MEDS: Omeprazole 20 MG CAPSULE.DR PO (06:15)
[2025-01-15] MEDS: Fenofibrate 54 MG TABLET PO (08:42)
[2025-01-15] MEDS: Cholecalciferol (Vitamin D3) 25 MCG TABLET PO (08:42)
[2025-01-15] MEDS: Cyanocobalamin (Vitamin B-12) 500 MCG TABLET PO (08:42)
[2025-01-15] MEDS: Magnesium Oxide 400 MG TABLET PO (08:42)
[2025-01-15] MEDS: Atorvastatin Calcium 80 MG TABLET PO (08:42)
[2025-01-15] MEDS: Thiamine HCL 100 MG TABLET PO (08:42)
[2025-01-15] MEDS: Folic Acid 1 MG TABLET PO (08:42)
[2025-01-15] MEDS: Sertraline HCL 50 MG TABLET PO (08:42)
[2025-01-15 08:44] VITALS: BP 118/61
[2025-01-15] MEDS: amLODIPine Besylate 10 MG TABLET PO (08:44)
[2025-01-15 08:45] VITALS: PULSE 94
[2025-01-15] MEDS: Metoprolol Succinate ER 25 MG TAB.ER.24H PO (08:45)
[2025-01-15] MEDS: Isosorbide Mononitrate 30 MG TAB.ER.24H PO (08:45)
--- NOTE | 2025-01-15 09:03 | MHC.CM.ED ---
Patient remains in ER overflow. Insurance auth has been obtained by [employer]. Patient can leave at 11am. Edmundo OWUSU booked. Med nec with chart. Patient, son Lalo, Keri TRINIDAD and Merari CONLEY aware. Continue to monitor for d/c needs.
[2025-01-15 11:08] VITALS: BP 118/61; PULSE 94; RESP 16; TEMP 36.5
== END 2025-01-15 11:15 | disposition skilled nursing facility (03) ==
PROVIDERS: Physician Assistant; Emergency Provider Emergency Medicine; PCP Internal Medicine
DX: F10.129 Alcohol abuse with intoxication, unspecified (principal); Y90.6 Blood alcohol level of 120-199 mg/100 ml; R51.9 Headache, unspecified; E87.6 Hypokalemia; F17.210 Nicotine dependence, cigarettes, uncomplicated; R26.81 Unsteadiness on feet; M54.2 Cervicalgia; Z03.818 Encounter for observation for suspected exposure to other biological agents ruled out; Z91.81 History of falling; Z51.81 Encounter for therapeutic drug level monitoring; Z79.899 Other long term (current) drug therapy
CPT/HCPCS: 0241U; 36415; 70450; 72125; 80048; 80053; 80307; 81001; 85025; 96365; 96366; 97162; 99285; J3480

== ENCOUNTER → 2025-01-12 19:18 | Outpatient (BNV) | payer MEDICARE, SELFPAY | PROVIDERS: Emergency Provider Emergency Medicine; PCP Internal Medicine; Visit Provider Radiology Diagnostic Radiology | DX: F10.20 Alcohol dependence, uncomplicated (principal); W19.XXXA Unspecified fall, initial encounter | CPT/HCPCS: 70450; 72125 ==

== ENCOUNTER 2025-01-30 13:04 | Outpatient (AMB) | payer MEDICARE, SELFPAY ==
--- NOTE | 2025-01-30 13:05 | MHC.PC.OV ---
Vital Signs 01/30/25 13:06 Height 5 ft 8 in Weight 187 lb 2 oz BMI 28.4 BP 140/80 H Blood Pressure Location Lt brachial Position Sitting Respiration 16 Pulse 82 Pulse Source Pulse Oximeter Temp 97.1 F Temp Source Temporal Artery Scan Pulse Oximetry (%) 98 Oxygen Delivery Method Room Air Intake Visit Reasons: [facility] 01/27 Intake Note: Pt is heere to follow up from [facility] 01/27/25. [employer] Operator Required: No Accompanied by: Self / Same As Patient Allergies mirtazapine Adverse Reaction (Intermediate, Verified 01/12/25 19:12) Dizziness Tobacco use date assessed: 11/17/24 Dental Screening Dental Screen Date: 11/17/24 HPI HPI Comments History of Present Illness Details 69 y/o male patient who presents to the clinic today for HDF. Pt was admitted at [facility] on 01/12/25 for Alcohol intoxication. Pt was Transferred to [facility] Short term Rehab and admitted on 01/15 - 01/27 for Substance abuse Detox. Patient left against medical advise because he needed to pay his Rent . Pt is still waiting for appointments with Therapist and Psych from [facility]. Reports last Drink he had was 4 weeks ago. Denies SI or SA. [facility] Medical History Fall Lumbar radiculopathy Overweight (BMI 25.0-29.9) Vitamin D deficiency Depression Mixed hyperlipidemia Hypovitaminosis D Mild recurrent major depression Tiredness Alcoholism Alcohol abuse Bilateral carotid artery stenosis Aortic valve sclerosis Atherosclerotic cardiovascular disease Essential hypertension Dyslipidemia Leukocytosis Insomnia Hx of lymphoma Smoker Aortic valve calcification ASHD (arteriosclerotic heart disease) History of CVA with residual deficit Hx of multiple pulmonary nodules CAD (coronary artery disease) Surgical History Cataracts, bilateral Hx of cardiac catheterization History of thoracic surgery H/O total shoulder replacement H/O colonoscopy Family History Father Alcohol abuse Mother No problems noted. Daughter No problems noted. Son No problems noted. Sister No problems noted. Other Substance use disorder Social History Household Members: None Household Members Other:: on dialysis Housing: Other Housing Other:: mobile home Are you a primary animal care service worker to a significant other at home: No Do you presently have visiting nurse or other home services: No Alcohol intake: current Alcohol intake frequency: 3 or more drinks per day Alcohol type: beer Patient Tobacco Use Status: Current everyday Tobacco user Tobacco use type: Cigarette Cigarette Packs Per Day: 0.5 Cigarettes Per Day: 10 Years Smoked: 50+ Packs Per Year: 0 Packs per year/per ci.00 e-Cigarette/Vaping Use: Currently Using Second Hand Smoke Exposure: No service: No Current occupational status: disabled Cognitive needs: Yes Hearing needs: No Vision needs: Yes Questionnaire Thrive Questionnaire Date Thrive assessed: 11/17/24 MATTHIAS-7 AMB Questionnaire MATTHIAS-7 Date MATTHIAS - 7 assessed: 11/17/24 Source: Developed by Drs. Rufus Lewis, Aretha Resendiz, Kelby Tompkins and colleagues, with an educational aide from [employer]. Review of Systems Const All systems reviewed & are unremarkable except as noted in HPI and below Physical exam (Primary Care) Vital Signs: Last Vital Signs Temp 97.1 F 01/30/25 13:06 Pulse 82 01/30/25 13:06 Resp 16 01/30/25 13:06 BP 140/80 H 01/30/25 13:06 Pulse Ox 98 01/30/25 13:06 Oxygen Delivery Method Room Air 01/30/25 13:06 BMI result Body Mass Index 28.4 Tobacco/Smoking Status: Tobacco use Status Tobacco use date assessed 11/17/24 01/30/25 13:06 Patient Tobacco Use Status Current everyday Tobacco 01/30/25 13:06 Tobacco use type Cigarette 01/30/25 13:06 e-Cigarette/Vaping Use Currently Using 01/30/25 13:06 Thrive Assessment: Date of Thrive Assessment Date Thrive assessed 11/17/24 01/30/25 13:06 Const General: no acute distress, poor hygiene and other (Unkempt) Orientation/consciousness: patient oriented x3 Limitations: ambulation with cane Resp Effort & Inspection: normal respiratory effort Auscultation: clear to auscultation bilaterally Cardio Heart sounds: S1 normal heart sound present and S2 normal heart sound present Neuro General: patient oriented x3, gait normal and moves all extremities Psych Speech and movement: Normal speech and movement present Coding Level of Care Code Est Pt Level 4 (07649) Diagnoses Alcoholism F10.20 Time Spent (min) 20 Assessment & Plan Assessment & Plan (1) Alcoholism: Code(s): F10.20 - Alcohol dependence, uncomplicated Category: Medical Plan: Stable Awaiting appointment with therapist and Psych Last Drink 4 weeks ago.
[2025-01-30 13:06] VITALS: BP 140/80; PULSE 82; RESP 16; TEMP 36.2; O2SAT 98; BMI 28.4
== END 2025-01-30 13:42 | disposition home or self-care (01) ==
LOC: HO.HMCH 13:04
PROVIDERS: PCP Internal Medicine; Visit Provider Nurse Practitioner Family
DX: F10.20 Alcohol dependence, uncomplicated (principal)

== ENCOUNTER → 2025-01-30 13:04 | Outpatient (BNVA) | payer MEDICARE, SELFPAY | PROVIDERS: PCP Internal Medicine; Visit Provider Nurse Practitioner Family | DX: F17.210 Nicotine dependence, cigarettes, uncomplicated (principal); F10.20 Alcohol dependence, uncomplicated | CPT/HCPCS: 99212 ==

== ENCOUNTER 2025-02-05 21:45 | Emergency (ER) | payer MEDICARE, SELFPAY ==
--- NOTE | 2025-02-05 | ECG_ITS ---
Test Reason : FALL Blood Pressure : */* mmHG Vent. Rate : 71 BPM Atrial Rate : 71 BPM P-R Int : 136 ms QRS Dur : 128 ms QT Int : 450 ms P-R-T Axes : 52 57 0 degrees QTcB Int : 489 ms Normal sinus rhythm Right bundle branch block Abnormal ECG When compared with ECG of 04-Oct-2024 19:54, No significant change was found Referred By: Generic ED Physician Electronically Signed By: Jim Naranjo
--- NOTE | ~2025-02-05 | CT_ITS ---
CLINICAL HISTORY: Multiple falls, ETOH CT CERVICAL SPINE WITHOUT CONTRAST COMPARISON: 01/12/2025. FINDINGS: Surgical plate and screws are again noted transfixing the C6-C7 vertebral body levels. No evidence of hardware failure. No evidence of an acute fracture or dislocation within the cervical spine. Multilevel endplate degenerative changes and facet arthrosis are noted. No prevertebral soft tissue swelling. No pneumothorax in the lung apices. Emphysematous changes are noted. Carotid calcifications are noted. IMPRESSION: 1. No evidence of an acute fracture or dislocation. This document has been electronically signed by: Michael Dupree M.D. on 02/06/2025 01:57:33
--- NOTE | ~2025-02-05 | CT_ITS ---
CLINICAL HISTORY: Multiple falls, ETOH CT BRAIN WITHOUT CONTRAST COMPARISON: 01/12/2025. FINDINGS: There is mild patient motion artifact. There is mild parenchymal atrophy. There is no evidence of an acute infarct or intraparenchymal hemorrhage. Patchy areas of low attenuation are noted in the subcortical and periventricular regions of the supratentorial brain which are nonspecific but most likely represent chronic small vessel ischemic disease. There is no mass effect, midline shift, or extra-axial blood. The ventricles are normal in size without evidence of hydrocephalus. The bone windows are unremarkable. IMPRESSION: 1. No acute disease in the brain. This document has been electronically signed by: Michael Dupree M.D. on 02/06/2025 01:47:46
[2025-02-05 21:48] VITALS: BP 132/64; PULSE 78; O2SAT 99
[2025-02-05 22:15] VITALS: BP 123/70; PULSE 71; RESP 19; TEMP 36.6; O2SAT 96
[2025-02-05 22:19] VITALS: BP 123/70; PULSE 71; RESP 18; TEMP 36.6; O2SAT 96
[2025-02-05 22:36] LABS: Basophils Percent Auto 0.4 % (0-2); Eosinophils Absolute Auto 0.3 X10*3/uL (0.0-0.4); Eosinophils Percent Auto 2.9 % (0-4); Hematocrit 33.5 % (42.0-52.0); Hemoglobin 12.2 g/dl (14.0-18.0); Imm Gran Abs Auto 0.04 X10*3/uL (0.00-0.03); Imm Gran Pct Auto 0.4 % (0.0-0.4); Lymphocytes Absolute Auto 3.6 X10*3/uL (1.2-4.9); Lymphocytes Percent Auto 34.6 % (20-40); MANUAL DIFF FLAG NO; Mean Corpuscular HGB Conc 36.4 g/dl (31.0-36.0); Mean Corpuscular Hemoglobin 35.2 pg (27.0-33.0); Mean Corpuscular Volume 96.5 fL (80.0-98.0); Mean Platelet Volume 9.2 fL (9.4-12.4); Monocytes Absolute Auto 0.6 X10*3/uL (0.1-1.2); Monocytes Percent Auto 5.9 % (2-11); Neutrophils Absolute Auto 5.9 x10*3/uL (2.0-8.3); Neutrophils Percent Auto 55.8 % (45-73); Platelet Count 240 X10*3/uL (160-400); Red Blood Count 3.47 X10*6/uL (4.60-5.80); Red Cell Distribution Width 11.9 % (11.0-16.0); White Blood Count 10.5 X10*3/uL (4.8-10.8)
[2025-02-05 22:50] LABS: Alanine Aminotransferase 16 U/L (0-40); Albumin Level 3.5 g/dL (3.5-5.0); Alkaline Phosphatase 80 U/L (39-117); Anion Gap 16 (12-20); Aspartate Amino Transferase 33 U/L (5-37); Bilirubin Total 0.3 mg/dL (0.0-1.0); Blood Urea Nitrogen 9 mg/dL (9-16); Calcium 8.8 mg/dL (8.4-10.2); Carbon Dioxide 18 mmol/L (22-29); Chloride 110 mmol/L (96-108); Creatinine Clr Calc Pharmacy 134.8; Estimated Glomerular Filt Rate > 60; Ethanol 253 mg/dL; Glucose Random 102 mg/dL (60-115); Potassium 3.1 mmol/L (3.3-5.1); Sodium 141 mmol/L (135-145); Total Protein 6.6 g/dL (6.5-8.0)
--- NOTE | 2025-02-05 23:37 | ED.GENADULT ---
HPI - General Adult General Chief complaint: Fall Stated complaint: etoh, unsteady gait no comlaints Time Seen by Provider: 02/05/25 23:10 Source: patient and EMS Mode of arrival: EMS Limitations: no limitations History of Present Illness ED Provider: Dr. Shahnaz Flores HPI narrative: Patient comes to the emergency room complaining of multiple falls. Patient admits that he has been drinking whiskey and beers. Patient states that he has pain all over his body 08/07. Patient reports that over last week he has fallen multiple times and lost count. Of note, he was seen here approximately 3 weeks ago, patient states that he was sent to [facility] for short-term rehab. Related Data Home Medications ?Medication ?Instructions ?Recorded ?Confirmed triamcinolone acetonide 0.1 % 1 appl topical BID PRN Itching 08/29/24 01/13/25 topical ointment Previous Rx's ?Medication ?Instructions ?Recorded bed railing #1 ea 03/13/23 magnesium oxide 400 mg (241.3 mg 400 mg PO DAILY #30 tabs 09/03/24 magnesium) tablet gabapentin 300 mg capsule 300 mg PO BEDTIME 90 days #90 caps 10/02/24 metoprolol succinate 25 mg 25 mg PO DAILY #90 tabs 10/04/24 tablet,extended release 24 hr cholecalciferol (vitamin D3) 25 25 mcg PO DAILY 90 days #90 caps 10/10/24 mcg (1,000 unit) capsule fenofibrate 54 mg tablet 54 mg PO DAILY #90 tabs 10/10/24 thiamine HCl (vitamin B1) 100 mg 100 mg PO DAILY #90 tabs 10/10/24 tablet sertraline 50 mg tablet 50 mg PO DAILY 90 days #90 tabs 10/26/24 cyanocobalamin (vitamin B-12) 500 500 mcg PO DAILY 90 days #90 tabs 11/10/24 mcg tablet atorvastatin 80 mg tablet 80 mg PO DAILY #90 tabs 12/29/24 oxycodone-acetaminophen 5 mg-325 1 tab PO Q6H PRN pain 30 days #120 12/29/24 mg tablet tabs isosorbide mononitrate 30 mg 30 mg PO DAILY 90 days #90 tabs 12/31/24 tablet,extended release 24 hr folic acid 1 mg tablet 1 mg PO DAILY #90 tabs 01/07/25 pantoprazole 40 mg tablet,delayed 40 mg PO DAILY@0630 #90 tabs 01/07/25 release lorazepam 1 mg tablet 1 mg PO Q4H PRN alcohol withdrawal 01/15/25 #7 tabs oxycodone 5 mg tablet 5 mg PO Q6H PRN pain #7 tabs 01/15/25 amlodipine 10 mg tablet 10 mg PO DAILY #90 tabs 01/25/25 Allergies Allergy/AdvReac Type Severity Reaction Status Date / Time mirtazapine AdvReac Intermediate Dizziness Verified 02/05/25 22:18 Review of Systems Review of Systems: Constitutional : No Weight loss, No Fever, No Chills, No Night Sweats, No Fatigue, No Malaise ENT/Mouth : No Hearing loss, No Ear Pain, No Nasal Congestion, No Sinus Pain, No Hoarseness, No sore throat, No Rhinorrhea, No Swallowing Difficulty Eyes: No Eye Pain, No Swelling, No Redness, No Foreign Body, No Discharge, No Vision Changes Cardiovascular : No Chest Pain, No SOB, No Dyspnea on Exertion, No Orthopnea, No Edema, No Palpitations Respiratory : No Cough, No Sputum, No Wheezing, No Smoke Exposure, No Dyspnea Gastrointestinal : No Nausea, No Vomiting, No Diarrhea, No Constipation, No abdominal Pain, No Hematochezia, No Melena Genitourinary : no irregular bleeding, No Dysuria, No Urinary Frequency, No Hematuria, No Urinary Incontinence, No Urgency, No Flank Pain, No Urinary Flow Changes, No Hesitancy Musculoskeletal : Patient reports multiple falls, Complaining of ?pain all over? Skin : No Skin Lesions, No rash Neuro : No Weakness, No Numbness, No Paresthesias, No Loss of Consciousness, No Dizziness, complaining of Headache Psych : No Anxiety/Panic, No Depression, No SI/HI/AH/VH, patient admits to drinking alcohol and falling frequently Heme/Lymph: No Bruising, No Bleeding,No Lymphadenopathy Endocrine : No Polyuria, No Polydipsia, No Temperature Intolerance [facility] Past Medical History Medical History Fall Lumbar radiculopathy Overweight (BMI 25.0-29.9) Vitamin D deficiency Depression Mixed hyperlipidemia Hypovitaminosis D Mild recurrent major depression Tiredness Alcoholism Alcohol abuse Bilateral carotid artery stenosis Aortic valve sclerosis Atherosclerotic cardiovascular disease Essential hypertension Dyslipidemia Leukocytosis Insomnia Hx of lymphoma Smoker Aortic valve calcification ASHD (arteriosclerotic heart disease) History of CVA with residual deficit Hx of multiple pulmonary nodules CAD (coronary artery disease) Surgical History Cataracts, bilateral Hx of cardiac catheterization History of thoracic surgery H/O total shoulder replacement H/O colonoscopy Family History Family History Father Alcohol abuse Mother No problems noted. Daughter No problems noted. Son No problems noted. Sister No problems noted. Other Substance use disorder Social History Social History Household Members: None Household Members Other:: on dialysis Housing: Other Housing Other:: mobile home Are you a primary healthcare management to a significant other at home: No Do you presently have visiting nurse or other home services: No Alcohol intake: current Alcohol intake frequency: 3 or more drinks per day Alcohol type: beer Patient Tobacco Use Status: Current everyday Tobacco user Tobacco use type: Cigarette Cigarette Packs Per Day: 0.5 Cigarettes Per Day: 10 Years Smoked: 50+ Smoked in Last 30 Days: Yes e-Cigarette/Vaping Use: Currently Using Second Hand Smoke Exposure: No Use of substances other than those prescribed or required for medical reasons: No Advance Directives: Yes Advance Directives on File: Yes Advance Directives Date on File: 01/09/24 service: No Current occupational status: disabled Cognitive needs: Yes Hearing needs: No Vision needs: Yes Physical Exam ED Vital Signs: Vital Signs - 24 hr 02/05/25 22:15 02/05/25 22:19 02/06/25 00:36 Temperature 97.9 F 97.9 F 97.6 F Pulse Rate 71 71 72 Respiratory Rate 19 18 20 Blood Pressure 123/70 123/70 121/63 Pulse Oximetry 96 96 96 Oxygen Delivery Method Room Air Room Air Room Air 02/06/25 03:49 Temperature Pulse Rate 78 Respiratory Rate 16 Blood Pressure 127/60 Pulse Oximetry 96 Oxygen Delivery Method Room Air BMI result Body Mass Index 30.0 Const Other: Appearance: Alert. Oriented X3. No acute distress. Eyes: Pupils equal, round and reactive to light. ENT: Pharynx normal. Neck: Normal inspection. Neck supple. No lymph nodes noted. No crepitus CVS: Normal heart rate and rhythm. Pulses normal. Normal S1 and S2 Respiratory: No respiratory distress. Breath sounds normal. No Wheezing. No rales Abdomen: Soft and nontender. No rigidity. No distention. Skin: Skin warm and dry. Normal skin color. Normal skin turgor. Extremities: No lower extremity edema. No Lacerations. No Rash Neuro: Oriented X 3. No motor deficit. No sensory deficit. Moving all extremities. No slurred speech. CN 2 through 12 grossly intact Psych: calm, cooperative, normal affect Course Course Course Narrative: All of patient's labs pending Patient will likely need PT and case management after being medically cleared Medications Administered Discontinued Medications Generic Name Dose Route Start Last Admin Trade Name Jean-Paul PRN Reason Stop Dose Admin Acetaminophen 650 mg 02/06/25 03:44 02/06/25 03:47 Acetaminophen 325 Mg Tablet PO 02/06/25 03:45 650 mg ONCE ONE Administration Potassium Chloride 40 meq 02/05/25 23:41 02/05/25 23:47 Potassium Chloride Packet 20 Meq Packet PO 02/05/25 23:42 40 meq ONCE ONE Administration Medical Decision Making Medical Decision Making [facility] Narrative: My interpretation of labs: At baseline hematology, chemistry shows a potassium of 3.1, ETOH 253, patient's magnesium 1.6. Patient did not want to give us a urine sample. Head CT and cervical spine CT do not show any acute abnormality. Patient is awake, alert, patient was ambulatory with steady gait using his walker Which she uses at baseline. I offered to the patient PT and case management, patient declined. Patient states that he feels at baseline and has a call button to press if he falls. Patient declined any help/services or PT/case management for placement in short-term rehab At this time, 06:15, physician observation ending, patient requesting to be discharged home, as mentioned above, declining any PT/case management consult Differential Diagnosis Differential Diagnoses: The differential diagnosis associated with the presentation includes (Alcohol intoxication, polysubstance abuse, deconditioning) Admission/Observation Consideration of admission/observation: Escalation of care including admission/observation considered (Patient will likely need PT and case management) Lab Data 02/05/25 22:31 02/05/25 22:31 Labs: Lab Results 02/05/25 Range/Units 22:31 WBC 10.5 (4.8-10.8) X10*3/uL RBC 3.47 L (4.60-5.80) X10*6/uL Hgb 12.2 L (14.0-18.0) g/dl Hct 33.5 L (42.0-52.0) % MCV 96.5 (80.0-98.0) fL MCH 35.2 H (27.0-33.0) pg MCHC 36.4 H (31.0-36.0) g/dl RDW 11.9 (11.0-16.0) % Plt Count 240 (160-400) X10*3/uL MPV 9.2 L (9.4-12.4) fL Immature Gran % (Auto) 0.4 (0.0-0.4) % Neut % (Auto) 55.8 (45-73) % Lymph % (Auto) 34.6 (20-40) % Forrest % (Auto) 5.9 (2-11) % Eos % (Auto) 2.9 (0-4) % Baso % (Auto) 0.4 (0-2) % Lymph # (Auto) 3.6 (1.2-4.9) X10*3/uL Forrest # (Auto) 0.6 (0.1-1.2) X10*3/uL Eos # (Auto) 0.3 (0.0-0.4) X10*3/uL Baso # (Auto) 0.0 (0.0-0.2) X10*3/uL Abs Immat Gran (auto) 0.04 H (0.00-0.03) X10*3/uL Absolute Neuts (auto) 5.9 (2.0-8.3) x10*3/uL Absolute Nucleated RBC 0.000 (0.0-0.012) X10*3/uL Nucleated RBC % (auto) 0.0 (0.0-0.2) /100WBC Sodium 141 (135-145) mmol/L Potassium 3.1 L D (3.3-5.1) mmol/L Chloride 110 H (96-108) mmol/L Carbon Dioxide 18 L (22-29) mmol/L Anion Gap 16 (12-20) BUN 9 (9-16) mg/dL Creatinine 0.57 (0.5-1.4) mg/dL Estim Creat Clear Calc 134.8 Estimated GFR > 60 Random Glucose 102 (60-115) mg/dL Calcium 8.8 D (8.4-10.2) mg/dL Magnesium 1.6 (1.6-2.6) mg/dL Total Bilirubin 0.3 (0.0-1.0) mg/dL AST 33 (5-37) U/L ALT 16 (0-40) U/L Alkaline Phosphatase 80 (39-117) U/L Total Protein 6.6 (6.5-8.0) g/dL Albumin 3.5 (3.5-5.0) g/dL Ethyl Alcohol 253 mg/dL Discharge Plan Discharge Clinical Impression: Multiple falls, Alcohol abuse Patient Disposition: Home, Self-Care Instructions: Fall Prevention for Older Adults (ED), Abuse of Alcohol (ED) Additional Instructions: Please follow-up with your primary care physician tomorrow. If you have any worsening or new symptoms, please return to the emergency room or call 911 Prescriptions: No Action (DME) bed railing See Rx Instructions .Route .MEDSUPPLY Qty: 1 0RF Rx Instructions: As directed gabapentin 300 mg capsule 300 mg PO BEDTIME 90 Days Qty: 90 3RF metoprolol succinate 25 mg tablet extended release 24 hr 25 mg PO DAILY Qty: 90 2RF thiamine HCl (vitamin B1) 100 mg tablet 100 mg PO DAILY Qty: 90 0RF fenofibrate 54 mg tablet 54 mg PO DAILY Qty: 90 1RF cholecalciferol (vitamin D3) 25 mcg (1,000 unit) capsule 25 mcg PO DAILY 90 Days Qty: 90 1RF sertraline 50 mg tablet 50 mg PO DAILY 90 Days Qty: 90 1RF cyanocobalamin (vitamin B-12) 500 mcg tablet 500 mcg PO DAILY 90 Days Qty: 90 1RF atorvastatin 80 mg tablet 80 mg PO DAILY Qty: 90 3RF oxycodone-acetaminophen 5-325 mg tablet 1 tab PO Q6H PRN (Reason: pain) 30 Days Qty: 120 0RF Rx Instructions: Partial Fill upon patient request. isosorbide mononitrate 30 mg tablet extended release 24 hr 30 mg PO DAILY 90 Days Qty: 90 3RF pantoprazole 40 mg tablet,delayed release (DR/EC) 40 mg PO DAILY@0630 Qty: 90 3RF folic acid 1 mg tablet 1 mg PO DAILY Qty: 90 0RF amlodipine 10 mg tablet 10 mg PO DAILY Qty: 90 3RF triamcinolone acetonide 0.1 % ointment 1 appl topical BID PRN (Reason: Itching) magnesium oxide 400 mg (241.3 mg magnesium) Tablet 400 mg PO DAILY Qty: 30 0RF oxycodone 5 mg tablet 5 mg PO Q6H PRN (Reason: pain) Qty: 7 0RF Rx Instructions: Partial Fill upon patient request. lorazepam 1 mg tablet 1 mg PO Q4H PRN (Reason: alcohol withdrawal) Qty: 7 0RF Print Language: Turkish
[2025-02-05] MEDS: Potassium Chloride Packet 20 MEQ PACKET 40 MEQ PO (23:47)
[2025-02-06 00:01] LABS: Magnesium 1.6 mg/dL (1.6-2.6)
[2025-02-06 00:36] VITALS: BP 121/63; PULSE 72; RESP 20; TEMP 36.4; O2SAT 96
[2025-02-06] MEDS: Acetaminophen 325 MG TABLET 650 MG PO (03:47)
[2025-02-06 03:49] VITALS: BP 127/60; PULSE 78; RESP 16; O2SAT 96
[2025-02-06 06:22] VITALS: BP 164/65; PULSE 82; RESP 16; TEMP 36.6; O2SAT 96
== END 2025-02-06 06:25 | disposition home or self-care (01) ==
PROVIDERS: Emergency Provider Emergency Medicine; PCP Internal Medicine
DX: R26.81 Unsteadiness on feet (principal); F10.10 Alcohol abuse, uncomplicated; Y90.8 Blood alcohol level of 240 mg/100 ml or more; M54.2 Cervicalgia; R51.9 Headache, unspecified; R94.31 Abnormal electrocardiogram [ECG] [EKG]; Z51.81 Encounter for therapeutic drug level monitoring; Z91.81 History of falling; Z79.899 Other long term (current) drug therapy
CPT/HCPCS: 36415; 70450; 72125; 80053; 80307; 83735; 85025; 93005; 99284; 99285

== ENCOUNTER → 2025-02-05 22:59 | Outpatient (BNV) | payer MEDICARE, SELFPAY | PROVIDERS: Emergency Provider Emergency Medicine; PCP Internal Medicine; Visit Provider Internal Medicine Cardiovascular Disease | DX: I45.10 Unspecified right bundle-branch block (principal) | CPT/HCPCS: 93010 ==

== ENCOUNTER → 2025-02-05 23:34 | Outpatient (BNV) | payer MEDICARE, SELFPAY | PROVIDERS: Emergency Provider Emergency Medicine; PCP Internal Medicine; Visit Provider Radiology Diagnostic Radiology | DX: R26.81 Unsteadiness on feet (principal); W19.XXXA Unspecified fall, initial encounter | CPT/HCPCS: 70450; 72125 ==

== ENCOUNTER 2025-02-16 19:29 | Emergency (ER) | payer MEDICARE, SELFPAY ==
--- NOTE | ~2025-02-16 | CT_ITS ---
CLINICAL HISTORY: unwitnessed fall CT cervical spine without contrast Comparison: CT/SR - CT CERVICAL SPINE WO IV CON - 02/05/25 23:55 EDT Findings: The visualized portions of the bilateral lung apices appear clear. Chronic right clavicle deformity partially visualized. Anterior spinal fusion hardware in place at the C6 and C7 vertebral levels. The surgical hardware appears intact. There is bony fusion of the C6 and C7 vertebral bodies. No significant cervical spondylolisthesis identified. No acute fractures or dislocations. Moderate to severe degenerative endplate changes are present at the cervical spine. Multilevel bilateral degenerative facet arthropathy also present at the cervical spine. Impression: 1. No acute fracture or dislocation injury identified at the cervical spine. This document has been electronically signed by: Wood Watts MD on 02/16/2025 21:57:34
--- NOTE | ~2025-02-16 | CT_ITS ---
CLINICAL HISTORY: unwitnessed fall CT head without contrast Comparison: CT/SR - CT HEAD/BRAIN WO IV CON - 02/05/25 23:55 EDT Findings: No intra-axial mass, midline shift, hydrocephalus, or acute hemorrhage. Moderate cerebral atrophy. Low attenuation in the periventricular white matter consistent with chronic small-vessel ischemic gliosis. The visualized paranasal sinuses and mastoid air cells are normal. The orbits are unremarkable. There is no acute fracture. Old nasal bone fractures are unchanged from prior. IMPRESSION: 1. No acute intracranial findings. This document has been electronically signed by: Damien Allison MD on 02/16/2025 21:43:04
[2025-02-16 19:34] VITALS: BP 156/92; PULSE 68; O2SAT 99
[2025-02-16 19:40] VITALS: BP 115/74; PULSE 74; RESP 20; O2SAT 99; BMI 29.2
--- NOTE | 2025-02-16 19:42 | ECG_ITS ---
Test Reason : DIZZINESS Blood Pressure : */* mmHG Vent. Rate : 73 BPM Atrial Rate : 73 BPM P-R Int : 134 ms QRS Dur : 124 ms QT Int : 462 ms P-R-T Axes : 65 79 23 degrees QTcB Int : 508 ms Normal sinus rhythm Right bundle branch block Abnormal ECG When compared with ECG of 05-Feb-2025 22:59, No significant change was found Referred By: Generic ED Physician Electronically Signed By: RAJINDER YOST
[2025-02-16 20:09] LABS: Basophils Percent Auto 0.3 % (0-2); Eosinophils Absolute Auto 0.2 X10*3/uL (0.0-0.4); Eosinophils Percent Auto 1.7 % (0-4); Hematocrit 37.2 % (42.0-52.0); Imm Gran Abs Auto 0.07 X10*3/uL (0.00-0.03); Imm Gran Pct Auto 0.7 % (0.0-0.4); Lymphocytes Absolute Auto 3.4 X10*3/uL (1.2-4.9); Lymphocytes Percent Auto 34.6 % (20-40); MANUAL DIFF FLAG SCAN; Mean Corpuscular HGB Conc 34.9 g/dl (31.0-36.0); Mean Corpuscular Hemoglobin 34.9 pg (27.0-33.0); Mean Corpuscular Volume 99.7 fL (80.0-98.0); Mean Platelet Volume 9.7 fL (9.4-12.4); Monocytes Absolute Auto 0.7 X10*3/uL (0.1-1.2); Monocytes Percent Auto 6.8 % (2-11); Neutrophils Absolute Auto 5.4 x10*3/uL (2.0-8.3); Neutrophils Percent Auto 55.9 % (45-73); PLT CLUMP 1; Red Blood Count 3.73 X10*6/uL (4.60-5.80); Red Cell Distribution Width 12.1 % (11.0-16.0); SCAN SMEAR FLAG 1
[2025-02-16 20:26] LABS: Anion Gap 18 (12-20); Blood Urea Nitrogen 7 mg/dL (9-16); Calcium 9.2 mg/dL (8.4-10.2); Carbon Dioxide 18 mmol/L (22-29); Chloride 108 mmol/L (96-108); Creatinine Clr Calc Pharmacy 120.3; Estimated Glomerular Filt Rate > 60; Glucose Random 97 mg/dL (60-115); Potassium 3.9 mmol/L (3.3-5.1); Sodium 140 mmol/L (135-145)
[2025-02-16 20:31] LABS: Troponin-I High Sensitivity 2.7 ng/L (<3.5-35.0)
[2025-02-16 20:35] LABS: SLIDE REVIEW VERIFIED; White Blood Count 9.7 X10*3/uL (4.8-10.8)
--- NOTE | 2025-02-16 21:47 | ED.FALL ---
HPI - Fall General Chief Complaint: Fall Stated Complaint: Fall Time Seen by Provider: 02/16/25 21:39 Source: patient and EMS Mode of arrival: EMS Limitations: no limitations History of Present Illness ED Provider: DR. Lopez HPI Narrative: A 69-year-old male with past medical history significant for alcohol abuse, CVA, hyperlipidemia, and depression for evaluation of a sustained a mechanical fall. Patient lives home by himself use pains or walker to help him for balance and walk around house, patient lost balance at home and fell forward on the table hitting the front of his neck and right side of the chest, patient is complaining of right chest pain and neck pain, patient declined using any anticoagulation, patient lives home by himself, only a close friend who check on him every now and then, patient admit to drinking daily couple beers with no heavy liquor, patient is on chronic prescribed oxycodone for chronic pain. Patient in the emergency department the do not want stay for the result of his studies, called his friend to come and pick him up. Patient declined SI, HI, hallucination. Related Data Home Medications ?Medication ?Instructions ?Recorded ?Confirmed triamcinolone acetonide 0.1 % 1 appl topical BID PRN Itching 08/29/24 01/13/25 topical ointment Previous Rx's ?Medication ?Instructions ?Recorded bed railing #1 ea 03/13/23 magnesium oxide 400 mg (241.3 mg 400 mg PO DAILY #30 tabs 09/03/24 magnesium) tablet gabapentin 300 mg capsule 300 mg PO BEDTIME 90 days #90 caps 10/02/24 metoprolol succinate 25 mg 25 mg PO DAILY #90 tabs 10/04/24 tablet,extended release 24 hr cholecalciferol (vitamin D3) 25 25 mcg PO DAILY 90 days #90 caps 10/10/24 mcg (1,000 unit) capsule fenofibrate 54 mg tablet 54 mg PO DAILY #90 tabs 10/10/24 thiamine HCl (vitamin B1) 100 mg 100 mg PO DAILY #90 tabs 10/10/24 tablet cyanocobalamin (vitamin B-12) 500 500 mcg PO DAILY 90 days #90 tabs 11/10/24 mcg tablet atorvastatin 80 mg tablet 80 mg PO DAILY #90 tabs 12/29/24 isosorbide mononitrate 30 mg 30 mg PO DAILY 90 days #90 tabs 12/31/24 tablet,extended release 24 hr folic acid 1 mg tablet 1 mg PO DAILY #90 tabs 01/07/25 pantoprazole 40 mg tablet,delayed 40 mg PO DAILY@0630 #90 tabs 01/07/25 release lorazepam 1 mg tablet 1 mg PO Q4H PRN alcohol withdrawal 01/15/25 #7 tabs oxycodone 5 mg tablet 5 mg PO Q6H PRN pain #7 tabs 01/15/25 amlodipine 10 mg tablet 10 mg PO DAILY #90 tabs 01/25/25 oxycodone-acetaminophen 5 mg-325 1 tab PO Q6H PRN pain 30 days #120 02/08/25 mg tablet tabs sertraline 50 mg tablet 50 mg PO DAILY 90 days #90 tabs 02/10/25 Allergies Allergy/AdvReac Type Severity Reaction Status Date / Time mirtazapine AdvReac Intermediate Dizziness Verified 02/16/25 19:41 Review of Systems Review of Systems: All other systems are reviewed and are negative Constitutional: Reports as per HPI and Reports no additional constitutional complaints Eyes: Reports as per HPI and Reports no additional eye complaints Reports system reviewed and no additional complaints, except as documented Cardiovascular: Reports as per HPI and Reports no additional cardiovascular complaints Respiratory: Reports as per HPI and Reports no additional respiratory complaints Gastrointestinal: Reports as per HPI and Reports no additional gastrointestinal complaints Genitourinary: Reports no additional female genitourinary complaints Musculoskeletal: Reports no additional musculoskeletal complaints Skin/Breast: Reports system reviewed and no additional complaints, except as docu Psychiatric: Reports no additional psychiatric complaints Endocrine: Reports no additional endocrine complaints Hematologic/Lymphatic: Reports no additional hematologic/lymphatic complaints Allergic/Immunologic: Reports no additional allergic/immunologic complaints Reports system reviewed and no additional complaints, except as documented and Reports Abnormal speech present [facility] Past Medical History Medical History Fall Lumbar radiculopathy Overweight (BMI 25.0-29.9) Vitamin D deficiency Depression Mixed hyperlipidemia Hypovitaminosis D Mild recurrent major depression Tiredness Alcoholism Alcohol abuse Bilateral carotid artery stenosis Aortic valve sclerosis Atherosclerotic cardiovascular disease Essential hypertension Dyslipidemia Leukocytosis Insomnia Hx of lymphoma Smoker Aortic valve calcification ASHD (arteriosclerotic heart disease) History of CVA with residual deficit Hx of multiple pulmonary nodules CAD (coronary artery disease) Surgical History Cataracts, bilateral Hx of cardiac catheterization History of thoracic surgery H/O total shoulder replacement H/O colonoscopy Family History Family History Father Alcohol abuse Mother No problems noted. Daughter No problems noted. Son No problems noted. Sister No problems noted. Other Substance use disorder Social History Social History Household Members: None Household Members Other:: on dialysis Housing: Other Housing Other:: mobile home Are you a primary day care home provider to a significant other at home: No Do you presently have visiting nurse or other home services: No Alcohol intake: current Alcohol intake frequency: 3 or more drinks per day Alcohol type: beer Patient Tobacco Use Status: Current everyday Tobacco user Tobacco use type: Cigarette Cigarette Packs Per Day: 0.5 Cigarettes Per Day: 10 Years Smoked: 50+ e-Cigarette/Vaping Use: Currently Using Second Hand Smoke Exposure: No Advance Directives: Yes Advance Directives on File: Yes Advance Directives Date on File: 01/09/24 service: No Current occupational status: disabled Cognitive needs: Yes Hearing needs: No Vision needs: Yes Physical Exam Vital Signs: Vital Signs: Last Vital Signs Temp 0 F L 02/16/25 21:58 Pulse 0 L 02/16/25 21:58 Resp 0 L 02/16/25 21:58 BP 00/00 L 02/16/25 21:58 Pulse Ox 0 L 02/16/25 21:58 O2 Del Method Room Air 02/16/25 19:40 BMI result Body Mass Index 29.2 Vital signs have been reviewed and appear to be correct. Blood pressure elevated. Heart rate normal. Respiratory rate normal. Temperature normal. Oxygen saturation normal. Appearance: Alert. Oriented X3. No acute distress. Head: Normal external exam. Normocephalic. Atraumatic. No Antunez signs noted. No raccoon eyes noted Eyes: PERRLA. EOMI. Conjunctiva and sclera normal. Eyelids normal. ENT: TM's Normal. Pharynx normal. Uvula midline. Moist mucous membranes. No trismus noted. No drooling noted. No muffled voice noted. Neck: Normal inspection. Neck supple. FROM. No adenopathy. Thyroid Normal. No meningeal signs. No neck mass noted. CVS: Normal heart rate and rhythm. Heart sound normal. No murmurs noted. Pulses normal throughout. Respiratory: No respiratory distress. Painless inspiration. Breath sounds normal. No wheezes/rales/rhonchi noted. Chest nontender. No accessory muscle usage noted or decreased air movement noted. Abdomen: Soft and nontender. Bowel sounds normal in all 4 quadrants. No distention noted. No organomegaly noted. No visible injury noted. Back: No CVA tenderness. Full range of motion noted. Skin: Skin warm and dry. Normal skin color. Normal skin turgor. No rashes/lesions/lacerations noted. Extremities: No lower extremity edema. Extremities exhibit normal range of motion. Extremities nontender. Neuro: Mental status: Normal attention, orientation, memory, and affect. Cranial nerves: Pupils are equal, round and reactive to light, EOMI, visual lee are fall, face is symmetric, facial sensations are normal. Motor examination normal muscle tone, strength to 4 extremities. DTR are +2, planter's are flexor. Sensory exam; normal coordination, no ataxia, gait stable. Cerebellar exam: [id number] and [id number] is normal. Extrapyramidal system: No tremors, no rigidity with normal facial expressions. Pronator drift not present Patient Orientation: Person, Place, Time and Situation, okay hygiene and grooming. Fair eye contact, attentive, no tics or tremors. Level of Consciousness: Awake, Appropriate and Alert Patient Behavior: Appropriate, Guarded, Cooperative and Anxious Mood Description: Constricted, Blunted and Apprehensive Affect Description: Constricted, Blunted and Apprehensive Patient Cognition Impaired: No Ability to Follow Directions: Excellent Speech Pattern: Clear, Appropriate and Spontaneous Speech, nonpressured, spontaneous with regular rate and rhythm, normal volume and prosody. No dysarthria. Memory Description: Intact, Immediate Intact and Short Term Intact Hallucinations: None Delusions: Not Present Thought Process: Intact Thought Content: positive for Intact, positive for Logical, denies Suicidal Ideation and denies Homicidal Ideation. Depressive Symptoms: Not present. Judgement and Insight: Limited but adequate. Course Reevaluation(s) Reevaluation #1: Patient is AAO x3, is ambulating in the emergency department unsteady gait, fully understand my instruction, no risk for SI, HI, or hallucination with a normal mental exam and neuro exam for the patient, patient is insisting to leave with his adult sober friend who is at bedside willing to take the patient home. Risk of leaving against medical advice before fall medical evaluation were discussed with the patient including patient dressed should night instruction and still want to sign against medical advice. Time: 22:01 Medical Decision Making Differential Diagnosis Differential Diagnoses: The differential diagnosis associated with the presentation includes (Cervical spine injury, lung contusion, rib fracture, SI, HI, hallucination.) Admission/Observation Consideration of admission/observation: Escalation of care including admission/observation considered Lab Data MDM Lab Attestation statement: I reviewed the patient's lab results. 02/16/25 19:59 02/16/25 19:59 Labs: Lab Results 02/16/25 Range/Units 19:59 WBC 9.7 (4.8-10.8) X10*3/uL RBC 3.73 L (4.60-5.80) X10*6/uL Hgb 13.0 L (14.0-18.0) g/dl Hct 37.2 L (42.0-52.0) % MCV 99.7 H (80.0-98.0) fL MCH 34.9 H (27.0-33.0) pg MCHC 34.9 (31.0-36.0) g/dl RDW 12.1 (11.0-16.0) % Plt Count TNP MPV 9.7 (9.4-12.4) fL Immature Gran % (Auto) 0.7 H (0.0-0.4) % Neut % (Auto) 55.9 (45-73) % Lymph % (Auto) 34.6 (20-40) % Chaves % (Auto) 6.8 (2-11) % Eos % (Auto) 1.7 (0-4) % Baso % (Auto) 0.3 (0-2) % Lymph # (Auto) 3.4 (1.2-4.9) X10*3/uL Chaves # (Auto) 0.7 (0.1-1.2) X10*3/uL Eos # (Auto) 0.2 (0.0-0.4) X10*3/uL Baso # (Auto) 0.0 (0.0-0.2) X10*3/uL Abs Immat Gran (auto) 0.07 H (0.00-0.03) X10*3/uL Absolute Neuts (auto) 5.4 (2.0-8.3) x10*3/uL Absolute Nucleated RBC 0.000 (0.0-0.012) X10*3/uL Nucleated RBC % (auto) 0.0 (0.0-0.2) /100WBC Smear Tech's Comments VERIFIED Sodium 140 (135-145) mmol/L Potassium 3.9 D (3.3-5.1) mmol/L Chloride 108 (96-108) mmol/L Carbon Dioxide 18 L (22-29) mmol/L Anion Gap 18 (12-20) BUN 7 L (9-16) mg/dL Creatinine 0.63 (0.5-1.4) mg/dL Estim Creat Clear Calc 120.3 Estimated GFR > 60 Random Glucose 97 (60-115) mg/dL Calcium 9.2 (8.4-10.2) mg/dL Troponin I High Sens 2.7 (<3.5-35.0) ng/L Independent Interpretation I performed an independent interpretation of an: CT Scan (Head CT C-spine CT: No acute intra findings,1. No acute fracture or dislocation injury identified at the cervical spine.) Radiology Impression Discussion of test interpretation with radiology: I have reviewed the radiologist's reading. Discharge Plan Discharge Clinical Impression: Closed head injury, Chest wall contusion Patient Disposition: Left Against Medical Advice Instructions: Head Injury (ED), Rib Contusion (ED) Prescriptions: No Action (DME) bed railing See Rx Instructions .Route .MEDSUPPLY Qty: 1 0RF Rx Instructions: As directed gabapentin 300 mg capsule 300 mg PO BEDTIME 90 Days Qty: 90 3RF metoprolol succinate 25 mg tablet extended release 24 hr 25 mg PO DAILY Qty: 90 2RF thiamine HCl (vitamin B1) 100 mg tablet 100 mg PO DAILY Qty: 90 0RF fenofibrate 54 mg tablet 54 mg PO DAILY Qty: 90 1RF cholecalciferol (vitamin D3) 25 mcg (1,000 unit) capsule 25 mcg PO DAILY 90 Days Qty: 90 1RF cyanocobalamin (vitamin B-12) 500 mcg tablet 500 mcg PO DAILY 90 Days Qty: 90 1RF atorvastatin 80 mg tablet 80 mg PO DAILY Qty: 90 3RF isosorbide mononitrate 30 mg tablet extended release 24 hr 30 mg PO DAILY 90 Days Qty: 90 3RF pantoprazole 40 mg tablet,delayed release (DR/EC) 40 mg PO DAILY@0630 Qty: 90 3RF folic acid 1 mg tablet 1 mg PO DAILY Qty: 90 0RF amlodipine 10 mg tablet 10 mg PO DAILY Qty: 90 3RF oxycodone-acetaminophen 5-325 mg tablet 1 tab PO Q6H PRN (Reason: pain) 30 Days Qty: 120 0RF Rx Instructions: Partial Fill upon patient request. sertraline 50 mg tablet 50 mg PO DAILY 90 Days Qty: 90 1RF triamcinolone acetonide 0.1 % ointment 1 appl topical BID PRN (Reason: Itching) magnesium oxide 400 mg (241.3 mg magnesium) Tablet 400 mg PO DAILY Qty: 30 0RF oxycodone 5 mg tablet 5 mg PO Q6H PRN (Reason: pain) Qty: 7 0RF Rx Instructions: Partial Fill upon patient request. lorazepam 1 mg tablet 1 mg PO Q4H PRN (Reason: alcohol withdrawal) Qty: 7 0RF Referrals: Mayda Traylor MD [Primary Care Provider] - Stand Alone Forms: Against Medical Advice Interventions: ED Discharge Assessment Last Done: 02/16/25 21:58 Discharge Date/Time: 02/16/25 22:02 Print Language: Armenian
--- NOTE | 2025-02-16 21:51 | PC.NURSE ---
pt states he wishes to leave. called for a ride. 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 MD Sterling aware and at bedside. pt will sign out AMA, refusing xray or further testing. declining rehab. has sober ride home, ambulating with a steady gait.
[2025-02-16 21:58] VITALS: BP 00/00; PULSE 0; RESP 0; TEMP -17.7; TEMP 0; O2SAT 0
== END 2025-02-16 22:02 | disposition left against medical advice (07) ==
PROVIDERS: Emergency Provider Emergency Medicine; PCP Internal Medicine
DX: S20.211A Contusion of right front wall of thorax, initial encounter (principal); S09.90XA Unspecified injury of head, initial encounter; R51.9 Headache, unspecified; M54.2 Cervicalgia; R42 Dizziness and giddiness; R07.89 Other chest pain; I45.10 Unspecified right bundle-branch block; W01.190A Fall on same level from slipping, tripping and stumbling with subsequent striking against furniture, initial encounter; Y93.9 Activity, unspecified; Y92.9 Unspecified place or not applicable; Y99.8 Other external cause status; Z86.73 Personal history of transient ischemic attack (TIA), and cerebral infarction without residual deficits; Z79.899 Other long term (current) drug therapy
CPT/HCPCS: 36415; 70450; 72125; 80048; 84484; 85025; 93005; 99283; 99284

== ENCOUNTER → 2025-02-16 19:42 | Outpatient (BNV) | payer MEDICARE, SELFPAY | PROVIDERS: Emergency Provider Emergency Medicine; PCP Internal Medicine; Visit Provider Internal Medicine | DX: I45.10 Unspecified right bundle-branch block (principal) | CPT/HCPCS: 93010 ==

== ENCOUNTER → 2025-02-16 20:21 | Outpatient (BNV) | payer MEDICARE, SELFPAY | PROVIDERS: Emergency Provider Emergency Medicine; PCP Internal Medicine; Visit Provider Radiology Diagnostic Radiology | DX: S22.39XA Fracture of one rib, unspecified side, initial encounter for closed fracture (principal); W19.XXXA Unspecified fall, initial encounter | CPT/HCPCS: 70450; 72125 ==

== ENCOUNTER 2025-02-19 19:14 | Emergency (ER) | payer MEDICARE, SELFPAY ==
--- NOTE | ~2025-02-19 | XR_ITS ---
CLINICAL HISTORY: fall pain 4 view, chest and bilateral ribs Comparison: None Findings: Displaced left 10th lateral rib fracture. Remaining bones intact. Lungs and pleural spaces are clear. Right lung chain sutures noted. Heart size normal. IMPRESSION: Displaced left lateral 10th rib fracture. This document has been electronically signed by: Tavo Glover MD on 02/19/2025 21:47:22
--- NOTE | 2025-02-19 20:27 | ECG_ITS ---
Test Reason : SOB Blood Pressure : */* mmHG Vent. Rate : 69 BPM Atrial Rate : 69 BPM P-R Int : 134 ms QRS Dur : 122 ms QT Int : 460 ms P-R-T Axes : 68 68 13 degrees QTcB Int : 492 ms Normal sinus rhythm Right bundle branch block Abnormal ECG When compared with ECG of 16-Feb-2025 20:10, No significant change was found Referred By: Siomara Hemphill Electronically Signed By: RAJINDER YOST
[2025-02-19 20:30] VITALS: BP 117/64; BP 147/81; PULSE 69; PULSE 79; RESP 16; TEMP 36.2; O2SAT 96; O2SAT 97; BMI 28.5
--- NOTE | 2025-02-19 20:55 | MHC.EDTECH ---
Patient was biba ,ekg taken and was read by Provider ,blood drawn ,rsv/covid swab collected all sent to lab ,vitals taken ,Patient awake and laying in bed quietly ,no appartent distress noted ,Plan of care continue .
[2025-02-19 20:57] LABS: MANUAL DIFF FLAG NO
[2025-02-19 20:58] LABS: Basophils Percent Auto 0.5 % (0-2); Eosinophils Absolute Auto 0.1 X10*3/uL (0.0-0.4); Eosinophils Percent Auto 1.6 % (0-4); Hematocrit 33.8 % (42.0-52.0); Hemoglobin 11.9 g/dl (14.0-18.0); Imm Gran Abs Auto 0.03 X10*3/uL (0.00-0.03); Imm Gran Pct Auto 0.3 % (0.0-0.4); Lymphocytes Absolute Auto 3.3 X10*3/uL (1.2-4.9); Lymphocytes Percent Auto 36.7 % (20-40); Mean Corpuscular HGB Conc 35.2 g/dl (31.0-36.0); Mean Corpuscular Hemoglobin 35.1 pg (27.0-33.0); Mean Corpuscular Volume 99.7 fL (80.0-98.0); Mean Platelet Volume 9.3 fL (9.4-12.4); Monocytes Absolute Auto 0.6 X10*3/uL (0.1-1.2); Monocytes Percent Auto 6.4 % (2-11); Neutrophils Absolute Auto 4.8 x10*3/uL (2.0-8.3); Neutrophils Percent Auto 54.5 % (45-73); Platelet Count 182 X10*3/uL (160-400); Red Blood Count 3.39 X10*6/uL (4.60-5.80); Red Cell Distribution Width 12.5 % (11.0-16.0); White Blood Count 8.9 X10*3/uL (4.8-10.8)
[2025-02-19 21:09] LABS: Ethanol 157 mg/dL
[2025-02-19 21:12] LABS: Alanine Aminotransferase 22 U/L (0-40); Albumin Level 3.4 g/dL (3.5-5.0); Alkaline Phosphatase 87 U/L (39-117); Anion Gap 16 (12-20); Aspartate Amino Transferase 44 U/L (5-37); Bilirubin Total 0.3 mg/dL (0.0-1.0); Blood Urea Nitrogen 10 mg/dL (9-16); Calcium 8.8 mg/dL (8.4-10.2); Carbon Dioxide 18 mmol/L (22-29); Chloride 109 mmol/L (96-108); Estimated Glomerular Filt Rate > 60; Glucose Random 85 mg/dL (60-115); Potassium 3.6 mmol/L (3.3-5.1); Sodium 139 mmol/L (135-145); Total Protein 6.4 g/dL (6.5-8.0)
[2025-02-19 21:17] LABS: B Type Natriuretic Peptide 73 pg/mL (<100)
[2025-02-19 21:18] LABS: Troponin-I High Sensitivity 4.7 ng/L (<3.5-35.0)
--- NOTE | 2025-02-19 21:29 | ED.SOB ---
HPI - SOB/Dyspnea General Chief Complaint: Abdominal Pain Stated Complaint: fall 3 days ago, rib pain, diff breathing Time Seen by Provider: 02/19/25 19:46 Source: patient and EMS Mode of arrival: EMS Limitations: no limitations History of Present Illness ED Provider: Siomara Hemphill NP HPI Narrative: Patient is a 69-year-old male who presents emergency department via EMS for evaluation. He reports a fall 3 days ago, was seen at this ED but ultimately left against medical advice with a sober ride home. He states that he has continued to have pain in his ribs particularly to the right lateral chest wall that is worse with movement and deep inspiration. He also endorses an intermittent headache. Denies anterior chest pain, recent cough or URI symptoms, dizziness, lightheadedness, numbness or tingling of the extremities, weakness. Denies any additional falls since his initial visit. Related Data Home Medications ?Medication ?Instructions ?Recorded ?Confirmed triamcinolone acetonide 0.1 % 1 appl topical BID PRN Itching 08/29/24 01/13/25 topical ointment Previous Rx's ?Medication ?Instructions ?Recorded bed railing #1 ea 03/13/23 magnesium oxide 400 mg (241.3 mg 400 mg PO DAILY #30 tabs 09/03/24 magnesium) tablet gabapentin 300 mg capsule 300 mg PO BEDTIME 90 days #90 caps 10/02/24 metoprolol succinate 25 mg 25 mg PO DAILY #90 tabs 10/04/24 tablet,extended release 24 hr cholecalciferol (vitamin D3) 25 25 mcg PO DAILY 90 days #90 caps 10/10/24 mcg (1,000 unit) capsule fenofibrate 54 mg tablet 54 mg PO DAILY #90 tabs 10/10/24 thiamine HCl (vitamin B1) 100 mg 100 mg PO DAILY #90 tabs 10/10/24 tablet cyanocobalamin (vitamin B-12) 500 500 mcg PO DAILY 90 days #90 tabs 11/10/24 mcg tablet atorvastatin 80 mg tablet 80 mg PO DAILY #90 tabs 12/29/24 isosorbide mononitrate 30 mg 30 mg PO DAILY 90 days #90 tabs 12/31/24 tablet,extended release 24 hr folic acid 1 mg tablet 1 mg PO DAILY #90 tabs 01/07/25 pantoprazole 40 mg tablet,delayed 40 mg PO DAILY@0630 #90 tabs 01/07/25 release lorazepam 1 mg tablet 1 mg PO Q4H PRN alcohol withdrawal 01/15/25 #7 tabs oxycodone 5 mg tablet 5 mg PO Q6H PRN pain #7 tabs 01/15/25 amlodipine 10 mg tablet 10 mg PO DAILY #90 tabs 01/25/25 oxycodone-acetaminophen 5 mg-325 1 tab PO Q6H PRN pain 30 days #120 02/08/25 mg tablet tabs sertraline 50 mg tablet 50 mg PO DAILY 90 days #90 tabs 02/10/25 Allergies Allergy/AdvReac Type Severity Reaction Status Date / Time mirtazapine AdvReac Intermediate Dizziness Verified 02/19/25 21:26 Review of Systems Review of Systems: Yes all other systems are reviewed and are negative [facility] Past Medical History Attestation statement: The following information was validated with the patient. Source: old records reviewed Medical History Fall Lumbar radiculopathy Overweight (BMI 25.0-29.9) Vitamin D deficiency Depression Mixed hyperlipidemia Hypovitaminosis D Mild recurrent major depression Tiredness Alcoholism Alcohol abuse Bilateral carotid artery stenosis Aortic valve sclerosis Atherosclerotic cardiovascular disease Essential hypertension Dyslipidemia Leukocytosis Insomnia Hx of lymphoma Smoker Aortic valve calcification ASHD (arteriosclerotic heart disease) History of CVA with residual deficit Hx of multiple pulmonary nodules CAD (coronary artery disease) Surgical History Cataracts, bilateral Hx of cardiac catheterization History of thoracic surgery H/O total shoulder replacement H/O colonoscopy Family History Family History Father Alcohol abuse Mother No problems noted. Daughter No problems noted. Son No problems noted. Sister No problems noted. Other Substance use disorder Social History Social History Household Members: None Household Members Other:: on dialysis Housing: Other Housing Other:: mobile home Are you a primary property caretaker to a significant other at home: No Do you presently have visiting nurse or other home services: No Alcohol intake: current Alcohol intake frequency: 3 or more drinks per day Alcohol type: beer Patient Tobacco Use Status: Current everyday Tobacco user Tobacco use type: Cigarette Cigarette Packs Per Day: 0.5 Cigarettes Per Day: 10 Years Smoked: 50+ e-Cigarette/Vaping Use: Currently Using Second Hand Smoke Exposure: No Advance Directives: Yes Advance Directives on File: Yes Advance Directives Date on File: 01/09/24 Do you have a plan to hurt others: No Plan service: No Current occupational status: disabled Cognitive needs: Yes Hearing needs: No Vision needs: Yes Physical Exam Vital Signs: Vital Signs: Last Vital Signs Temp 97.2 F 02/19/25 21:40 Pulse 75 02/19/25 21:40 Resp 16 02/19/25 21:40 BP 136/69 02/19/25 21:40 Pulse Ox 97 02/19/25 21:40 O2 Del Method Room Air 02/19/25 21:40 BMI result Body Mass Index 28.5 Course Reevaluation(s) Reevaluation #1: XR shows a mildly displaced fracture of the left 10th rib. Made aware of this finding. Reviewed conservative treatment, incentive spirometry, arm not certain if this is a new fracture, he has no pain or tenderness reported to this side. His pain is rather in the right side, which is likely secondary to a contusion from his recent fall. Advised outpatient follow-up with primary care doctor. He is ambulatory with a steady gait, alert and oriented x3, please able to call for ride home, I see no indication he needs to be held here in the emergency department at this time. Medical Decision Making Medical Decision Making MDM Narrative: Patient is a 69-year-old male with past medical history of alcohol use disorder, CVA, hyperlipidemia, depression who presents emergency department for persistent right lateral rib pain and headache since a fall 3 days ago. He was seen on 02/16/[address] of the head and cervical spine obtained which was without acute findings. He left the emergency department against medical advice with a sober ride home. He states that a persistent pain on the right side of his chest is ultimately what brought him in today. Overall he appears nontoxic, afebrile, no respiratory distress. No rashes or lesions urticaria to suggest allergic reaction/anaphylaxis. No palpable deformities along the chest wall or crepitus. Denies any anterior chest pain, recent lower extremity redness pain or swelling, history of VTE or malignancy to suggest ACS, CHF, pulmonary embolism. Will obtain CXR of the chest and ribs to evaluate for possible rib fracture, no tracheal deviation, unlikely pneumothorax. Denying any recent URI symptoms number will obtain viral serologies. Differential Diagnosis Differential Diagnoses: The differential diagnosis associated with the presentation includes (See narrative above) Admission/Observation Consideration of admission/observation: Escalation of care including admission/observation considered Lab Data MDM Lab Attestation statement: I reviewed the patient's lab results. CBC is without leukocytosis, has a mild microcytic anemia chronic and stable, no thrombocytopenia. No significant electrolyte derangement. No ANN. LFTs overall unremarkable. High sensitive troponin within normal limits. I have alcohol level of 157. Viral serologies are negative 02/19/25 20:53 02/19/25 20:53 Labs: Lab Results 02/19/25 Range/Units 20:53 WBC 8.9 (4.8-10.8) X10*3/uL RBC 3.39 L (4.60-5.80) X10*6/uL Hgb 11.9 L (14.0-18.0) g/dl Hct 33.8 L (42.0-52.0) % MCV 99.7 H (80.0-98.0) fL MCH 35.1 H (27.0-33.0) pg MCHC 35.2 (31.0-36.0) g/dl RDW 12.5 (11.0-16.0) % Plt Count 182 (160-400) X10*3/uL MPV 9.3 L (9.4-12.4) fL Immature Gran % (Auto) 0.3 (0.0-0.4) % Neut % (Auto) 54.5 (45-73) % Lymph % (Auto) 36.7 (20-40) % [place] % (Auto) 6.4 (2-11) % Eos % (Auto) 1.6 (0-4) % Baso % (Auto) 0.5 (0-2) % Lymph # (Auto) 3.3 (1.2-4.9) X10*3/uL [place] # (Auto) 0.6 (0.1-1.2) X10*3/uL Eos # (Auto) 0.1 (0.0-0.4) X10*3/uL Baso # (Auto) 0.0 (0.0-0.2) X10*3/uL Abs Immat Gran (auto) 0.03 (0.00-0.03) X10*3/uL Absolute Neuts (auto) 4.8 (2.0-8.3) x10*3/uL Absolute Nucleated RBC 0.000 (0.0-0.012) X10*3/uL Nucleated RBC % (auto) 0.0 (0.0-0.2) /100WBC Sodium 139 (135-145) mmol/L Potassium 3.6 (3.3-5.1) mmol/L Chloride 109 H (96-108) mmol/L Carbon Dioxide 18 L (22-29) mmol/L Anion Gap 16 (12-20) BUN 10 (9-16) mg/dL Creatinine 0.58 (0.5-1.4) mg/dL Estim Creat Clear Calc TNP Estimated GFR > 60 Random Glucose 85 (60-115) mg/dL Calcium 8.8 (8.4-10.2) mg/dL Total Bilirubin 0.3 (0.0-1.0) mg/dL AST 44 H (5-37) U/L ALT 22 (0-40) U/L Alkaline Phosphatase 87 (39-117) U/L Troponin I High Sens 4.7 D (<3.5-35.0) ng/L B-Natriuretic Peptide 73 (<100) pg/mL Total Protein 6.4 L (6.5-8.0) g/dL Albumin 3.4 L (3.5-5.0) g/dL Ethyl Alcohol 157 mg/dL Influenza Type A (PCR) NEGATIVE (Negative) Influenza Type B (PCR) NEGATIVE (Negative) RSV RNA Qual (PCR) NEGATIVE (Negative) SARS-CoV-2 RNA (RT-PCR) NEGATIVE (Negative) Independent Interpretation I performed an independent interpretation of an: EKG (Normal sinus rhythm, right bundle-branch block as seen on priors, ventricular rate of 69, QTC 492, no ST-elevation.) and Plain X-Ray (no R rib fractures, L 10th rib fracture) Radiology Impression Discussion of test interpretation with radiology: I have reviewed the radiologist's reading. Radiologist Impression: 4 view, chest and bilateral ribs Comparison: None Findings: Displaced left 10th lateral rib fracture. Remaining bones intact. Lungs and pleural spaces are clear. Right lung chain sutures noted. Heart size normal. IMPRESSION: Displaced left lateral 10th rib fracture. Independent Historian Clinical information obtained from an independent historian. History obtained from or confirmed by: EMS External Record Review External record reviewed: Outpatient record Prescription Management I considered prescription management with: Pain Medication Chronic Conditions Patient?s care impacted by: Other (See narrative above) Discharge Plan Discharge Clinical Impression: Fracture of rib Qualifiers: Encounter type: initial encounter Rib fracture type: single rib Fracture type: closed Laterality: left Qualified Code(s): S22.32XA - Fracture of one rib, left side, initial encounter for closed fracture Patient Disposition: Home, Self-Care Instructions: Rib Fracture (ED) Additional Instructions: You can take ibuprofen 200 mg, 3 tablets (600mg) every 6-8 hours as needed for pain, in addition to Tylenol 500 mg, 2 tablets (1,000mg) every 4-6 hours as needed for pain, but not to exceed 3 doses daily (3,000mg).? Be sure to use a pillow or your arm to brace the side of your chest when coughing or deep breathing. Use the incentive spirometer as discussed. Contact your primary care doctor to arrange for a follow-up visit. Return to emergency department any new or worsening symptoms or concerns. Prescriptions: No Action (DME) bed railing See Rx Instructions .Route .MEDSUPPLY Qty: 1 0RF Rx Instructions: As directed gabapentin 300 mg capsule 300 mg PO BEDTIME 90 Days Qty: 90 3RF metoprolol succinate 25 mg tablet extended release 24 hr 25 mg PO DAILY Qty: 90 2RF thiamine HCl (vitamin B1) 100 mg tablet 100 mg PO DAILY Qty: 90 0RF fenofibrate 54 mg tablet 54 mg PO DAILY Qty: 90 1RF cholecalciferol (vitamin D3) 25 mcg (1,000 unit) capsule 25 mcg PO DAILY 90 Days Qty: 90 1RF cyanocobalamin (vitamin B-12) 500 mcg tablet 500 mcg PO DAILY 90 Days Qty: 90 1RF atorvastatin 80 mg tablet 80 mg PO DAILY Qty: 90 3RF isosorbide mononitrate 30 mg tablet extended release 24 hr 30 mg PO DAILY 90 Days Qty: 90 3RF pantoprazole 40 mg tablet,delayed release (DR/EC) 40 mg PO DAILY@0630 Qty: 90 3RF folic acid 1 mg tablet 1 mg PO DAILY Qty: 90 0RF amlodipine 10 mg tablet 10 mg PO DAILY Qty: 90 3RF oxycodone-acetaminophen 5-325 mg tablet 1 tab PO Q6H PRN (Reason: pain) 30 Days Qty: 120 0RF Rx Instructions: Partial Fill upon patient request. sertraline 50 mg tablet 50 mg PO DAILY 90 Days Qty: 90 1RF triamcinolone acetonide 0.1 % ointment 1 appl topical BID PRN (Reason: Itching) magnesium oxide 400 mg (241.3 mg magnesium) Tablet 400 mg PO DAILY Qty: 30 0RF oxycodone 5 mg tablet 5 mg PO Q6H PRN (Reason: pain) Qty: 7 0RF Rx Instructions: Partial Fill upon patient request. lorazepam 1 mg tablet 1 mg PO Q4H PRN (Reason: alcohol withdrawal) Qty: 7 0RF Referrals: Mayda Traylor MD [Primary Care Provider] - Print Language: [place]
[2025-02-19 21:34] LABS: Influenza A PCR NEGATIVE (Negative); Influenza B PCR NEGATIVE (Negative); Resp Syncy Virus RNA Qual PCR NEGATIVE (Negative); SARS COV2 PCR INHOUSE NEGATIVE (Negative)
[2025-02-19 21:40] VITALS: BP 136/69; PULSE 75; RESP 16; TEMP 36.2; O2SAT 97
[2025-02-20] VITALS: BP 129/70; PULSE 72; RESP 16; TEMP 36.8; O2SAT 97
[2025-02-20 01:05] VITALS: BP 129/70; PULSE 72; RESP 16; TEMP 36.8; O2SAT 97
== END 2025-02-20 01:05 | disposition home or self-care (01) ==
PROVIDERS: Nurse Practitioner Family; Emergency Provider Emergency Medicine Emergency Medical Services; PCP Internal Medicine
DX: S22.32XA Fracture of one rib, left side, initial encounter for closed fracture (principal); W19.XXXA Unspecified fall, initial encounter; F10.20 Alcohol dependence, uncomplicated; Y90.6 Blood alcohol level of 120-199 mg/100 ml; R06.00 Dyspnea, unspecified; R29.6 Repeated falls; Z91.81 History of falling; I10 Essential (primary) hypertension; E78.5 Hyperlipidemia, unspecified; Y93.9 Activity, unspecified; Y92.9 Unspecified place or not applicable; Y99.9 Unspecified external cause status; Z86.73 Personal history of transient ischemic attack (TIA), and cerebral infarction without residual deficits; Z03.818 Encounter for observation for suspected exposure to other biological agents ruled out; Z79.899 Other long term (current) drug therapy
CPT/HCPCS: 0241U; 36415; 71111; 80053; 80307; 83880; 84484; 85025; 93005; 94010; 99283; 99284

== ENCOUNTER → 2025-02-19 20:27 | Outpatient (BNV) | payer MEDICARE, SELFPAY | PROVIDERS: Emergency Provider Emergency Medicine Emergency Medical Services; PCP Internal Medicine; Visit Provider Radiology Diagnostic Radiology | DX: S22.32XA Fracture of one rib, left side, initial encounter for closed fracture (principal) | CPT/HCPCS: 71111 ==

== ENCOUNTER → 2025-02-19 20:27 | Outpatient (BNV) | payer MEDICARE, SELFPAY | PROVIDERS: Emergency Provider Emergency Medicine Emergency Medical Services; PCP Internal Medicine; Visit Provider Internal Medicine | DX: I45.10 Unspecified right bundle-branch block (principal) | CPT/HCPCS: 93010 ==

== ENCOUNTER 2025-05-02 21:10 | Emergency (ER) | payer MEDICARE, SELFPAY ==
--- NOTE | 2025-05-02 | ECG_ITS ---
Test Reason : FALL Blood Pressure : */* mmHG Vent. Rate : 70 BPM Atrial Rate : 70 BPM P-R Int : 144 ms QRS Dur : 116 ms QT Int : 460 ms P-R-T Axes : 91 74 -2 degrees QTcB Int : 496 ms Sinus rhythm with Premature atrial complexes Incomplete right bundle branch block T wave abnormality, consider inferior ischemia T wave abnormality, consider anterior ischemia Abnormal ECG When compared with ECG of 19-Feb-2025 20:36, Premature atrial complexes are now Present Referred By: Generic ED Physician Electronically Signed By: MANOHAR CHEEK MD
--- NOTE | ~2025-05-02 | CT_ITS ---
CLINICAL HISTORY: fall CT head without contrast Comparison: 02/16/2025 Findings: No intracranial mass, midline shift, hydrocephalus, or acute hemorrhage. Moderate chronic ischemic white matter disease with volume loss. No acute process in sinuses or mastoids. No acute bony abnormality. Impression: No acute intracranial process This document has been electronically signed by: Milad Mott MD on 05/02/2025 23:18:43
--- NOTE | ~2025-05-02 | CT_ITS ---
CLINICAL HISTORY: fall CT cervical spine without contrast Comparison: 02/16/2025 Findings: No acute fracture or dislocation. Posterior alignment is normal. Moderate degenerative change. C6-7 anterior fusion hardware is intact. Impression: No acute processes This document has been electronically signed by: Milad Mott MD on 05/02/2025 23:21:50
--- NOTE | ~2025-05-02 | XR_ITS ---
CLINICAL HISTORY: fall 1 view chest x-ray Comparison: 09/01/2024 Findings: Lungs are clear without acute infiltrates. Stable bilateral linear scarring. No pneumothorax. Heart size normal. No acute bony abnormalities. Bilateral shoulder prostheses. Impression: No acute processes This document has been electronically signed by: Milad Mott MD on 05/02/2025 22:52:54
[2025-05-02 21:12] VITALS: BP 105/46; BP 126/68; PULSE 65; PULSE 68; RESP 20; TEMP 36.9; O2SAT 98; BMI 30.1
[2025-05-02 21:37] LABS: MANUAL DIFF FLAG NO
[2025-05-02 21:38] LABS: Hematocrit 35.9 % (42.0-52.0); Hemoglobin 13.3 g/dl (14.0-18.0); Imm Gran Abs Auto 0.06 X10*3/uL (0.00-0.03); Imm Gran Pct Auto 0.4 % (0.0-0.4); Lymphocytes Absolute Auto 3.7 X10*3/uL (1.2-4.9); Mean Corpuscular HGB Conc 37.0 g/dl (31.0-36.0); Mean Corpuscular Hemoglobin 35.5 pg (27.0-33.0); Mean Corpuscular Volume 95.7 fL (80.0-98.0); NRBC Abs Auto 0.000 X10*3/uL (0.0-0.012); NRBC Pct Auto 0.0 /100WBC (0.0-0.2); Platelet Count 227 X10*3/uL (160-400); Red Blood Count 3.75 X10*6/uL (4.60-5.80); White Blood Count 13.4 X10*3/uL (4.8-10.8)
--- NOTE | 2025-05-02 21:38 | PC.NURSE ---
pt biba from home, a&ox4, respirations even and unlabored. pt reports multiple falls x1 week. 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 pt noted to have bilateral lower extremity edema and abrasion to left arm. neuro in tact. 18g placed in left wrist,labs obtained, nsr on tele. pt refused c collar
[2025-05-02 21:45] LABS: INTERNATIONAL NORM RATIO 1.3 (0.9-1.1); Prothrombin Time 14.5 SEC (10.9-12.4)
[2025-05-02 21:59] LABS: B Type Natriuretic Peptide 106 pg/mL (<100)
[2025-05-02 22:01] LABS: Troponin-I High Sensitivity 4.6 ng/L (<3.5-35.0)
[2025-05-02 22:02] LABS: Alanine Aminotransferase 34 U/L (0-40); Albumin Level 3.6 g/dL (3.5-5.0); Alkaline Phosphatase 101 U/L (39-117); Anion Gap 16 (12-20); Aspartate Amino Transferase 68 U/L (5-37); Blood Urea Nitrogen 9 mg/dL (9-16); Calcium 8.8 mg/dL (8.4-10.2); Carbon Dioxide 20 mmol/L (22-29); Chloride 106 mmol/L (96-108); Creatinine Clr Calc Pharmacy 127.9; Estimated Glomerular Filt Rate > 60; Potassium 2.8 mmol/L (3.3-5.1); Sodium 139 mmol/L (135-145); Total Protein 6.5 g/dL (6.5-8.0)
[2025-05-02 22:22] LABS: Magnesium 1.6 mg/dL (1.6-2.6)
[2025-05-02] MEDS: Magnesium Sulfate/H2O 2 GM/50 ML PIGGYBACK IV (22:34)
[2025-05-02] MEDS: Potassium Chloride/H20 10 MEQ/100 ML PIGGYBACK 100 MEQ IV ×2 (22:35→23:33)
[2025-05-02] MEDS: Potassium Bicarbonate/Cit AC 25 MEQ TABLET.EFF 50 MEQ PO (22:35)
--- NOTE | 2025-05-02 22:37 | ED.FALL ---
HPI - Fall General Chief Complaint: Fall Stated Complaint: ETOH w/ fall Time Seen by Provider: 05/02/25 22:00 Source: patient Mode of arrival: EMS Limitations: no limitations History of Present Illness ED Provider: HPI Narrative: Patient alcoholic with history of depression been here frequently for alcohol intoxication and frequent fall patient has says he is more depressed because his 3 years ago in his lives alone does not need any help does not want to go to detox denies any SI earlier patient fell as he said it tripped on something on the ground landed on his hand no head injury according to patient Related Data Home Medications ?Medication ?Instructions ?Recorded ?Confirmed triamcinolone acetonide 0.1 % 1 appl topical BID PRN Itching 08/29/24 01/13/25 topical ointment Previous Rx's ?Medication ?Instructions ?Recorded bed railing #1 ea 03/13/23 magnesium oxide 400 mg (241.3 mg 400 mg PO DAILY #30 tabs 09/03/24 magnesium) tablet gabapentin 300 mg capsule 300 mg PO BEDTIME 90 days #90 caps 10/02/24 metoprolol succinate 25 mg 25 mg PO DAILY #90 tabs 10/04/24 tablet,extended release 24 hr cholecalciferol (vitamin D3) 25 25 mcg PO DAILY 90 days #90 caps 10/10/24 mcg (1,000 unit) capsule fenofibrate 54 mg tablet 54 mg PO DAILY #90 tabs 10/10/24 thiamine HCl (vitamin B1) 100 mg 100 mg PO DAILY #90 tabs 10/10/24 tablet cyanocobalamin (vitamin B-12) 500 500 mcg PO DAILY 90 days #90 tabs 11/10/24 mcg tablet atorvastatin 80 mg tablet 80 mg PO DAILY #90 tabs 12/29/24 isosorbide mononitrate 30 mg 30 mg PO DAILY 90 days #90 tabs 12/31/24 tablet,extended release 24 hr folic acid 1 mg tablet 1 mg PO DAILY #90 tabs 01/07/25 pantoprazole 40 mg tablet,delayed 40 mg PO DAILY@0630 #90 tabs 01/07/25 release lorazepam 1 mg tablet 1 mg PO Q4H PRN alcohol withdrawal 01/15/25 #7 tabs oxycodone 5 mg tablet 5 mg PO Q6H PRN pain #7 tabs 01/15/25 amlodipine 10 mg tablet 10 mg PO DAILY #90 tabs 01/25/25 sertraline 50 mg tablet 50 mg PO DAILY 90 days #90 tabs 02/10/25 adult diapers pullups #120 ea 04/01/25 oxycodone-acetaminophen 5 mg-325 1 tab PO Q6H PRN pain 30 days #120 04/17/25 mg tablet tabs Allergies Allergy/AdvReac Type Severity Reaction Status Date / Time mirtazapine AdvReac Intermediate Dizziness Verified 05/02/25 21:12 Review of Systems Review of Systems: Yes all other systems are reviewed and are negative [facility] Past Medical History Medical History Fall Lumbar radiculopathy Overweight (BMI 25.0-29.9) Vitamin D deficiency Depression Mixed hyperlipidemia Hypovitaminosis D Mild recurrent major depression Tiredness Alcoholism Alcohol abuse Bilateral carotid artery stenosis Aortic valve sclerosis Atherosclerotic cardiovascular disease Essential hypertension Dyslipidemia Leukocytosis Insomnia Hx of lymphoma Smoker Aortic valve calcification ASHD (arteriosclerotic heart disease) History of CVA with residual deficit Hx of multiple pulmonary nodules CAD (coronary artery disease) Surgical History Cataracts, bilateral Hx of cardiac catheterization History of thoracic surgery H/O total shoulder replacement H/O colonoscopy Family History Family History Father Alcohol abuse Mother No problems noted. Daughter No problems noted. Son No problems noted. Sister No problems noted. Other Substance use disorder Social History Social History Household Members: None Household Members Other:: on dialysis Housing: Other Housing Other:: mobile home Are you a primary patient care coordinator to a significant other at home: No Do you presently have visiting nurse or other home services: No Alcohol intake: current Alcohol intake frequency: 3 or more drinks per day Alcohol type: beer Patient Tobacco Use Status: Current everyday Tobacco user Tobacco use type: Cigarette Cigarette Packs Per Day: 0.5 Cigarettes Per Day: 10 Years Smoked: 50+ Smoked in Last 30 Days: Yes e-Cigarette/Vaping Use: Currently Using Second Hand Smoke Exposure: No Use of substances other than those prescribed or required for medical reasons: No Advance Directives: Yes Advance Directives on File: Yes Advance Directives Date on File: 01/09/24 Do you have a plan to hurt others: No Plan service: No Current occupational status: disabled Cognitive needs: Yes Hearing needs: No Vision needs: Yes Physical Exam Vital Signs: Vital Signs: Last Vital Signs Temp 98.0 F 05/03/25 01:20 Pulse 85 05/03/25 01:20 Resp 17 05/03/25 01:20 BP 115/52 L 05/03/25 01:20 Pulse Ox 96 05/03/25 01:20 O2 Del Method Room Air 05/03/25 01:20 BMI result Body Mass Index 30.1 Appearance: Alert. Oriented X3. No acute distress. ETOH++ Eyes: PERRLA, No Nystagmus ENT: Pharynx normal. Oral Mucosa moist atraumatic normocephalic Neck: Normal inspection. Neck supple. CVS: Normal heart rate and rhythm. Pulses normal. Respiratory: No respiratory distress. Equal air entry bilateral, no wheezing/rales/rhonchi Abdomen: Soft and nontender. Bowel sounds are present, no mass palpable, no CVA tenderness Skin: Skin warm and dry. Normal skin color. Normal skin turgor. Extremities: Bilateral lower extremity edema R > L. No calf tenderness Neuro: Oriented X 3. No motor deficit. No sensory deficit.No cerebellar signs , cranial nerves II-XII intact Medications Administered Discontinued Medications Generic Name Dose Route Start Last Admin Trade Name Freq PRN Reason Stop Dose Admin Sodium Chloride 1,000 mls @ 999 mls/hr 05/02/25 22:05 05/02/25 23:33 Ns IV 05/02/25 23:05 Infused .Q1H1M ONE Infusion Magnesium Sulfate 2 gm in 50 mls @ 150 mls/hr 05/02/25 22:05 05/02/25 22:56 Magnesium Sulfate/H2o IV 05/02/25 22:24 Infused ONCE ONE Infusion Potassium Chloride 10 meq in 100 mls @ 100 mls/hr 05/02/25 22:15 05/03/25 00:58 Potassium Chloride/H20 IV 05/03/25 00:14 Infused Q1H SUSANA Infusion Potassium Bicarbonate 50 meq 05/02/25 22:05 05/02/25 22:35 Potassium Bicarbonate/Cit Ac 25 Meq Tablet.Eff PO 05/02/25 22:06 50 meq ONCE ONE Administration Medical Decision Making Medical Decision Making [facility] Narrative: Patient's mechanical fall alcohol abuse does not want any detox or help denies any SI would like will discharge him home in a.m. and sober potassium was replaced Differential Diagnosis Differential Diagnoses: The differential diagnosis associated with the presentation includes Lab Data [facility] Lab Attestation statement: I reviewed the patient's lab results. 05/02/25 21:31 05/02/25 21:31 Labs: Lab Results 05/02/25 Range/Units 21:31 WBC 13.4 H (4.8-10.8) X10*3/uL RBC 3.75 L (4.60-5.80) X10*6/uL Hgb 13.3 L (14.0-18.0) g/dl Hct 35.9 L (42.0-52.0) % MCV 95.7 (80.0-98.0) fL MCH 35.5 H (27.0-33.0) pg MCHC 37.0 H (31.0-36.0) g/dl RDW 12.5 (11.0-16.0) % Plt Count 227 (160-400) X10*3/uL MPV 9.4 (9.4-12.4) fL Immature Gran % (Auto) 0.4 (0.0-0.4) % Neut % (Auto) 62.8 (45-73) % Lymph % (Auto) 28.0 (20-40) % [place] % (Auto) 6.9 (2-11) % Eos % (Auto) 1.3 (0-4) % Baso % (Auto) 0.6 (0-2) % Lymph # (Auto) 3.7 (1.2-4.9) X10*3/uL [place] # (Auto) 0.9 (0.1-1.2) X10*3/uL Eos # (Auto) 0.2 (0.0-0.4) X10*3/uL Baso # (Auto) 0.1 (0.0-0.2) X10*3/uL Abs Immat Gran (auto) 0.06 H (0.00-0.03) X10*3/uL Absolute Neuts (auto) 8.4 H (2.0-8.3) x10*3/uL Absolute Nucleated RBC 0.000 (0.0-0.012) X10*3/uL Nucleated RBC % (auto) 0.0 (0.0-0.2) /100WBC PT 14.5 H (10.9-12.4) SEC INR 1.3 H (0.9-1.1) Sodium 139 (135-145) mmol/L Potassium 2.8 L* D (3.3-5.1) mmol/L Chloride 106 (96-108) mmol/L Carbon Dioxide 20 L (22-29) mmol/L Anion Gap 16 (12-20) BUN 9 (9-16) mg/dL Creatinine 0.64 (0.5-1.4) mg/dL Estim Creat Clear Calc 127.9 Estimated GFR > 60 Random Glucose 93 (60-115) mg/dL Calcium 8.8 (8.4-10.2) mg/dL Magnesium 1.6 (1.6-2.6) mg/dL Total Bilirubin 0.4 (0.0-1.0) mg/dL AST 68 H (5-37) U/L ALT 34 (0-40) U/L Alkaline Phosphatase 101 (39-117) U/L Total Creatine Kinase 29 L (38-174) U/L Troponin I High Sens 4.6 (<3.5-35.0) ng/L B-Natriuretic Peptide 106 H (<100) pg/mL Total Protein 6.5 (6.5-8.0) g/dL Albumin 3.6 (3.5-5.0) g/dL Ethyl Alcohol 206 mg/dL Independent Interpretation I performed an independent interpretation of an: CT Scan Radiology Impression Discussion of test interpretation with radiology: I have reviewed the radiologist's reading. Discharge Plan Discharge Clinical Impression: Alcoholism, Hypokalemia Patient Disposition: Home, Self-Care Instructions: Hypokalemia (ED), Abuse of Alcohol (ED) Additional Instructions: Stop drinking alcohol Have food containing high potassium like coconut water bananas orange juice Follow up with detox Prescriptions: No Action (DME) bed railing See Rx Instructions .Route .MEDSUPPLY Qty: 1 0RF Rx Instructions: As directed gabapentin 300 mg capsule 300 mg PO BEDTIME 90 Days Qty: 90 3RF metoprolol succinate 25 mg tablet extended release 24 hr 25 mg PO DAILY Qty: 90 2RF thiamine HCl (vitamin B1) 100 mg tablet 100 mg PO DAILY Qty: 90 0RF fenofibrate 54 mg tablet 54 mg PO DAILY Qty: 90 1RF cholecalciferol (vitamin D3) 25 mcg (1,000 unit) capsule 25 mcg PO DAILY 90 Days Qty: 90 1RF cyanocobalamin (vitamin B-12) 500 mcg tablet 500 mcg PO DAILY 90 Days Qty: 90 1RF atorvastatin 80 mg tablet 80 mg PO DAILY Qty: 90 3RF isosorbide mononitrate 30 mg tablet extended release 24 hr 30 mg PO DAILY 90 Days Qty: 90 3RF pantoprazole 40 mg tablet,delayed release (DR/EC) 40 mg PO DAILY@0630 Qty: 90 3RF folic acid 1 mg tablet 1 mg PO DAILY Qty: 90 0RF amlodipine 10 mg tablet 10 mg PO DAILY Qty: 90 3RF sertraline 50 mg tablet 50 mg PO DAILY 90 Days Qty: 90 1RF (DME) adult diapers pullups large See Rx Instructions .Route .MEDSUPPLY Qty: 120 11RF Rx Instructions: Use 4 diapers per day oxycodone-acetaminophen 5-325 mg tablet 1 tab PO Q6H PRN (Reason: pain) 30 Days Qty: 120 0RF Rx Instructions: Partial Fill upon patient request. triamcinolone acetonide 0.1 % ointment 1 appl topical BID PRN (Reason: Itching) magnesium oxide 400 mg (241.3 mg magnesium) Tablet 400 mg PO DAILY Qty: 30 0RF oxycodone 5 mg tablet 5 mg PO Q6H PRN (Reason: pain) Qty: 7 0RF Rx Instructions: Partial Fill upon patient request. lorazepam 1 mg tablet 1 mg PO Q4H PRN (Reason: alcohol withdrawal) Qty: 7 0RF Print Language: Serbian
[2025-05-03 00:53] VITALS: PULSE 88; RESP 17; O2SAT 100
[2025-05-03 01:20] VITALS: BP 115/52; PULSE 85; RESP 17; TEMP 36.7; O2SAT 96
[2025-05-03 05:25] VITALS: BP 110/78; PULSE 77; RESP 14; TEMP 36.7; O2SAT 95
[2025-05-03 05:26] VITALS: BP 110/78; PULSE 77; RESP 14; TEMP 36.7; O2SAT 95
--- NOTE | 2025-05-03 05:27 | PC.NURSE ---
pt friend at bedside for transport, pt assisted to car in wheelchair, pt able to stand and get dressed
== END 2025-05-03 05:27 | disposition home or self-care (01) ==
PROVIDERS: Emergency Provider Internal Medicine
DX: F10.20 Alcohol dependence, uncomplicated (principal); Y90.7 Blood alcohol level of 200-239 mg/100 ml; E87.6 Hypokalemia; Z79.899 Other long term (current) drug therapy; E78.5 Hyperlipidemia, unspecified; Z86.79 Personal history of other diseases of the circulatory system
CPT/HCPCS: 36415; 70450; 71045; 72125; 80053; 80307; 82550; 83735; 83880; 84484; 85025; 85610; 93005; 96361; 96365; 99285; J3475; J3480

== ENCOUNTER → 2025-05-02 21:47 | Outpatient (BNV) | payer MEDICARE, SELFPAY | PROVIDERS: Emergency Provider Internal Medicine; Visit Provider Internal Medicine Cardiovascular Disease | DX: I49.1 Atrial premature depolarization (principal); I45.10 Unspecified right bundle-branch block | CPT/HCPCS: 93010 ==

== ENCOUNTER → 2025-05-02 22:10 | Outpatient (BNV) | payer MEDICARE, SELFPAY | PROVIDERS: Emergency Provider Internal Medicine; Visit Provider Radiology Diagnostic Radiology | DX: M50.30 Other cervical disc degeneration, unspecified cervical region (principal); R90.82 White matter disease, unspecified | CPT/HCPCS: 70450; 72125 ==

== ENCOUNTER 2025-07-29 16:28 | Emergency (ER) | payer MEDICARE, SELFPAY ==
--- NOTE | ~2025-07-29 | CT_ITS ---
CLINICAL HISTORY: fall, intoxicated, neck pain, head injury CT cervical spine without contrast Comparison: CT/SR - CT CERVICAL SPINE WO IV CON - 05/02/25 22:25 EDT Findings: Motion artifact degrades some of the provided images. There is straightening of the normal cervical lordosis. Moderate multilevel cervical spine degenerative changes are present. The bones are osteopenic. Prior anterior cervical discectomy and fusion noted at C6-C7. No acute findings on limited view of the intracranial contents. No cervical fluid collections or masses. Lung apices are mostly out of the field of view. IMPRESSION: No acute findings. This document has been electronically signed by: Elliot Mathias MD, PHD on 07/30/2025 00:02:33
--- NOTE | ~2025-07-29 | CT_ITS ---
CLINICAL HISTORY: fall, head injury, intoxicated CT head without contrast Comparison: CT/SR - CT HEAD/BRAIN WO IV CON - 05/02/25 22:25 EDT Findings: No intra-axial mass, midline shift, hydrocephalus, or acute hemorrhage. Nonspecific white matter hypodensities are present with moderate volume loss. Old left periventricular white matter lacunar infarct noted. The visualized paranasal sinuses and mastoid air cells are normal. The orbits are within normal limits. No skull fracture. IMPRESSION: 1. No acute intracranial findings. This document has been electronically signed by: Elliot Mathias MD, PHD on 07/30/2025 00:05:48
[2025-07-29 16:40] VITALS: BP 140/80; PULSE 67; O2SAT 98
[2025-07-29 17:08] VITALS: BP 130/58; PULSE 73; RESP 16; TEMP 36.7; O2SAT 98; BMI 30.5
--- NOTE | 2025-07-29 17:38 | ED_ITS ---
HPI - General Adult General Chief complaint: ETOH/Substance Use Stated complaint: ETOH, SI Time Seen by Provider: 07/29/25 17:38 History of Present Illness ED Provider: Tony MARTIN narrative: The patient is a 69-year-old male with a history of alcoholism. Apparently he has been drinking quite heavily for the last 3 years after his . Apparently he was at home today. He was intoxicated. He wears a medical alert bracelet. He had a fall today. He has a medical alert button which he pushed after he fell. An ambulance picked him up and brought him to the hospital. The patient was initially extremely hostile and difficult to talk to. At 1st he seemed to imply that he might have hit his head when he fell but later he said that he had not hit his head that he would simply landed on his knees. The patient was stating that he wanted to drink himself to . Related Data Home Medications ?Medication ?Instructions ?Recorded ?Confirmed triamcinolone acetonide 0.1 % 1 appl topical BID PRN I tching 08/29/24 01/13/25 topical ointment Previous Rx's ?Medication ?Instructions ?Recorded bed railing #1 ea 03/13/23 magnesium oxide 400 mg (241.3 mg 400 mg PO DAILY #30 t abs 09/03/24 magnesium) tablet gabapentin 300 mg capsule 300 mg PO BEDTIME 90 days #9 0 caps 10/02/24 cholecalciferol (vitamin D3) 25 25 mcg PO DAILY 90 day s #90 caps 10/10/24 mcg (1,000 unit) capsule thiamine HCl (vitamin B1) 100 mg 100 mg PO DAILY #90 t abs 10/10/24 tablet atorvastatin 80 mg tablet 80 mg PO DAILY #90 tabs 03/0 01/20 isosorbide mononitrate 30 mg 30 mg PO DAILY 90 days #9 0 tabs 12/31/24 tablet,extended release 24 hr pantoprazole 40 mg tablet,delayed 40 mg PO DAILY@0630 #90 tabs 01/07/25 release lorazepam 1 mg tablet 1 mg PO Q4H PRN alcohol with drawal 01/15/25 #7 tabs oxycodone 5 mg tablet 5 mg PO Q6H PRN pain #7 tabs 01/15/25 amlodipine 10 mg tablet 10 mg PO DAILY #90 tabs 03/ 0 sertraline 50 mg tablet 50 mg PO DAILY 90 days #90 t abs 02/10/25 adult diapers pullups #120 ea 04/01/25 cyanocobalamin (vitamin B-12) 500 500 mcg PO DAILY 90 days #90 tabs 05/27/25 mcg tablet fenofibrate 54 mg tablet 54 mg PO DAILY #90 tabs 04/30 0 folic acid 1 mg tablet 1 mg PO DAILY #90 tabs 05/27 metoprolol succinate 25 mg 25 mg PO DAILY #90 tabs tablet,extended release 24 hr oxycodone-acetaminophen 5 mg-325 1 tab PO Q6H PRN pain 30 days #120 07/14/25 mg tablet tabs Allergies Allergy/AdvReac Type Severity Reaction Status Date / Time mirtazapine AdvReac Intermediate Dizziness Verified 07/29/25 17:09 Review of Systems 2 Review of Systems: Yes all other systems are reviewed and are negative [facility]LY [facility] Past Medical History Medical History Fall Lumbar radiculopathy Overweight (BMI 25.0-29.9) Vitamin D deficiency Depression Mixed hyperlipidemia Hypovitaminosis D Mild recurrent major depression Tiredness Alcoholism Alcohol abuse Bilateral carotid artery stenosis Aortic valve sclerosis Atherosclerotic cardiovascular disease Essential hypertension Dyslipidemia Leukocytosis Insomnia Hx of lymphoma Smoker Aortic valve calcification ASHD (arteriosclerotic heart disease) History of CVA with residual deficit Hx of multiple pulmonary nodules CAD (coronary artery disease) Surgical History Cataracts, bilateral Hx of cardiac catheterization History of thoracic surgery H/O total shoulder replacement H/O colonoscopy Family History Family History Father Alcohol abuse Mother No problems noted. Daughter No problems noted. Son No problems noted. Sister No problems noted. Other Substance use disorder Social History Social History Household Members: None Household Members Other:: on dialysis Housing: Other Housing Other:: mobile home Are you a primary child caregiver to a significant other at home: No Do you presently have visiting nurse or other home services: No Alcohol intake: current Alcohol intake frequency: 3 or more drinks per day Alcohol type: beer Patient Tobacco Use Status: Current everyday Tobacco user Tobacco use type: Cigarette Cigarette Packs Per Day: 0.5 Cigarettes Per Day: 10 Years Smoked: 50+ Smoked in Last 30 Days: Yes e-Cigarette/Vaping Use: Currently Using Second Hand Smoke Exposure: No Use of substances other than those prescribed or required for medical reasons: No Advance Directives: Yes Advance Directives on File: Yes Advance Directives Date on File: 01/09/24 service: No Current occupational status: disabled Cognitive needs: Yes Hearing needs: No Vision needs: Yes Physical Exam ED Vital Signs: Vital Signs - 24 hr 07/29/25 17:08 07/29/25 18:38 07/29/25 23:04 Temperature 98.1 F 98.2 F Pulse Rate 73 76 79 Respiratory Rate 16 22 H 20 Blood Pressure 130/58 L 122/58 L 119/57 L Pulse Oximetry 98 86 L 93 Oxygen Delivery Method Room Air Nasal Cannula Room Air Oxygen Flow Rate 2 07/30/25 03:00 07/30/25 04:00 07/30/25 07:05 Temperature 98.5 F 98.5 F 97.9 F Pulse Rate 74 70 71 Respiratory Rate 16 15 16 Blood Pressure 146/67 H 142/68 H 128/59 L Pulse Oximetry 95 95 94 Oxygen Delivery Method Room Air Room Air Room Air Oxygen Flow Rate BMI result Body Mass Index 30.5 Const Other: The patient is a very chronically ill-appearing 69-year-old male. Initially he was agitated and belligerent and very disruptive to the emergency room. He seemed intoxicated but not obviously injured or in distress. HENMT Other: No raccoon eyes, no hunter sign, no obvious signs of trauma to the head or the face. Mucous membranes moist. Eyes Other: Pupils are round equal, conjunctivae are clear, extraocular movements intact Neck Other: The patient was moving his neck easily but he seemed intoxicated and I did not feel I could clinically clear his neck. Resp Effort & Inspection: normal respiratory effort Auscultation: clear to auscultation bilaterally Cardio Rate: regular rate Rhythm: regular rhythm Heart sounds: S1 normal heart sound present and S2 normal heart sound present GI Other: The abdomen is soft and seems nontender. Skin Other: The patient has a lot of chronic skin changes to his extremities but no acute findings. Neuro Other: The patient was initially awake and very agitated, loud and belligerent. He seemed intoxicated. However he seemed to have equal pupils, intact extraocular movements, symmetrical face, midline tongue, and relatively clear speech. He seemed to have symmetrical strength in his extremities. No obvious focal neurological deficit. Extrem Other: Mild nonpitting peripheral edema of both lower legs. No calf asymmetry or tenderness. Psych Other: The patient was initially agitated with the belligerent demeanor. Course Course Course Narrative: 9:05 AM 07/30/2025 (Dr. Shahbaz Stoll): I, Dr. Stoll have take over the care of this patient, I reviewed pertinent blood work and imaging, re-evaluated the patient when appropriate. Reevaluation(s) Reevaluation #1: 10:23 AM 07/30/2025 (Dr. Shahbaz Stoll): Time: 10:23 Date: 07/30/25 Provider: Shahbaz Stoll DO Physician observation ended. Patient has been cleared for discharge by the CARE team. Will follow up as an outpatient. Medications Administered Generic Name Dose Route Start Last Admin Trade Name Freq PRN Reason Stop Dose Admin Oxycodone HCl 5 mg 07/29/25 23:20 07/30/25 04:44 Oxycodone Hcl Immed Release 5 Mg Tablet PO 5 mg Q6H PRN Administration Pain, Moderate(Pain Scale 4-6) Discontinued Medications Generic Name Dose Route Start Last Admin Trade Name Freq PRN Reason Stop Dose Admin Midazolam HCl 10 mg 07/29/25 17:41 07/29/25 17:49 Midazolam Hcl 5 Mg/Ml Vial IM 07/29/25 17:42 10 mg ONCE ONE Administration Nicotine 21 mg 07/29/25 20:37 07/29/25 21:15 Nicotine 21 Mg Patch.Td24 TRANSDERMA 07/29/25 20:38 21 mg ONCE ONE Administration Olanzapine 10 mg 07/29/25 17:41 07/29/25 17:49 Olanzapine 10 Mg Vial IM 07/29/25 17:42 10 mg ONCE ONE Administration Oxycodone HCl 5 mg 07/29/25 21:54 07/29/25 22:00 Oxycodone Hcl Immed Release 5 Mg Tablet PO 07/29/25 21:55 5 mg ONCE ONE Administration Medical Decision Making Medical Decision Making [facility] Narrative: The patient is a 69-year-old male who was an alcoholic who comes to the emergency room after falling at home. No obvious signs of injury although he was intoxicated and a poor historian. There was no witness to the fall. The patient was intoxicated and verbally very aggressive. He was also saying that he wanted to go home and drink himself to . He allowed us to medicate him for his agitation with the IM midazolam and olanzapine. We were able to obtain labs. His ETOH level is 163. Urine tox screen is positive for cocaine, benzodiazepines, and oxycodone. The patient is prescribed oxycodone. Clinically the patient does not seem to have obvious signs of injury. Given the lack of any witnessed to the fall he had at home and given his intoxication I have obtained a head CT and a cervical spine CT. The patient has alcohol level was somewhat elevated at 160. He was seen briefly by a member of the care team and continued to make possible suicidal statements. For this reason I think the patient should be kept in the emergency room overnight for evaluation by the care team in the morning when the patient is more sober. The patient normally takes a 5 mg oxycodone tablet 4 times a day. I will order this. The patient will be placed in physician observation pending re-evaluation by the care team in the morning when the patient is sober. I spoke to the patient's son, Lalo Napoles, who was aware that the patient is here and appreciates the patient being evaluated. Lab Data 07/29/25 17:52 07/29/25 17:52 Labs: Lab Results 07/29/25 07/29/25 Range/Units 17:52 19:47 WBC 14.2 H (4.8-10.8) X10*3/uL RBC 4.03 L (4.60-5.80) X10*6/uL Hgb 14.2 (14.0-18.0) g/dl Hct 41.0 L (42.0-52.0) % MCV 101.7 H (80.0-98.0) fL MCH 35.2 H (27.0-33.0) pg MCHC 34.6 (31.0-36.0) g/dl RDW 12.4 (11.0-16.0) % Plt Count 277 (160-400) X10*3/uL MPV 9.7 (9.4-12.4) fL Immature Gran % (Auto) 0.6 H (0.0-0.4) % Neut % (Auto) 64.2 (45-73) % Lymph % (Auto) 26.4 (20-40) % Mclean % (Auto) 6.0 (2-11) % Eos % (Auto) 2.2 (0-4) % Baso % (Auto) 0.6 (0-2) % Lymph # (Auto) 3.8 (1.2-4.9) X10*3/uL Mclean # (Auto) 0.9 (0.1-1.2) X10*3/uL Eos # (Auto) 0.3 (0.0-0.4) X10*3/uL Baso # (Auto) 0.1 (0.0-0.2) X10*3/uL Abs Immat Gran (auto) 0.09 H (0.00-0.03) X10*3/uL Absolute Neuts (auto) 9.1 H (2.0-8.3) x10*3/uL Absolute Nucleated RBC 0.000 (0.0-0.012) X10*3/uL Nucleated RBC % (auto) 0.0 (0.0-0.2) /100WBC Sodium 139 (135-145) mmol/L Potassium 3.7 D (3.3-5.1) mmol/L Chloride 109 H (96-108) mmol/L Carbon Dioxide 18 L (22-29) mmol/L Anion Gap 16 (12-20) BUN 10 (9-16) mg/dL Creatinine 0.78 (0.5-1.4) mg/dL Estim Creat Clear Calc 99.3 Estimated GFR > 60 Random Glucose 88 (60-115) mg/dL Calcium 9.5 D (8.4-10.2) mg/dL Magnesium 1.8 (1.6-2.6) mg/dL Total Bilirubin 0.3 (0.0-1.0) mg/dL AST 39 H (5-37) U/L ALT 29 (0-40) U/L Alkaline Phosphatase 72 (39-117) U/L Total Protein 7.4 (6.5-8.0) g/dL Albumin 4.5 (3.5-5.0) g/dL Urine Color Yellow Urine Appearance Clear Urine pH 6.0 (5.0-9.0) Ur Specific [place] <= 1.005 (1.005-1.025) Urine Protein Negative (Neg-Trace) mg/dL Urine Glucose (UA) Negative (Negative) mg/dL Urine Ketones Negative (Negative) mg/dL Urine Blood Negative (Negative) Urine Nitrite Negative (Negative) Ur Leukocyte Esterase Negative (Negative) Salicylates < 5.0 L (15-30) mg/dL Urine Opiates Screen Not Detected (Not Detect) Ur Buprenorphine Scrn Not Detected (Not Detect) ng/mL Ur Oxycodone Screen Positive H (Not Detect) ng/mL Urine Methadone Screen Not Detected (Not Detect) ng/mL Urine Fentanyl Screen Not Detected (Not Detect) Acetaminophen < 3 (<30) mcg/mL Ur Barbiturates Screen Not Detected (Not Detect) Ur Phencyclidine Scrn Not Detected (Not Detect) Ur Amphetamines Screen Not Detected (Not Detect) U Benzodiazepines Scrn POSITIVE H (Not Detect) Urine Cocaine Screen POSITIVE H (Not Detect) U Marijuana (THC) Screen Not Detected (Not Detect) Ethyl Alcohol 163 mg/dL Discharge Plan Discharge Clinical Impression: Alcohol intoxication, Cocaine use Patient Disposition: Home, Self-Care Additional Instructions: You were seen in our Emergency Department today for treatment of a behavioral health issue. It is important after your visit that you follow up with either your behavioral health provider or a primary care doctor within 7 days.? If you have trouble finding a therapist you can reach out to [address] [phone] The National Suicide and Crisis Lifeline can be reached 7 days a week 24 hours a day.? Call 988 to speak with someone.? Return for any worsening symptoms or concerns such as thoughts of self harm or harm to others. Please call 911 if you feel your mental health is worsening.? Alcohol use disorder You were seen in the Emergency Department today for treatment of alcohol use disorder.? You may have been given medications to help with your withdrawal symptoms.? Please do not drink alcohol with them. This is very dangerous and can cause respiratory depression or other adverse reactions depending on the medication. If you would like to cut down or stop your alcohol use please consider calling our outpatient Addiction Treatment office:? [facility] (M-F 9a-5p) [address] You have also been given a list of treatment providers in the area that can assist as well.? If you experience seizures, vomiting blood, black stools, falls, severe headache, chest pain, fevers, trouble breathing, hallucinations or any other concerns you need to call 911 or seek immediate care. Please stay hydrated. Prescriptions: No Action (DME) bed railing See Rx Instructions .Route .MEDSUPPLY Qty: 1 0RF Rx Instructions: As directed gabapentin 300 mg capsule 300 mg PO BEDTIME 90 Days Qty: 90 3RF thiamine HCl (vitamin B1) 100 mg tablet 100 mg PO DAILY Qty: 90 0RF cholecalciferol (vitamin D3) 25 mcg (1,000 unit) capsule 25 mcg PO DAILY 90 Days Qty: 90 1RF atorvastatin 80 mg tablet 80 mg PO DAILY Qty: 90 3RF isosorbide mononitrate 30 mg tablet extended release 24 hr 30 mg PO DAILY 90 Days Qty: 90 3RF pantoprazole 40 mg tablet,delayed release (DR/EC) 40 mg PO DAILY@0630 Qty: 90 3RF amlodipine 10 mg tablet 10 mg PO DAILY Qty: 90 3RF sertraline 50 mg tablet 50 mg PO DAILY 90 Days Qty: 90 1RF (DME) adult diapers pullups large See Rx Instructions .Route .MEDSUPPLY Qty: 120 11RF Rx Instructions: Use 4 diapers per day fenofibrate 54 mg tablet 54 mg PO DAILY Qty: 90 1RF cyanocobalamin (vitamin B-12) 500 mcg tablet 500 mcg PO DAILY 90 Days Qty: 90 1RF metoprolol succinate 25 mg tablet extended release 24 hr 25 mg PO DAILY Qty: 90 2RF folic acid 1 mg tablet 1 mg PO DAILY Qty: 90 0RF oxycodone-acetaminophen 5-325 mg tablet 1 tab PO Q6H PRN (Reason: pain) 30 Days Qty: 120 0RF Rx Instructions: Partial Fill upon patient request. triamcinolone acetonide 0.1 % ointment 1 appl topical BID PRN (Reason: Itching) magnesium oxide 400 mg (241.3 mg magnesium) Tablet 400 mg PO DAILY Qty: 30 0RF oxycodone 5 mg tablet 5 mg PO Q6H PRN (Reason: pain) Qty: 7 0RF Rx Instructions: Partial Fill upon patient request. lorazepam 1 mg tablet 1 mg PO Q4H PRN (Reason: alcohol withdrawal) Qty: 7 0RF Print Language: Czech
--- OUTSIDE RECORDS SUMMARY | 2025-07-29 17:47 | XMS_ITS | Clinical Summary ---
Author Organization [facility] Address [address] [place] [address] Phone Care Team Providers Care Cook Candy Name Role Phone Pcp, Unknown Primary Care Provider Unavailabl e Allergies No known active allergies Medications folic acid (FOLVITE) 1 MG tablet FOLATE (FOLIC ACID) 1MG TABLET; Dose: 1 MG; Form: Take 1 TABLET; Route: PO; Frequency: QD; Directions: Not available; Details: Duration: 90 day(s); Dispense: 90 Tablet(s); Status: Active; Source: JESSICA ESPINAL M.D.,PH.D.; Date: 11/03/2006 7 Active LORAZEPAM (ATIVAN ORAL) ATIVAN (LORAZEPAM) 0.5MG TABLET; Dose: Variable: See CMLV for Details; Form: Take 1 MG; Route: PO; Frequency: Not available; Directions: Not available; Details: Duration: 6 day(s); Dispense: 14 MG; Status: Active; Source: JESSICA ESPINAL M.D.,PH.D.; Date: 11/03/2006 7 Active ibuprofen (ADVIL,MOTRIN) 600 MG tablet MOTRIN (IBUPROFEN) 600MG TABLET; Dose: 600 MG; Form: Take 1 TABLET; Route: PO; Frequency: BID; Directions: Not available; Details: Duration: 14 day(s); Dispense: 28 Tablet(s); Status: Active; Source: JESSICA ESPINAL M.D.,PH.D.; Date: 11/03/2006 7 Active MULTIVITAMIN ORAL MULTIVITAMIN THERAPEUTIC (THERAPEUTIC MULTIVITAMINS); Dose: 1 TAB; Form: Not available; Route: PO; Frequency: QD; Directions: Not available; Details: Duration: 90 day(s); Dispense: 90 Tablet(s); Status: Active; Source: JESSICA ESPINAL M.D.,PH.D.; Date: 11/03/2006 7 Active OXYCODONE HCL (OXYCODONE ORAL) OXYCODONE 5MG TABLET; Dose: 10 MG; Form: Take 2 TABLET; Route: PO; Frequency: Q4H PRN pain; Directions: Not available; Details: Duration: 30 day(s); Dispense: 50 Tablet(s); Status: Active; Source: MANDO KAUFFMAN M.D.; Date: 03/31/2008 8 Active THIAMINE HCL ORAL THIAMINE HCL 100MG TABLET; Dose: 100 MG; Form: Take 1 TABLET; Route: PO; Frequency: QD; Directions: Not available; Details: Duration: 90 day(s); Dispense: 90 Tablet(s); Status: Active; Source: JESSICA ESPINAL M.D.,PH.D.; Date: 11/03/2006 7 Active HYDROCODONE BITARTRATE ORAL Take by mouth. Active ATORVASTATIN CALCIUM (ATORVASTATIN ORAL) Take by mouth. Activ e LISINOPRIL ORAL Take by mouth. Active Active Problems Problem Noted Date Diagnosed Date Shoulder pain 10/07/2014 Overview (12/19/2014): Shoulder pain Immunizations Immunization Administration Dates Next Due Influenza, Unspecified Formulation 10/12/2006(De ferred: Other) Pneumococcal polysaccharide PPSV23 03/23(Deferred: Other - had one year ago),10/12/2006(Deferred: Other) Family History Medical History Relation Comments Coronary artery disease Neg Hx Social History Tobacco Use Types Packs/Day Years Used Date Smoking Tobacco: Every Day Cigarettes Education Answer Date Recorded Are you interested in more education? Not on zain e 02/28/2023 Are you concerned about learning? Not on file 02/28/2023 No 02/28/2023 No 02/28/2023 Digital Access Answer Date Recorded No 03/25/2023 No 03/25/2023 No 03/25/2023 Reliable internet access at home? Not on file 03/25/2023 Device with a working camera? Not on file Sex and Gender Information Value Date Recorded Sex Assigned at Not on file Legal Sex Male 5:25 PM EST Gender Identity Not on file Sexual Orientation Not on file Last Filed Vital Signs Vital Sign Reading Time Taken Comments Blood Pressure 136/79 10/07/2014 12:45 PM EST Pulse 84 10/07/2014 12:45 PM EST Temperature 37.3 C (99.1 F) 04/12/2015 1:02 PM EDT Respiratory Rate - - Oxygen Saturation - - Inhaled Oxygen Concentration - - Weight 88.5 kg (195 lb) 04/12/2015 1:02 PM EDT Height 170.2 cm (5' 7 ) 04/12/2015 1:02 PM EDT Body Mass Index 30.54 04/12/2015 1:02 PM EDT Plan of Treatment Health Maintenance Due Date Last Done Comments CREATININE LEVEL 1956 LIPID PANEL 1956 POTASSIUM LEVEL 1956 DEPRESSION SCREENING 1968 SMOKING Hx and SMOKELESS TOBACCO SCREENING 1969 HEPATITIS C SCREENING 1974 COLOGUARD 2001 COLONOSCOPY 2001 COLORECTAL CANCER SCREENING 2001 FIT TEST 2001 FOBT 2001 SIGMOIDOSCOPY 2001 VIRTUAL COLONOSCOPY 2001 ZOSTER VACCINES (1 of 2) 2006 PNEUMOCOCCAL VACCINES (50+ years) (2 of 2 - PCV) 05/23/2018 05/23/2017 INFLUENZA VACCINE (#1) 2025 9, 06/05/2019, 12/16/2018, Additional history exists COVID-19 VACCINE (2 - season) 2025 01/12/2021 Adult Td,Tdap Booster 08/30/2026 08/30/2016, 02/09/ 008 RSV VACCINE (1 - 1-dose 75+ series) 2031 HEPATITIS A VACCINES Aged Out No long er eligible based on patient's age to complete this topic HIB VACCINES Aged Out No longer eligi ble based on patient's age to complete this topic MENINGOCOCCAL VACCINES (ACWY) Aged Out No longer eligible based on patient's age to complete this topic MENINGOCOCCAL VACCINES (B) Aged Out N o longer eligible based on patient's age to complete this topic Medical Devices Not on file Insurance [facility] Care Teams Cook Candy Relationship Specialty Start Date End Date Pcp, Unknown PCP - General 04/12/15 Additional Source Comments The information contained in this document represents components of the legal health record. It is not the complete legal health record.[facility]
[2025-07-29] MEDS: OLANZapine 10 MG VIAL IM (17:49)
--- NOTE | 2025-07-29 17:50 | PC.NURSE ---
Pt took zyprexa and versed willingly. pt was anxious and very willing to receive medication when offered by dr hudson.
[2025-07-29 17:57] LABS: Hematocrit 41.0 % (42.0-52.0); Hemoglobin 14.2 g/dl (14.0-18.0); Imm Gran Abs Auto 0.09 X10*3/uL (0.00-0.03); Imm Gran Pct Auto 0.6 % (0.0-0.4); Lymphocytes Absolute Auto 3.8 X10*3/uL (1.2-4.9); MANUAL DIFF FLAG NO; Mean Corpuscular HGB Conc 34.6 g/dl (31.0-36.0); Mean Corpuscular Hemoglobin 35.2 pg (27.0-33.0); Mean Corpuscular Volume 101.7 fL (80.0-98.0); NRBC Abs Auto 0.000 X10*3/uL (0.0-0.012); NRBC Pct Auto 0.0 /100WBC (0.0-0.2); Platelet Count 277 X10*3/uL (160-400); Red Blood Count 4.03 X10*6/uL (4.60-5.80); White Blood Count 14.2 X10*3/uL (4.8-10.8)
[2025-07-29 18:18] LABS: Acetaminophen LAB < 3 mcg/mL (<30); Alanine Aminotransferase 29 U/L (0-40); Albumin Level 4.5 g/dL (3.5-5.0); Alkaline Phosphatase 72 U/L (39-117); Anion Gap 16 (12-20); Aspartate Amino Transferase 39 U/L (5-37); Blood Urea Nitrogen 10 mg/dL (9-16); Calcium 9.5 mg/dL (8.4-10.2); Carbon Dioxide 18 mmol/L (22-29); Chloride 109 mmol/L (96-108); Creatinine Clr Calc Pharmacy 99.3; Estimated Glomerular Filt Rate > 60; Potassium 3.7 mmol/L (3.3-5.1); Salicylate < 5.0 mg/dL (15-30); Sodium 139 mmol/L (135-145); Total Protein 7.4 g/dL (6.5-8.0)
[2025-07-29 18:38] VITALS: BP 122/58; PULSE 76; RESP 22; O2SAT 86
[2025-07-29 19:14] LABS: Magnesium 1.8 mg/dL (1.6-2.6)
--- NOTE | 2025-07-29 19:41 | MHC.EDTECH ---
pt was found incontinent of urine. Sheetss changed, pericare given, new hospital gown and warm blankets given. RN made aware
[2025-07-29 19:56] LABS: Appearance Urine Clear; Glucose Urine UA Negative (Negative); PH 6.0 (5.0-9.0); Specific Gravity - Urine <= 1.005 (1.005-1.025)
[2025-07-29 20:04] LABS: Cannabinoid Screen Urine Not Detected (Not Detect)
[2025-07-29] MEDS: Nicotine 21 MG PATCH.TD24 TRANSDERMA (21:15)
[2025-07-29] MEDS: oxyCODONE HCl Immed Release 5 MG TABLET PO (22:00)
[2025-07-29 23:04] VITALS: BP 119/57; PULSE 79; RESP 20; TEMP 36.8; O2SAT 93
[2025-07-30 03:00] VITALS: BP 146/67; PULSE 74; RESP 16; TEMP 36.9; O2SAT 95
[2025-07-30 04:00] VITALS: BP 142/68; PULSE 70; RESP 15; TEMP 36.9; O2SAT 95
[2025-07-30] MEDS: oxyCODONE HCl Immed Release 5 MG TABLET PO (04:44)
[2025-07-30 07:05] VITALS: BP 128/59; PULSE 71; RESP 16; TEMP 36.6; O2SAT 94
[2025-07-30 10:45] VITALS: BP 144/67; PULSE 81; RESP 16; TEMP 36.8; O2SAT 95
--- NOTE | 2025-07-30 16:24 | PC.NURSE ---
family arrived to ED ~ 1130, pt discharged w belongings.
== END 2025-07-30 11:30 | disposition home or self-care (01) ==
PROVIDERS: Physician Assistant Medical; Emergency Provider Emergency Medicine
DX: F10.129 Alcohol abuse with intoxication, unspecified (principal); Y90.6 Blood alcohol level of 120-199 mg/100 ml; F14.90 Cocaine use, unspecified, uncomplicated; S09.90XA Unspecified injury of head, initial encounter; W19.XXXA Unspecified fall, initial encounter; Y93.9 Activity, unspecified; Y92.9 Unspecified place or not applicable; Y99.9 Unspecified external cause status; M54.2 Cervicalgia; Z79.899 Other long term (current) drug therapy
CPT/HCPCS: 36415; 70450; 72125; 80053; 80143; 80179; 80307; 81003; 83735; 85025; 96372; 99285; J2250; J2359; S9485

== ENCOUNTER → 2025-07-29 20:39 | Outpatient (BNV) | payer MEDICARE, SELFPAY | PROVIDERS: Emergency Provider Emergency Medicine; Visit Provider General Practice | DX: M54.2 Cervicalgia (principal); S09.90XA Unspecified injury of head, initial encounter; F10.929 Alcohol use, unspecified with intoxication, unspecified; W19.XXXA Unspecified fall, initial encounter | CPT/HCPCS: 70450; 72125 ==

== ENCOUNTER 2025-08-04 15:20 | Outpatient (AMB) | payer MEDICARE, MEDICAID, SELFPAY ==
--- NOTE | 2025-08-04 15:41 | MHC.PC.OV ---
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 Accompanied by: Self / Same As Patient Allergies mirtazapine Adverse Reaction (Intermediate, Verified 08/04/25 16:06) Dizziness Medication List - Last Reconciled 08/04/25 by Mayda Jeffries MD [adult diapers pullups Use 4 diapers per day] amlodipine 10 mg PO DAILY atorvastatin 80 mg PO DAILY [bed railing As directed] cholecalciferol (vitamin D3) 25 mcg PO DAILY 90 days cyanocobalamin (vitamin B-12) 500 mcg PO DAILY 90 days fenofibrate 54 mg PO DAILY folic acid 1 mg PO DAILY gabapentin 300 mg PO BEDTIME 90 days isosorbide mononitrate ER 30 mg PO DAILY 90 days lorazepam 1 mg PO Q4H PRN magnesium oxide 400 mg PO DAILY metoprolol succinate ER 25 mg PO DAILY oxycodone 5 mg PO Q6H PRN oxycodone-acetaminophen 5-325 mg 1 tab PO Q6H PRN 30 days pantoprazole 40 mg PO DAILY@0630 sertraline 50 mg PO DAILY 90 days thiamine HCl (vitamin B1) 100 mg PO DAILY triamcinolone acetonide 0.1% 1 appl topical BID PRN Tobacco use date assessed: 08/04/25 Fall risk assessment: 2 + Falls in past year Last assessed Fall Risk: 08/04/25 Dental Screening Dental Screen Date: 08/04/25 Did you have a dental visit in the last 12 months?: No Did you have a dental problem in the last 6 months where you did not have access to dental care?: No Was dental information given to patient?: No HPI HPI Comments History of Present Illness Details The patient is a 69-year-old male presenting with depression, substance use issues, and incontinence. The patient reports a history of depression, which has been exacerbated by the loss of his three years ago and a lack of activities at home, leading to increased smoking and alcohol consumption. He has been prescribed medications for depression, but they have not been effective, and he is considering visiting his sister in [place] for a change of environment. The patient admits to consuming more than a pack of cigarettes daily and drinking alcohol, including beer and David Powell, which he acknowledges is not beneficial for his health. He also reports a recent positive test for cocaine, which he attributes to a friend's influence, and he is currently prescribed oxycodone, which he finds ineffective for pain management. Oxycodone will be discontinue due to this matter. The patient experiences urinary and fecal incontinence, for which he uses diapers. He is allergic to mirtazapine, which causes dizziness, and he is on multiple medications including atorvastatin, vitamin D, vitamin B12, folic acid, gabapentin, magnesium, and metoprolol. BP well controlled. [facility] Medical History (Updated 08/04/25 @ 16:36 by Mayda Jeffries MD) Fall Lumbar radiculopathy Overweight (BMI 25.0-29.9) Vitamin D deficiency Depression Mixed hyperlipidemia Hypovitaminosis D Mild recurrent major depression Tiredness Alcoholism Alcohol abuse Bilateral carotid artery stenosis Aortic valve sclerosis Atherosclerotic cardiovascular disease Essential hypertension Dyslipidemia Leukocytosis Insomnia Hx of lymphoma Smoker Aortic valve calcification ASHD (arteriosclerotic heart disease) History of CVA with residual deficit Hx of multiple pulmonary nodules CAD (coronary artery disease) Surgical History Cataracts, bilateral Hx of cardiac catheterization History of thoracic surgery H/O total shoulder replacement H/O colonoscopy Family History Father Alcohol abuse Mother No problems noted. Daughter No problems noted. Son No problems noted. Sister No problems noted. Other Substance use disorder Social History Household Members: None Household Members Other:: on dialysis Housing: Other Housing Other:: mobile home Are you a primary behavioral health care coordinator to a significant other at home: No Do you presently have visiting nurse or other home services: No Alcohol intake: current Alcohol intake frequency: 3 or more drinks per day Alcohol type: beer Patient Tobacco Use Status: Current everyday Tobacco user Tobacco use type: Cigarette Cigarette Packs Per Day: 2 Cigarettes Per Day: 40 Years Smoked: 50+ e-Cigarette/Vaping Use: Never Used Second Hand Smoke Exposure: No Advance Directives Date on File: 01/09/24 service: No Current occupational status: disabled Cognitive needs: Yes Hearing needs: No Vision needs: Yes Questionnaire PHQ-9 Over the last 2 weeks, how often have you been bothered by any of the following problems? 1. Little interest or pleasure in doing things: nearly every day 2. Feeling down, depressed, or hopeless: nearly every day 3. Trouble falling or staying asleep, or sleeping too much: nearly every day 4. Feeling tired or having little energy: nearly every day 5. Poor appetite or overeating: nearly every day 6. Feeling bad about yourself - or that you are a failure or have let yourself or your family down: not at all 7. Trouble concentrating on things, such as reading the newspaper or watching television: more than half the days 8. Moving or speaking so slowly that other people could have noticed. Or the opposite - being so fidgety or restless that you have been moving around a lot more than usual: several days 9. Thoughts that you would be better off or of hurting yourself in some way: more than half the days Total score: 20 Depression Screening Interpretation: Positive (no suicidal thoughts) Depression Screening Follow-up: Existing condition and Follow-up Visit Requested Depression Screening Done: Yes 42687 - PHQ-9 Billing: Yes Source: Developed by Drs. Rufus Lewis, Aretha Resendiz, Kelby Tompkins and colleagues, with an educational aide from [employer]. Thrive Questionnaire Date Thrive assessed: 11/17/24 I am a: Patient What is your living situation today?: I have a steady place to live Within the past 12 months, did the food you bought not last and you didn't have the money to get more?: Never true Within the past 12 months, did you worry whether your food would run out before you got money to buy more?: Never true Do you have trouble paying for medicines?: No Do you have trouble getting transportation to medical appointments?: No Do you have trouble paying your heating and electricity bill?: No Do you have trouble taking care of your child, family member or friend?: No Do you have trouble with day-to-day activities such as bathing, preparing meals, shopping, managing finances, etc.?: Yes Are you currently unemployed and looking for a job?: Yes Are you interested in more education?: No Please select the resources that you would like help with: None Currently or been in a relationship where the following occur: No concerns reported THRIVE Score: 0 AUDIT C Alcohol Use Questionnaire (AUDIT-C) 1. How often do you have a drink containing alcohol?: 4 or more times a week 2. How many drinks containing alcohol do you have on a typical day when you are drinking?: 5 or 6 3. How often do you have six or more drinks on one occasion?: Daily or almost daily Total Score: 10 MATTHIAS-7 AMB Questionnaire MATTHIAS-7 Date MATTHIAS - 7 assessed: 11/17/24 Feeling nervous, anxious, or on edge: 0 = Not at all Not being able to stop or control worryin = Nearly every day Worrying too much about different things: 3 = Nearly every day Trouble relaxin = Nearly every day Being so restless that it is hard to sit still: 3 = Nearly every day Becoming easily annoyed or irritable: 2 = More than half the days Feeling afraid as if something awful might happen: 0 = Not at all Total MATTHIAS-7 score (0-4 normal; 5-9 mild; 10-14 moderate; 15-21 severe): 14 Source: Developed by Drs. Rufus Lewis, Aretha Resendiz, Kelby Tompkins and colleagues, with an educational aide from [employer]. MATTHIAS-7 Assessment Billing MATTHIAS-7 Assessment Tool: MATTHIAS-7 Assessment 07488 Review of Systems Const All systems reviewed & are unremarkable except as noted in HPI and below Card Denies chest pain at rest, Denies chest pain with activity, Denies edema, Denies irregular heart rhythm, Denies claudication, Denies dyspnea, Denies dyspnea on exertion, Denies orthopnea, Denies paroxysmal nocturnal dyspnea and Denies slow heart rate Resp Denies cough, Denies dyspnea and Denies dyspnea on exertion Physical exam (Primary Care) Vital Signs: Last Vital Signs Temp 97.1 F 08/04/25 15:42 Pulse 85 08/04/25 15:42 BP 132/78 08/04/25 15:42 Pulse Ox 98 08/04/25 15:42 Oxygen Delivery Method Room Air 08/04/25 15:42 BMI result Body Mass Index 30.1 BMI Assessment/Plan discussion: High BMI High, discussed plan: lifestyle, weight reduction, dietary and physical activity Tobacco/Smoking Status: Tobacco use Status Tobacco use date assessed 08/04/25 08/04/25 15:47 Patient Tobacco Use Status Current everyday Tobacco 08/04/25 15:47 Tobacco use type Cigarette 08/04/25 15:47 e-Cigarette/Vaping Use Never Used 08/04/25 15:47 PHQ-9: PHQ-9 Score PHQ-9: Total score 08/04/25 16:10 Depression Screening Interpretation: Positive (no suicidal thoughts) Depression Screening Follow-up: Existing condition and Follow-up Visit Requested Thrive Assessment: Date of Thrive Assessment Date Thrive assessed 11/17/24 08/04/25 15:47 Currently or been in a relationship where the following occur: No concerns reported Resp Effort & Inspection: normal respiratory effort Auscultation: clear to auscultation bilaterally Cardio Jugular venous distension: no JVD Rate: regular rate Rhythm: regular rhythm Heart sounds: S1 normal heart sound present and S2 normal heart sound present Extrem General: Yes full ROM Coding Level of Care Code Est Pt Level 4 (41908) Complex EM visit Add On G2211 Diagnoses Alcoholism F10.20 Severe recurrent major depression without psychotic features F33.2 Essential hypertension I10 Mixed hyperlipidemia E78.2 Cocaine use Opiate use Additional Codes MATTHIAS-7 Assessment Billing - MATTHIAS-7 Assessment Tool: MATTHIAS-7 Assessment 07530 ([id number]) PHQ-9 - 20909 - PHQ-9 Billing: Yes ([id number]) Time Spent (min) 21 Assessment & Plan Assessment & Plan (1) Alcoholism: Code(s): F10.20 - Alcohol dependence, uncomplicated Category: Medical (2) Severe recurrent major depression without psychotic features: Code(s): F33.2 - Major depressive disorder, recurrent severe without psychotic features Category: Medical (3) Essential hypertension: Code(s): I10 - Essential (primary) hypertension Category: Medical (4) Mixed hyperlipidemia: Code(s): E78.2 - Mixed hyperlipidemia Category: Medical (5) Cocaine use: Code(s): F14.90 - Cocaine use, unspecified, uncomplicated Category: Social Hx (6) Opiate use: Code(s): F11.90 - Opioid use, unspecified, uncomplicated Category: Medical Plan Plan Patient was informed and verbally consented to the use of an ambient scribe for clinic note documentation during this visit. 1. Depression The patient has been experiencing depression, exacerbated by the loss of his and lack of activities at home. He has been prescribed medications, but they have not been effective. A new medication for depression will be prescribed for 30 days to assess its effectiveness. 2. Alcohol Use Disorder The patient consumes beer and David Powell daily, acknowledging the negative impact on his health. Discussion about reducing alcohol intake and potential referral for support was considered but deferred due to upcoming travel plans. 3. Tobacco Use Disorder The patient smokes more than a pack of cigarettes daily, which is a concern for his overall health. Smoking cessation was not actively pursued during this visit. 4. Urinary And Fecal Incontinence The patient experiences urinary and fecal incontinence, managed with the use of diapers. Medications: Refilled sertraline 50 mg PO DAILY 90 tabs 1RF 90 days Discontinued oxycodone-acetaminophen 5-325 mg Partial Fill upon patient request. Discontinued Reason: Patient Completed Course 1 tab PO Q6H 30 days PRN 120 tabs 0RF pain fenofibrate Discontinued Reason: Patient Completed Course 54 mg PO DAILY 90 tabs 1RF
[2025-08-04 15:42] VITALS: BP 132/78; PULSE 85; TEMP 36.2; O2SAT 98; BMI 30.1
--- OUTSIDE RECORDS SUMMARY | 2025-08-04 18:33 | XMS_ITS | Clinical Summary ---
Author Organization [facility] Address [address] [place] [address] Phone Care Team Providers Care Dispatcher Automobile Rental Name Role Phone Pcp, Unknown Primary Care [...] topic Medical Devices Not on file Insurance [facility] Care Teams Dispatcher Automobile Rental Relationship Specialty Start Date End Date Pcp, Unknown PCP - General 04/12/15 Additional Source Comments The information contained in this document represents components of the legal health record. It is not the complete legal health record.[facility]
== END 2025-08-04 16:20 | disposition home or self-care (01) ==
LOC: HO.HMCH 15:21
PROVIDERS: PCP Internal Medicine; Visit Provider Internal Medicine
DX: F10.20 Alcohol dependence, uncomplicated (principal); F33.2 Major depressive disorder, recurrent severe without psychotic features; I10 Essential (primary) hypertension; E78.2 Mixed hyperlipidemia; F14.90 Cocaine use, unspecified, uncomplicated; F11.90 Opioid use, unspecified, uncomplicated

== ENCOUNTER → 2025-08-04 15:20 | Outpatient (BNVA) | payer MEDICARE, MEDICAID, SELFPAY | PROVIDERS: PCP Internal Medicine; Visit Provider Internal Medicine | DX: I10 Essential (primary) hypertension (principal); F17.210 Nicotine dependence, cigarettes, uncomplicated; R32 Unspecified urinary incontinence; R15.9 Full incontinence of feces; F10.20 Alcohol dependence, uncomplicated; F33.2 Major depressive disorder, recurrent severe without psychotic features; E78.2 Mixed hyperlipidemia; F14.90 Cocaine use, unspecified, uncomplicated; F11.90 Opioid use, unspecified, uncomplicated; Z63.4 Disappearance and death of family member | CPT/HCPCS: 96127; 99212 ==